=== PATIENT | female | born 1995 | race Caucasian/White ===

== ENCOUNTER 2020-01-16 15:34 | Outpatient (REF) | payer OTHER, SELFPAY | END 2020-01-16 15:35 | disposition home or self-care (01) | LOC: HO.LAB 15:34 | PROVIDERS: PCP Internal Medicine; Visit Provider Internal Medicine | DX: Z20.828 Contact with and (suspected) exposure to other viral communicable diseases (principal) | CPT/HCPCS: C9803; U0003 ==

== ENCOUNTER → 2020-03-18 15:51 | Outpatient (BNVA) | payer OTHER, MEDICAID, SELFPAY | PROVIDERS: PCP Internal Medicine; Visit Provider Surgery | DX: Z76.89 Persons encountering health services in other specified circumstances (principal) ==

== ENCOUNTER 2020-04-01 13:06 | Outpatient (REF) | payer OTHER, SELFPAY ==
--- NOTE | 2020-04-01 | US_ITS ---
EXAMINATION: US DIAGNOSTIC ULTRASOUND BREAST, RIGHT CLINICAL INFORMATION: Probable fibroadenoma for follow-up imaging 8:00 right breast. Prior history biopsy proven acellular juvenile fibroadenoma 11:00 position slightly increased in size. COMPARISON: Targeted ultrasound 09/02/2019. TECHNIQUE: Ultrasound right breast is targeted to both lesions. Grayscale imaging and color Doppler are performed without and with harmonics. FINDINGS: The probable fibroadenoma 8:00 position 6 cm from nipple is unchanged in size and contour, measuring 1.6 x 1.2 x 0.6 cm. Prior measurements are 1.7 x 1.3 x 0.6 cm on targeted ultrasound 09/02/2019. Margins are circumscribed and mildly macrolobulated. No increased or decreased through transmission of sound. The biopsy-proven acellular juvenile fibroadenoma 11:00 position 6 cm from nipple measures 4.0 x 3.7 x 2.0 cm. This is unchanged in size from prior ultrasound 09/02/2019, also measuring 4.0 x 3.7 x 2.0 cm on that exam. Measurements on outside ultrasound report [facility] 07/25/2013 was 2.8 x 2.7 x 1.4 cm. Results are discussed with the patient at time of visit. Management plan is to continue with serial follow-up, next to in 6 months. US/US breast RT limited IMPRESSION: 1. Probable fibroadenoma 8:00 position stable in size from prior studies 09/02/2019. 2. Biopsy-proven acellular juvenile fibroadenoma 11:00 position unchanged in size from 09/02/2019. ASSESSMENT: BI-RADS 3: Probably Benign RECOMMENDATION: Targeted right breast ultrasound in 6 months.
== END 2020-04-01 13:07 | disposition home or self-care (01) ==
LOC: HO.MAMMO 13:06
PROVIDERS: PCP Internal Medicine; Visit Provider Surgery
DX: D24.1 Benign neoplasm of right breast (principal)
CPT/HCPCS: 76642

== ENCOUNTER 2020-04-17 16:38 | Outpatient (REF) | payer OTHER, SELFPAY | END 2020-04-17 16:39 | disposition home or self-care (01) | LOC: HO.LAB 16:38 | PROVIDERS: Visit Provider Internal Medicine | DX: Z20.822 Contact with and (suspected) exposure to COVID-19 (principal) | CPT/HCPCS: 36415; C9803; U0003; U0005 ==

== ENCOUNTER 2020-07-06 14:27 | Outpatient (REF) | payer OTHER, SELFPAY ==
[2020-07-06 16:38] LABS: Hematocrit 37.1 % (37-47)
[2020-07-06 16:59] LABS: Alanine Aminotransferase 34 U/L (0-31); Albumin Level 4.1 g/dL (3.5-5.0); Alkaline Phosphatase 65 U/L (39-117); Anion Gap 10 (12-20); Aspartate Amino Transferase 28 U/L (5-31); Bilirubin Total 1.6 mg/dL (0.0-1.0); Blood Urea Nitrogen 13 mg/dL (9-16); Calcium 9.2 mg/dL (8.4-10.2); Carbon Dioxide 27 mmol/L (22-29); Chloride 105 mmol/L (96-108); Estimated Glomerular Filt Rate > 60; Glucose Random 73 mg/dL (60-115); Potassium 3.9 mmol/L (3.3-5.1); Sodium 138 mmol/L (135-145)
[2020-07-06 17:22] LABS: Ferritin 34 ng/mL (10-122); TSH reflex Free T4 0.52 uIU/mL (0.32-4.0)
[2020-07-06 17:30] LABS: Vitamin B12 781 pg/mL (200-900)
[2020-07-11 15:12] LABS: Vitamin D 25-OH, D2 <4 ng/mL; Vitamin D 25-OH, D3 35 ng/mL; Vitamin D 25-OH, Total 35 ng/mL (30-100)
== END 2020-07-06 14:28 | disposition home or self-care (01) ==
LOC: HO.HMGCLDS 14:27
PROVIDERS: PCP Internal Medicine; Visit Provider Internal Medicine
DX: E55.9 Vitamin D deficiency, unspecified (principal); L65.9 Nonscarring hair loss, unspecified; R53.83 Other fatigue; R79.89 Other specified abnormal findings of blood chemistry
CPT/HCPCS: 36415; 80053; 82306; 82607; 82728; 82746; 84443; 85014; 85018

== ENCOUNTER 2020-07-13 10:56 | Outpatient (REF) | payer OTHER, SELFPAY ==
[2020-07-13 14:56] LABS: Ferritin 31 ng/mL (10-122)
[2020-07-15 08:02] LABS: HBc Num1 0.13 S/CO (0.00-0.79); HBsAGNum1 0.24 S/CO (0.00-0.99); Hepatitis B Core Antibody Nonreactive (Nonreactive); Hepatitis B Surface Antigen Negative (Negative); ~Hepatitis B Surface Antibody NONREACTIVE (Nonreactive)
[2020-07-15 08:25] LABS: ~HepC Num1 0.12 S/CO (0.00-0.79); ~Hepatitis A Antibody IgM Nonreactive (Nonreactive); ~Hepatitis C Antibody Nonreactive (Nonreactive)
[2020-07-15 12:44] LABS: Venous Lead <1 mcg/dL (<5)
[2020-07-16 18:37] LABS: Alpha 1 Anti-trypsin 145 mg/dL (83-199); Ceruloplasmin 30 mg/dL (18-53)
== END 2020-07-13 10:57 | disposition home or self-care (01) ==
LOC: HO.HMGCLDS 10:56
PROVIDERS: PCP Internal Medicine; Visit Provider Internal Medicine
DX: R79.89 Other specified abnormal findings of blood chemistry (principal)
CPT/HCPCS: 36415; 82103; 82390; 82728; 83655; 86704; 86706; 86709; 86803; 87340

== ENCOUNTER 2020-11-23 14:25 | Outpatient (REF) | payer OTHER, SELFPAY ==
--- NOTE | ~2020-11-23 | US_ITS ---
EXAMINATION: US DIAGNOSTIC BREAST, RIGHT CLINICAL INFORMATION: Benign neoplasm right breast. Eight o'clock probable fibroadenoma. Eleven o'clock proven stable juvenile fibroadenoma. COMPARISON: 04/01/2020 and studies dating back to 08/01/2013. TECHNIQUE: Ultrasound of the breast is performed with real-time romeo scale imaging and color Doppler. FINDINGS: No new suspicious finding is identified. At the 8 o'clock position, approximately 6 cm from the nipple, there is again seen to be a well-circumscribed hypoechoic mass with some distal sound enhancement and small amount of internal vascularity. The lesion measures 1.6 x 0.7 x 1.2 cm in size. The lesion is wider than it is tall. At the 11 o'clock position, 3 cm from the nipple, there is a 3.4 x 2.4 x 3.7 cm lesion in size. It is again noted to have some internal vascularity and there are some regions of enhancement as well as sound shadowing. The margins are lobular. The lesion is wider than it is tall. Results are discussed with the patient at time of visit. US/US breast RT limited IMPRESSION: Stable appearance of right breast lesions. One year follow up ultrasound of the right breast is recommended. ASSESSMENT: BI-RADS 3: Probably Benign. RECOMMENDATION: 12 month follow up right breast ultrasound. This patient's information was entered into a reminder system with a target due date for their next mammogram.
== END 2020-11-23 14:26 | disposition home or self-care (01) ==
LOC: HO.MAMMO 14:25
PROVIDERS: PCP Internal Medicine; Visit Provider Internal Medicine
DX: N63.13 Unspecified lump in the right breast, lower outer quadrant (principal); D24.1 Benign neoplasm of right breast
CPT/HCPCS: 76642

== ENCOUNTER → 2021-03-16 15:18 | Outpatient (BNVA) | payer OTHER, SELFPAY | PROVIDERS: PCP Internal Medicine; Referring Provider Internal Medicine; Visit Provider Surgery ==

== ENCOUNTER 2021-07-09 13:01 | Outpatient (REF) | payer OTHER, SELFPAY ==
--- NOTE | ~2021-07-09 | XR_ITS ---
EXAMINATION: RIGHT SHOULDER AND RIGHT ANKLE. CLINICAL INFORMATION: Pain. COMPARISON: None TECHNIQUE: 3 views right ankle and 4 views right shoulder. FINDINGS: Right shoulder: There is no visible acute fracture, dislocation or subluxation. No bony erosive changes seen. The soft tissues are normal. Right ankle: The ankle mortise and subtalar joints are normal. No visible acute fracture or dislocation seen. No bony erosive changes. There is a small bone fragment tip of lateral malleolus from old injury. XR/XR ankle RT 2V IMPRESSION: Unremarkable right shoulder. No acute fracture or dislocation right ankle. Old fracture fragment tip of lateral malleolus.
--- NOTE | ~2021-07-09 | XR_ITS ---
EXAMINATION: RIGHT SHOULDER AND RIGHT ANKLE. CLINICAL INFORMATION: Pain. COMPARISON: None TECHNIQUE: 3 views right ankle and 4 views right shoulder. FINDINGS: Right shoulder: There is no visible acute fracture, dislocation or subluxation. No bony erosive changes seen. The soft tissues are normal. Right ankle: The ankle mortise and subtalar joints are normal. No visible acute fracture or dislocation seen. No bony erosive changes. There is a small bone fragment tip of lateral malleolus from old injury. XR/XR shoulder RT min 2V IMPRESSION: Unremarkable right shoulder. No acute fracture or dislocation right ankle. Old fracture fragment tip of lateral malleolus.
== END 2021-07-09 13:02 | disposition home or self-care (01) ==
LOC: HO.XRAY 13:01
PROVIDERS: PCP Internal Medicine; Visit Provider Internal Medicine
DX: M25.511 Pain in right shoulder (principal); M25.571 Pain in right ankle and joints of right foot
CPT/HCPCS: 73030; 73600

== ENCOUNTER 2022-08-08 04:18 | Emergency (ER) | payer OTHER, SELFPAY ==
[2022-08-08 04:38] VITALS: BP 107/70; PULSE 76; O2SAT 100
[2022-08-08 04:46] VITALS: BP 106/66; PULSE 70; RESP 18; TEMP 36.4; O2SAT 99; BMI 29.3
--- OUTSIDE RECORDS SUMMARY | 2022-08-08 05:54 | XMS_ITS | Continuity of Care Document ---
Author Name Unknown Organization [facility] Address [address] [place] [phone]- Care Team Providers Care Soil Conservationist Name Role Phone Isabell De Leon NP Primary Care Physician Encounter [facility] Date(s): 10/09/20 - 11/08/20 [facility] [address] [place] [phone]- Allergies, Adverse Reactions, Alerts Substance Reaction Severity Status NKA Active Problem List Condition Effective Dates Status Health Status Inform ant Breast mass in female(Confirmed) Active
--- OUTSIDE RECORDS SUMMARY | 2022-08-08 05:54 | XMS_ITS | Continuity of Care Document ---
Author Name Unknown Organization [facility] Address [address] [place] [phone]- Care Team Providers Care Physical Geographer Name Role Phone Brendan Chavez MD, Jessica Ronquillo Primary Care Physician [phone] Encounter [facility] Date(s): 10/09/20 - 12/19/20 [facility] [address] [place] [address]- Attending Physician: Navi Rodrigues MD Admitting Physician: Navi Rodrigues MD Referring Physician: Isabell De Leon NP Allergies, Adverse Reactions, Alerts Substance Reaction Severity Status NKA Active Problem List Condition Effective Dates Status Health Status Inform ant Breast mass in female(Confirmed) Active
--- OUTSIDE RECORDS SUMMARY | 2022-08-08 05:54 | XMS_ITS | Continuity of Care Document ---
Author Name Unknown Organization [facility] Address [address] [place] [phone]- Care Team Providers Care Director Radio News Name Role Phone Isabell De Leon NP Primary Care Physician [phone] Encounter [facility] Date(s): 09/30/20 - 10/30/20 [facility] [address] [place] [phone]- Allergies, Adverse Reactions, Alerts Substance Reaction Severity Status NKA Active Problem List Condition Effective Dates Status Health Status Inform ant Breast mass in female(Confirmed) Active
--- NOTE | 2022-08-08 07:06 | ED.EXTPRO ---
HPI - Extremity Problem General Chief complaint: Extremity Problem Stated complaint: tingling sensation on left hand Time Seen by Provider: 08/08/22 06:32 Source: patient, RN notes reviewed and old records reviewed Mode of arrival: ambulatory History of Present Illness HPI Narrative: 26-year-old female with a past medical history depression, presenting to the ED complaining of left hand discomfort/tingling and feeling pop after massaging hand around 04:00AM. Admits tingling extends to the wrist on plantar aspect. Denies direct injury, fall, crush, weakness, headache, vision change/loss, CP/SOB, new or worsening neck/shoulder pain, fever MD Complaint: extremity pain Related Data Home Medications Medication Instructions Recorded Confirmed fluoxetine 20 mg capsule 20 mg PO DAILY 03/16/21 06/06/22 hydroxyzine pamoate 25 mg capsule 25 mg PO BID PRN anxiety 06/01/21 06/06/22 albuterol sulfate 90 mcg/actuation 2 puff inhalation QID PRN wheezing 06/06/22 06/06/22 aerosol inhaler (Ventolin HFA) Allergies Allergy/AdvReac Type Severity Reaction Status Date / Time No Known Allergies Allergy Verified 06/06/22 17:36 Review of Systems Review of Systems: Constitutional: No Fever, No Chills ENT/Mouth: No Ear Pain, No Nasal Congestion, No sore throat, No Rhinorrhea, No Swallowing Difficulty Cardiovascular: No Chest Pain, No SOB Respiratory: No Cough, No Sputum, No Wheezing Gastrointestinal: No Nausea, No Vomiting, No Abdominal pain Genitourinary: No Dysuria, No Urinary Frequency Musculoskeletal: No joint pain, No Myalgias, +Joint Swelling Skin: No Skin Lesions, No rash Neuro: No Weakness, No Numbness, +Paresthesias Yes all other systems are reviewed and are negative Constitutional: Constitutional: Reports as per HPI Neurologic: Denies Sensory deficit (Neuro) [facility] Past Medical History Attestation statement: The following information was validated with the patient. Source: old records reviewed Medical History Fibroadenoma of right breast Mild recurrent major depression Physical exam Polyarthralgia Right ankle pain Right shoulder pain Surgical History No pertinent past surgical history Family History Family History Father Hypertension Mother No problems noted. Maternal Grandfather Diabetes mellitus Maternal Grandmother Diabetes mellitus Brother Depression Family/Other Substance use disorder Mental health disorder Social History Social History Housing: House Alcohol intake: current Alcohol intake frequency: a few times a month Alcohol type: wine Patient Tobacco Use Status: Never used Tobacco e-Cigarette/Vaping Use: Never Used Second Hand Smoke Exposure: No Advance Directives: No Advance Directives Information Provided: No service: No Current occupational status: employed Current occupational exposures/hazards: No Cognitive needs: No Hearing needs: No Vision needs: No Physical Exam Vital Signs: Vital Signs: Last Vital Signs Temp 97.6 F 08/08/22 04:46 Pulse 70 08/08/22 04:46 Resp 18 08/08/22 04:46 BP 106/66 08/08/22 04:46 Pulse Ox 99 08/08/22 04:46 O2 Del Method Room Air 08/08/22 04:46 BMI result Body Mass Index 29.3 Const: General: cooperative, healthy appearing and no acute distress Orientation/consciousness: patient oriented x3 Limitations: no limitations HEENT: Head: Yes normal to inspection and Yes atraumatic Ears: hearing grossly normal bilaterally General nose exam: Normal external nose present Face and sinus: Yes normal facial exam Eyes: General: appearance normal, both eyes and all related structures EOM: EOMs intact bilaterally Neck: Neck: Yes normal visual inspection and Yes no meningeal signs Resp: Effort & Inspection: normal respiratory effort and no respiratory distress Cardio: Rate: regular rate Peripheral pulses: Peripheral pulses 2+ throughout Back/Spine/Pelvis: Other: No midline cervical/thoracic/lumbar spinous tenderness/step-off or deformity Skin: Rashes: no rashes Wounds: no wounds Neuro: General: patient oriented x3, tone normal, moves all extremities, no meningeal signs and no focal motor deficits Gait exam (Neuro): Normal gait present Motor exam (neuro): 5/5 motor strength present throughout Sensory Exam: No Sensory deficit (Neuro) Extrem: Other: Mild swelling to left 2nd-3rd MCP, no erythema/ecchymosis. Neurovascularly intact, sensation intact to light touch. Distal pulses intact. Cap refill WNL. FROM intact, strength WNL, negative Phalen's and Tinel's sign. Finger to thumb opposition intact Medical Decision Making Medical Decision Making MDM Narrative: 26-year-old female with a past medical history depression, presenting to the ED complaining of left hand discomfort/tingling and feeling pop after massaging hand around 04:00AM. On exam vital signs stable, NAD, nontoxic appearing, physical exam as noted above left hand with focal swelling between 2nd and 3rd MCP without overlying erythema/warmth or crepitus. Mildly tender. Neurovascularly intact, distal pulses intact. No midline spinous tenderness were appreciable weakness, no focal deficits. Concern for possible contusion vs popped blood vessel. No evidence of infection, no upper extremity edema, low suspicion for DVT. Low concern for cervical dissection/radiculopathy/cord compression. Lower concern for carpal tunnel Plan: PCP follow-up Results discussed with patient including worrisome signs and symptoms and strict return precautions, and when to return to the emergency department. They verbalized understanding and feel safe for discharge at this time. Differential Diagnosis Differential Diagnoses: The differential diagnosis associated with the presentation includes As above External Record Review External record reviewed: Inpatient record, Office record, Outpatient record, Prior outpatient labs, Prior outpatient radiology, Primary care record and Outside ED record Tests considered The following testing was considered but not selected: As above Discharge Plan Discharge Clinical Impression: Hand tingling Patient Disposition: Home, Self-Care Instructions: Paresthesia (ED) Additional Instructions: Take Tylenol/ Motrin at home Ice painful area Please have close follow-up with her doctor If tingling/numbness persists, progresses, you have headache, vision change or loss, chest pain, shortness of breath or weakness return to the ED Prescriptions: No Action albuterol sulfate [Ventolin HFA] 90 mcg/actuation HFA aerosol inhaler 2 puff inhalation QID PRN (Reason: wheezing) hydroxyzine pamoate 25 mg capsule 25 mg PO BID PRN (Reason: anxiety) fluoxetine 20 mg capsule 20 mg PO DAILY Referrals: Jessica Gutierrez MD [Primary Care Provider] -
== END 2022-08-08 08:05 | disposition home or self-care (01) ==
PROVIDERS: Emergency Provider Emergency Medicine; PCP Internal Medicine
DX: R20.2 Paresthesia of skin (principal); Z79.899 Other long term (current) drug therapy
CPT/HCPCS: 99282

== ENCOUNTER 2022-08-29 14:13 | Outpatient (REF) | payer OTHER, SELFPAY ==
[2022-08-29 16:19] LABS: Alanine Aminotransferase 16 U/L (0-31); Albumin Level 4.2 g/dL (3.5-5.0); Alkaline Phosphatase 70 U/L (39-117); Anion Gap 13 (12-20); Aspartate Amino Transferase 20 U/L (5-31); Bilirubin Total 3.8 mg/dL (0.0-1.0); Blood Urea Nitrogen 11 mg/dL (9-16); Calcium 9.4 mg/dL (8.4-10.2); Carbon Dioxide 24 mmol/L (22-29); Chloride 105 mmol/L (96-108); Cholesterol 210 mg/dL; Estimated Glomerular Filt Rate > 60; Glucose Fasting 75 mg/dL (60-99); HDL Cholesterol 39 mg/dL; LDL Cholesterol Calculated 151 mg/dl; Potassium 3.7 mmol/L (3.3-5.1); Sodium 138 mmol/L (135-145); Total Protein 7.2 g/dL (6.5-8.0); Triglycerides 101 mg/dL
== END 2022-08-29 14:14 | disposition home or self-care (01) ==
LOC: HO.LAB 14:13
PROVIDERS: PCP Internal Medicine; Visit Provider Internal Medicine
DX: Z00.00 Encounter for general adult medical examination without abnormal findings (principal)
CPT/HCPCS: 36415; 80053; 80061

== ENCOUNTER 2022-10-31 11:05 | Outpatient (AMB) | payer OTHER, SELFPAY ==
--- NOTE | 2022-10-31 11:09 | MHC.OFFVIS ---
Intake Vital Signs 10/31/22 11:12 Height 5 ft 2 in Weight 149 lb BMI 27.2 BP 124/70 Blood Pressure Location Lt brachial Position Sitting Pulse 88 Intake Visit Reasons: Other disorders of bilirubin metabolism Intake Note: Patient new consult for disorders of bilirubin metabolism. Patient cc: abdominal bloating, diarrhea and denies any other GI issues. Coverage Specialist Rn Required: No Accompanied by: Self / Same As Patient Allergies No Known Allergies Allergy (Verified 10/31/22 11:09) Medication List - Last Reconciled 10/31/22 by Elvi Molina PA-C albuterol sulfate 90 mcg/actuation (Ventolin HFA) 2 puffs inhalation QID PRN fluoxetine 20 mg PO DAILY hydroxyzine pamoate 25 mg PO BID PRN HPI HPI Comments History of Present Illness Details 27-year-old female referred with elevated bilirubin normal liver enzymes- She thinks she has IBS- certain foods give her diarrhea- bloating-of loose stools, Going to [place] to see specialist for r/o Rachelle garcia Dx with Sclera derma- Dr. 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 Maternal Grandfather Diabetes mellitus Maternal Grandmother Diabetes mellitus Brother Depression Family/Other Substance use disorder Mental health disorder Social History Housing: House Alcohol intake: current Alcohol intake frequency: a few times a month Alcohol type: wine Patient Tobacco Use Status: Never used Tobacco e-Cigarette/Vaping Use: Never Used Second Hand Smoke Exposure: No service: No Current occupational status: employed Current occupational exposures/hazards: No Cognitive needs: No Hearing needs: No Vision needs: No Female Reproductive History Menstrual Age of Menarche: 14 Review of Systems Const All systems reviewed & are unremarkable except as noted in HPI and below Card Denies chest pain and Denies dyspnea Resp Denies dyspnea GI Reports loose stools Physical Exam Vital Signs: Last Vital Signs Pulse 88 10/31/22 11:12 BP 124/70 10/31/22 11:12 BMI result Body Mass Index 27.2 Const General: cooperative and comfortable Orientation/consciousness: patient oriented x3 Limitations: no limitations Eyes Conjunctivae: conjunctivae normal Resp Effort & Inspection: normal respiratory effort and able to speak in complete sentences Auscultation: clear to auscultation bilaterally, no rales, no rhonchi and no wheezes Cardio Rate: regular rate Rhythm: regular rhythm Heart sounds: S1 normal heart sound present and S2 normal heart sound present GI Palpation (GI): Soft to palpation and nontender Auscultation: normal bowel sounds Skin General skin exam: no rashes or lesions noted Neuro General: patient oriented x3 Psych Appearance: grossly normal and well kempt Mental Status: mental status grossly normal Speech and movement: Normal speech and movement present and Clear speech present Affect: normal affect Attitude: cooperative Thought process: Normal thought process present Thought content: Normal thought content present Insight: Good insight present (Psych) Judgement: Good judgement present (Psych) Assessment & Plan Assessment & Plan (1) Acquired hyperbilirubinemia: Comment: Likely [place]-may have overlapping syndrome Reviewed previous labs-with Dr. Overton Will get labs as well as stool studies Code(s): E80.6 - Other disorders of bilirubin metabolism (2) Loose stools: Comment: Stool sincere Celiac markers Code(s): R19.5 - Other fecal abnormalities (3) Hx of infectious mononucleosis: Comment: r/o EBV Code(s): Z86.19 - Personal history of other infectious and parasitic diseases Plan: Follow-up labs Plan Labs, stool study, Orders: Orders Bilirubin Direct 10/31/22 E80.6 - Other disorders of bilirubin metabolism Hepatitis A,B,C Profile 10/31/22 R79.89 - Other specified abnormal findings of blood chemistry Calprotectin, Fecal 10/31/22 R19.7 - Diarrhea, unspecified C Reactive Protein 10/31/22 E80.6 - Other disorders of bilirubin metabolism, R19.5 - Other fecal abnormalities Endomysial IgA rflx Titer 10/31/22 E80.6 - Other disorders of bilirubin metabolism, R19.5 - Other fecal abnormalities Transglutaminase IgA 10/31/22 R19.7 - Diarrhea, unspecified EBV DNA QL PCR 10/31/22 Z86.19 - Personal history of other infectious and parasitic diseases Patient Instructions: Very pleasant 27-year-old female referred with hyperbilirumanemia-normal liver enzymes- She will have follow-up labs as well as to stool studies She will follow back Dr. Overton available in the office for consult-she agrees with the plan Encouraged to call questions or concerns Appreciate the opportunity assist in the care this pleasant patient Coding Level of Care Code New Pt Level 4 (78486) Diagnoses Acquired hyperbilirubinemia E80.6 Loose stools R19.5 Hx of infectious mononucleosis Z86.19 Time Spent (min) 30
[2022-10-31 11:12] VITALS: BP 124/70; PULSE 88; BMI 27.2
== END 2022-10-31 11:51 | disposition home or self-care (01) ==
PROVIDERS: PCP Internal Medicine; Visit Provider Physician Assistant
DX: E80.6 Other disorders of bilirubin metabolism (principal); R19.5 Other fecal abnormalities; Z86.19 Personal history of other infectious and parasitic diseases
CPT/HCPCS: 99204

== ENCOUNTER → 2022-10-31 11:05 | Outpatient (BNVA) | payer OTHER, SELFPAY | PROVIDERS: PCP Internal Medicine; Visit Provider Physician Assistant | DX: E80.6 Other disorders of bilirubin metabolism (principal); R19.5 Other fecal abnormalities; Z86.19 Personal history of other infectious and parasitic diseases | CPT/HCPCS: 99202 ==

== ENCOUNTER 2022-12-19 15:17 | Outpatient (REF) | payer OTHER, SELFPAY ==
[2022-12-19 17:50] LABS: Bilirubin Direct 0.4 mg/dL (0.0-0.5); C Reactive Protein < 0.04 mg/dL (< or = 0.50)
[2022-12-20 07:53] LABS: HBS Num1 0.84 mIU/mL (0-7.99); HBc Num1 0.08 S/CO (0.00-0.79); HBsAGNum1 0.35 S/CO (0.00-0.99); Hepatitis A Antibody IgM 0.18 Index (0-0.79); Hepatitis B Core Antibody Nonreactive (Nonreactive); Hepatitis B Surface Antigen Negative (Negative); ~HepC Num1 0.05 S/CO (0.00-0.79); ~Hepatitis A Antibody IgM Nonreactive (Nonreactive); ~Hepatitis B Surface Antibody NONREACTIVE (Nonreactive); ~Hepatitis C Antibody Nonreactive (Nonreactive)
[2022-12-20 19:59] LABS: Transglutaminase IgA <1.0 U/mL
[2022-12-22 07:38] LABS: EBV DNA PCR Not Detected (Not Detected); EBV Source Whole Blood
[2022-12-24 12:09] LABS: Endomysial IgA Antibody Negative (Negative)
== END 2022-12-19 15:18 | disposition home or self-care (01) ==
LOC: HO.LAB 15:17
PROVIDERS: PCP Internal Medicine; Visit Provider Physician Assistant
DX: E80.6 Other disorders of bilirubin metabolism (principal); R19.5 Other fecal abnormalities; R19.7 Diarrhea, unspecified; R79.89 Other specified abnormal findings of blood chemistry; Z86.19 Personal history of other infectious and parasitic diseases
CPT/HCPCS: 36415; 82248; 86140; 86231; 86364; 86704; 86706; 86709; 86803; 87340; 87798

== ENCOUNTER 2023-03-16 16:54 | Outpatient (REF) | payer OTHER, SELFPAY ==
[2023-03-23 18:59] LABS: Calprotectin, Fecal 14 mcg/g
== END 2023-03-16 16:55 | disposition home or self-care (01) ==
LOC: HO.LNP 16:54
PROVIDERS: Visit Provider Physician Assistant
DX: R19.7 Diarrhea, unspecified (principal)
CPT/HCPCS: 83993

== ENCOUNTER 2023-03-20 13:05 | Outpatient (AMB) | payer OTHER, SELFPAY ==
--- NOTE | 2023-03-20 13:07 | A.OFFVIS_ITS ---
Intake Vital Signs 03/20/23 13:09 Height 5 ft 2 in Weight 162 lb BMI 29.6 BP 122/64 Blood Pressure Location Lt brachial Position Sitting Pulse 89 Intake Visit Reasons: 3 week follow up Intake Note: Liss presents in the office as a 3 week follow up. CC: She states that she is having issues with her stomach and her bowel movements. Sometimes there is blood when she has a BM. Spar Cap Beveler Required: No Allergies naproxen Allergy (Mild, Verified 03/20/23 13:12) gi upset Seasonal Allergies Allergy (Mild, Verified 03/20/23 13:12) Runny Nose HPI HPI Comments History of Present Illness Details 27-year-old female last seen in October-w as to follow up a day Dr. Overton available for consult- she said she had to reschedule several times due to her schedule She continues to have abdominal cramping with bloating stool. Dysphagia hear tburn overall disrupted GI Nausea no vomiting hematemesis, fever chills Recap from October IBS- certain foods give her diarrhea- bloating-of loose stools,Going to [place] to see specialist for r/o Rachelle garcia Dx seeing them in @/2023 Sclera derma- Dr. 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 she had a Barium, swallow @ [facility] showing mild dysmotility-she has some dysphagia- - has heartburn-feels like food sticks in the esophagus when she swallows Abdominal cramping loose stools, feels unsettled No fevers or chills Recently seen by Rheumatology [facility] Medical History (Updated 03/21/23 @ 12:21 by Elvi Molina PA-C) Hx of infectious mononucleosis Right ankle pain Right shoulder pain Polyarthralgia Physical exam Mild recurrent major depression Fibroadenoma of right breast Surgical History No pertinent past surgical history Family History Father Hypertension Mother No problems noted. Maternal Grandfather Diabetes mellitus Maternal Grandmother Diabetes mellitus Brother Depression Family/Other Substance use disorder Mental health disorder Social History Housing: House Alcohol intake: current Alcohol intake frequency: a few times a month Alcohol type: wine Patient Tobacco Use Status: Never used Tobacco e-Cigarette/Vaping Use: Never Used Second Hand Smoke Exposure: No service: No Current occupational status: employed Current occupational exposures/hazards: No Cognitive needs: No Hearing needs: No Vision needs: No Female Reproductive History Menstrual Age of Menarche: 14 Review of Systems Const All systems reviewed & are unremarkable except as noted in HPI and below Card Denies chest pain and Denies dyspnea Resp Denies dyspnea GI Reports abdominal pain, Reports GI cramping, Reports dyspepsia, Reports heartburn, Reports loose stools, Denies nausea and Denies vomiting Physical Exam Vital Signs: Last Vital Signs Pulse 89 03/20/23 13:09 BP 122/64 03/20/23 13:09 BMI result Body Mass Index 29.6 Const General: cooperative, healthy appearing, comfortable, no acute distress and well groomed Orientation/consciousness: patient oriented x3 Limitations: no limitations Eyes Conjunctivae: conjunctivae normal Resp Effort & Inspection: normal respiratory effort and able to speak in complete sentences Skin General skin exam: no rashes or lesions noted Neuro General: patient oriented x3 Extrem General: Yes full ROM Psych Appearance: grossly normal and well kempt Mental Status: mental status grossly normal Speech and movement: Normal speech and movement present and Clear speech present Affect: normal affect and Labile affect present Attitude: cooperative Thought process: Normal thought process present Thought content: Normal thought content present Insight: Good insight present (Psych) Judgement: Good judgement present (Psych) Assessment & Plan Assessment & Plan (1) LFT elevation: Comment: Repeat bilirubin Code(s): R79.89 - Other specified abnormal findings of blood chemistry (2) Loose stools: Comment: Stool sincere-normal Celiac markers negative Code(s): R19.5 - Other fecal abnormalities (3) Dysphagia: Comment: Raynaud's Ehler danlos Code(s): R13.10 - Dysphagia, unspecified Plan EGD/ colon- EDUIN- REQUESTED-ESTABLISHED MiraLax Gatorade reviewed literature given Follow-up with Dr. Overton after procedure Recheck bili Orders: Orders EDG - GI Use Only 03/20/23 M34.9 - Systemic sclerosis, unspecified Comprehensive Met. Panel 03/20/23 K58.9 - Irritable bowel syndrome without diarrhea Bilirubin Direct 03/20/23 R79.89 - Other specified abnormal findings of blood chemistry EGD/Acworth Combo - GI Use Only Today R13.10 - Dysphagia, unspecified, R19.5 - Other fecal abnormalities, R79.89 - Other specified abnormal findings of blood chemistry Medications: New bisacodyl (Dulcolax (bisacodyl)) Day before procedure, prep day Take 4 tablets by mouth upon awakening followed by large glass of water 20 mg (4 x 5 mg) PO ONCE 4 tabs 0RF colonoscopy prep 1 day Z12.11 - Encounter for screening for malignant neoplasm of colon polyethylene glycol 3350 (Miralax) Take as directed by mouth the day before your procedure. 238 grams PO ONCE 2 38 grams 0RF laxative effect 1 day pantoprazole 20 mg PO QAM 30 tabs 6RF Patient Instructions: Very pleasant 27-year-old female-dysphagia, loose stools abdominal cramping- Continued follow-up Tyro leora garcia Schedule EGD colonoscopy with Dr. Overton, in which she will follow-up with him after procedures. Discussed procedures, rare risks, need for escorted due to anesthesia MiraLax Gatorade prep reviewed literature given Encouraged to call with any questions or concerns Appreciate the opportunity assist care this very pleasant patient Coding Level of Care Code Est Pt Level 4 (17191) Diagnoses LFT elevation R79.89 Loose stools R19.5 Dysphagia R13.10 Time Spent (min) 35
[2023-03-20 13:09] VITALS: BP 122/64; PULSE 89; BMI 29.6
== END 2023-03-20 15:04 | disposition home or self-care (01) ==
PROVIDERS: PCP Internal Medicine; Visit Provider Physician Assistant
DX: R79.89 Other specified abnormal findings of blood chemistry (principal); R19.5 Other fecal abnormalities; R13.10 Dysphagia, unspecified
CPT/HCPCS: 99214

== ENCOUNTER → 2023-03-20 13:05 | Outpatient (BNVA) | payer OTHER, SELFPAY | PROVIDERS: PCP Internal Medicine; Visit Provider Physician Assistant | DX: R79.89 Other specified abnormal findings of blood chemistry (principal); R19.5 Other fecal abnormalities; R13.10 Dysphagia, unspecified | CPT/HCPCS: 99212 ==

== ENCOUNTER 2023-06-13 17:11 | Outpatient (AMB) | payer OTHER, SELFPAY ==
[2023-06-13 17:27] VITALS: BP 110/68; BMI 28.7
--- NOTE | 2023-06-13 17:27 | A.OFFPC_ITS ---
Vital Signs 06/13/23 17:27 Height 5 ft 2 in Weight 157 lb BMI 28.7 BP 110/68 Blood Pressure Location Lt brachial Position Sitting Intake Visit Reasons: Annual PE Intake Note: Patient here for an annual physical exam Cloth Grader Required: No Accompanied by: Self / Same As Patient Allergies naproxen Allergy (Mild, Verified 06/13/23 17:30) gi upset Seasonal Allergies Allergy (Mild, Verified 06/13/23 17:30) Runny Nose Tobacco use date assessed: 06/13/23 Dental Screening Dental Screen Date: 06/13/23 Did you have a dental visit in the last 12 months?: No Did you have a dental problem in the last 6 months where you did not have access to dental care?: No Was dental information given to patient?: Patient has dentist HPI HPI Comments History of Present Illness Details This is a 27-year-old female that comes for her physical exam. She has mild recurrent major depression stable with fluoxetine. Pap smears are up-to- date as per patient. Denies chest pain or shortness of breath. Complains of fatigue and tiredness. [facility] Medical History Hx of infectious mononucleosis Right ankle pain Right shoulder pain Polyarthralgia Physical exam Mild recurrent major depression Fibroadenoma of right breast Surgical History No pertinent past surgical history Family History Father Hypertension Mother No problems noted. Maternal Grandfather Diabetes mellitus Maternal Grandmother Diabetes mellitus Brother Depression Family/Other Substance use disorder Mental health disorder Social History Housing: House Alcohol intake: current Alcohol intake frequency: a few times a month Alcohol type: wine Patient Tobacco Use Status: Never used Tobacco e-Cigarette/Vaping Use: Never Used Second Hand Smoke Exposure: No service: No Current occupational status: employed Current occupational exposures/hazards: No Cognitive needs: No Hearing needs: No Vision needs: No Female Reproductive History Menstrual Age of Menarche: 14 Questionnaire PHQ-9 Over the last 2 weeks, how often have you been bothered by any of the following problems? 1. Little interest or pleasure in doing things: not at all 2. Feeling down, depressed, or hopeless: several days 3. Trouble falling or staying asleep, or sleeping too much: not at all 4. Feeling tired or having little energy: not at all 5. Poor appetite or overeating: not at all 6. Feeling bad about yourself - or that you are a failure or have let yourself or your family down: not at all 7. Trouble concentrating on things, such as reading the newspaper or watching television: not at all 8. Moving or speaking so slowly that other people could have noticed. Or the opposite - being so fidgety or restless that you have been moving around a lot more than usual: not at all 9. Thoughts that you would be better off or of hurting yourself in some way: not at all Total score: 1 Depression Screening Interpretation: Negative Depression Screening Done: Yes 72015 - PHQ-9 Billing: Yes Source: Developed by Drs. Yung Robertson, Shahida Meyer, James White and colleagues, with an educational arjun from [employer]. Thrive Questionnaire Date Thrive assessed: 06/13/23 I am a: Patient What is your living situation today?: I have a steady place to live Within the past 12 months, did the food you bought not last and you didn't have the money to get more?: Never true Within the past 12 months, did you worry whether your food would run out before you got money to buy more?: Never true Do you have trouble paying for medicines?: No Do you have trouble getting transportation to medical appointments?: No Do you have trouble paying your heating and electricity bill?: No Do you have trouble taking care of your child, family member or friend?: No Do you have trouble with day-to-day activities such as bathing, preparing meals, shopping, managing finances, etc.?: No Are you currently unemployed and looking for a job?: No Are you interested in more education?: No Please select the resources that you would like help with: None Currently or been in a relationship where the following occur: no concerns reported THRIVE Score: 0 AUDIT C Alcohol Use Questionnaire (AUDIT-C) 1. How often do you have a drink containing alcohol?: Monthly or less 2. How many drinks containing alcohol do you have on a typical day when you are drinking?: 1 or 2 3. How often do you have six or more drinks on one occasion?: Never Total Score: 1 SERGO-7 AMB Questionnaire SERGO-7 Date SERGO - 7 assessed: 06/13/23 Feeling nervous, anxious, or on edge: 1 = Several days Not being able to stop or control worryin = Not at all Worrying too much about different things: 0 = Not at all Trouble relaxin = Not at all Being so restless that it is hard to sit still: 0 = Not at all Becoming easily annoyed or irritable: 0 = Not at all Feeling afraid as if something awful might happen: 0 = Not at all Total SERGO-7 score (0-4 normal; 5-9 mild; 10-14 moderate; 15-21 severe): 1 Source: Developed by Drs. Yung Robertson, Shahida Meyer, James White and colleagues, with an educational arjun from [employer]. Review of Systems Const All systems reviewed & are unremarkable except as noted in HPI and below Eyes Reports no additional complaints, Denies change in vision and Denies other visual disturbances Card Denies chest pain at rest, Denies chest pain with activity, Denies edema, Denies irregular heart rhythm, Denies claudication, Denies dyspnea, Denies dyspnea on exertion, Denies orthopnea, Denies paroxysmal nocturnal dyspnea and Denies slow heart rate Resp Denies cough, Denies dyspnea and Denies dyspnea on exertion GI Denies abdominal pain, Denies change in bowel habits, Denies excessive flatus, Denies nausea and Denies vomiting Denies urinary incontinence, Denies urinary hesitancy and Denies urinary urgency Physical exam (Primary Care) Vital Signs: Last Vital Signs BP 110/68 06/13/23 17:27 BMI result Body Mass Index 28.7 Tobacco/Smoking Status: Tobacco use Status Tobacco use date assessed 06/13/23 06/13/23 17:34 Patient Tobacco Use Status Never used Tobacco 06/13/23 17:34 e-Cigarette/Vaping Use Never Used 06/13/23 17:34 PHQ-9: PHQ-9 Score PHQ-9: Total score 1 06/13/23 17:45 Depression Screening Interpretation: Negative Thrive Assessment: Date of Thrive Assessment Date Thrive assessed 06/13/23 06/13/23 17:34 Currently or been in a relationship where the following occur: no concerns reported Const Orientation/consciousness: patient oriented x3 [facility] Head: Yes normal to inspection, Yes normocephalic and Yes atraumatic Ears: external ears normal Eyes General: appearance normal, both eyes and all related structures Eyelids: Yes eyelids normal Conjunctivae: conjunctivae normal Neck Neck: Yes normal visual inspection and Yes supple Resp Effort & Inspection: normal respiratory effort Auscultation: clear to auscultation bilaterally Cardio Jugular venous distension: no JVD Rate: regular rate Rhythm: regular rhythm Heart sounds: S1 normal heart sound present and S2 normal heart sound present GI Inspection: Yes normal to inspection Palpation (GI): Soft to palpation and nontender Auscultation: normal bowel sounds Skin General skin exam: no rashes or lesions noted Neuro General: patient oriented x3 and no focal motor deficits Extrem General: Yes full ROM Psych Appearance: grossly normal Assessment and Plan Assessment & Plan (1) Physical exam: Code(s): Z00.00 - Encounter for general adult medical examination without abnormal findings Plan: Repeat in a year. (2) Mild recurrent major depression: Code(s): F33.0 - Major depressive disorder, recurrent, mild Plan: Continue fluoxetine. Orders: Orders Lipid Panel Today Z00.00 - Encounter for general adult medical examination without abnormal findings Vitamin D 25-OH Total Today E55.9 - Vitamin D deficiency, unspecified Complete Blood Count Auto Diff Today R53.83 - Other fatigue Thyroid Stimulating Hormone Today R53.83 - Other fatigue Comprehensive [place]. Panel Fast Today Z00.00 - Encounter for general adult medical examination without abnormal findings Vitamin B12 and Folate Today R53.83 - Other fatigue Coding Level of Care Code Est Pt Prev Care 18-39y(95435) Diagnoses Physical exam Z00.00 Mild recurrent major depression F33.0 Time Spent (min) 32
== END 2023-06-13 17:52 | disposition home or self-care (01) ==
PROVIDERS: Visit Provider Internal Medicine
DX: Z00.00 Encounter for general adult medical examination without abnormal findings (principal); F33.0 Major depressive disorder, recurrent, mild
CPT/HCPCS: 99395

== ENCOUNTER 2023-06-23 09:22 | Outpatient (REF) | payer OTHER, SELFPAY ==
[2023-06-23 09:36] LABS: MANUAL DIFF FLAG NO
[2023-06-23 10:21] LABS: Basophils Absolute Auto 0.1 X10*3/uL (0.0-0.2); Basophils Percent Auto 0.6 % (0-2); Eosinophils Absolute Auto 0.2 X10*3/uL (0.0-0.4); Hematocrit 37.6 % (37.0-47.0); Hemoglobin 12.4 g/dl (12.0-16.0); Imm Gran Abs Auto 0.02 X10*3/uL (0.00-0.03); Imm Gran Pct Auto 0.2 % (0.0-0.4); Lymphocytes Absolute Auto 3.2 X10*3/uL (1.2-4.9); Mean Corpuscular Hemoglobin 27.7 pg (27.0-33.0); Mean Corpuscular Volume 83.9 fL (80.0-98.0); Monocytes Absolute Auto 0.9 X10*3/uL (0.1-1.2); Monocytes Percent Auto 11.4 % (2-11); Neutrophils Absolute Auto 3.8 x10*3/uL (2.0-8.3); Neutrophils Percent Auto 46.8 % (45-73); Platelet Count 312 X10*3/uL (160-400); Red Blood Count 4.48 X10*6/uL (4.20-5.50); Red Cell Distribution Width 11.5 % (11.0-16.0); White Blood Count 8.2 X10*3/uL (4.8-10.8)
[2023-06-23 11:13] LABS: Alanine Aminotransferase 27 U/L (0-31); Albumin Level 4.1 g/dL (3.5-5.0); Alkaline Phosphatase 66 U/L (39-117); Anion Gap 11 (12-20); Aspartate Amino Transferase 29 U/L (5-31); Bilirubin Total 2.4 mg/dL (0.0-1.0); Blood Urea Nitrogen 9 mg/dL (9-16); Carbon Dioxide 25 mmol/L (22-29); Chloride 106 mmol/L (96-108); Cholesterol 187 mg/dL (<200); Estimated Glomerular Filt Rate > 60; Glucose Fasting 79 mg/dL (60-99); HDL Cholesterol 38 mg/dL (>40); LDL Cholesterol Calculated 134 mg/dL (<100); Potassium 3.5 mmol/L (3.3-5.1); Sodium 138 mmol/L (135-145); Triglycerides 75 mg/dL (<150)
[2023-06-23 11:32] LABS: Thyroid Stimulating Hormone 0.49 uIU/mL (0.32-4.0); Vitamin D 25-OH Total 25.4 ng/mL (>30)
[2023-06-23 20:13] LABS: Folate 18.5 ng/mL (> or = 4.0)
[2023-06-25 00:51] LABS: Vitamin B12 565 pg/mL (200-900)
== END 2023-06-23 09:23 | disposition home or self-care (01) ==
LOC: HO.LAB 09:22
PROVIDERS: PCP Internal Medicine; Visit Provider Internal Medicine
DX: Z00.00 Encounter for general adult medical examination without abnormal findings (principal); Z13.6 Encounter for screening for cardiovascular disorders; E55.9 Vitamin D deficiency, unspecified; R53.83 Other fatigue
CPT/HCPCS: 36415; 80053; 80061; 82306; 82607; 82746; 84443; 85025

== ENCOUNTER 2023-07-05 09:01 | Day surgery (SDC) | payer OTHER, SELFPAY ==
--- NOTE | 2023-07-04 08:47 | HO.ANESPROP2 ---
Documented by User: Ada Sheppard NP 07/04/23 08:48 HPI - Anesthesia Eval Consult details Narrative: 27yo F for Upper Endoscopy and Colonoscopy PMFSH Active Problems Active Problems: All Active Problems Scoliosis (Acute) Rash (Acute) Headache (Acute) Pelvic pain (Acute) Dysphagia (Acute) Scleroderma (Acute) Hx of infectious mononucleosis (Acute) Loose stools (Acute) Acquired hyperbilirubinemia (Acute) Right ankle pain (Acute) Right shoulder pain (Acute) Polyarthralgia (Acute) Physical exam (Acute) Mild recurrent major depression (Acute) Vitamin D deficiency (Acute) LFT elevation (Acute) Feeling tired (Acute) Falling hair (Acute) Fibroadenoma of right breast (Acute) Past Medical History Medical History (Updated 06/17/23 @ 13:19 by Jessica Chavez MD) Hx of infectious mononucleosis Right ankle pain Right shoulder pain Polyarthralgia Physical exam Mild recurrent major depression Fibroadenoma of right breast Family History Family History Father Hypertension Mother No problems noted. Maternal Grandfather Diabetes mellitus Maternal Grandmother Diabetes mellitus Brother Depression Family/Other Substance use disorder Mental health disorder Surgical History Surgical History (Updated 07/05/23 @ 10:23 by Concha Carmichael RN) H/O breast biopsy No pertinent past surgical history Social History Social History Housing: House Alcohol intake: current Alcohol intake frequency: a few times a month Alcohol type: wine Patient Tobacco Use Status: Never used Tobacco e-Cigarette/Vaping Use: Never Used Second Hand Smoke Exposure: No Use of substances other than those prescribed or required for medical reasons: Yes Are you DNR?: No Advance Directives: No Advance Directives Information Provided: Yes service: No Current occupational status: employed Current occupational exposures/hazards: No Cognitive needs: No Hearing needs: No Vision needs: No Meds Allergies Allergy/AdvReac Type Severity Reaction Status Date / Time naproxen Allergy Mild gi upset Verified 06/13/23 17:30 Seasonal Allergies Allergy Mild Runny Nose Verified 06/13/23 17:30 Home Medications ?Medication ?Instructions ?Recorded ?Confirmed ?Last Taken ?Type fluoxetine 20 mg capsule 20 mg PO DAILY 03/16/21 10/31/22 Unknown History hydroxyzine pamoate 25 mg capsule 25 mg PO BID PRN anxiety 06/01/21 10/31/22 Unknown History albuterol sulfate 90 mcg/actuation 2 puff inhalation QID PRN wheezing 06/06/22 10/31/22 Unknown History aerosol inhaler (Ventolin HFA) fluticasone furoate 200 1 ea inhalation DAILY 06/13/23 Unknown History mcg-vilanterol 25 mcg/dose inhalation powder (Breo Ellipta) lisdexamfetamine 10 mg capsule 10 mg PO QAM 06/13/23 Unknown History (Vyvanse) Assessment and Plan Assessment Anesthesia Assessment: Chart Reviewed Documented by User: Aleta Sierra MD 07/05/23 11:39 [facility] Past Medical History Medical History (Updated 06/17/23 @ 13:19 by Jessica Chavez MD) Hx of infectious mononucleosis Right ankle pain Right shoulder pain Polyarthralgia Physical exam Mild recurrent major depression Fibroadenoma of right breast Family History Family History Father Hypertension Mother No problems noted. Maternal Grandfather Diabetes mellitus Maternal Grandmother Diabetes mellitus Brother Depression Family/Other Substance use disorder Mental health disorder Family history of problems with anesthesia: No Surgical History Surgical History (Updated 07/05/23 @ 10:23 by Concha Carmichael RN) H/O breast biopsy No pertinent past surgical history History of Problems with Anesthesia: No Social History Social History Housing: House Alcohol intake: current Alcohol intake frequency: a few times a month Alcohol type: wine Patient Tobacco Use Status: Never used Tobacco e-Cigarette/Vaping Use: Never Used Second Hand Smoke Exposure: No Use of substances other than those prescribed or required for medical reasons: Yes Are you DNR?: No Advance Directives: No Advance Directives Information Provided: Yes service: No Current occupational status: employed Current occupational exposures/hazards: No Cognitive needs: No Hearing needs: No Vision needs: No Meds Allergies Allergy/AdvReac Type Severity Reaction Status Date / Time naproxen Allergy Mild gi upset Verified 06/13/23 17:30 Seasonal Allergies Allergy Mild Runny Nose Verified 06/13/23 17:30 Home Medications ?Medication ?Instructions ?Recorded ?Confirmed ?Last Taken ?Type fluoxetine 20 mg capsule 20 mg PO DAILY 03/16/21 10/31/22 Unknown History hydroxyzine pamoate 25 mg capsule 25 mg PO BID PRN anxiety 06/01/21 10/31/22 Unknown History albuterol sulfate 90 mcg/actuation 2 puff inhalation QID PRN wheezing 06/06/22 10/31/22 Unknown History aerosol inhaler (Ventolin HFA) fluticasone furoate 200 1 ea inhalation DAILY 06/13/23 Unknown History mcg-vilanterol 25 mcg/dose inhalation powder (Breo Ellipta) lisdexamfetamine 10 mg capsule 10 mg PO QAM 06/13/23 Unknown History (Vyvanse) Exam Airway Mallampati Class: II TM Dist: >3cm Neck ROM: Full Heart: rrr Lungs: cta Assessment and Plan Assessment Anesthesia Assessment: Anesthesia Plan Discussed Final Anesthetic Review Family History of Problems with Anesthesia: No History of Problems with Anesthesia: No NPO: Yes ASA Class: II Final Preanesthetic Review: No Changes in Pt Med Stat, Meds/Allgs Chart Reviewed and Consent Obtained/Reviewed Patient Risk: Low Procedure Risk: Intermediate Anesthetic Plan Anesthetic Plan: MAC: Disposition: Standard PACU
[2023-07-05] VITALS (8 sets, daily range): BP systolic 91–108; BP diastolic 46–73; PULSE 30–76; RESP 16; TEMP 36.1–36.6; O2SAT 95–97; BMI 28.7
--- OUTSIDE RECORDS SUMMARY | 2023-07-05 09:04 | XMS_ITS | Patient Health Record ---
Author Organization [facility] Address [address] [id number] Care Team Providers Care Runner Worker Name Role Phone ALIN STOVER Unavailable [phone] MARCIO FISHER Unavailable [phone] María Verdin Unavailable [phone] Allergies Allergen (clinical drug ingredient) Drug/Non Drug Allergy documented on EMR Reaction Allergy Type Onset Date Status naproxen Naproxen Unknown Drug Allergy Active Results Component Value Reference Range Notes CHLAMYDIA GC AMP PROBE Reviewed date:05/11/2023 11:30:39 AM Interpretation:Negative Performing Lab:Testing performed or reported by [facility], a Service of [facility], [facility] Kaley Acuña Thi [place] [address] Aryan Hammonds MD, It Business Analyst [facility]# [id number] Notes/Report: C.TRACHOMATIS AMP PROBE NEGATIVE (NEG) No Chlamydia Trachomatis RNA detected in this patient's sample (REFERENCE RANGE/NORMAL VALUE: NOT DETECTED) Note: This test uses senior medical transcriptionist- mediated amplification method to detect rRNA from C. Trachomatis N.GONORRHOEAE AMP PROBE NEGATIVE (NEG) No Neisseria Gonorrhoeae RNA detected in this patient's sample (REFERENCE RANGE/NORMAL VALUE: NOT DETECTED) NOTE: This test uses senior medical transcriptionist-mediated amplification method to detect rRNA from N.Gonorrhoeae. A negative result does not preclude infection. In the case of a negative urine result, testing of an endocervical(female) or urethral (male) specimen is recommended if there is high clinical suspicion of infection. Due to very high sensitivity of Nucleic Acid Amplification Test, false positive results may occur. Therefore, specimen handling is extremely important. In patients in whom the disease is unlikely, additional sample for testing should be considered after an initial positive result. The performance characteristics of this test have not been evaluated in children. The Aptima Combo2 assay is not intended for the evaluation of suspected sexual abuse or for other medico-legal indications. The ordering provider should assess if the patient had consensual sex without risk of sexual abuse. Consult the [facility] if needed. Contact phone number . Therapeutic failure or success cannot be determined with the Aptima Combo2 assay since nucleic acid may persist following appropriate antimicrobial therapy. The Centers for Disease Control and Prevention (CDC) recommends confirmatory retesting using culture or a different nucleic acid amplification test when positive results occur, if indicated. CHLAM/GC AMP PROBE SPEC TYPE CERVIX TRICHOMONAS,SWAB Reviewed date:05/11/2023 11:30:02 AM Interpretation:Negative Performing Lab:Testing performed or reported by [facility], a Service of [facility], [address] [place] [address] [place] [address] Aryan Hammonds MD, It Business Analyst [facility]# [id number] Notes/Report: SOURCE CERVIX TRICHOMONAS,SWAB NEGATIVE (NEG) No Trichomonas vaginalis RNA detected in this patient's sample NORMAL VALUE: NOT DETECTED NOTE: This test uses senior medical transcriptionist-mediated amplification method to detect rRNA from Trichomonas vaginalis. A negative result does not preclude infection. Reason For Referral No Information Medications Medication SIG (Take, Route, Fr equency, Duration) Notes Start Date End Date Status Xulane 150-35 MCG/24HR 1 patch to skin T ransdermal Apply one patch once a week for three weeks. Fourth week patch free. for 28 days 05/09/2023 Active Plan B One-Step 1.5 MG 1 tablet Orally A t once for 1 days 05/09/2023 Active hydrOXYzine HCl 25 mg Acti ve Fluoxetine 20 mg Active Vyvanse 10 mg Active Social History Sex Assigned At : Social History Observation Description Sex Assigned At Female Vital Signs Blood pressure diastolic 77 mm Hg 05/09/2023 Height 5'2 in 05/09/2023 Blood pressure systolic 125 mm Hg 05/09/2023 Weight 157.3 lbs 05/09/2023 BMI 28.77 kg/m2 05/09/2023 Encounters Encounter Location Date Provider Diagnosis [facility] [address] [place] [address] [address] [place], [place] [id number] 05/09/2023 ALIN STOVER Encounter for prescription of emergency contraception Z30.012 ; Encounter for initial prescription of transdermal patch hormonal contraceptive device Z30.016 ; Encounter for screening for infections with a predominantly sexual mode of transmission Z11.3 ; Encounter for other general counseling and advice on contraception Z30.09 and Counseling, unspecified Z71.9 Assessments Encounter Date Diagnosis (ICD Code) Assessment Notes Treatment Notes Treatment Clinical Notes 05/09/2023 Encounter for initial prescription of transdermal patch hormonal contraceptive device (ICD-10 - Z30.016) No CI to CHC, quick start with BUM x 7 days. Aware of ACHES. RTC in 3 months for patch check and annual/PAP. RTC sooner if any unwanted side effects or issue. Aware that ALICE and patch have similar hormonal makeup and she might experience similar symptoms to those she had while on the pill. Will monitor mood closely and follow up if needs to consider alternative method. 05/09/2023 Encounter for prescription of emergency contraception (ICD-10 - Z30.012) Plan B with refills sent to pharmacy for future use. 05/09/2023 Encounter for screening for infections with a predominantly sexual mode of transmission (ICD-10 - Z11.3) Reviewed STI screening recommendations and available testing through [employer]. Testing ordered as noted per patient risks and preference. Encouraged safe sex practices. Advised to call for evaluation if any symptoms arise. Reviewed method of communicating results to patient. Clt declines RPR or HIV testing today, will consider serology at time of upcoming annual 05/09/2023 Encounter for other general counseling and advice on contraception (ICD-10 - Z30.09) Reviewed control options available. Reviewed risk, benefits and side effects of each method. Answered questions and concerns, and used shared decision-making to choose method. Clt declines same day insert of LARC. Discussed POP vs CHC. Prefers to try patches first 05/09/2023 Counseling, unspecified (ICD-10 - Z71.9) Encouraged routine annual and initial PAP, clt to schedule accordingly Plan Of Treatment No Information Insurance Providers Payer Name Payer Address Payer Phone Subscriber Number Group Number Insured Name Patient Relationship to Insured Coverage Start Date Coverage End Date ID MEDICAID ATT CLAIMS [address] [place] [id number] [phone] [id number] Liss Lipscomb Self - patient is the insured Medical (General) History Medical History History ICD Code Migraines Asthma as a child Depression/axniety Breast Fibroadenoma Hx
[2023-07-05] MEDS: Lactated Ringers 1,000 ML 100 ML IVCONT (10:45)
--- NOTE | 2023-07-05 11:29 | PC.NURSE ---
patient attempted to go to the bathroom with a urine sample and still unable to void. fluids remain infusing wide open.
[2023-07-05 12:23] LABS: HCG Quantitative < 2 mIU/mL
--- NOTE | 2023-07-05 12:37 | MHC.SHP ---
Pre-Procedural Eval Section A - 24 Hr Update-Section A only Date of Service: 07/05/23 Section B - Complete if H&P > 30 days Chief Complaint: Other fecal abnormalities,Dysphagia Relevant Family History (Specify if Yes): No Relevant Social History: None Present Medications: see Short Stay Collaborative assessment Medical History: Significant History (Hx of infectious mononucleosis Right ankle pain Right shoulder pain Polyarthralgia Physical exam Mild recurrent major depression Fibroadenoma of right breast) History of Previous Operations: Relevant previous surgery/procedure and date(s) (H/O breast biopsy) Allergies: Allergies Allergy/AdvReac Type Severity Reaction Status Date / Time naproxen Allergy Mild gi upset Verified 06/13/23 17:30 Seasonal Allergies Allergy Mild Runny Nose Verified 06/13/23 17:30 Review of Systems Sugical H&P ROS: Negative: Constitution, Cardiovascular, Respiratory, Neurological, Psychiatric, Hem-Onc, Allergic/Immunologic, Gastrointestinal, Genitourinary, Musculoskeletal, Integumentary, Endocrine and Eyes/Ears/Nose/Throat Exam Surgical H&P Exam: Normal: HEENT, Normal: Heart, Normal: Lungs, Normal: Extremities, Normal: Abdomen, Normal: Skin and Normal: Neurological Plan Diagnosis/Plan: Unchanged I have reviewed the history and physical and performed a pertinent physical examination on my patient. No changes have occurred unless specified. Time Spent With Patient Time: Total time managing care of this patient today ____ minutes.
--- NOTE | 2023-07-05 12:38 | W.PM.OPN ---
Operative Note Operative Note Date of Service: 07/05/23 Narrative: Operative Information Procedure Description: EGD, Colonoscopy Indication: dysphagia, abn bowel habit Anesthesia: MAC FLEXIBLE TRANSORAL UPPER GASTROINTESTINAL ENDOSCOPY AND COLONOSCOPY PROCEDURE NOTE UPPER ENDOSCOPY Consent: Indications for the procedure and potential complications of bleeding, perforation, reaction to medications and missed diagnosis were discussed with the patient and informed consent was obtained. Instrument: Olympus GIF H 190 J mid size upper endoscope Monitoring: Vital signs and clinical assessment, continuous EKG monitoring, Pulse oximetry, Carbon Dioxide monitoring and blood pressure monitoring were done throughout the procedure. Procedure: The patient was placed in the left lateral decubitis position and pre-procedure medications were administered and a bite block was placed. The endoscope was inserted into the mouth and advanced under direct vision to the third part of duodenum. A careful inspection was made as the upper endoscope was withdrawn including a retroflexed examination of the proximal stomach; Findings and interventions are described below. Findings: Larynx:normal Esophagus: GE junction at 35 cm, diaphragm hiatus at 35 cm, normal mucosa, bx taken from GEJ, and distal,proximal esophagus, balloon dilation doen to 20 mm at UES and LES--no tears seen Stomach: Normal mucosa. Biopsies were obtained. Grade 2 flap valve on retroflexed examination of the cardia. Lax LES Duodenum: Normal bulb and descending duodenum, bx taken Intervention: Biopsies as noted above, COLONOSCOPY Instrument: Olympus variable stiffness pediatric scope 190L Colonoscopy Monitoring: Vital signs and clinical assessment, continuous EKG monitoring, Pulse oximetry, Carbon Dioxide monitoring and blood pressure monitoring were done throughout the procedure. Colon withdrawal time was 10 minutes. Procedure: The patient was placed in the left lateral decubitis position and pre-procedure medications were administered. After a digital rectal examination of the ano-rectum, the video colonoscope was inserted into the rectum and advanced through the colon to the cecum/TI. The colonoscope was slowly withdrawn in a retrograde panoramic fashion and the colon mucosa was carefully examined including a retroflexed view of the rectum. Findings and interventions are described below. Procedure Difficulty:moderate Findings: Terminal Ileum-normal, bx taken Random colon bx taken from right and left colon Cecum:normal Ascending Colon: normal Transverse Colon -normal Descending Colon:normal Sigmoid Colon: normal Rectum: Retroflexion with small internal hemorrhoids, grade I Anorectum - normal Colon preparation: [place] Bowel Preparation Scale Right colon; 2 Transverse colon: 2 Left colon; 2 (0 = Unprepared colon segment with mucosa not seen due to solid stool that cannot be cleared. 1 = Portion of mucosa of the colon segment seen, but other areas of the colon segment not well seen due to staining, residual stool and/or opaque liquid. 2 = Minor amount of residual staining, small fragments of stool and/or opaque liquid, but mucosa of colon segment seen well. 3 = Entire mucosa of colon segment seen well with no residual staining, small fragments of stool or opaque liquid) Impression and Post Procedure Diagnosis: Endoscopy Findings: lax LES Colonoscopy Findings: small internal hemorrhoids Plan: Await Pathology results Repeat Colonoscopy aged 45 or earlier if clinically indicated High fiber diet leaflet avoid straining at stool, epsom salts and sitz bath, anusol supps or cream GERD precautions, check PPI compliance Above findings were reviewed with the patient and relevant handouts were provided if indicated.
== END 2023-07-05 14:33 | disposition home or self-care (01) ==
PROVIDERS: Anesthesiology; PCP Internal Medicine; Visit Provider Internal Medicine Gastroenterology
PROC: (CPT 45380; principal; 2023-07-05 11:20)
DX: R19.5 Other fecal abnormalities (principal); R13.10 Dysphagia, unspecified; K64.0 First degree hemorrhoids
CPT/HCPCS: 45380; 43249; 43239; 36415; 84702; 88305; 88313; 88341; 88342; J2704

== ENCOUNTER → 2023-07-05 09:01 | Outpatient (BNV) | payer OTHER, SELFPAY | PROVIDERS: PCP Internal Medicine; Visit Provider Internal Medicine Gastroenterology | DX: R19.4 Change in bowel habit (principal); K64.0 First degree hemorrhoids; R13.10 Dysphagia, unspecified; K22.4 Dyskinesia of esophagus | CPT/HCPCS: 43239; 43249; 45380 ==

== ENCOUNTER 2023-07-21 08:24 | Outpatient (AMB) | payer OTHER, SELFPAY ==
--- NOTE | 2023-07-21 08:24 | A.OFFVIS_ITS ---
Intake Visit Reasons: S/P [place]; Dr. Overton Intake Note: Liss presents as a video call today for Tian. CC: She states that she is not having any concerns today. Allergies naproxen Allergy (Mild, Verified 07/21/23 08:25) gi upset Seasonal Allergies Allergy (Mild, Verified 07/21/23 08:25) Runny Nose HPI HPI S/P [place]; Dr. Overton: Details: 27-year-old female being called for f/u RECAP: Sx -abdominal cramping with bloating stool. Dysphagia heartburn Going to [place] to see specialist for r/o Rachelle Lora seeing them in @ [facility]- Dr. 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 she had a Barium, swallow @ [facility] showing mild dysmotility-she has some dysphagia- EGD/COLO: 07/05/23 Endoscopy Findings: lax LES Colonoscopy Findings: small internal hemorrhoids Path:mild inflammation stomach and GEJ INTERIM: Since the procedure she has had an easier time swallowing appetite is fair weight is stable no abdominal pain no constipation or diarrhea Exam: Looks well A/P: 1/ Dysphagia, improved s/p dilation ?due to GERD, PLAN: /1 - cont with PPI, can try low histamine diet as well PFSH Medical History Hx of infectious mononucleosis Right ankle pain Right shoulder pain Polyarthralgia Physical exam Mild recurrent major depression Fibroadenoma of right breast Surgical History (Updated 07/21/23 @ 08:24 by ANA Hargrove) Hx of colonoscopy History of esophagogastroduodenoscopy (EGD) H/O breast biopsy No pertinent past surgical history Family History Father Hypertension Mother No problems noted. Maternal Grandfather Diabetes mellitus Maternal Grandmother Diabetes mellitus Brother Depression Family/Other Substance use disorder Mental health disorder Social History Housing: House Alcohol intake: current Alcohol intake frequency: a few times a month Alcohol type: wine Patient Tobacco Use Status: Never used Tobacco e-Cigarette/Vaping Use: Never Used Second Hand Smoke Exposure: No service: No Current occupational status: employed Current occupational exposures/hazards: No Cognitive needs: No Hearing needs: No Vision needs: No Female Reproductive History Menstrual Age of Menarche: 14 Telehealth Telehealth Telehealth Platform: [employer] Location of provider rendering services: practice address Location of patient: address on file Patient Identification confirmed using: Name, : Yes Telehealth method: video Patient verbally consented to treatment: Yes Patient verbally consented to billing insurance company: Yes Patient informed of any privacy concerns related to visit: Yes Minutes spent on Phone/Video with Pt.: 6 Assessment & Plan Assessment & Plan (1) Dysphagia: Comment: Raynaud's Rachelle garcia Code(s): R13.10 - Dysphagia, unspecified Category: Medical Plan: see above Coding Level of Care Code Tele Est Pt Level 3 (21750) Diagnoses Dysphagia R13.10
--- OUTSIDE RECORDS SUMMARY | 2023-07-21 08:25 | XMS_ITS | Patient Health Record ---
Author Organization [facility] Address [address] [id number] Care Team Providers Care Cocoa Butter Filter Operator Name Role Phone ALIN STOVER Unavailable [phone] MARCIO FISHER Unavailable [phone] María Verdin Unavailable [phone] Allergies Allergen (clinical drug ingredient) Drug/Non Drug Allergy documented on EMR Reaction Allergy Type Onset Date Status naproxen Naproxen Unknown Drug Allergy Active Results Component Value Reference Range Notes CHLAMYDIA GC AMP PROBE Reviewed date:05/11/2023 11:30:39 AM Interpretation:Negative Performing Lab:Testing performed or reported by [facility], a Service of [facility], [facility] Kaley Acuña Thi [place] [address] Aryan Hammonds MD, Drug Abuse Program Coordinator [facility]# [id number] Notes/Report: C.TRACHOMATIS AMP PROBE NEGATIVE (NEG) No Chlamydia Trachomatis RNA detected in this patient's sample (REFERENCE RANGE/NORMAL VALUE: NOT DETECTED) Note: This test uses rehabilitation tech- mediated amplification method to detect rRNA from C. Trachomatis N.GONORRHOEAE AMP PROBE NEGATIVE (NEG) No Neisseria Gonorrhoeae RNA detected in this patient's sample (REFERENCE RANGE/NORMAL VALUE: NOT DETECTED) NOTE: This test uses rehabilitation tech-mediated amplification method to detect rRNA from N.Gonorrhoeae. [...] without risk of sexual abuse. Consult the [facility] if needed. Contact [...] Interpretation:Negative Performing Lab:Testing performed or reported by [facility], a Service of [facility], [address] [place] [address] [place] [address] Aryan Hammonds MD, Drug Abuse Program Coordinator [facility]# [id number] Notes/Report: SOURCE CERVIX TRICHOMONAS,SWAB NEGATIVE (NEG) No Trichomonas vaginalis RNA detected in this patient's sample NORMAL VALUE: NOT DETECTED NOTE: This test uses rehabilitation tech-mediated amplification method to detect rRNA from Trichomonas [...] 05/09/2023 Encounters Encounter Location Date Provider Diagnosis [facility] [address] [place] [address] [address] [place], [place] [phone] 05/09/2023 ALIN STOVER Encounter for prescription of [...] STI screening recommendations and available testing through [employer]. Testing ordered as noted per patient risks [...] clt to schedule accordingly Plan Of Treatment Next Appt Details Provider Name:MARCIO FISHER , 07/28/2023 11:00:00 AM, [address] [place] [address], [phone], Insurance Providers Payer Name Payer Address Payer Phone Subscriber Number Group Number Insured Name Patient Relationship to Insured Coverage Start Date Coverage End Date [place] MEDICA[place] ATT CLAIMS [address] [place] [id number] Liss Lipscomb Self - patient is the insured Medical (General) History Medical History History ICD Code Migraines Asthma as a child Depression/axniety Breast Fibroadenoma Hx
== END 2023-07-21 12:12 | disposition home or self-care (01) ==
LOC: HO.HGI 08:24
PROVIDERS: PCP Internal Medicine; Visit Provider Internal Medicine Gastroenterology
DX: R13.10 Dysphagia, unspecified (principal)
CPT/HCPCS: 99213

== ENCOUNTER → 2023-07-21 08:24 | Outpatient (BNVA) | payer OTHER, SELFPAY | PROVIDERS: PCP Internal Medicine; Visit Provider Internal Medicine Gastroenterology ==

== ENCOUNTER 2023-07-25 15:51 | Outpatient (REF) | payer OTHER, SELFPAY ==
--- NOTE | ~2023-07-25 | XR_ITS ---
EXAMINATION: XR SHOULDER, RIGHT CLINICAL INFORMATION: Pain in right shoulder COMPARISON: Right shoulder 07/09/2021 TECHNIQUE: AP external rotation, Grashey, scapular Y, and axillary views of the right shoulder. FINDINGS: The bones and soft tissues are normal. No fracture. Glenohumeral and acromioclavicular alignment is anatomic with normal joint space. No abnormal soft tissue calcifications. XR/XR shoulder RT min 2V IMPRESSION: No bony abnormality.
== END 2023-07-25 15:52 | disposition home or self-care (01) ==
LOC: HO.XRAY 15:51
PROVIDERS: PCP Internal Medicine; Visit Provider Internal Medicine
DX: M25.511 Pain in right shoulder (principal)
CPT/HCPCS: 73030

== ENCOUNTER 2023-08-08 13:32 | Outpatient (AMB) | payer OTHER, SELFPAY ==
--- NOTE | 2023-08-08 13:33 | MHC.OFFVIS ---
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 Patient headaches are getting worst. Allergies naproxen Allergy (Mild, Verified 08/08/23 13:45) gi upset Seasonal Allergies Allergy (Mild, Verified 08/08/23 13:45) Runny Nose Medication List - Last Reconciled 08/08/23 by MITCHELL Sandra albuterol sulfate 90 mcg/actuation (Ventolin HFA) 2 puffs inhalation QID PRN ascorbate calcium (vitamin C) 500 mg PO DAILY 90 days bisacodyl (Dulcolax (bisacodyl)) 20 mg (4 x 5 mg) PO ONCE 1 day cholecalciferol (vitamin D3) 25 mcg PO DAILY 90 days fluoxetine 20 mg PO DAILY fluticasone furoate-vilanterol 200-25 mcg/dose (Breo Ellipta) 1 ea inhalation DAILY hydroxyzine pamoate 25 mg PO BID PRN lisdexamfetamine (Vyvanse) 10 mg PO QAM magnesium oxide 400 mg PO DAILY 90 days pantoprazole 20 mg PO QAM polyethylene glycol 3350 (Miralax) 238 grams PO ONCE 1 day HPI Comments Details: Right-handed 27-yr-old female presents for new pt evaluation of headache disorder. Pt reports she started having headaches bothersome headaches at age 22, however did have migraine like headache in adolescence but not as severe or frequent. PMH and ROS are notable for:? Musculoskeletal disorders or injury: Neck pain and tightness. 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 Did not have concussion s/s or headaches immediately afterwards. She is prone to falls and being clumsy, her balance is off. No known concussion but has hit her head mx times. Cramps: in her bilateral neck ID: Had EBV in 2018- and headaches worsened then. Mood d/o: Anxiety, Depression, ADHD Respiratory d/o: Asthma History of seizure, syncope, or drop attacks: has h/o pre-syncope or syncope w/ blood draws or standing too long > 10 minutes, exercise, not eating. Takes fluids w/ electrolytes. Neuro: numbness, tingling, weakness GI d/o: Constipation or more often diarrhea. Swallowing difficulties- MBS showed Dysmotility. [employer] WORK[employer]: Menses is regular, Family planning- none Family history of migraine or other headache disorder: mother, father, sister, brother Pertinent denials include: CV disease, Clotting or hematology d/o, Endocrine or metabolic d/o, Lifestyle considerations: Sleep routine: Usual bedtime: 12-2am and wake-up time: 7am if working, 9am if not working Sleep difficulties: Endorses: difficulty falling asleep- difficult to get comfortable, Restless sleep, Leg Cramps. Caffeine use: 1 cups per day, last cup by am Substance use: Vape pen, uses Marijuana edibles- helps w/ myofascial pain, Alcohol- occasionally. 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 Age/time of onset: You, worsened at age 22. Preceding causes: Pt ?'s falls, scoliosis, cheerleading accident, EBV infection in 2018. Previous work-up: None. No h/o c-spine imaging Typical headache characteristics: Prodrome symptoms: unsure Aura: w/wo headache blurry vision, flashes of white lights, wiggly things in vision, brief flashes of shadows. Pain intensity: [id number] Location, quality, characteristics: Starts in mid-lower occipital region, feels like pressure, like the spine is pushing up, the pressure then the pressure becomes holocranial. Sometimes can start in bilateral upper frontal region. Associated symptoms: Nausea, photophobia,phonophobia,osmophobia, not right in space dizziness,lightheadedness,fatigue,cognitive difficulties,sometimes watery eye or runny nose,.if bent over, eyes feel droopy but are not, Postdrome: residual s/s Triggers: poor fluid intake,hunger,lights,sounds,poor sleep,stress, air travel, alcohol, Sometimes Menstrual cycle- 1st day or two Positional changes- bending over and standing up, Sometimes- Valsalva Time of day: Mid-day after being up and about for a few hours. Duration and Frequency: Everyday headache, begins mild and becomes severe for short periods, then subsides with position adjustment (laying down is more effective than sitting up). How does headache impact your life? Tries to work/push through them. Current acute medication use/interventions: Uses edible or rarely Tylenol. Zofran has helped nausea in the past. Current preventative medication use: None Non-pharmacological interventions: Mindfulness. Heat therapy. Massage. [facility] Medical History (Updated 08/08/23 @ 17:37 by MITCHELL Sandra) Hx of infectious mononucleosis Right ankle pain Right shoulder pain Polyarthralgia Physical exam Mild recurrent major depression Fibroadenoma of right breast Surgical History Hx of colonoscopy History of esophagogastroduodenoscopy (EGD) H/O breast biopsy No pertinent past surgical history Family History Father Hypertension Mother No problems noted. Maternal Grandfather Diabetes mellitus Maternal Grandmother Diabetes mellitus Brother Depression Family/Other Substance use disorder Mental health disorder Social History Housing: House Alcohol intake: current Alcohol intake frequency: a few times a month Alcohol type: wine Patient Tobacco Use Status: Never used Tobacco e-Cigarette/Vaping Use: Never Used Second Hand Smoke Exposure: No service: No Current occupational status: employed Current occupational exposures/hazards: No Cognitive needs: No Hearing needs: No Vision needs: No Female Reproductive History Menstrual Age of Menarche: 14 Physical Exam Vital Signs: Last Vital Signs Pulse 72 08/08/23 13:47 BP 114/72 08/08/23 13:47 Pulse Ox 98 08/08/23 13:47 Oxygen Delivery Method Room Air 08/08/23 13:47 Const Orientation/consciousness: patient oriented x3 HEENT Head: Yes normocephalic Resp Effort & Inspection: normal respiratory effort and able to speak in complete sentences Neuro Other: Bilateral posterior cervical tightness. Spurling exam- elicits pain from posterior neck into bilateral anterior neck. Bilateral finger, wrist (r > L), elbow- hypermobility. General: patient oriented x3 Cranial nerves: Yes CN's II-XII intact bilaterally Cognition (Neuro): normal cognition Gait exam (Neuro): Normal gait present Motor exam (neuro): 5/5 motor strength present throughout Deep tendon reflexes (DTR's): Right triceps reflex intensity grade: 2+, Left triceps reflex intensity grade: 2+, Rt Biceps (C5, C6): 2+, Left biceps reflex intensity grade: 2+, Right brachioradialis reflex intensity grade: 2+, Left brachioradialis reflex intensity grade: 2+, Right patellar reflex intensity grade: 2+ and Left patellar reflex intensity grade: 2+ Coordination: [id number] test normal, tandem gait normal and Romberg test negative Pupils: Normal pupillary reactivity/response: bilateral Psych Appearance: grossly normal Mental Status: mental status grossly normal Speech and movement: Normal speech and movement present Affect: normal affect Attitude: cooperative Thought process: Normal thought process present Assessment & Plan Assessment & Plan (1) Worsening headaches: Code(s): R51.9 - Headache, unspecified Category: Medical (2) Positional headache: Comment: DDx- chronic migraine w/ aura, secondary ATKINSON d/o- cervicogenic, intracranial hypotension, intracranial structural abnormality. Code(s): R51.0 - Headache with orthostatic component, not elsewhere classified Category: Medical (3) Rachel-Danlos syndrome: Comment: hypermobile. Genetic testing not yet completed- needing insurance clearance. Normal echocardiogram. Code(s): Q79.60 - Rachel-Danlos syndrome, unspecified Category: Medical (4) Orthostatic lightheadedness: Code(s): R42 - Dizziness and giddiness Category: Medical (5) Scoliosis: Code(s): M41.9 - Scoliosis, unspecified Category: Medical (6) Cervicalgia: Code(s): M54.2 - Cervicalgia Category: Medical Plan Pt advised to undergo: C-spine XR w/ flex/ext Brain MRI w/wo- to assess for secondary etiologies of atypical migraine headache with strong positional and exertional component and hypermobile EDS dx. Tilt table testing to assess for POTs. Labs. Rheumatology consult as scheduled. Future considerations- MRA/CTA. avila-spine imaging. For overall headache management: Optimize good self-care, including but not limited to maintaining a healthy diet, adequate fluid intake, adequate sleep, and engaging in regular physical activity. For headache triggers: Track headaches, especially after any treatment regimen changes. Migraine [employer] is one of many headache tracking apps. Information shared on strategies to reduce light and sound sensitivity, as well as adjunctive headcahe tx options, including warm and ice tx's, neuromodulation devices. For acute headache treatment: Discussed importance of taking acute medications at the first sign of headache, however stressed importance of avoiding acute medication overuse (especially with combined headache medications). Will resume Ondansetron ODT 4mg bid prn. Trial Sumatriptan 100mg tab, 1/2 - 1 tab (50-100mg) at onset of headache, may repeat in 2 hours. Max of 2 tabs (200mg) per 24 hours. May adjunct with OTC Tylenol 650mg q 4 hours, Ibuprofen 600mg q 6 hours, or Naproxen 440mg q 12 hrs prn. Potential adverse effects of triptans, including but not limited to nausea, fatigue, chest tightness/tingling (usually passes within a few minutes), medication overuse headaches. Previous acute migraine medication trials: Tylenol- minimal effect. Acute migraine medication contraindications: None at this time For headache prevention medication: Preventative medications should be taken routinely as prescribed for best effect, it may take several weeks for full effect to take effect. Start Riboflavin 400mg qam Continue Magnesium 400mg qhs Start Gabapentin 100-300mg qhs.] Previous migraine prevention medication trials: None Migraine prevention medication contraindications: Beta-blockers d/t asthma dx. Aimovig d/t h/o Raynaud's. Pt seen in collaboration w/ Dr Madai Paulson. Follow-up upon review of above and in-clinic in 3 months or sooner prn. Orders: Orders MR head/brain wo/w con 08/08/23 Q79.60 - Rachel-Danlos syndrome, unspecified, R42 - Dizziness and giddiness, R51.0 - Headache with orthostatic component, not elsewhere classified, R51.9 - Headache, unspecified XR cervical spine w flex/ext 08/08/23 M41.9 - Scoliosis, unspecified, M54.2 - Cervicalgia Creatine Kinase Total 08/08/23 M25.50 - Pain in unspecified joint, R25.2 - Cramp and spasm, R51.9 - Headache, unspecified IRON PROFILE 08/08/23 M25.50 - Pain in unspecified joint, R25.2 - Cramp and spasm, R51.9 - Headache, unspecified ECG Tilt Table Test 08/08/23 Q79.60 - Rachel-Danlos syndrome, unspecified, R42 - Dizziness and giddiness, R51.0 - Headache with orthostatic component, not elsewhere classified LEONIE Reflex Titer and Pattern 08/08/23 M25.50 - Pain in unspecified joint, R25.2 - Cramp and spasm, R51.9 - Headache, unspecified Rheumatoid Factor 08/08/23 M25.50 - Pain in unspecified joint, R25.2 - Cramp and spasm, R51.9 - Headache, unspecified Erythrocyte Sedimentation Rate 08/08/23 M25.50 - Pain in unspecified joint, R25.2 - Cramp and spasm, R51.9 - Headache, unspecified CRP High Sensitivity 08/08/23 M25.50 - Pain in unspecified joint, R25.2 - Cramp and spasm, R51.9 - Headache, unspecified Ferritin 08/08/23 M25.50 - Pain in unspecified joint, R25.2 - Cramp and spasm, R51.9 - Headache, unspecified Medications: New gabapentin 100 - 300 mg (1 - 3 x 100 mg) PO BEDTIME 90 caps 3RF 30 days ondansetron 4 mg PO Q6H PRN 30 tabs 3RF nausea and vomiting 30 days riboflavin (vitamin B2) 400 mg PO DAILY 30 tabs 6RF 30 days Coding Level of Care Code New Pt Level 4 (99179) Diagnoses Worsening headaches R51.9 Positional headache R51.0 Rachel-Danlos syndrome Q79.60 Orthostatic lightheadedness R42 Scoliosis M41.9 Cervicalgia M54.2
[2023-08-08 13:47] VITALS: BP 114/72; PULSE 72; O2SAT 98
== END 2023-08-08 15:00 | disposition home or self-care (01) ==
PROVIDERS: PCP Internal Medicine; Visit Provider Nurse Practitioner Family
DX: R51.9 Headache, unspecified (principal); R51.0 Headache with orthostatic component, not elsewhere classified; Q79.60 Ehlers-Danlos syndrome, unspecified; R42 Dizziness and giddiness; M41.9 Scoliosis, unspecified; M54.2 Cervicalgia
CPT/HCPCS: 99204

== ENCOUNTER → 2023-08-08 13:32 | Outpatient (BNVA) | payer OTHER, SELFPAY | PROVIDERS: PCP Internal Medicine; Visit Provider Nurse Practitioner Family | DX: R51.0 Headache with orthostatic component, not elsewhere classified (principal); R42 Dizziness and giddiness; M54.2 Cervicalgia; M41.9 Scoliosis, unspecified; Q79.60 Ehlers-Danlos syndrome, unspecified | CPT/HCPCS: 99202 ==

== ENCOUNTER 2023-08-17 12:44 | Outpatient (REF) | payer OTHER, SELFPAY ==
--- NOTE | ~2023-08-17 | XR_ITS ---
EXAMINATION: XR CERVICAL SPINE CLINICAL INFORMATION: Scoliosis. Uncomfortable feelings in the neck COMPARISON: None available. TECHNIQUE: 7 views of the cervical spine, inclusive of flexion and extension views, were obtained. FINDINGS: There is straightening of cervical lordosis with mild narrowing of C5-C6 and no evidence of instability on flexion and extension views neuroforamina are not encroached. There is no evidence of fractures or subluxations. Soft tissues are unremarkable. XR/XR cervical spine w flex/ext IMPRESSION: Mild narrowing of C5-C6 without evidence of instability.
== END 2023-08-17 12:45 | disposition home or self-care (01) ==
LOC: HO.XRAY 12:44
PROVIDERS: PCP Internal Medicine; Visit Provider Nurse Practitioner Family
DX: M41.9 Scoliosis, unspecified (principal); M54.2 Cervicalgia
CPT/HCPCS: 72052

== ENCOUNTER 2023-08-28 14:44 | Emergency (ER) | payer OTHER, SELFPAY ==
--- NOTE | ~2023-08-28 | US_ITS ---
EXAMINATION: US ABDOMEN LIMITED CLINICAL INFORMATION: Right upper quadrant pain with nausea and vomiting. COMPARISON: None available. TECHNIQUE: Real-time imaging of the gallbladder and common bile duct. FINDINGS: GALLBLADDER: The gallbladder is physiologically distended without evidence of stones, sludge, polyps, wall thickening or pericholecystic fluid. COMMON BILE DUCT: Normal in caliber measuring 0.4 cm in diameter. US/US abdomen limited IMPRESSION: Normal-appearing gallbladder and common bile duct.
[2023-08-28 15:06] VITALS: BP 114/69; PULSE 81; RESP 18; TEMP 36.5; O2SAT 95; BMI 28.4
--- NOTE | 2023-08-28 15:06 | ED.ABDPAIN ---
HPI - Abdominal Pain General Chief Complaint: Abdominal Pain Stated Complaint: R side abd pain/neck pain Time Seen by Provider: 08/28/23 21:25 Source: patient and family (patient's mother) Mode of arrival: ambulatory Limitations: no limitations History of Present Illness ED Provider: Estella Orourke PA-C HPI narrative: Patient is a 27 year old assigned female at with a history of MDD and hEDS presenting to the emergency department today with right sided lower rib pain. Patient states that over the last 2 days she has had this pain with vomiting and states that the pain is worse with certain movements and much worse with deep breathing. Patient denies any dizziness, lightheadedness, fever, chills, blurry vision, double vision, loss of vision, difficulty breathing, shortness of breath, back pain, night sweats, pain with urination, increased urinary frequency, increased urinary urgency, blood in her urine or stool, syncope or a near syncopal episode, recent trauma or falls, bowel incontinence, bladder incontinence, or any other complaints at this time. Pertinent past history: none Onset (ago): day(s) (2) Pain Consistency: constant Location: other (right lower ribs) Exacerbating factors: movement and other (deep breathing) Relieving factors: nothing Associated symptoms: nausea and vomiting Related Data Home Medications ?Medication ?Instructions ?Recorded ?Confirmed fluoxetine 20 mg capsule 20 mg PO DAILY 03/16/21 08/08/23 hydroxyzine pamoate 25 mg capsule 25 mg PO BID PRN anxiety 06/01/21 08/08/23 albuterol sulfate 90 mcg/actuation 2 puff inhalation QID PRN wheezing 06/06/22 08/08/23 aerosol inhaler (Ventolin HFA) fluticasone furoate 200 1 ea inhalation DAILY 06/13/23 08/08/23 mcg-vilanterol 25 mcg/dose inhalation powder (Breo Ellipta) lisdexamfetamine 10 mg capsule 10 mg PO QAM 06/13/23 08/08/23 (Vyvanse) Previous Rx's ?Medication ?Instructions ?Recorded bisacodyl 5 mg tablet,delayed 20 mg (4 x 5 mg) PO ONCE 03/20/23 release (Dulcolax (bisacodyl)) colonoscopy prep 1 day #4 tabs pantoprazole 20 mg tablet,delayed 20 mg PO QAM #30 tabs 01/15/24 release polyethylene glycol 3350 17 238 g PO ONCE laxative effect 1 03/20/23 gram/dose oral powder (Miralax) day #238 grams cholecalciferol (vitamin D3) 25 25 mcg PO DAILY 90 days #90 caps 06/23/23 mcg (1,000 unit) capsule ascorbate calcium (vitamin C) 500 500 mg PO DAILY 90 days #90 tabs 07/28/23 mg tablet magnesium oxide 400 mg PO DAILY 90 days #90 tabs 07/28/23 gabapentin 100 mg capsule 100 - 300 mg (1 - 3 x 100 mg) PO 08/08/23 BEDTIME 30 days #90 caps ondansetron 4 mg disintegrating 4 mg PO Q6H PRN nausea and 08/08/23 tablet vomiting 30 days #30 tabs riboflavin (vitamin B2) 400 mg 400 mg PO DAILY 30 days #30 tabs 08/08/23 tablet Allergies Allergy/AdvReac Type Severity Reaction Status Date / Time naproxen Allergy Mild gi upset Verified 08/28/23 15:08 Seasonal Allergies Allergy Mild Runny Nose Verified 08/28/23 15:08 Review of Systems Constitutional: Reports no additional constitutional complaints, Denies chills, Denies fever(s) and Denies night sweats Eyes: Reports no additional eye complaints, Denies blurry vision, Denies change in vision, Denies diplopia, Denies eye discharge, Denies loss of vision and Denies eye pain Denies dizziness Cardiovascular: Reports no additional cardiovascular complaints, Denies lightheadedness, Denies Loss of Consciousness and Denies dyspnea Respiratory: Reports no additional respiratory complaints and Denies dyspnea Gastrointestinal: Reports no additional gastrointestinal complaints, Denies melena, Denies hematochezia, Denies change in bowel habits and Denies change in stool character Genitourinary: Denies hematuria, Denies urinary frequency, Denies dysuria, Denies urinary incontinence, Denies urinary hesitancy and Denies urinary urgency Musculoskeletal: Reports no additional musculoskeletal complaints, Denies numbness and Denies tingling Comments: right lower rib pain Denies dizziness, Denies loss of vision, Denies numbness and Denies tingling Psychiatric: Reports no additional psychiatric complaints Endocrine: Reports no additional endocrine complaints Hematologic/Lymphatic: Reports no additional hematologic/lymphatic complaints Allergic/Immunologic: Reports no additional allergic/immunologic complaints PMFSH Past Medical History Attestation statement: The following information was validated with the patient. (patient's mother validated all information) Source: old records reviewed, obtained from family (patient's mother provided additional history and confirmed the history provided by the patient) and nursing notes reviewed Medical History Hx of infectious mononucleosis Right ankle pain Right shoulder pain Polyarthralgia Physical exam Mild recurrent major depression Fibroadenoma of right breast Surgical History Hx of colonoscopy History of esophagogastroduodenoscopy (EGD) H/O breast biopsy No pertinent past surgical history Family History Family History Father Hypertension Mother No problems noted. Maternal Grandfather Diabetes mellitus Maternal Grandmother Diabetes mellitus Brother Depression Family/Other Substance use disorder Mental health disorder Social History Social History Housing: House Alcohol intake: current Alcohol intake frequency: a few times a month Alcohol type: wine Patient Tobacco Use Status: Never used Tobacco e-Cigarette/Vaping Use: Never Used Second Hand Smoke Exposure: No Advance Directives: No Advance Directives Information Provided: No Do you have a plan to hurt others: No Plan service: No Current occupational status: employed Current occupational exposures/hazards: No Cognitive needs: No Hearing needs: No Vision needs: No Physical Exam ED Vital Signs: Vital Signs - 24 hr 08/28/23 15:06 08/28/23 19:59 08/28/23 21:32 Temperature 97.7 F 98.0 F 98.1 F Pulse Rate 81 76 84 Respiratory Rate 18 18 18 Blood Pressure 114/69 104/63 114/63 Pulse Oximetry 95 100 100 Oxygen Delivery Method Room Air Room Air Room Air 08/28/23 21:48 Temperature 98.1 F Pulse Rate 84 Respiratory Rate 18 Blood Pressure 114/63 Pulse Oximetry 100 Oxygen Delivery Method Room Air BMI result Body Mass Index 28.4 Const General: cooperative, no acute distress, alert and awake Nutritional Appearance: well nourished Orientation/consciousness: patient oriented x3 Limitations: no limitations HENMT Head: Yes normal to inspection and Yes atraumatic Ears: hearing grossly normal bilaterally and external ears normal General nose exam: Normal external nose present, no nasal discharge noted and no epistaxis Face and sinus: Yes normal facial exam, No abrasion and No laceration Mouth: Normal oral and palatal mucosa present, no drooling and no muffled voice Eyes General: appearance normal, both eyes and all related structures Periorbital: periorbital findings normal Eyelids: Yes eyelids normal Conjunctivae: conjunctivae normal Pupils: Equal, round and reactive pupils present EOM: EOMs intact bilaterally Neck Neck: Yes normal visual inspection, Yes full ROM and Yes no lymphadenopathy Chest Chest palpation & inspection: normal inspection of the chest Resp Effort & Inspection: normal respiratory effort and able to speak in complete sentences GI Inspection: Yes normal to inspection Neuro General: patient oriented x3 and moves all extremities Cranial nerves: Yes Equal, round and reactive pupils present Cognition (Neuro): normal cognition Motor exam (neuro): 5/5 motor strength present throughout Sensory Exam: Normal double simultaneous stimulation for sensation Coordination: [id number] test normal Extrem General: Yes normal to inspection, Yes full ROM and Yes capillary refill normal Psych Appearance: grossly normal Mental Status: mental status grossly normal Affect: normal affect Attitude: cooperative Thought process: Normal thought process present Thought content: Normal thought content present Insight: Good insight present (Psych) Course Course Course Narrative: This is a Rapid Medical Exam performed in triage by Dorota Walker PA-C. Full HPI, ROS and PE to be performed by primary ED provider. 27 year-old F w/ no sig PMHx presenting to the ED c/o RUQ abd pain, N/V x2 days. denies urinary sx. Also reports joint pain/neck pain PE: abd soft +RUQ ttp. No CVAT Plan: Labs, UA, US Medical Decision Making Medical Decision Making MDM Narrative: Patient is a 27 year old assigned female at with a history of MDD and hEDS presenting to the emergency department today with right lower rib pain. Patient's physical exam was unremarkable. Patient's blood work showed a chronically elevated bilirubin but were othewise unremarkable. Patient's urine showed no acute process. Patient's RUQ US showed no acute process. I explained my physical exam findings as well as all test results to the patient and the patient's mother. I answered all questions asked by the patient and the patient's mother. I stressed the importance of the patient taking her medication as prescribed. I stressed the importance of the patient following up with her primary care provider. I stressed the importance of the patient returning to the emergency department immediately if her symptoms were to worsen or if she were to develop any dizziness, shortness of breath, difficulty breathing, chest pain, blurry vision, loss of vision, nausea, vomiting, abdominal pain, fever, chills, back pain, or any other complaints. Patient and the patient's mother verbalized agreement and understanding with this treatment plan and discharge. Differential Diagnosis Differential Diagnoses: The differential diagnosis associated with the presentation includes RUQ pain Costochondritis Biliary colic Admission/Observation Consideration of admission/observation: Escalation of care including admission/observation considered Patient would have been admitted to the hospital had her work up had any findings where hospital admission was appropriate and her clinical presentation warranted hospital admission. Lab Data [facility] Lab Attestation statement: I reviewed the patient's lab results. My interpretation of these results are in the [facility] Rationale portion of this note. 08/28/23 18:23 08/28/23 18:23 Labs: Lab Results 08/28/23 Range/Units 18:23 WBC 8.2 (4.8-10.8) X10*3/uL RBC 4.63 (4.20-5.50) X10*6/uL Hgb 13.1 (12.0-16.0) g/dl Hct 38.6 (37.0-47.0) % MCV 83.4 (80.0-98.0) fL MCH 28.3 (27.0-33.0) pg MCHC 33.9 (31.0-35.0) g/dl RDW 12.1 (11.0-16.0) % Plt Count 345 (160-400) X10*3/uL MPV 9.0 L (9.4-12.3) fL Immature Gran % (Auto) 0.1 (0.0-0.4) % Neut % (Auto) 46.5 (45-73) % Lymph % (Auto) 42.1 H (20-40) % Tyler % (Auto) 7.9 (2-11) % Eos % (Auto) 2.7 (0-4) % Baso % (Auto) 0.7 (0-2) % Lymph # (Auto) 3.4 (1.2-4.9) X10*3/uL Tyler # (Auto) 0.6 (0.1-1.2) X10*3/uL Eos # (Auto) 0.2 (0.0-0.4) X10*3/uL Baso # (Auto) 0.1 (0.0-0.2) X10*3/uL Abs Immat Gran (auto) 0.01 (0.00-0.03) X10*3/uL Absolute Neuts (auto) 3.8 (2.0-8.3) x10*3/uL Absolute Nucleated RBC 0.000 (0.0-0.012) X10*3/uL Nucleated RBC % (auto) 0.0 (0.0-0.2) /100WBC Sodium 138 (135-145) mmol/L Potassium 3.8 (3.3-5.1) mmol/L Chloride 104 (96-108) mmol/L Carbon Dioxide 26 (22-29) mmol/L Anion Gap 12 (12-20) BUN 9 (9-16) mg/dL Creatinine 0.80 (0.5-1.4) mg/dL Estim Creat Clear Calc 98.8 Estimated GFR > 60 Random Glucose 84 (60-115) mg/dL Calcium 9.5 (8.4-10.2) mg/dL Magnesium 2.0 (1.6-2.6) mg/dL Total Bilirubin 1.8 H (0.0-1.0) mg/dL Direct Bilirubin 0.5 (0.0-0.5) mg/dL AST 22 (5-31) U/L ALT 18 (0-31) U/L Alkaline Phosphatase 71 (39-117) U/L Total Protein 7.5 (6.5-8.0) g/dL Albumin 4.3 (3.5-5.0) g/dL Lipase 15 (8-78) U/L Urine Color Yellow Urine Appearance Cloudy Urine pH 5.5 (5.0-9.0) Ur Specific Monroe 1.025 (1.005-1.025) Urine Protein Negative (Neg-Trace) mg/dL Urine Glucose (UA) Negative (Negative) mg/dL Urine Ketones Trace (Negative) mg/dL Urine Blood Negative (Negative) Urine Nitrite Negative (Negative) Ur Leukocyte Esterase Negative (Negative) Urine Test NEGATIVE (NEGATIVE) Independent Interpretation I performed an independent interpretation of an: Ultrasound Interpretation: My interpretation is in agreement with the radiologist's impression of this imaging study. EXAMINATION: US ABDOMEN LIMITED CLINICAL INFORMATION: Right upper quadrant pain with nausea and vomiting. COMPARISON: None available. TECHNIQUE: Real-time imaging of the gallbladder and common bile duct. FINDINGS: GALLBLADDER: The gallbladder is physiologically distended without evidence of stones, sludge, polyps, wall thickening or pericholecystic fluid. COMMON BILE DUCT: Normal in caliber measuring 0.4 cm in diameter. US/US abdomen limited IMPRESSION: Normal-appearing gallbladder and common bile duct. Dictated By: Michael Cardoza MD Signed By: Electronically signed by Michael Cardoza MD 08/28/23 8069 Radiology Impression Discussion of test interpretation with radiology: I have reviewed the radiologist's reading. Independent Historian Clinical information obtained from an independent historian. History obtained from or confirmed by: Parent (patient's mother provided additional history and confirmed the history provided by the patient.) Medications Administered Discontinued Medications Generic Name Dose Route Start Last Admin Trade Name Freq PRN Reason Stop Dose Admin Ketorolac Tromethamine 15 mg 08/28/23 21:39 08/28/23 21:44 Ketorolac Tromethamine 15 Mg/Ml Vial IM 08/28/23 21:40 15 mg ONCE ONE Administration Discharge Plan Discharge Clinical Impression: Acute costochondritis Patient Disposition: Home, Self-Care Instructions: Costochondritis (ED) Additional Instructions: Follow up with your primary care provider. Return to the emergency department immediately if your symptoms worsen or if you develop any dizziness, shortness of breath, difficulty breathing, chest pain, blurry vision, loss of vision, nausea, vomiting, abdominal pain, fever, chills, back pain, or any other complaints. Prescriptions: No Action cholecalciferol (vitamin D3) 25 mcg (1,000 unit) capsule 25 mcg PO DAILY 90 Days Qty: 90 1RF magnesium oxide 400 mg magnesium tablet 400 mg PO DAILY 90 Days Qty: 90 1RF ascorbate calcium (vitamin C) 500 mg tablet 500 mg PO DAILY 90 Days Qty: 90 1RF albuterol sulfate [Ventolin HFA] 90 mcg/actuation HFA aerosol inhaler 2 puff inhalation QID PRN (Reason: wheezing) fluticasone furoate-vilanterol [Breo Ellipta] 200-25 mcg/dose blister with device 1 ea inhalation DAILY lisdexamfetamine [Vyvanse] 10 mg capsule 10 mg PO QAM hydroxyzine pamoate 25 mg capsule 25 mg PO BID PRN (Reason: anxiety) fluoxetine 20 mg capsule 20 mg PO DAILY gabapentin 100 mg capsule 100 - 300 mg PO BEDTIME 30 Days Qty: 90 3RF riboflavin (vitamin B2) 400 mg tablet 400 mg PO DAILY 30 Days Qty: 30 6RF ondansetron 4 mg tablet,disintegrating 4 mg PO Q6H PRN (Reason: nausea and vomiting) 30 Days Qty: 30 3RF bisacodyl [Dulcolax (bisacodyl)] 5 mg tablet,delayed release (DR/EC) 20 mg PO ONCE 1 Days Qty: 4 0RF Rx Instructions: Day before procedure, prep day Take 4 tablets by mouth upon awakening followed by large glass of water polyethylene glycol 3350 [Miralax] 17 gram/dose powder 238 g PO ONCE 1 Days Qty: 238 0RF Rx Instructions: Take as directed by mouth the day before your procedure. pantoprazole 20 mg tablet,delayed release (DR/EC) 20 mg PO QAM Qty: 30 6RF Referrals: Jessica Gutierrez MD [Primary Care Provider] - Stand Alone Forms: Work/School Release Interventions: ED Discharge Assessment Last Done: 08/28/23 21:48 Discharge Date/Time: 08/28/23 21:48 Print Language: [place] African
[2023-08-28 18:28] LABS: MANUAL DIFF FLAG NO
[2023-08-28 18:49] LABS: Basophils Absolute Auto 0.1 X10*3/uL (0.0-0.2); Basophils Percent Auto 0.7 % (0-2); Eosinophils Absolute Auto 0.2 X10*3/uL (0.0-0.4); Eosinophils Percent Auto 2.7 % (0-4); Hematocrit 38.6 % (37.0-47.0); Hemoglobin 13.1 g/dl (12.0-16.0); Imm Gran Abs Auto 0.01 X10*3/uL (0.00-0.03); Imm Gran Pct Auto 0.1 % (0.0-0.4); Lymphocytes Absolute Auto 3.4 X10*3/uL (1.2-4.9); Lymphocytes Percent Auto 42.1 % (20-40); Mean Corpuscular HGB Conc 33.9 g/dl (31.0-35.0); Mean Corpuscular Hemoglobin 28.3 pg (27.0-33.0); Mean Corpuscular Volume 83.4 fL (80.0-98.0); Monocytes Absolute Auto 0.6 X10*3/uL (0.1-1.2); Monocytes Percent Auto 7.9 % (2-11); Neutrophils Absolute Auto 3.8 x10*3/uL (2.0-8.3); Neutrophils Percent Auto 46.5 % (45-73); Platelet Count 345 X10*3/uL (160-400); Red Blood Count 4.63 X10*6/uL (4.20-5.50); Red Cell Distribution Width 12.1 % (11.0-16.0); White Blood Count 8.2 X10*3/uL (4.8-10.8)
[2023-08-28 18:53] LABS: Alanine Aminotransferase 18 U/L (0-31); Albumin Level 4.3 g/dL (3.5-5.0); Alkaline Phosphatase 71 U/L (39-117); Anion Gap 12 (12-20); Aspartate Amino Transferase 22 U/L (5-31); Bilirubin Direct 0.5 mg/dL (0.0-0.5); Bilirubin Total 1.8 mg/dL (0.0-1.0); Blood Urea Nitrogen 9 mg/dL (9-16); Calcium 9.5 mg/dL (8.4-10.2); Carbon Dioxide 26 mmol/L (22-29); Chloride 104 mmol/L (96-108); Creatinine Clr Calc Pharmacy 98.8; Estimated Glomerular Filt Rate > 60; Glucose Random 84 mg/dL (60-115); Lipase 15 U/L (8-78); Potassium 3.8 mmol/L (3.3-5.1); Sodium 138 mmol/L (135-145); Total Protein 7.5 g/dL (6.5-8.0)
[2023-08-28 19:07] LABS: Appearance Urine Cloudy; Glucose Urine UA Negative (Negative); Leukocyte Esterase Urine Negative (Negative); Nitrite Urine Negative (Negative); PH 5.5 (5.0-9.0); Specific Gravity - Urine 1.025 (1.005-1.025); Urine Blood Negative (Negative); Urine Ketones Trace mg/dL (Negative); Urine Protein Negative (Neg-Trace)
[2023-08-28 19:13] LABS: UPreg QC Valid YES; Urine Pregnancy NEGATIVE (NEGATIVE)
[2023-08-28 19:16] LABS: Color Urine Yellow
[2023-08-28 19:59] VITALS: BP 104/63; PULSE 76; RESP 18; TEMP 36.7; O2SAT 100
[2023-08-28 21:32] VITALS: BP 114/63; PULSE 84; RESP 18; TEMP 36.7; O2SAT 100
[2023-08-28] MEDS: Ketorolac Tromethamine 15 MG/ML VIAL IM (21:44)
[2023-08-28 21:48] VITALS: BP 114/63; PULSE 84; RESP 18; TEMP 36.7; O2SAT 100
--- NOTE | 2023-08-28 21:48 | PC.NURSE ---
pt medicated per provider order.
--- OUTSIDE RECORDS SUMMARY | 2023-08-31 07:57 | XMS_ITS | Patient Health Record ---
[facility] Organization [facility] Address [address] [place] [phone] Care Team Providers Care Machinist Supervisor Name Role Phone ALIN STOVER Unavailable [phone] MARCIO FISHER Unavailable [phone] RADU SANTIAGO Unavailable [phone] María Verdin Unavailable [phone] Allergies Allergen (clinical drug ingredient) Drug/Non Drug Allergy documented on EMR Reaction Allergy Type Onset Date Status naproxen Naproxen Unknown Drug Allergy Active Results Component Value Reference Range Notes THINPREP PAP TEST, Cervix (N ot yet reviewed by provider) Interpretation:LSIL Performing Lab:[facility], [address] [facility], [place], [address] Alirio Champion DO Notes/Report: THINPREP PAP TEST LSIL NEGATIVE -- THIN PREP PAP TEST -- SEX: F : 1995 AGE: 27 [id number] CLINIC ID: [id number] SS: PHYSICIAN: RADU SANTIAGO CNM COLLECTED BY: ____ Low Grade Squamous Intraepithelial Lesion (LSIL) ____ Additional Findings: Endocervical Material Present Specimen Adequacy: Satisfactory for Evaluation Clinical Note: Z01.419 Encounter for gynecological examination (general) (routine) without abnormal findings, LMP 07-29-2023 Specimen Source: Cervix Visit Type: Routine Performed by: DAV Villatoro (ASCP) Reviewed by: Jeremie Champion DO (Electronic Signature 08/29/2023 10:19) CHLAMYDIA GC AMP PROBE Reviewed date:05/11/2023 11:30:39 AM Interpretation:Negative Performing Lab:Testing performed or reported by [facility], a Service of [facility], [address] [place] [place] [address] Aryan Hammonds MD, Charge Hand [facility]# [id number] Notes/Report: C.TRACHOMATIS AMP PROBE NEGATIVE (NEG) No Chlamydia Trachomatis RNA detected in this patient's sample (REFERENCE RANGE/NORMAL VALUE: NOT DETECTED) Note: This test uses photography professor- mediated amplification method to detect rRNA from C. Trachomatis N.GONORRHOEAE AMP PROBE NEGATIVE (NEG) No Neisseria Gonorrhoeae RNA detected in this patient's sample (REFERENCE RANGE/NORMAL VALUE: NOT DETECTED) NOTE: This test uses photography professor-mediated amplification method to detect rRNA from N.Gonorrhoeae. [...] without risk of sexual abuse. Consult the [facility] if needed. Contact phone [...] Interpretation:Negative Performing Lab:Testing performed or reported by [facility], a Service of [facility], [address] [address] [place] [address] Aryan Hammonds MD, Charge Hand [facility]# [id number] Notes/Report: SOURCE CERVIX TRICHOMONAS,SWAB NEGATIVE (NEG) No Trichomonas vaginalis RNA detected in this patient's sample NORMAL VALUE: NOT DETECTED NOTE: This test uses photography professor-mediated amplification method to detect rRNA from Trichomonas vaginalis. A negative result does not preclude infection. Reason For Referral No Information Medications Medication SIG (Take, Route, Fr equency, Duration) Notes Start Date End Date Status Gabapentin Active Vyvanse 10 mg Active Fluoxetine 20 mg Active hydrOXYzine HCl 25 mg Acti ve Riboflavin Active Vitamin C Active Vitamin D Active Magnesium Active Social History Sex Assigned At : Social History Observation Description Sex Assigned At Female Vital Signs Blood pressure diastolic 62 mm Hg 08/18/2023 Height 5'2 in 08/18/2023 Blood pressure systolic 102 mm Hg 08/18/2023 Weight 153 lbs 08/18/2023 BMI 27.98 kg/m2 08/18/2023 Encounters Encounter Location Date Provider Diagnosis [address] [phone] 05/09/2023 ALIN STOVER Encounter for prescription of emergency contraception Z30.012 ; Encounter for initial prescription of transdermal patch hormonal contraceptive device Z30.016 ; Encounter for screening for infections with a predominantly sexual mode of transmission Z11.3 ; Encounter for other general counseling and advice on contraception Z30.09 and Counseling, unspecified Z71.9 [facility] [address] [place], [place] [id number] 08/18/2023 RADU SANTIAGO Encounter for gynecological examination (general) (routine) without abnormal findings Z01.419 Assessments Encounter Date Diagnosis (ICD Code) Assessment [...] refills sent to pharmacy for future use. 08/18/2023 Encounter for gynecological examination (general) (routine) without abnormal findings (ICD-10 - Z01.419) Discussed routine screenings and self breast awareness. Pap guidelines reviewed. Routine screening in 3 years if normal 05/09/2023 Encounter for screening for infections with a predominantly sexual mode of transmission (ICD-10 - Z11.3) Reviewed STI screening recommendations and available testing through [facility]. Testing ordered as noted per patient risks [...] and initial PAP, clt to schedule accordingly 08/18/2023 Other Discussed STI r isks, screening, and safe sex Plan Of Treatment Pending Test Test Name Order Date THINPREP PAP TEST, Cervix 08/18/2023 Insurance Providers Payer Name Payer Address Payer Phone Subscriber Number Group Number Insured Name Patient Relationship to Insured Coverage Start Date Coverage End Date [place] [address] [place] [address] [id number] Liss Lipscomb Self - patient is the insured Medical (General) History Medical History History ICD Code Migraines Asthma as a child Depression/axniety Breast Fibroadenoma Hx since age 18 yrs, dx with u/s diverticulosis dx 07/2023 pelvic PT for incontinence and dyspareun ia as of 08/2023
== END 2023-08-28 21:48 | disposition home or self-care (01) ==
PROVIDERS: Physician Assistant; Emergency Provider Internal Medicine; PCP Internal Medicine
DX: M94.0 Chondrocostal junction syndrome [Tietze] (principal); R10.11 Right upper quadrant pain; Z79.899 Other long term (current) drug therapy
CPT/HCPCS: 36415; 76705; 80048; 80076; 81003; 81025; 83690; 83735; 85025; 96372; 99283; 99284; J1885

== ENCOUNTER 2023-09-05 10:00 | Outpatient (RCR) | payer OTHER, SELFPAY ==
--- NOTE | 2023-08-15 12:36 | MHC.PT.EP ---
[facility] [place] [facility] [place] Office [place] Office [address] Irwin Acuña [address] [phone] F: [phone] F: [phone] F: [phone] F: [phone] Physical Therapy Plan of Care Date of Evaluation: 08/15/23 Date of Surgery: Diagnosis: pelvic and perineal pain Assessment: 27 y/o female referred to pelvic floor PT with pelvic and perineal pain. Of note, pt with PMH significant for EDS and possible scleroderma. Pt presents with urinary urgency with associated leakage, KELECHI with coughing/ sneezing, dyspareunia, and general pelvic/hip pain. Examination shows decreased hip strength, hypermobility, increased pain with palpation at pelvic floor throughout first layer (bulbocavernosus/ ischiocavernosus/ perineum, lacks involuntary contraction, and altered breathing mechanics. Recommend PT 1x/week for 12 weeks to address impairments, implement HEP, and optimize functional mobility. Pt education on role of pelvic PT, plan of care, prognosis, education on anatomy using 3D model and pain management. Also educated pt and distributed handout re: posture during BM, breathing and urge suppression techniques. Frequency and Duration: The patient will be seen 1x/week for 12 weeks Short Term Goals: 6 weeks I with HEP Pt to be able to demonstrate diaphragmatic breathing to improve pressure exchange and intra abdominal load management. Pt to complete a voiding log in order to accurately assess her bladder habits Pt to be educated on behavior training to help decrease urge incontinence Jail Goals: 12 weeks I with HEP and self management of sx Pt will be able to show improved PFM coordination during functional movements such as a bridge or squat to help prevent or limit POP. Pt to reduce # of episodes of UUI during the day by 50% to help improve quality of life. Pt to be independent with her final HEP for PFM in order to help maintain gains made in therapy. Pt will reports 50% decrease in pelvic pain with insertion Treatment Plan: Modalities to reduce pain, spasms and effusion. Manual therapy to restore motion and function. Therapeutic exercise to improve strength and flexibility. Neuromuscular re-education for posture and balance. Therapeutic activities to return to functional activities of daily living. Electronically signed by: Please sign and return to therapist. Thank you for your referral.
--- NOTE | 2023-10-05 10:17 | MHC.PT.DC ---
[facility] [place] Office [place] Office [place] Office [address] Irwin Acuña [address] [phone] F: [phone] F: [phone] F: [phone] F: [phone] Physical Therapy Discharge Report Diagnosis: pelvic and perineal pain Date of Surgery: Date of Evaluation: 08/15/23 Date of Discharge: 10/05/23 Treatments to Date: 3 Cancellations to Date: 1 No Shows to Date: 0 Discharge Status: Patient Elected to Stop Recommend MD Follow-up Discharge Summary: Pt called to cancel appointments as she had increased pelvic pain from PT. At time of last attended visit, pt provided consent for pelvic floor assessment and treatment. Performed tenderpoint release externally at perineum and trial of tenderpoint release at internal first layer pelvic floor muscles. With R adductor slacking and perineal slacking, pt with decreased sx at first layer. Pt also with decreased muscle spasm/ sx with mindfulness strategies that were practiced today. She may benefit from dilators to help decrease muscle guarding and to stretch pelvic floor tissues and discussed this with patient. However pt elected to end PT d/t increased pain, therefore will d/c chart and recommend f/u with provider Electronically signed by: Nathalia Andrade PT Please sign and return to therapist. Thank you for your referral.
== END 2023-10-05 10:17 | disposition home or self-care (01) ==
LOC: HO.PT 10:00
PROVIDERS: PCP Internal Medicine; Visit Provider Internal Medicine
DX: R10.2 Pelvic and perineal pain (principal)
CPT/HCPCS: 97112; 97140; 97162

== ENCOUNTER 2023-09-07 13:42 | Outpatient (REF) | payer OTHER, SELFPAY ==
--- NOTE | ~2023-09-07 | MR_ITS ---
EXAMINATION: MR BRAIN WITHOUT AND WITH CONTRAST CLINICAL INFORMATION: 28-year-old with headaches, with orthostatic component. COMPARISON: None available. TECHNIQUE: Multiplanar, multisequence MRI of the brain was obtained before and after the intravenous administration of 7 mL Gadavist. FINDINGS: Brain Volume: Within normal limits within the limitations of qualitative assessment. Structural: No malformations. Brain and Meninges: DWI sequence demonstrates no restricted diffusion to suggest acute or subacute cerebral ischemia. The brain parenchyma is normal in morphology and signal intensity.?Sykes-white matter interface is preserved. No extra-axial fluid collections, space-occupying process or mass effect are identified. Gradient refocused imaging demonstrates no abnormal susceptibility-weighted signal loss to suggest hemorrhage, hemosiderin staining or abnormal mineralization. No intracranial mass lesions, extra-axial fluid collections, space-occupying process, mass effect or pathologic intracranial enhancement are identified. Ventricles and Subarachnoid Spaces: The ventricular system and subarachnoid spaces are within normal range; there is no hydrocephalus. Orbital Structures: The visualized orbital structures are grossly unremarkable within the limitations of the study. Vascular: Signal voids are noted in the visualized major intracranial vessels. Osseous Structures, Sinuses/Mastoids, Extracranial Soft Tissues: Unremarkable. MR/MR head/brain wo/w con IMPRESSION: Normal MRI of the brain without and with contrast.
[2023-09-07] MEDS: gadobutroL 7.5 ML VIAL IVPUSH (14:31)
== END 2023-09-07 13:43 | disposition home or self-care (01) ==
LOC: HO.MRI 13:42
PROVIDERS: PCP Internal Medicine; Visit Provider Nurse Practitioner Family
DX: R51.0 Headache with orthostatic component, not elsewhere classified (principal); Q79.60 Ehlers-Danlos syndrome, unspecified; R42 Dizziness and giddiness
CPT/HCPCS: 70553; A9585

== ENCOUNTER 2023-09-20 16:00 | Emergency (ER) | payer OTHER, SELFPAY ==
--- NOTE | ~2023-09-20 | CT_ITS ---
EXAMINATION: CT ABDOMEN AND PELVIS WITHOUT CONTRAST CLINICAL INFORMATION: Left-sided pain COMPARISON: Pelvic ultrasound earlier today, abdominal ultrasound 08/28/2023 TECHNIQUE: Multidetector volumetric imaging was performed from the superior aspect of the liver through the pubic symphysis. Sagittal and coronal reformatted images were obtained on the technologist's workstation. This CT examination was performed using dose optimization techniques as appropriate, variously including the following: *Automated exposure control *Adjustment of mA and/or kV according to patient size (this includes techniques or standardized protocols for targeted exams where dose is matched to indication/reason for exam; i.e. extremities or head) *Use of iterative reconstruction technique DLP: 482 mGy-cm FINDINGS: LUNG BASES: The visualized lung bases are unremarkable. LIVER, GALLBLADDER, AND BILIARY TREE: The liver is enlarged measuring 19 cm in greatest length. Attenuation and shape is normal. No focal hepatic lesion or biliary ductal dilatation is present. The gallbladder is contracted but otherwise unremarkable with no evidence of radiopaque gallstones, gallbladder wall thickening, or obvious pericholecystic inflammatory changes. PANCREAS: Unremarkable. SPLEEN: Unremarkable. ADRENAL GLANDS: Unremarkable. KIDNEYS AND URETERS: The kidneys are normal in size, shape, and attenuation. No hydronephrosis, hydroureter, or calculi seen. No perinephric stranding. BLADDER: Unremarkable. GASTROINTESTINAL TRACT: The small and large bowel are unremarkable. The appendix is unremarkable. ABDOMINAL WALL: No significant hernia is appreciated. LYMPH NODES: Normal. VASCULAR: Unremarkable. PELVIC VISCERA: Small amount of pelvic free fluid. OSSEOUS STRUCTURES: Scoliosis present convex to the left. CT/CT abdomen pelvis wo IV con IMPRESSION: 1. A cause for the patient's left-sided pain has not been found. 2. Incidental note made of mild hepatomegaly and scoliosis. Fleischner guidelines were followed.
--- NOTE | ~2023-09-20 | US_ITS ---
EXAMINATION: US PELVIS CLINICAL INFORMATION: Left-sided pelvic pain COMPARISON: None available. TECHNIQUE: Ultrasound of the pelvis is performed using both transabdominal and transvaginal transducers along with Doppler. Transvaginal imaging is performed due to inadequate visualization transabdominally. FINDINGS: Uterus: The uterus is anteverted and measures 8.1 x 3.7 x 5.0 cm. The double wall endometrial thickness is 6 mm. The uterus is smooth in contour and has normal myometrial echogenicity. No visible fibroid. Nabothian cysts are present in the cervix. Adnexa: Both ovaries are visualized. There is normal color flow to the adnexa. There is no ovarian torsion. There is a small amount of pelvic free fluid. . Right ovary measures 4.6 x 1.7 x 2.5 cm for a volume of 9.8 mL which includes a 1.9 cm benign appearing cyst. Left ovary measures 3.0 x 2.2 x 1.8 cm for a volume of 6.1 mL and appears unremarkable. US/US pelvic and transvaginal IMPRESSION: Unremarkable pelvic ultrasound. A cause for the patient's left-sided pelvic pain has not been found.
[2023-09-20 16:02] VITALS: BP 141/78; PULSE 88; RESP 18; TEMP 36.4; O2SAT 98; BMI 27.5
--- NOTE | 2023-09-20 16:02 | ED.GENADULT ---
HPI - General Adult General Chief complaint: Abdominal Pain Stated complaint: LLQ abd/pelvic pain Time Seen by Provider: 09/20/23 22:42 Source: patient Mode of arrival: ambulatory Limitations: no limitations History of Present Illness ED Provider: isaac BALDWIN narrative: Patient with history of Rachel-Danlos syndrome complaining of pain in the left lower abdomen for last 4- 5 days after having physical floor physical therapy which she been doing for some time does have history of constipation ambulatory without any distress at slight nausea no vomiting no diarrhea no fever no chills no urinary complaints last bowel movement was today earlier Related Data Home Medications ?Medication ?Instructions ?Recorded ?Confirmed fluoxetine 20 mg capsule 20 mg PO DAILY 03/16/21 08/08/23 hydroxyzine pamoate 25 mg capsule 25 mg PO BID PRN anxiety 06/01/21 08/08/23 albuterol sulfate 90 mcg/actuation 2 puff inhalation QID PRN wheezing 06/06/22 08/08/23 aerosol inhaler (Ventolin HFA) fluticasone furoate 200 1 ea inhalation DAILY 06/13/23 08/08/23 mcg-vilanterol 25 mcg/dose inhalation powder (Breo Ellipta) lisdexamfetamine 10 mg capsule 10 mg PO QAM 06/13/23 08/08/23 (Vyvanse) Previous Rx's ?Medication ?Instructions ?Recorded bisacodyl 5 mg tablet,delayed 20 mg (4 x 5 mg) PO ONCE 03/20/23 release (Dulcolax (bisacodyl)) colonoscopy prep 1 day #4 tabs pantoprazole 20 mg tablet,delayed 20 mg PO QAM #30 tabs 03/20/23 release polyethylene glycol 3350 17 238 g PO ONCE laxative effect 1 03/20/23 gram/dose oral powder (Miralax) day #238 grams cholecalciferol (vitamin D3) 25 25 mcg PO DAILY 90 days #90 caps 06/23/23 mcg (1,000 unit) capsule ascorbate calcium (vitamin C) 500 500 mg PO DAILY 90 days #90 tabs 07/28/23 mg tablet magnesium oxide 400 mg PO DAILY 90 days #90 tabs 07/28/23 gabapentin 100 mg capsule 100 - 300 mg (1 - 3 x 100 mg) PO 08/08/23 BEDTIME 30 days #90 caps ondansetron 4 mg disintegrating 4 mg PO Q6H PRN nausea and 08/08/23 tablet vomiting 30 days #30 tabs riboflavin (vitamin B2) 400 mg 400 mg PO DAILY 30 days #30 tabs 08/08/23 tablet Allergies Allergy/AdvReac Type Severity Reaction Status Date / Time naproxen Allergy Mild gi upset Verified 09/20/23 16:06 Seasonal Allergies Allergy Mild Runny Nose Verified 09/20/23 16:06 Review of Systems Review of Systems: Yes all other systems are reviewed and are negative [facility] Past Medical History Medical History Hx of infectious mononucleosis Right ankle pain Right shoulder pain Polyarthralgia Physical exam Mild recurrent major depression Fibroadenoma of right breast Surgical History Hx of colonoscopy History of esophagogastroduodenoscopy (EGD) H/O breast biopsy No pertinent past surgical history Family History Family History Father Hypertension Mother No problems noted. Maternal Grandfather Diabetes mellitus Maternal Grandmother Diabetes mellitus Brother Depression Family/Other Substance use disorder Mental health disorder Social History Social History Housing: House Alcohol intake: current Alcohol intake frequency: a few times a month Alcohol type: wine Patient Tobacco Use Status: Never used Tobacco Smoked in Last 30 Days: No e-Cigarette/Vaping Use: Never Used Second Hand Smoke Exposure: No Substance Use Type: Marijuana Advance Directives: No Advance Directives Information Provided: No Do you have a plan to hurt others: No Plan Patient : No service: No Current occupational status: employed Current occupational exposures/hazards: No Cognitive needs: No Hearing needs: No Vision needs: No Physical Exam ED Vital Signs: Vital Signs - 24 hr 09/20/23 16:02 09/20/23 22:38 09/21/23 00:57 Temperature 97.5 F 98.4 F 98.5 F Pulse Rate 88 73 76 Respiratory Rate 18 17 17 Blood Pressure 141/78 H 118/77 124/78 Pulse Oximetry 98 100 99 Oxygen Delivery Method Room Air Room Air Room Air 09/21/23 01:54 Temperature 98.2 F Pulse Rate 72 Respiratory Rate 18 Blood Pressure 118/72 Pulse Oximetry 98 Oxygen Delivery Method Room Air BMI result Body Mass Index 27.5 Appearance: Alert. Oriented X3. No acute distress. Eyes: No pallor or icterus ENT: Pharynx normal. Oral Mucosa moist Neck: Normal inspection. Neck supple. CVS: Normal heart rate and rhythm. Pulses normal. Respiratory: No respiratory distress. Equal air entry bilateral, no wheezing/rales/rhonchi Abdomen: Soft , tenderness in left with abdomen Bowel sounds are present, no mass palpable, no CVA tenderness Skin: Skin warm and dry. Normal skin color. Normal skin turgor. Extremities: No lower extremity edema. No calf tenderness Neuro: Oriented X 3. Course Course Course Narrative: This is an RME: Additional HPI, ROS, PE not included below will be deferred to primary provider. RME assessment and note performed by: Carmel Campoverde PA-C This is a [id number]-female, with a hx of rachel-danlos syndrome who presents to the ER with complaints of left sided pelvic pain x 4 days. Pt reports that she goes to pelvic floor PT but believes that her muscles are too relaxed and has had worsening pain. No abnormal vag bleeding or discharge. Plan: Labs, UA, pelvic US Medical Decision Making Medical Decision Making [facility] Narrative: Patient with left lower abdominal pain nonspecific CT scan and ultrasound negative take Tylenol/Motrin Differential Diagnosis Differential Diagnoses: The differential diagnosis associated with the presentation includes Lab Data [facility] Lab Attestation statement: I reviewed the patient's lab results. 09/20/23 17:27 09/20/23 17:27 Labs: Lab Results 09/20/23 09/20/23 Range/Units 17:27 20:03 WBC 7.5 (4.8-10.8) X10*3/uL RBC 4.39 (4.20-5.50) X10*6/uL Hgb 12.6 (12.0-16.0) g/dl Hct 36.9 L (37.0-47.0) % MCV 84.1 (80.0-98.0) fL MCH 28.7 (27.0-33.0) pg MCHC 34.1 (31.0-35.0) g/dl RDW 11.5 (11.0-16.0) % Plt Count 331 (160-400) X10*3/uL MPV 8.6 L (9.4-12.3) fL Immature Gran % (Auto) 0.3 (0.0-0.4) % Neut % (Auto) 49.3 (45-73) % Lymph % (Auto) 40.9 H (20-40) % [place] % (Auto) 7.1 (2-11) % Eos % (Auto) 1.9 (0-4) % Baso % (Auto) 0.5 (0-2) % Lymph # (Auto) 3.1 (1.2-4.9) X10*3/uL [place] # (Auto) 0.5 (0.1-1.2) X10*3/uL Eos # (Auto) 0.1 (0.0-0.4) X10*3/uL Baso # (Auto) 0.0 (0.0-0.2) X10*3/uL Abs Immat Gran (auto) 0.02 (0.00-0.03) X10*3/uL Absolute Neuts (auto) 3.7 (2.0-8.3) x10*3/uL Absolute Nucleated RBC 0.000 (0.0-0.012) X10*3/uL Nucleated RBC % (auto) 0.0 (0.0-0.2) /100WBC Sodium 141 (135-145) mmol/L Potassium 4.0 (3.3-5.1) mmol/L Chloride 105 (96-108) mmol/L Carbon Dioxide 26 (22-29) mmol/L Anion Gap 14 (12-20) BUN 13 (9-16) mg/dL Creatinine 0.96 (0.5-1.4) mg/dL Estim Creat Clear Calc 80.4 Estimated GFR > 60 Random Glucose 101 (60-115) mg/dL Calcium 9.9 (8.4-10.2) mg/dL Total Bilirubin 1.1 H (0.0-1.0) mg/dL Direct Bilirubin 0.3 (0.0-0.5) mg/dL AST 20 (5-31) U/L ALT 17 (0-31) U/L Alkaline Phosphatase 69 (39-117) U/L Total Protein 7.5 (6.5-8.0) g/dL Albumin 4.4 (3.5-5.0) g/dL Beta HCG, Quant < 2 mIU/mL Urine Color Dark Yellow Urine Appearance Cloudy Urine pH 7.5 (5.0-9.0) Ur Specific Pr[place]ard 1.015 (1.005-1.025) Urine Protein Negative (Neg-Trace) mg/dL Urine Glucose (UA) Negative (Negative) mg/dL Urine Ketones Negative (Negative) mg/dL Urine Blood Negative (Negative) Urine Nitrite Negative (Negative) Ur Leukocyte Esterase Negative (Negative) Independent Interpretation I performed an independent interpretation of an: Ultrasound and CT Scan Discharge Plan Discharge Clinical Impression: Abdominal pain Patient Disposition: Home, Self-Care Instructions: Abdominal Pain (ED) Additional Instructions: Cause of your abdominal pain is not clear take Tylenol/Motrin for pain as needed your CT scan and ultrasound are normal Prescriptions: No Action cholecalciferol (vitamin D3) 25 mcg (1,000 unit) capsule 25 mcg PO DAILY 90 Days Qty: 90 1RF magnesium oxide 400 mg magnesium tablet 400 mg PO DAILY 90 Days Qty: 90 1RF ascorbate calcium (vitamin C) 500 mg tablet 500 mg PO DAILY 90 Days Qty: 90 1RF albuterol sulfate [Ventolin HFA] 90 mcg/actuation HFA aerosol inhaler 2 puff inhalation QID PRN (Reason: wheezing) fluticasone furoate-vilanterol [Breo Ellipta] 200-25 mcg/dose blister with device 1 ea inhalation DAILY lisdexamfetamine [Vyvanse] 10 mg capsule 10 mg PO QAM hydroxyzine pamoate 25 mg capsule 25 mg PO BID PRN (Reason: anxiety) fluoxetine 20 mg capsule 20 mg PO DAILY gabapentin 100 mg capsule 100 - 300 mg PO BEDTIME 30 Days Qty: 90 3RF riboflavin (vitamin B2) 400 mg tablet 400 mg PO DAILY 30 Days Qty: 30 6RF ondansetron 4 mg tablet,disintegrating 4 mg PO Q6H PRN (Reason: nausea and vomiting) 30 Days Qty: 30 3RF bisacodyl [Dulcolax (bisacodyl)] 5 mg tablet,delayed release (DR/EC) 20 mg PO ONCE 1 Days Qty: 4 0RF Rx Instructions: Day before procedure, prep day Take 4 tablets by mouth upon awakening followed by large glass of water polyethylene glycol 3350 [Miralax] 17 gram/dose powder 238 g PO ONCE 1 Days Qty: 238 0RF Rx Instructions: Take as directed by mouth the day before your procedure. pantoprazole 20 mg tablet,delayed release (DR/EC) 20 mg PO QAM Qty: 30 6RF Interventions: ED Discharge Assessment Last Done: 09/21/23 01:54 Discharge Date/Time: 09/21/23 01:55 Print Language: Azeri
[2023-09-20 17:31] LABS: MANUAL DIFF FLAG NO
--- NOTE | 2023-09-20 17:31 | MHC.EDTECH ---
Patient blood drawn and sent to lab ,patient was given urine cup for sample .
[2023-09-20 17:36] LABS: Basophils Percent Auto 0.5 % (0-2); Eosinophils Absolute Auto 0.1 X10*3/uL (0.0-0.4); Eosinophils Percent Auto 1.9 % (0-4); Hematocrit 36.9 % (37.0-47.0); Hemoglobin 12.6 g/dl (12.0-16.0); Imm Gran Abs Auto 0.02 X10*3/uL (0.00-0.03); Imm Gran Pct Auto 0.3 % (0.0-0.4); Lymphocytes Absolute Auto 3.1 X10*3/uL (1.2-4.9); Lymphocytes Percent Auto 40.9 % (20-40); Mean Corpuscular HGB Conc 34.1 g/dl (31.0-35.0); Mean Corpuscular Hemoglobin 28.7 pg (27.0-33.0); Mean Corpuscular Volume 84.1 fL (80.0-98.0); Mean Platelet Volume 8.6 fL (9.4-12.3); Monocytes Absolute Auto 0.5 X10*3/uL (0.1-1.2); Monocytes Percent Auto 7.1 % (2-11); Neutrophils Absolute Auto 3.7 x10*3/uL (2.0-8.3); Neutrophils Percent Auto 49.3 % (45-73); Platelet Count 331 X10*3/uL (160-400); Red Blood Count 4.39 X10*6/uL (4.20-5.50); Red Cell Distribution Width 11.5 % (11.0-16.0); White Blood Count 7.5 X10*3/uL (4.8-10.8)
[2023-09-20 18:09] LABS: Alanine Aminotransferase 17 U/L (0-31); Albumin Level 4.4 g/dL (3.5-5.0); Alkaline Phosphatase 69 U/L (39-117); Anion Gap 14 (12-20); Aspartate Amino Transferase 20 U/L (5-31); Bilirubin Direct 0.3 mg/dL (0.0-0.5); Bilirubin Total 1.1 mg/dL (0.0-1.0); Blood Urea Nitrogen 13 mg/dL (9-16); Calcium 9.9 mg/dL (8.4-10.2); Carbon Dioxide 26 mmol/L (22-29); Chloride 105 mmol/L (96-108); Creatinine Clr Calc Pharmacy 80.4; Estimated Glomerular Filt Rate > 60; Glucose Random 101 mg/dL (60-115); Sodium 141 mmol/L (135-145); Total Protein 7.5 g/dL (6.5-8.0)
[2023-09-20 18:14] LABS: HCG Quantitative < 2 mIU/mL
--- NOTE | 2023-09-20 20:03 | MHC.EDTECH ---
Patient urine sample collected and sent to lab .
[2023-09-20 20:19] LABS: Appearance Urine Cloudy; Color Urine Dark Yellow; Glucose Urine UA Negative (Negative); Leukocyte Esterase Urine Negative (Negative); Nitrite Urine Negative (Negative); PH 7.5 (5.0-9.0); Specific Gravity - Urine 1.015 (1.005-1.025); Urine Blood Negative (Negative); Urine Ketones Negative (Negative); Urine Protein Negative (Neg-Trace)
[2023-09-20 22:38] VITALS: BP 118/77; PULSE 73; RESP 17; TEMP 36.9; O2SAT 100
[2023-09-21 00:57] VITALS: BP 124/78; PULSE 76; RESP 17; TEMP 36.9; O2SAT 99
[2023-09-21 01:54] VITALS: BP 118/72; PULSE 72; RESP 18; TEMP 36.8; O2SAT 98
== END 2023-09-21 01:55 | disposition home or self-care (01) ==
PROVIDERS: Physician Assistant Medical; Emergency Provider Internal Medicine; PCP Internal Medicine
DX: R10.32 Left lower quadrant pain (principal)
CPT/HCPCS: 36415; 74176; 76830; 76856; 80048; 80076; 81003; 84702; 85025; 99284

== ENCOUNTER 2023-10-10 16:32 | Outpatient (AMB) | payer OTHER, SELFPAY ==
[2023-10-10 16:34] VITALS: BP 112/78; BMI 27.4
--- NOTE | 2023-10-10 16:34 | MHC.PC.OV ---
Vital Signs 10/10/23 16:34 Height 5 ft 2 in Weight 150 lb BMI 27.4 BP 112/78 Blood Pressure Location Lt brachial Position Sitting Intake Visit Reasons: shoulder and pelvic area pain Intake Note: Patient here c/o shoulder and pelvic pain, migraines, stiff tendons,? lymphedema Disposal Worker Required: No Accompanied by: Self / Same As Patient Allergies naproxen Allergy (Mild, Verified 10/10/23 16:43) gi upset Seasonal Allergies Allergy (Mild, Verified 10/10/23 16:43) Runny Nose Medication List - Last Reconciled 10/10/23 by Jessica Chavez MD albuterol sulfate 90 mcg/actuation (Ventolin HFA) 2 puffs inhalation QID PRN ascorbate calcium (vitamin C) 500 mg PO DAILY 90 days cholecalciferol (vitamin D3) 25 mcg PO DAILY 90 days fluoxetine 10 mg PO DAILY fluticasone furoate-vilanterol 200-25 mcg/dose (Breo Ellipta) 1 ea inhalation DAILY gabapentin 100 - 300 mg (1 - 3 x 100 mg) PO BEDTIME 30 days hydroxyzine pamoate 25 mg PO BID PRN lisdexamfetamine (Vyvanse) 20 mg PO QAM magnesium oxide 400 mg PO DAILY 90 days ondansetron 4 mg PO Q6H PRN 30 days pantoprazole 20 mg PO QAM riboflavin (vitamin B2) 400 mg PO DAILY 30 days Tobacco use date assessed: 06/13/23 Dental Screening Dental Screen Date: 06/13/23 HPI HPI Comments History of Present Illness Details This is a 28-year-old female with moderate recurrent major depression, Rachel-Danlos syndrome and scleroderma complains of right shoulder pain that has been present for few weeks. Had an injury long time ago. Has full active range of motion. X-ray showed no acute abnormality. I will send her to physical therapy. Rachel-Danlos syndrome and scleroderma are follow by Rheumatology. Depression is follow by Psychiatry and has improved with medications. [facility] Medical History (Updated 10/10/23 @ 20:03 by Jessica Chavez MD) Hx of infectious mononucleosis Right ankle pain Right shoulder pain Polyarthralgia Physical exam Mild recurrent major depression Fibroadenoma of right breast Surgical History Hx of colonoscopy History of esophagogastroduodenoscopy (EGD) H/O breast biopsy No pertinent past surgical history Family History Father Hypertension Mother No problems noted. Maternal Grandfather Diabetes mellitus Maternal Grandmother Diabetes mellitus Brother Depression Family/Other Substance use disorder Mental health disorder Social History Housing: House Alcohol intake: current Alcohol intake frequency: a few times a month Alcohol type: wine Patient Tobacco Use Status: Never used Tobacco e-Cigarette/Vaping Use: Never Used Second Hand Smoke Exposure: No Substance Use Type: Marijuana service: No Current occupational status: employed Current occupational exposures/hazards: No Cognitive needs: No Hearing needs: No Vision needs: No Female Reproductive History Menstrual Age of Menarche: 14 Questionnaire PHQ-9 Over the last 2 weeks, how often have you been bothered by any of the following problems? 1. Little interest or pleasure in doing things: more than half the days 2. Feeling down, depressed, or hopeless: more than half the days 3. Trouble falling or staying asleep, or sleeping too much: nearly every day 4. Feeling tired or having little energy: more than half the days 5. Poor appetite or overeating: more than half the days 6. Feeling bad about yourself - or that you are a failure or have let yourself or your family down: more than half the days 7. Trouble concentrating on things, such as reading the newspaper or watching television: nearly every day 8. Moving or speaking so slowly that other people could have noticed. Or the opposite - being so fidgety or restless that you have been moving around a lot more than usual: nearly every day 9. Thoughts that you would be better off or of hurting yourself in some way: not at all Total score: 19 Depression Screening Interpretation: Positive Depression Screening Follow-up: Existing condition, In treatment, Community Mental Health Worker F/U and Follow-up Visit Requested Depression Screening Done: Yes 14277 - PHQ-9 Billing: Yes Source: Developed by Drs. Yung Robertson, Shahida Meyer, James White and colleagues, with an educational arjun from [employer]. Thrive Questionnaire Date Thrive assessed: 06/13/23 AUDIT C Alcohol Use Questionnaire (AUDIT-C) 1. How often do you have a drink containing alcohol?: Never Total Score: 0 Score Reviewed/Action Taken: No SERGO-7 AMB Questionnaire SERGO-7 Date SERGO - 7 assessed: 10/10/23 Feeling nervous, anxious, or on edge: 3 = Nearly every day Not being able to stop or control worryin = Nearly every day Worrying too much about different things: 3 = Nearly every day Trouble relaxin = Nearly every day Being so restless that it is hard to sit still: 3 = Nearly every day Becoming easily annoyed or irritable: 3 = Nearly every day Feeling afraid as if something awful might happen: 1 = Several days Total SERGO-7 score (0-4 normal; 5-9 mild; 10-14 moderate; 15-21 severe): 19 Source: Developed by Drs. Yung Robertson, Shahida Meyer, James White and colleagues, with an educational arjun from [employer]. SERGO-7 Assessment Billing SERGO-7 Assessment Tool: SERGO-7 Assessment 47366 Review of Systems Const All systems reviewed & are unremarkable except as noted in HPI and below Card Denies chest pain at rest, Denies chest pain with activity, Denies edema, Denies irregular heart rhythm, Denies claudication, Denies dyspnea, Denies dyspnea on exertion, Denies orthopnea, Denies paroxysmal nocturnal dyspnea and Denies slow heart rate Resp Denies cough, Denies dyspnea and Denies dyspnea on exertion GI Denies abdominal pain, Denies change in bowel habits, Denies excessive flatus, Denies nausea and Denies vomiting Denies urinary incontinence, Denies urinary hesitancy and Denies urinary urgency Musc Reports arthralgias Physical exam (Primary Care) Vital Signs: Last Vital Signs BP 112/78 10/10/23 16:34 BMI result Body Mass Index 27.4 Tobacco/Smoking Status: Tobacco use Status Tobacco use date assessed 06/13/23 10/10/23 16:44 Patient Tobacco Use Status Never used Tobacco 10/10/23 16:44 e-Cigarette/Vaping Use Never Used 10/10/23 16:44 PHQ-9: PHQ-9 Score PHQ-9: Total score 19 10/10/23 16:47 Depression Screening Interpretation: Positive Depression Screening Follow-up: Existing condition, In treatment, Community Mental Health Worker F/U and Follow-up Visit Requested Thrive Assessment: Date of Thrive Assessment Date Thrive assessed 06/13/23 10/10/23 16:44 Resp Effort & Inspection: normal respiratory effort Auscultation: clear to auscultation bilaterally Cardio Jugular venous distension: no JVD Rate: regular rate Rhythm: regular rhythm Heart sounds: S1 normal heart sound present and S2 normal heart sound present Extrem General: Yes full ROM Assessment and Plan Assessment & Plan (1) Moderate recurrent major depression: Code(s): F33.1 - Major depressive disorder, recurrent, moderate Plan: Continue fluoxetine. Follow-up with psychiatry. (2) Rachel-Danlos syndrome: Comment: hypermobile. Genetic testing not yet completed- needing insurance clearance. Normal echocardiogram. Code(s): Q79.60 - Rachel-Danlos syndrome, unspecified Plan: Follow-up with rheumatology. (3) Scleroderma: Code(s): M34.9 - Systemic sclerosis, unspecified Plan: Follow-up with rheumatology. (4) Right shoulder pain: Code(s): M25.511 - Pain in right shoulder Plan: Start physical therapy. Orders: Orders PT Evaluation and Treatment Today M25.511 - Pain in right shoulder Medications: New baclofen 5 mg PO BID PRN 10 tabs 0RF muscle spasm 5 days Coding Level of Care Code Est Pt Level 4 (44099) Complex EM visit Add On G2211 Diagnoses Moderate recurrent major depression F33.1 Rachel-Danlos syndrome Q79.60 Scleroderma M34.9 Right shoulder pain M25.511 Additional Codes SERGO-7 Assessment Billing - SERGO-7 Assessment Tool: SERGO-7 Assessment 47463 ([id number]) Time Spent (min) 23
== END 2023-10-10 17:03 | disposition home or self-care (01) ==
PROVIDERS: PCP Internal Medicine; Visit Provider Internal Medicine
DX: F33.1 Major depressive disorder, recurrent, moderate (principal); Q79.60 Ehlers-Danlos syndrome, unspecified; M34.9 Systemic sclerosis, unspecified; M25.511 Pain in right shoulder
CPT/HCPCS: 96127; 99214; G2211

== ENCOUNTER 2023-12-13 08:00 | Outpatient (RCR) | payer OTHER, SELFPAY ==
--- NOTE | 2023-11-24 09:12 | MHC.PT.EP ---
[facility] [place] Office [place] Office [place] Office [address] [phone] F: [phone] F: [phone] F: [phone] F: [phone] Physical Therapy Plan of Care Date of Evaluation: 11/24/23 Date of Surgery: NA Diagnosis: Pain in R shoulder Cervicalgia Assessment: Liss is a 28 year old female with a known diagnosis of EDS type 3, who is referred to PT for pain in R shoulder and cervicalgia . She reports of having pain in R shoulder following a pull during a dance musical 6 years back. Her symptoms have gotten worse with time. On PT examination she had mild TTP over R UT and R shoulder anterior joint line, 5-7/10 pain over R scapula with shoulder movements, decreased R shoulder and scap strength, and altered posture. She lives with his mother and brother. She is independent with self care activities but her brother helps her with IADLS as needed. 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 She would benefit from skilled PT to address the aforementioned impairments and improve tolerance to functional activities. Frequency and Duration: The patient will be seen 2/week for 5 weeks Short Term Goals: 1. Pt will demonstrate initiation of HEP in 2 weeks 2. Pt will have 50% decrease in pain in R shoulder which will enable her to use R UE for ADLS without pain in 3 weeks. Syrup Mixer Helper Goals: 1. Pt will demonstrate an increase in muscle strength by 1 grade which will enable her to perform IADLS and work activities without pain in 5 weeks. 2. Pt will be independent with HEP for symptom management and maintenance following d/c in 5 weeks Treatment Plan: Modalities to reduce pain, spasms and effusion. Manual therapy to restore motion and function. Therapeutic exercise to improve strength and flexibility. Neuromuscular re-education for posture and balance. Therapeutic activities to return to functional activities of daily living. Electronically signed by: Marie Pratt PT DPT Please sign and return to therapist. Thank you for your referral.
--- NOTE | 2023-12-27 08:20 | MHC.PT.DC ---
[facility] [place] Office [place] Office [place] Office [address] Irwin Acuña [address] [phone] F: [phone] F: [phone] F: [phone] F: [phone] Physical Therapy Discharge Report Diagnosis: Pain in R shoulder Cervicalgia Date of Surgery: NA Date of Evaluation: 11/24/23 Date of Discharge: 12/27/23 Treatments to Date: 3 Cancellations to Date: 2 No Shows to Date: 3 Discharge Status: Visit Non-compliance Discharge Summary: Liss has only attended 3 visits including her evaluation in a month. She has no showed 3 times and canceled 2 times. She is therefore being d/c from PT for non compliance. Electronically signed by: Marie Pratt PT DPT Please sign and return to therapist. Thank you for your referral.
== END 2023-12-27 08:21 | disposition home or self-care (01) ==
LOC: HO.PT 08:00
PROVIDERS: PCP Internal Medicine; Visit Provider Internal Medicine
DX: M54.2 Cervicalgia (principal); M25.511 Pain in right shoulder
CPT/HCPCS: 97110; 97112; 97140; 97161

== ENCOUNTER 2023-12-15 07:45 | Outpatient (AMB) | payer OTHER, SELFPAY ==
--- NOTE | 2023-12-15 07:45 | A.OFFVIS_ITS ---
Intake Visit Reasons: 3 month f/u- Intake Note: Patient headaches are getting worst having more symptoms feels very nauseous,neck stiff and having Some anxiety Allergies naproxen Allergy (Mild, Verified 12/15/23 07:46) gi upset Seasonal Allergies Allergy (Mild, Verified 12/15/23 07:46) Runny Nose Medication List - Last Reconciled 12/15/23 by Yen Interiano, MITCHELL albuterol sulfate 90 mcg/actuation (Ventolin HFA) 2 puffs inhalation QID PRN ascorbate calcium (vitamin C) 500 mg PO DAILY 90 days baclofen 10 mg PO BID PRN 5 days cholecalciferol (vitamin D3) 25 mcg PO DAILY 90 days fluoxetine 10 mg PO DAILY fluticasone furoate-vilanterol 200-25 mcg/dose (Breo Ellipta) 1 ea inhalation DAILY gabapentin 100 - 300 mg (1 - 3 x 100 mg) PO BEDTIME 30 days hydroxyzine pamoate 25 mg PO BID PRN lisdexamfetamine (Vyvanse) 20 mg PO QAM magnesium oxide 400 mg PO DAILY 90 days ondansetron 4 mg PO Q6H PRN 30 days pantoprazole 20 mg PO QAM riboflavin (vitamin B2) 400 mg PO DAILY 30 days HPI Comments Details: Right-handed 28-yr-old female presents for f/u of headache disorder via [employer]. Pt reports she is continuing to have daily neck stiffness and headaches. She tried baclofen 10mg prn, prescribed by PCP, this has not help the neck stiffness. She states the Gabapentin helped her to fall asleep, but she is feeling more forgetful. It has not really helped the neck pain, stiffness, or headache. She never received sumatriptan. She is doing PT. Considering doing acupuncture- starting next week. Headache questionnaire:? Age/time of onset: You, worsened at age 22. Preceding causes: Pt ?'s falls, scoliosis, cheerleading accident, EBV infection in 2018. Previous work-up: None. No h/o c-spine imaging Typical headache characteristics: Prodrome symptoms: unsure Aura: w/wo headache blurry vision, flashes of white lights, wiggly things in vision, brief flashes of shadows. Pain intensity: [id number] Location, quality, characteristics: Starts in mid-lower occipital region, feels like pressure, like the spine is pushing up, the pressure then the pressure becomes holocranial. Sometimes can start in bilateral upper frontal region. Associated symptoms: Nausea, photophobia,phonophobia,osmophobia, not right in space dizziness,lightheadedness,fatigue,cognitive difficulties,sometimes watery eye or runny nose,.if bent over, eyes feel droopy but are not, Postdrome: residual s/s Triggers: poor fluid intake,hunger,lights,sounds,poor sleep,stress, air travel, alcohol, Sometimes Menstrual cycle- 1st day or two Positional changes- bending over and standing up, Sometimes- Valsalva Time of day: Mid-day after being up and about for a few hours. Duration and Frequency: Everyday headache, begins mild and becomes severe for short periods, then subsides with position adjustment (laying down is more effective than sitting up). How does headache impact your life? Tries to work/push through them. 09/07/2023, MR/MR head/brain wo/w con IMPRESSION: Normal MRI of the brain without and with contrast. 08/17/2023: XR/XR cervical spine w flex/ext FINDINGS: There is straightening of cervical lordosis with mild narrowing of C5-C6 and no evidence of instability on flexion and extension views neuroforamina are not encroached. There is no evidence of fractures or subluxations. Soft tissues are unremarkable. IMPRESSION: Mild narrowing of C5-C6 without evidence of instability. ? Tilt Table Test: Cardiology Note Office Patient: ?TOLU LUNA ? Age:?28 Years?Sex:?Female?:?1995? History of Present Illness/Interval History DATE:? 09/26/2023 ? PROCEDURE: Head Upright Tilt Table ? BOAT HOP: Reanna House RN, Suni Adame RN, Diogenes Walker PA-C ? SUPERVISING MD: Dr. Rice ? INDICATION: Near syncope ? REFERRING PROVIDER:?Yen Interiano NP ? BRIEF HISTORY OF PRESENT ILLNESS:?See nnote 08/08/2023.? Patient has history of near syncope/syncope after standing for 10 minutes.? She has been supplementing with fluids and electrolytes.? DESCRIPTION OF PROCEDURE: The patient was brought into the EP lab in a fasting state. ? The patient was identified using 2 forms of ID, a timeout was taken, and an informed consent was obtained. ? Initial supine vital signs were obtained (see below) and patient was then tilted upright to 70??with continuous ECG monitoring and BP monitoring every 2 minutes. ? ? ? Hemodynamic Data: 0 degrees? 107/69? HR 89? Minutes ? ? ?Blood Pressure ? ? ? Heart Rate ? ? 2 ? 100/58? 98? 4 ?86/57? 105? 6?98/53? 100? 8 ? 101/55? 98? 10 ?100/65? 102? 12?101/59? 99? 14?100/60? 103? 16 ?113/59? 92?? ? 18 ?104/66? 106 ? 20 ?105/68? 98? 22 ?98/54? 96? 24 ?104/61? 93? 26 ?103/64? 105? 28?112/72? 102? 30?106/66?105? COMPLICATIONS: None ? IMPRESSION Negative tilt table test for neurocardiogenic syncope as the patient did not exhibit a cardioinhibitory or vasodepressor response after?30 minutes of an upright tilt. [facility] Medical History (Updated 12/15/23 @ 08:34 by MITCHELL Sandra) Hx of infectious mononucleosis Right ankle pain Right shoulder pain Polyarthralgia Physical exam Mild recurrent major depression Fibroadenoma of right breast Surgical History Hx of colonoscopy History of esophagogastroduodenoscopy (EGD) H/O breast biopsy No pertinent past surgical history Family History Father Hypertension Mother No problems noted. Maternal Grandfather Diabetes mellitus Maternal Grandmother Diabetes mellitus Brother Depression Family/Other Substance use disorder Mental health disorder Social History Housing: House Alcohol intake: current Alcohol intake frequency: a few times a month Alcohol type: wine Patient Tobacco Use Status: Never used Tobacco e-Cigarette/Vaping Use: Never Used Second Hand Smoke Exposure: No Substance Use Type: Marijuana service: No Current occupational status: employed Current occupational exposures/hazards: No Cognitive needs: No Hearing needs: No Vision needs: No Female Reproductive History Menstrual Age of Menarche: 14 Physical Exam Const General: cooperative and no acute distress Orientation/consciousness: patient oriented x3 Resp Effort & Inspection: normal respiratory effort and able to speak in complete sentences Neuro General: patient oriented x3 Cognition (Neuro): normal cognition Psych Appearance: grossly normal Mental Status: mental status grossly normal Speech and movement: Normal speech and movement present Affect: normal affect Attitude: cooperative Telehealth Telehealth Telehealth Platform: [facility] Location of provider rendering services: practice address Location of patient: address on file Patient Identification confirmed using: Name, : Yes Telehealth method: video Patient verbally consented to treatment: Yes Patient verbally consented to billing insurance company: Yes Patient informed of any privacy concerns related to visit: Yes Minutes spent on Phone/Video with Pt.: 34 Assessment & Plan Assessment & Plan (1) Positional headache: Comment: DDx- chronic migraine w/ aura, secondary ATKINSON d/o- cervicogenic, intracranial hypotension, intracranial structural abnormality. Code(s): R51.0 - Headache with orthostatic component, not elsewhere classified Category: Medical (2) Rachel-Danlos syndrome: Comment: hypermobile. Genetic testing not yet completed- needing insurance clearance. Normal echocardiogram. Code(s): Q79.60 - Rachel-Danlos syndrome, unspecified Category: Medical (3) Orthostatic lightheadedness: Code(s): R42 - Dizziness and giddiness Category: Medical (4) Scoliosis: Code(s): M41.9 - Scoliosis, unspecified Category: Medical (5) Cervicalgia: Code(s): M54.2 - Cervicalgia Category: Medical Plan Reviewed: C-spine XR w/ flex/ext- Mild narrowing of C5-C6 without evidence of instability. Brain MRI w/wo- Normal Tilt table testing- read as normal, however there was mild drop in BP w/ associated HR elevation. Advised to do home standing 10 minute HR monitor. Labs as ordered. Rheumatology f/u scheduled. Pt advised to undergo: XR T-spine XR Lumbar w/ flexion Future considerations- MRA/CTA. avila-spine imaging. For overall headache management: Optimize good self-care, including but not limited to maintaining a healthy diet, adequate fluid intake, adequate sleep, and engaging in regular physical activity. Track headaches For muscle tightness: Baclofen 10mg qhs- may need to take consistently for best effect Continue PT Concur w/ starting acupuncture. For acute headache treatment: Discussed importance of taking acute medications at the first sign of headache, however stressed importance of avoiding acute medication overuse (especially with combined headache medications). Ondansetron ODT 4mg bid prn. Trial Sumatriptan 100mg tab, 1/2 - 1 tab (50-100mg) at onset of headache, may repeat in 2 hours. Max of 2 tabs (200mg) per 24 hours. May adjunct with OTC Tylenol 650mg q 4 hours, Ibuprofen 600mg q 6 hours, or Naproxen 440mg q 12 hrs prn. Potential adverse effects of triptans, including but not limited to nausea, fatigue, chest tightness/tingling (usually passes within a few minutes), med ication overuse headaches. Previous acute migraine medication trials: Tylenol- minimal effect. Acute migraine medication contraindications: None at this time For headache prevention medication: Preventative medications should be taken routinely as prescribed for best effect, it may take several weeks for full effect to take effect. Continue Riboflavin 400mg qam Continue Magnesium 400mg qhs Stop Gabapentin 100-300mg qhs- causes cognitive difficulties. Start Amitriptyline 10-20 mg daily at bedtime. Potential side effects include but are not limited to fatigue, cardiac arrhythmias, mood changes. Previous migraine prevention medication trials: None Migraine prevention medication contraindications: Beta-blockers d/t asthma dx. Aimovig d/t h/o Raynaud's. Follow-up upon review of above and in-clinic in 3 months or sooner prn. Orders: Orders XR thoracic spine 3V Today M54.9 - Dorsalgia, unspecified, Q79.60 - Rachel- Danlos syndrome, unspecified, R25.2 - Cramp and spasm XR lumbar spine 6V w bending Today M54.9 - Dorsalgia, unspecified, Q79.60 - Rachel-Danlos syndrome, unspecified, R25.2 - Cramp and spasm Medications: New sumatriptan succinate (0.5 - 1 x 100 mg) 50 - 100 mg orally at onset of headache, may repeat in 2 hrs PRN; max 2 tabs per day or 4 tabs/week (may take with Ibuprofen) 30 days 12 tabs 6RF migraine headache amitriptyline 10 - 20 mg (1 - 2 x 10 mg) PO BEDTIME 30 days 60 tabs 3RF Changed From baclofen 10 mg PO BID 5 days PRN 10 tabs 0RF muscle spasm To baclofen at bedtime 10 mg PO ONCE 30 days PRN 30 tabs 3RF muscle spasm Discontinued gabapentin Discontinued Reason: Doctor's Order 100 - 300 mg (1 - 3 x 100 mg) PO BEDTIME 30 days 90 caps 3RF Coding Level of Care Code Tele Est Pt Level 4 (24753) Diagnoses Positional headache R51.0 Rachel-Danlos syndrome Q79.60 Orthostatic lightheadedness R42 Scoliosis M41.9 Cervicalgia M54.2
== END 2023-12-15 12:34 | disposition home or self-care (01) ==
LOC: HO.HSMS 07:45
PROVIDERS: PCP Internal Medicine; Visit Provider Nurse Practitioner Family
DX: R51.0 Headache with orthostatic component, not elsewhere classified (principal); Q79.60 Ehlers-Danlos syndrome, unspecified; R42 Dizziness and giddiness; M41.9 Scoliosis, unspecified; M54.2 Cervicalgia
CPT/HCPCS: 99214

== ENCOUNTER → 2023-12-15 07:45 | Outpatient (BNVA) | payer OTHER, SELFPAY | PROVIDERS: PCP Internal Medicine; Visit Provider Nurse Practitioner Family ==

== ENCOUNTER 2024-01-29 10:20 | Outpatient (REF) | payer OTHER, SELFPAY | END 2024-01-29 10:21 | disposition home or self-care (01) | LOC: HO.HOSX 10:20 | PROVIDERS: Visit Provider Physician Assistant | DX: Z13.89 Encounter for screening for other disorder (principal) ==

== ENCOUNTER 2024-03-01 11:31 | Outpatient (REF) | payer SELFPAY ==
--- NOTE | ~2024-03-01 | XR_ITS ---
CLINICAL HISTORY: M25.552 - Pain in left hip 5 view, pelvis and left hip Comparison: None Findings: No acute fracture or dislocation. No significant arthritic change. The soft tissues are unremarkable. Incidental left-sided pelvic phlebolith. IMPRESSION: No acute process or significant degenerative changes. This document has been electronically signed by: Jessi Agustin DO on 03/04/2024 17:00:22
--- NOTE | ~2024-03-01 | XR_ITS ---
CLINICAL HISTORY: R25.2 - Cramp and spasm 7 views lumbar spine Comparison: CR - XR THORACIC SPINE 3V - 03/01/24 12:02 EST Findings: Thoracolumbar S-shaped scoliosis. Normal vertebral body alignment. No evidence for instability. No acute fractures or dislocation. Vertebral body heights and disc spaces are well-maintained. There are mild facet degenerative changes at L5-S1. Incidental spina bifida occulta L5. IMPRESSION: 1. Thoracolumbar S-shaped scoliosis. 2. No acute process or significant disc degenerative changes. 3. Mild facet degenerative changes at the lumbosacral junction. This document has been electronically signed by: Jessi Agustin DO on 03/04/2024 17:09:07
--- NOTE | ~2024-03-01 | XR_ITS ---
CLINICAL HISTORY: R25.2 - Cramp and spasm 3 views thoracic spine Comparison: CR - XR LUMBAR SPINE 6V W BENDING - 03/01/24 12:05 EST Findings: Thoracolumbar S shaped scoliosis. Satisfactory alignment of the vertebral bodies. No acute fractures or dislocation. Vertebral body heights are well-maintained. No significant degenerative change. IMPRESSION: 1. Thoracolumbar S-shaped scoliosis. 2. No acute process or significant degenerative changes. This document has been electronically signed by: Jessi Agustin DO on 03/04/2024 17:03:35
--- OUTSIDE RECORDS SUMMARY | 2024-03-01 11:33 | XMS_ITS ---
Author Organization [facility] Address [address] [id number] Care Team Providers [facility] [employer] Name Role Phone RADU SANTIAGO Unavailable [phone] REASON FOR VISIT Pap fu Social History Sex Assigned At : Social History Observation Description Sex Assigned At Female Encounters Encounter Location Date Provider Diagnosis [address] [id number] 08/31/2023 RADU SANTIAGO Plan Of Treatment No Information Progress Notes * Liss LIPSCOMBDOB: [birth year] (28 yo F)Acc No.[id number]:08/31/2023 Patient:?Liss LIPSCOMB :1995???Age:27 Y???Sex:Female Address:[address], [place], [address] Subjective: * Chief Complaints: * ???Pap fu * Medical History:? * Cremator History:? control:?Withdrawal.?Last menstrual period:?07/27.?Last pap smear date:?08/18/2023- LSIL/HPV positive (neg 16/18), due for colpo.?Menarche: ?Age of menarche?14 ???Periods:?every 28 days, every month, normal blood loss.?Sexual activity:?currently sexually active,, with both men and women.?Sexually Transmitted Diseases (STDs):?none.?Unprotected sex in the last 5 days?:?No.?Unprotected sex in the past 10 days?:?No.? * OB History:?Total pregnancies:?0.?Total living children:?0.? * Surgical History:? * Hospitalization/Major Diagno stic Procedure:? * Medications:? Objective: * Vitals:? * Physical Examination:? Assessment: Plan: * Treatment: * Procedure Codes:? * true * Date:? Generated for Richard oglesby/Nate/Nellasmitting on:?03/01/2024 11:33 AM EST
--- OUTSIDE RECORDS SUMMARY | 2024-03-01 11:33 | XMS_ITS ---
Author Organization [facility] Address [address] [place] [phone] Care Team Providers Care Hospital Orderly Name Role Phone RADU SANTIAGO Unavailable [phone] Allergies Allergen (clinical drug ingredient) Drug/Non Drug Allergy documented on EMR Reaction Allergy Type Onset Date Status naproxen Naproxen Unknown Drug Allergy Active Results Component Value Reference Range Notes THINPREP PAP TEST, Cervix Reviewed date:2023 01:13:49 PM Interpretation:LSIL Performing [facility], [place], [address] Alirio Champion DO Notes/Report: THINPREP PAP TEST LSIL NEGATIVE -- THIN PREP PAP TEST -- SEX: F : 1995 AGE: 27 [id number] CLINIC ID: [id number] SS: PHYSICIAN: RADU SANTIAGO CNM COLLECTED BY: __ Low Grade Squamous Intraepithelial Lesion (LSIL) __ Additional Findings: Endocervical Material Present Specimen Adequacy: Satisfactory for Evaluation Clinical Note: Z01.419 Encounter for gynecological examination (general) (routine) without abnormal findings, LMP 07-29-2023 Specimen Source: Cervix Visit Type: Routine Performed by: DAV Villatoro (ASCP) Reviewed by: Jeremie Champion DO (Electronic Signature 08/29/2023 10:19) REASON FOR VISIT Annual Exam Medications Medication SIG (Take, Route, Fr equency, Duration) Notes Start Date End Date Status Vyvanse 10 mg Active Fluoxetine 20 mg Active hydrOXYzine HCl 25 mg Acti ve Gabapentin Active Riboflavin Active Vitamin C Active Vitamin D Active Magnesium Active Social History Sex Assigned At : Social History Observation Description Sex Assigned At Female Vital Signs Blood pressure systolic 102 mm Hg 08/18/19 24 Blood pressure diastolic 62 mm Hg 024 Height 5'2 in 08/18/2023 Weight 153 lbs 08/18/2023 BMI 27.98 kg/m2 08/18/2023 Encounters Encounter Location Date Provider Diagnosis [address] [phone] 08/18/2023 RADU SANTIAGO Encounter for gynecological examination (general) (routine) without abnormal findings Z01.419 Assessments Encounter Date Diagnosis (ICD Code) Assessment Notes Treatment Notes Treatment Clinical Notes Section Notes 08/18/2023 Encounter for gynecological examination (general) (routine) without abnormal findings (ICD-10 - Z01.419) Discussed routine screenings and self breast awareness. Pap guidelines reviewed. Routine screening in 3 years if normal 08/18/2023 Other Discussed STI risks, screening, and safe sex Plan Of Treatment Treatment Notes Assessment Notes Encounter for gynecological examination (general) (routine) without abnormal findings Discussed routine screenings and self breast awareness. Pap guidelines reviewed. Routine screening in 3 years if normal Other Discussed STI risks, screening, and safe sex Next Appt Details Follow Up: 1 Year, Reason: A nnual Progress Notes * Elina LIPSCOMBchaimDOB: [birth year] (27 yo F)Acc No.[id number]:08/18/2023 Progress Notes Patient:?Liss LIPSCOMB Provider:?RADU SANTIAGO :1995???Age:27 Y???Sex:Female D ate:08/18/2023 Address:[address] [place] [address], [place], [phone] Subjective: * Chief Complaints: * ???Annual Exam * HPI: ???Visit Narrative:? Clt here for annual exam. Last pap: 1st pap today BR concerns: none. Hx of R BR fibroadenoma dx at age 18yrs by u/s per clt. 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 Takes iburprofen and tumeric. Doing pelvic PT due to urin incontinence and dyspareunia. Working on trigger points and tight pelvic floor muscles. Finding it helpful Urinary concerns: see above BC: tried the patch back in may but stopped as with AFAB partners, so no need for prevention at this time STI: neg GC/CT and trich screening 05/2023. No new concerns. ?Reason for the visit:?annual.?Current form of control:?same sex partner?.?Presenting Symptoms:?no sxs/concerns.?LMP:?07/28.?Last date of UPI:?04/06.?Other Notes for the Clinician:?clt defers from testing, clt states she is doing pelvic physical.? * ROS:?General/Constitutional:?Denies?Chills.?Denies?Fever.?Vaginal/Breast/ Control FU:?Admits?Breast lump.?Denies?Breast pain.?Denies?Discharge from the breast.?Denies?Heavy bleeding during menses.?Denies?Irregular menses.?Denies?Missed period(s).?Denies?Painful intercourse.?Admits?Painful menses,?1st day.?Denies?Vaginal bleeding between periods.?Denies?Vaginal discharge/itching.?Genitourinary:?Denies?Abdominal pain/swelling.? * Medical History:? * Owner Operator History:? control:?Withdrawal.?Last menstrual period:?07/27.?Last pap smear date:?08/18/2023 pap collected. 1st pap.?Menarche: ?Age of menarche?14 ???Periods:?every 28 days, every month, normal blood loss.?Sexual activity:?currently sexually active,, with both men and women.?Sexually Transmitted Diseases (STDs):?none.?Unprotected sex in the last 5 days?:?No.?Unprotected sex in the past 10 days?:?No.? * OB History:?Total pregnancies:?0.?Total living children:?0.? * Surgical History:?Denies Pas t Surgical History * Hospitalization/Major Diagno stic Procedure:?Denies Past Hospitalization * Family History:? Maternal side - diabetes, high choesterol. Paternal side - high cholesterol 1/2 sister PCOS Sister abn pap No family hx of BR, ovarian CA. * Social History:?Food Access:?Food Access?The Client's current access to food is?Secure Food Access ???Housing:?Housing?The client's current living situation is:?stable housing ???Reproductive Life Plan:?Reproductive Life Plan?Do you want to have children??No, I don't want to have children ?How sure are you that you will be able to use your control method without any problems??Very sure ?People's plans change. Is it possible you or your partner could ever decide to become ??No ???Sexual History:?Sexual History?Sexual History Reviewed:?Partners, Practices, Protection/Past STIs ?Currently sexually active??Yes ?Sexually active with:?Men, Women ?Number of male partners?0 ?Number of female partners?0 ?Your sexual activities include:?oral intercourse, vaginal intercourse ?Do you use condoms??No ?Date of last unprotected intercourse:?04/06/2023 ?Number of partners in past 3 months:?0 ?Number of partners in past year:?3 ?Does your partner(s) currently have any STIs??No ???HIV Risk Assessment:?Additional Questions?Is an HIV Risk Assessment being conducted??Yes ?Have you been tested for HIV before??Yes ???PrEP for HIV:?PrEP for HIV?Is the client interested in beginning/continuing PrEP for HIV??No ???Relationships:?Relationships?Has the client experienced any of the following:?Client has never experienced harmful relationships ???Human Trafficking:?Human Trafficking?Experienced:?No ???Tobacco Use:?Tobacco Use?Do you/have you used tobacco??Yes, in the past Client previously smokes cigarettes but does not anymore ?Tobacco Smoking Status?Former smoker ???Drugs/Alcohol:?Drug/Alcohol Use?Do you or have you used drugs??Yes, currently ?By what route are you taking drugs? Please check all that apply:?Smoking ?Which drug(s) do you smoke??Marijuana ?Do you or have you used alcohol??Yes, currently Socially per client ???Counseling Provided:?Counseling Provided?Please indicate the length of time, in minutes, that counseling was provided.?7 ?Counseling Was Provided By:?luis antonio * Medications:?TakingGabapenti n Magnesium Vitamin D Vitamin C Riboflavin hydrOXYzine HCl , Notes to Pharmacist: 25 mgFluoxetine , Notes to Pharmacist: 20 mgVyvanse , Notes to Pharmacist: 10 mgTaking Gabapentin Taking Magnesium Taking Vitamin D Taking Vitamin C Taking Riboflavin Taking hydrOXYzine HCl , Notes to Pharmacist: 25 mgTaking Fluoxetine , Notes to Pharmacist: 20 mgTaking Vyvanse , Notes to Pharmacist: 10 mgDiscontinuedPlan B One-Step 1.5 MG Tablet 1 tablet Orally At once Xulane 150- 35 MCG/24HR Patch Weekly 1 patch to skin Transdermal Apply one patch once a week for three weeks. Fourth week patch free. Medication List reviewed and reconciled with the patientDiscontinued Plan B One-Step 1.5 MG Tablet 1 tablet Orally At once Discontinued Xulane 150-35 MCG/24HR Patch Weekly 1 patch to skin Transdermal Apply one patch once a week for three weeks. Fourth week patch free. Medication List reviewed and reconciled with the patient * Allergies:?Naproxenno[Allerg ies Verified] Objective: * Vitals:?BP:102/62mm Hg, Ht: 5'2 , Wt:153lbs, BMI:27.98Index, Ht-cm: 157.48, Wt- k.4. * Examination: ???Genitourinary: ?EXTERNAL GENITALIA:?VAGINA:?URETHRA:?CERVIX:?UTERUS:?ADNEXA:?ANUS AND PERINEUM:?General Exam: ?CONSTITUTIONAL:?NECK/THYROID:?RESPIRATORY:?CARDIOVASCULAR:?BREAST, Right:?BREAST, Left:?GASTROINTESTINAL:?SKIN:?NEURO/PSYCH:? Assessment: * Assessment: 1.?Encounter for gynecologic al examination (general) (routine) without abnormal findings - Z01.419 (Primary)? Plan: * Treatment: ? Value Reference Range ?THINPREP PAP TEST LSIL A NEGAT TAMI - * RADU SANTIAGO 2023 10:56:17 AM EDT > Hi Liss, your pap did come back showing low grade cell changes as well as you tested positive for HPV. In this situation I do recommend a procedure called a colposcopy to further evaluate as it's a more diagnostic test than the pap screening which can have false positives. I or my staff will reach out to you regarding your test results and follow-up [facility] lab was reviewed by RADU SANTIAGO on 2023 at 13:13 PM EDT Notes: Discussed routine screenings and self breast awareness. Pap guidelines reviewed. Routine screening in 3 years if normal??2.?Others? Notes: Discussed STI risks, screening, and safe sex?? * Procedure Codes:?75829 Pap S mear * Follow Up:?1 Year (Reason: A nnual) * Billing Information: * Visit Code:? 62900 Existing Preventative - Age 18-39 (IN USE). * Procedure Codes:? 92837 Pap Smear. * Sign off status: Completed true * Provider:SONY SANTIAGO Date:?08/18/2023 Generated for Rcihard oglesby/Nate/eTlolitaitting on:?03/01/2024 11:33 AM EST History and Physical Notes * HPI (History of Present Illness) Category Sub-Category Detail Notes Category Not es Visit Narrative Reason for the visit: annual Current form of control: same sex partner Presenting Symptoms: no sxs/concerns Other Notes for the Clinician: clt defer s from testing, clt states she is doing pelvic physical LMP: 07/28 Last date of UPI: 04/06 Examination Category Sub-Category Detail Notes Category Not es General Exam CONSTITUTIONAL: General Appearan ce:: alert, in no acute distress, normal, well nourished NECK/THYROID: Inspection/Palpation:: normal Thyroid:: normal size and shape RESPIRATORY: Auscultation:: clear to ausculta tion bilaterally Respiratory Effort:: normal CARDIOVASCULAR: Auscultation:: regular rate and rhythm GASTROINTESTINAL: Abdomen:: no masses, nontender , nondistended Liver and Spleen:: no hepatomegaly prese nt SKIN: Skin:: normal NEURO/PSYCH: Orientation:: time , place, pers on Mood/Affect:: normal BREAST, Right: Inspection/Palpation :: no discharge, no masses present, no nipple retraction, no skin changes, no skin dimpling, no tenderness, no lymphadenopathy, no axillary mass, no axillary tenderness Abnormal Upper Outer Quadran t Findings:: mass present Smooth oblong mass about 3cm wide at 11:00, 3 fingers from nipple BREAST, Left: Inspection/Palpation :: no discharge, no masses present, no nipple retraction, no skin changes, no skin dimpling, no tenderness, no lymphadenopathy, no axillary mass, no axillary tenderness Genitourinary EXTERNAL GENITALIA: External Genitalia:: nor mal, no lesions VAGINA: Vagina:: normal appearance, no a bnormal discharge, no lesions URETHRA: Urethra:: no erythema or lesions present CERVIX: Cervix:: no lesions, non-tender, Pap done UTERUS: Uterus:: nontender, normal conto ur, normal mobility, normal size ADNEXA: Adnexa:: no masses, no tendernes s ANUS AND PERINEUM: Anus/Perineum:: visually norm al
--- OUTSIDE RECORDS SUMMARY | 2024-03-01 11:34 | XMS_ITS | Patient Health Record ---
Author Organization [facility] Address [address] [place] [phone] Care Team Providers Care Gas Operations Superintendent Name Role Phone ALIN STOVER Unavailable [phone] MARCIO FISHER Unavailable [phone] RADU SANTIAGO Unavailable [phone] María Verdin Unavailable [phone] Allergies Allergen (clinical drug ingredient) Drug/Non Drug Allergy documented on EMR Reaction Allergy Type Onset Date Status naproxen Naproxen Unknown Drug Allergy Active Results Component Value Reference Range Notes THINPREP PAP TEST, Cervix Reviewed date:2023 01:13:49 PM Interpretation:LSIL Performing Lab:[facility], [address] [facility] [facility], [place], [address] Alirio Champion DO Notes/Report: THINPREP PAP TEST LSIL NEGATIVE -- THIN PREP PAP TEST -- SEX: F : 1995 AGE: 27 [id number] CLINIC ID: [id number] SS: PHYSICIAN: RADU SANTIAGO CNM COLLECTED BY: ____ Low Grade Squamous Intraepithelial Lesion (LSIL) ____ Additional Findings: Endocervical Material Present Specimen Adequacy: Satisfactory for Evaluation Clinical Note: Z01.419 Encounter for gynecological examination (general) (routine) without abnormal findings, LMP 07-29-2023 Specimen Source: Cervix Visit Type: Routine Performed by: DAV Villatoro (ASCP) Reviewed by: Jeremie Champion DO (Electronic Signature 08/29/2023 10:19) HPV HIGH RISK, Cervix Reviewed date:2023 10:54:01 AM Interpretation:Positive Performing Lab:[facility], [employer], [place], [address] Alirio Champion DO Notes/Report: HPV HIGH RISK POSITIVE NEGATIVE HPV High Risk DNA Probe Assay SEX: F : 1995 AGE: 27 [id number] CLINIC ID: [id number] SS: PHYSICIAN: RADU SANTIAGO CNM COLLECTED BY: ____ Specimen Source: Cervix Specimen Type: ThinPrep PAP Correlating Pap Result: LSIL Additional High Risk Subtypes* POSITIVE * Includes 31,33,35,39,45,51,52,56,58,59,66, 68 Subtype 16 NEGATIVE Subtype 18 NEGATIVE CHLAMYDIA GC AMP PROBE Reviewed date:05/11/2023 11:30:39 AM Interpretation:Negative Performing Lab:Testing performed or reported by [facility], a Service of [facility], [place] [address] Aryan Hammonds MD, E Marketing Specialist [facility]# [id number] Notes/Report: C.TRACHOMATIS AMP PROBE NEGATIVE (NEG) No Chlamydia Trachomatis RNA detected in this patient's sample (REFERENCE RANGE/NORMAL VALUE: NOT DETECTED) Note: This test uses industrial maintenance manager- mediated amplification method to detect rRNA from C. Trachomatis N.GONORRHOEAE AMP PROBE NEGATIVE (NEG) No Neisseria Gonorrhoeae RNA detected in this patient's sample (REFERENCE RANGE/NORMAL VALUE: NOT DETECTED) NOTE: This test uses industrial maintenance manager-mediated amplification method to detect rRNA from N.Gonorrhoeae. [...] without risk of sexual abuse. Consult the [facility] if needed. Contact [...] Interpretation:Negative Performing Lab:Testing performed or reported by [facility], a Service of [facility], [address] [place] [address] [place] [address] Aryan Hammonds MD, E Marketing Specialist [facility]# [id number] Notes/Report: SOURCE CERVIX TRICHOMONAS,SWAB NEGATIVE (NEG) No Trichomonas vaginalis RNA detected in this patient's sample NORMAL VALUE: NOT DETECTED NOTE: This test uses industrial maintenance manager-mediated amplification method to detect rRNA from Trichomonas [...] History Observation Description Sex Assigned At Female Section Notes: Aptima/ pt/ declines bw Vital Signs Blood pressure diastolic 62 mm Hg 08/18/2023 Height 5'2 in 08/18/2023 Blood pressure systolic 102 mm Hg 08/18/2023 Weight 153 lbs 08/18/2023 BMI 27.98 kg/m2 08/18/2023 Encounters Encounter Location Date Provider Diagnosis [facility] [address] [facility] [place], [place] [phone] 05/09/2023 ALIN CK Encounter for prescription of emergency contraception Z30.012 ; Encounter for initial prescription of transdermal patch hormonal contraceptive device Z30.016 ; Encounter for screening for infections with a predominantly sexual mode of transmission Z11.3 ; Encounter for other general counseling and advice on contraception Z30.09 and Counseling, unspecified Z71.9 [facility] [address] [place], [place] [phone] 08/18/2023 RADU SANTIAGO Encounter for gynecological examination (general) (routine) without abnormal findings Z01.[address] [id number] 08/31/2023 RADU SANTIAGO Assessments Encounter Date Diagnosis (ICD Code) Assessment Notes Treatment Notes Treatment Clinical Notes Section Notes 05/09/2023 Encounter for initial prescription of transdermal patch hormonal contraceptive device (ICD-10 - Z30.016) No CI to [facility], quick start with BUM x 7 days. [...] up if needs to consider alternative method. Need 2 out of 3 Sections from A-C Section A) Problems (only need one from below) Two or more self-limited or minor programs Section B) Data (at least one of the following categories in this section) Category 1: (Choose 2 of the following): Order unique tests Review test results (each unique test counts as one) Category 2: Assessment requiring an independent historian Section C) Risk Document low risk of morbidity/mort ality 05/09/2023 Encounter for prescription of emergency contraception (ICD-10 - Z30.012) Plan B with refills sent to pharmacy for future use. Need 2 out of 3 Sections from A-C Section A) Problems (only need one from below) Two or more self-limited or minor programs Section B) Data (at least one of the following categories in this section) Category 1: (Choose 2 of the following): Order unique tests Review test results (each unique test counts as one) Category 2: Assessment requiring an independent historian Section C) Risk Document low risk of morbidity/mort ality 08/18/2023 Encounter for gynecological examination (general) (routine) without abnormal findings (ICD-10 - Z01.419) Discussed routine screenings and self breast awareness. Pap guidelines reviewed. Routine screening in 3 years if normal 05/09/2023 Encounter for screening for infections with a predominantly sexual mode of transmission (ICD-10 - Z11.3) Reviewed STI screening recommendations and available testing through [facility]. Testing ordered as noted per patient risks and preference. Encouraged safe sex practices. Advised to call for evaluation if any symptoms arise. Reviewed method of communicating results to patient. Clt declines RPR or HIV testing today, will consider serology at time of upcoming annual Need 2 out of 3 Sections from A-C Section A) Problems (only need one from below) Two or more self-limited or minor programs Section B) Data (at least one of the following categories in this section) Category 1: (Choose 2 of the following): Order unique tests Review test results (each unique test counts as one) Category 2: Assessment requiring an independent historian Section C) Risk Document low risk of morbidity/mort ality 05/09/2023 Encounter for other general counseling and advice on contraception (ICD-10 - Z30.09) Reviewed control options available. Reviewed risk, benefits and side effects of each method. Answered questions and concerns, and used shared decision-making to choose method. Clt declines same day insert of LARC. Discussed POP vs CHC. Prefers to try patches first Need 2 out of 3 Sections from A-C Section A) Problems (only need one from below) Two or more self-limited or minor programs Section B) Data (at least one of the following categories in this section) Category 1: (Choose 2 of the following): Order unique tests Review test results (each unique test counts as one) Category 2: Assessment requiring an independent historian Section C) Risk Document low risk of morbidity/mort ality 05/09/2023 Counseling, unspecified (ICD-10 - Z71.9) Encouraged routine annual and initial PAP, clt to schedule accordingly Need 2 out of 3 Sections from A-C Section A) Problems (only need one from below) Two or more self-limited or minor programs Section B) Data (at least one of the following categories in this section) Category 1: (Choose 2 of the following): Order unique tests Review test results (each unique test counts as one) Category 2: Assessment requiring an independent historian Section C) Risk Document low risk of morbidity/mort ality 08/18/2023 Other Discussed STI risks, screening, and safe sex Plan Of Treatment No Information Insurance Providers Payer Name Payer Address Payer Phone Subscriber Number Group Number Insured Name Patient Relationship to Insured Coverage Start Date Coverage End Date [place] ATT CLAIMS [address] [place] [id number] Liss Lipscomb Self - patient is the insured Medical (General) History Medical History History ICD Code Migraines Asthma as a child Depression/axniety Breast Fibroadenoma Hx since age 18 yrs, dx with u/s diverticulosis dx 07/2023 pelvic PT for incontinence and dyspareun ia as of 08/2023
--- OUTSIDE RECORDS SUMMARY | 2024-03-01 11:34 | XMS_ITS ---
Author Organization [facility] Address [address] [place] [phone] Care Team Providers Care Statistical Technician Name Role Phone MARCIO FISHER Unavailable [phone] REASON FOR VISIT Annual Exam Social History Sex Assigned At : Social History Observation Description Sex Assigned At Female Encounters Encounter Location Date Provider Diagnosis [facility] [address] [place] [phone] 07/28/2023 MARCIO FISHER Plan Of Treatment No Information Progress Notes * Liss LIPSCOMBDOB: [birth year] (28 yo F)Acc No.[id number]:07/28/2023 Progress Notes Patient:?Liss LIPSCOMB Provider:?Marcio Fisher NP :1995???Age:27 Y???Sex:Female D ate:07/28/2023 Address:[address], [id number] Subjective: * Chief Complaints: * ???1. Annual Exam. * Medical History:? Objective: * Vitals:? Assessment: Plan: * Treatment: * Billing Information: * Visit Code:? * Procedure Codes:? * Electronic signature of ZULAY FISHER NP on 03/01/2024 at 11:33 AM EST Sign off status: Pending * Provider:?Marcio Fisher NP Date:? 024 Generated for Richard oglesby/Nate/eTransmitting on:?03/01/2024 11:33 AM EST
[2024-03-01 13:00] LABS: Bilirubin Direct 0.3 mg/dL (0.0-0.5)
[2024-03-01 13:09] LABS: Rheumatoid Factor < 13.0 IU/mL (<15.0)
[2024-03-01 13:11] LABS: Alanine Aminotransferase 18 U/L (0-31); Albumin Level 4.3 g/dL (3.5-5.0); Alkaline Phosphatase 74 U/L (39-117); Anion Gap 10 (12-20); Aspartate Amino Transferase 23 U/L (5-31); Bilirubin Total 1.3 mg/dL (0.0-1.0); Blood Urea Nitrogen 5 mg/dL (9-16); Calcium 9.5 mg/dL (8.4-10.2); Carbon Dioxide 30 mmol/L (22-29); Chloride 101 mmol/L (96-108); Erythrocyte Sedimentation Rate 24 MM/HR (0-20); Estimated Glomerular Filt Rate > 60; Glucose Random 91 mg/dL (60-115); Iron 91 mcg/dL (30-160); Percent Iron Saturation 29 % (15-50); Potassium 3.4 mmol/L (3.3-5.1); Sodium 138 mmol/L (135-145); Total Iron Binding Capacity 317 mcg/dL (228-428); Total Protein 7.6 g/dL (6.5-8.0); Unsaturated Iron Binding 226 ug/dL
[2024-03-01 13:31] LABS: Ferritin 34 ng/mL (10-122)
[2024-03-04 07:03] LABS: CRP High Sensitivity <0.2 mg/L
[2024-03-05 09:12] LABS: Anti Nuclear Antibody Pattern Nuclear, Centromere; Anti Nuclear Antibody Screen POSITIVE (NEGATIVE)
== END 2024-03-01 11:32 | disposition home or self-care (01) ==
LOC: HO.LAB 11:31
PROVIDERS: Physician Assistant; PCP Internal Medicine; Visit Provider Nurse Practitioner Family
DX: M25.50 Pain in unspecified joint (principal); R51.9 Headache, unspecified; R25.2 Cramp and spasm; K58.9 Irritable bowel syndrome, unspecified; R79.89 Other specified abnormal findings of blood chemistry; Q79.60 Ehlers-Danlos syndrome, unspecified; M54.9 Dorsalgia, unspecified
CPT/HCPCS: 36415; 72072; 72114; 73521; 80053; 82248; 82550; 82728; 83540; 85652; 86038; 86039; 86141; 86431

== ENCOUNTER → 2024-03-01 11:48 | Outpatient (BNV) | payer SELFPAY | PROVIDERS: PCP Internal Medicine; Visit Provider Radiology Diagnostic Radiology | DX: M41.35 Thoracogenic scoliosis, thoracolumbar region (principal); M25.552 Pain in left hip; M51.379 Other intervertebral disc degeneration, lumbosacral region without mention of lumbar back pain or lower extremity pain | CPT/HCPCS: 72072; 72114; 73522 ==

== ENCOUNTER 2024-03-20 17:11 | Outpatient (AMB) | payer OTHER, SELFPAY ==
--- NOTE | 2024-03-20 17:16 | A.OFFPC_ITS ---
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: No Accompanied by: Self / Same As Patient Allergies naproxen Allergy (Mild, Verified 03/20/24 17:38) gi upset Seasonal Allergies Allergy (Mild, Verified 03/20/24 17:38) Runny Nose Medication List - Last Reconciled 03/20/24 by Jessica Chavez MD albuterol sulfate 90 mcg/actuation (Ventolin HFA) 2 puffs inhalation QID PRN amitriptyline 10 - 20 mg (1 - 2 x 10 mg) PO BEDTIME 30 days ascorbate calcium (vitamin C) 500 mg PO DAILY 90 days baclofen 10 mg PO ONCE PRN 30 days bupropion HCl SR 100 mg PO QAM cholecalciferol (vitamin D3) 25 mcg PO DAILY 90 days fluoxetine 10 mg PO DAILY fluticasone furoate-vilanterol 200-25 mcg/dose (Breo Ellipta) 1 ea inhalation DAILY hydroxyzine pamoate 25 mg PO BID PRN lisdexamfetamine (Vyvanse) 20 mg PO QAM magnesium oxide 400 mg PO DAILY 90 days ondansetron 4 mg PO Q6H PRN 30 days pantoprazole 20 mg PO QAM riboflavin (vitamin B2) 400 mg PO DAILY 30 days sumatriptan succinate 50 - 100 mg orally at onset of headache, may repeat in 2 hrs PRN; max 2 tabs per day or 4 tabs/week (may take with Ibuprofen) 30 days Tobacco use date assessed: 03/20/24 Dental Screening Dental Screen Date: 03/20/24 Did you have a dental visit in the last 12 months?: Yes Did you have a dental problem in the last 6 months where you did not have access to dental care?: No Was dental information given to patient?: Patient has dentist HPI HPI Comments History of Present Illness Details The patient is a 28-year-old female presenting with numbness and tingling in the legs, primarily noticed upon sitting. She attributes these s ymptoms to muscle tightness possibly causing nerve impingement. The issues began after returning to work following a month and a half. The patient also experiences a cracking sensation with associated discomfort due to scoliosis. She has confirmed thoracic scoliosis and mild degeneration in the lumbosacral area, which may contribute to her symptoms. She has a known history of anticentromere antibody positivity, indicating potential scleroderma development. The patient follows with a event marketing manager and has an upcoming consultation with an explosive ordnance disposal specialist for her scoliosis. Incidental spina bifida occulta at L5 was noted in previous imaging studies. She has no bowel or bladder incontinence, redness, or signs of cauda equina syndrome. She also has moderate major depression follow by Psychiatry and counseling. She complains of occasional leg edema bilateral and will benefit from compression stockings. She also has asthma follow by pulmonology controlled with long-acting inhaler. [facility] Medical History (Updated 03/20/24 @ 21:52 by Jessica Chavez MD) Hx of infectious mononucleosis Right ankle pain Right shoulder pain Polyarthralgia Physical exam Mild recurrent major depression Fibroadenoma of right breast Surgical History Hx of colonoscopy History of esophagogastroduodenoscopy (EGD) H/O breast biopsy No pertinent past surgical history Family History Father Hypertension Mother No problems noted. Maternal Grandfather Diabetes mellitus Maternal Grandmother Diabetes mellitus Brother Depression Family/Other Substance use disorder Mental health disorder Social History Housing: House Alcohol intake: current Alcohol intake frequency: a few times a month Alcohol type: wine Patient Tobacco Use Status: Never used Tobacco e-Cigarette/Vaping Use: Never Used Second Hand Smoke Exposure: No Substance Use Type: Marijuana service: No Current occupational status: employed Current occupational exposures/hazards: No Cognitive needs: No Hearing needs: No Vision needs: No Female Reproductive History Menstrual Age of Menarche: 14 Questionnaire PHQ-9 Over the last 2 weeks, how often have you been bothered by any of the following problems? 1. Little interest or pleasure in doing things: not at all 2. Feeling down, depressed, or hopeless: several days 3. Trouble falling or staying asleep, or sleeping too much: not at all 4. Feeling tired or having little energy: more than half the days 5. Poor appetite or overeating: not at all 6. Feeling bad about yourself - or that you are a failure or have let yourself or your family down: not at all 7. Trouble concentrating on things, such as reading the newspaper or watching television: not at all 8. Moving or speaking so slowly that other people could have noticed. Or the opposite - being so fidgety or restless that you have been moving around a lot more than usual: not at all 9. Thoughts that you would be better off or of hurting yourself in some way: not at all Total score: 3 Depression Screening Interpretation: Positive Depression Screening Follow-up: Existing condition and Follow-up Visit Requested Depression Screening Done: Yes 18502 - PHQ-9 Billing: Yes Source: Developed by Drs. Yung Robertson, Shahida Meyer, James White and colleagues, with an educational arjun from [email or web address]. Thrive Questionnaire Date Thrive assessed: 03/20/24 I am a: Patient What is your living situation today?: I have a steady place to live Within the past 12 months, did the food you bought not last and you didn't have the money to get more?: Never true Within the past 12 months, did you worry whether your food would run out before you got money to buy more?: Never true Do you have trouble paying for medicines?: No Do you have trouble getting transportation to medical appointments?: No Do you have trouble paying your heating and electricity bill?: No Do you have trouble taking care of your child, family member or friend?: No Do you have trouble with day-to-day activities such as bathing, preparing meals, shopping, managing finances, etc.?: No Are you currently unemployed and looking for a job?: No Are you interested in more education?: No Please select the resources that you would like help with: None Currently or been in a relationship where the following occur: No concerns reported THRIVE Score: 0 AUDIT C Alcohol Use Questionnaire (AUDIT-C) 1. How often do you have a drink containing alcohol?: Never Total Score: 0 Score Reviewed/Action Taken: No SERGO-7 AMB Questionnaire SERGO-7 Date SERGO - 7 assessed: 03/20/24 Feeling nervous, anxious, or on edge: 1 = Several days Not being able to stop or control worryin = Not at all Worrying too much about different things: 1 = Several days Trouble relaxin = Nearly every day Being so restless that it is hard to sit still: 1 = Several days Becoming easily annoyed or irritable: 0 = Not at all Feeling afraid as if something awful might happen: 0 = Not at all Total SERGO-7 score (0-4 normal; 5-9 mild; 10-14 moderate; 15-21 severe): 6 Source: Developed by Drs. Yung Robertson, Shahida Meyer, James White and colleagues, with an educational arjun from [email or web address]. SERGO-7 Assessment Billing SERGO-7 Assessment Tool: SERGO-7 Assessment 23647 Review of Systems Const All systems reviewed & are unremarkable except as noted in HPI and below Card Denies chest pain at rest, Denies chest pain with activity, Denies edema, Denies irregular heart rhythm, Denies claudication, Denies dyspnea, Denies dyspnea on exertion, Denies orthopnea, Denies paroxysmal nocturnal dyspnea and Denies slow heart rate Resp Denies cough, Denies dyspnea and Denies dyspnea on exertion Denies urinary incontinence, Denies urinary hesitancy and Denies urinary urgency Musc Reports back pain, Denies atrophy, Denies deformity, Denies limited range of motion and Reports numbness Neuro Reports numbness Physical exam (Primary Care) Vital Signs: Last Vital Signs BP 110/80 03/20/24 17:17 BMI result Body Mass Index 25.8 Tobacco/Smoking Status: Tobacco use Status Tobacco use date assessed 03/20/24 03/20/24 17:23 Patient Tobacco Use Status Never used Tobacco 03/20/24 17:23 e-Cigarette/Vaping Use Never Used 03/20/24 17:23 PHQ-9: PHQ-9 Score PHQ-9: Total score 3 03/20/24 17:40 Depression Screening Interpretation: Positive Depression Screening Follow-up: Existing condition and Follow-up Visit Requested Thrive Assessment: Date of Thrive Assessment Date Thrive assessed 03/20/24 03/20/24 17:23 Currently or been in a relationship where the following occur: No concerns reported Resp Effort & Inspection: normal respiratory effort Auscultation: clear to auscultation bilaterally Cardio Jugular venous distension: no JVD Rate: regular rate Rhythm: regular rhythm Heart sounds: S1 normal heart sound present and S2 normal heart sound present Back/Spine/Pelvis Thoracic/Lumbar Spine: straight leg raise positive right at 50 degrees Extrem General: Yes full ROM Office Procedures Flu Questionnaire Does the patient have a severe egg allergy?: No Immunizations Fluarix Triv [id number] (PF) 45 mcg (15 mcg x 3)/0.5 mL IM syringe Performing Provider: Jessica Chavez MD [facility] Documented (not given) by: ANA Merrill on 03/20/24 17:24 Reason Not Given: Patient Refused Coding Level of Care Code Est Pt Level 4 (90581) Complex EM visit Add On G2211 Diagnoses Moderate recurrent major depression F33.1 Back pain M54.9 Leg edema R60.0 Asthma J45.909 Additional Codes SERGO-7 Assessment Billing - SERGO-7 Assessment Tool: SERGO-7 Assessment 28272 ([id number]) PHQ-9 - 69540 - PHQ-9 Billing: Yes ([id number]) Time Spent (min) 23 Assessment & Plan Assessment & Plan (1) Moderate recurrent major depression: Code(s): F33.1 - Major depressive disorder, recurrent, moderate Category: Medical Plan: Continue bupropion. Follow-up with psychiatry. (2) Back pain: Code(s): M54.9 - Dorsalgia, unspecified Category: Medical Plan: Follow-up with ortho. (3) Leg edema: Code(s): R60.0 - Localized edema Category: Medical Plan: Start compression stockings as needed. (4) Asthma: Code(s): J45.909 - Unspecified asthma, uncomplicated Category: Medical Plan: Continue long-acting inhaler. Orders: Orders Influenza [id number] Immunization Today Z23 - Encounter for immunization Comprehensive [place]. Panel Fast Today Z00.00 - Encounter for general adult medical examination without abnormal findings Lipid Panel Today Z00.00 - Encounter for general adult medical examination without abnormal findings Medications: New [compression stockings] As directed 2 ea 6RF R60.0 - Localized edema
[2024-03-20 17:17] VITALS: BP 110/80; BMI 25.8
== END 2024-03-20 17:51 | disposition home or self-care (01) ==
PROVIDERS: PCP Internal Medicine; Visit Provider Internal Medicine
DX: F33.1 Major depressive disorder, recurrent, moderate (principal); M54.9 Dorsalgia, unspecified; R60.0 Localized edema; J45.909 Unspecified asthma, uncomplicated; Z23 Encounter for immunization

== ENCOUNTER → 2024-03-20 17:11 | Outpatient (BNVA) | payer OTHER, SELFPAY | PROVIDERS: PCP Internal Medicine; Visit Provider Internal Medicine | DX: Z00.00 Encounter for general adult medical examination without abnormal findings (principal); F33.1 Major depressive disorder, recurrent, moderate; M54.9 Dorsalgia, unspecified; R60.0 Localized edema; J45.909 Unspecified asthma, uncomplicated; Z23 Encounter for immunization | CPT/HCPCS: 90471; 96127; 99212 ==

== ENCOUNTER 2024-05-27 12:47 | Outpatient (REF) | payer OTHER, SELFPAY ==
[2024-05-27 15:16] LABS: Alanine Aminotransferase 21 U/L (0-31); Albumin Level 4.4 g/dL (3.5-5.0); Alkaline Phosphatase 73 U/L (39-117); Anion Gap 12 (12-20); Aspartate Amino Transferase 27 U/L (5-31); Bilirubin Total 0.6 mg/dL (0.0-1.0); Blood Urea Nitrogen 8 mg/dL (9-16); Calcium 9.5 mg/dL (8.4-10.2); Carbon Dioxide 27 mmol/L (22-29); Chloride 107 mmol/L (96-108); Cholesterol 162 mg/dL (<200); Estimated Glomerular Filt Rate > 60; Glucose Fasting 74 mg/dL (60-99); HDL Cholesterol 50 mg/dL (>40); LDL Cholesterol Calculated 102 mg/dL (<100); Potassium 4.5 mmol/L (3.3-5.1); Sodium 141 mmol/L (135-145); Total Protein 7.6 g/dL (6.5-8.0); Triglycerides 54 mg/dL (<150)
[2024-05-27 15:40] LABS: Folate 13.6 ng/mL (> or = 4.0); Vitamin B12 649 pg/mL (200-900)
[2024-05-31 15:58] LABS: Nicotinamide <20 ng/mL (see note); Vit B3 - Nicotinic Acid <20 ng/mL (see note)
[2024-06-02 15:52] LABS: Vitamin B2 (Riboflavin) 9.4 nmol/L (6.2-39.0); Vitamin B5 (Pantothenic Acid) <=40 ng/mL (<275)
[2024-06-03 13:58] LABS: Vitamin B1 17 nmol/L (8-30)
== END 2024-05-27 12:48 | disposition home or self-care (01) ==
LOC: HO.LAB 12:47
PROVIDERS: PCP Internal Medicine; Visit Provider Nurse Practitioner Family
DX: Z00.00 Encounter for general adult medical examination without abnormal findings (principal); D64.9 Anemia, unspecified; E80.6 Other disorders of bilirubin metabolism
CPT/HCPCS: 36415; 80053; 80061; 82607; 82746; 84207; 84252; 84425; 84591

== ENCOUNTER 2024-05-28 09:59 | Outpatient (REF) | payer OTHER, SELFPAY ==
--- NOTE | ~2024-05-28 | US_ITS ---
CLINICAL HISTORY: R79.89 - Other specified abnormal findings of blood chemistry US abdomen complete Comparison: None Findings: Gallbladder unremarkable, no stone formation or wall thickening. Common duct measures 1.7 mm. No sonographic Villasenor sign. Liver is homogeneous and normal in size and echogenicity. Main portal vein patent with normal direction of flow. Pancreas is unremarkable. Aorta and IVC patent and normal in caliber. The right kidney is normal, 9.7 cm in length. No focal abnormality or hydronephrosis. The left kidney is normal, 12.2 cm in length. Question 2 mm nonobstructing midpole cyst. No focal abnormality or hydronephrosis. The spleen is normal, 9.5 cm in length. No focal abnormality. Impression: Possible 2 mm nonobstructing left renal cyst Otherwise unremarkable This document has been electronically signed by: Davin Costello MD on 05/28/2024 19:04:26
--- OUTSIDE RECORDS SUMMARY | 2024-05-28 11:43 | XMS_ITS ---
Author Organization [facility] Address [address] [id number] Care Team Providers Care Car Unloader Helper Name Role Phone RADU SANTIAGO Unavailable [phone] REASON FOR VISIT Pap fu Social History Sex Assigned At : Social History Observation Description Sex Assigned At Female Encounters Encounter Location Date Provider Diagnosis [address] [id number] 08/31/2023 RADU SANTIAGO Plan Of Treatment No Information Progress Notes * Liss LIPSCOMBDOB: [birth year] (28 yo F)Acc No.[id number]:08/31/2023 Patient:?Liss LIPSCOMB :1995???Age:27 Y???Sex:Female Address:[address], [place], [address] Subjective: * Chief Complaints: * ???Pap fu * Medical History:? 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 control:?Withdrawal.?Last menstrual period:?07/27.?Last pap smear date:?08/18/2023- [...] * true * Date:? Generated for Richard oglesby/Nate/Dayami on:?05/28/2024 11:43 AM EDT
--- OUTSIDE RECORDS SUMMARY | 2024-05-28 11:44 | XMS_ITS ---
Author Organization [facility] Address [address] [place] [phone] Care Team Providers Care Business Enterprise Officer Name Role Phone MARCIO FISHER Unavailable [phone] REASON FOR VISIT Annual Exam Social History Sex Assigned At : Social History Observation Description Sex Assigned At Female Encounters Encounter Location Date Provider Diagnosis [facility] [address] [place] [phone] 07/28/2023 MARCIO FISHER Plan Of Treatment No Information Progress Notes * Liss LIPSCOMBDOB: [birth year] (28 yo F)Acc No.[id number]:07/28/2023 Progress Notes Patient:?Liss LIPSCOMB Provider:?Marcio Fisher NP :1995???Age:27 Y???Sex:Female D ate:07/28/2023 Address:[address], [id number] Subjective: * Chief Complaints: * ???1. Annual Exam. * Medical History:? Objective: * Vitals:? Assessment: Plan: * Treatment: * Billing Information: * Visit Code:? * Procedure Codes:? * Electronic signature of ZULAY FISHER NP on 05/28/2024 at 11:44 AM EDT Sign off status: Pending * Provider:?Marcio Fisher NP Date:? 024 Generated for Azaliai mendel/Philipg/eTransmitting on:?05/28/2024 11:44 AM EDT
--- OUTSIDE RECORDS SUMMARY | 2024-05-28 11:44 | XMS_ITS | Clinical Summary ---
Author Organization [facility] Address [address] [place] [address] Phone Care Team Providers Care Bird Cage Assembler Name Role Phone Jessica Chavez MD Primary Care Provider [phone] Allergies No known active allergies Medications No known medications Medical History Medical History Date Comments Hypermobile joints Scoliosis Social History Tobacco Use Types Packs/Day Years Used Date Smoking Tobacco: Never Smokeless Tobacco: Never Tobacco Cessation:Counseling Given: Not Answered Alcohol Use Standard Drinks/Week Comments Not Currently 0 (1 standard drink = 0.6 oz pur e alcohol) Comments No Sex and Gender Information Value Date Recorded Sex Assigned at Female 02/06/2024 4:29 PM EST Legal Sex Female 9:31 PM EDT Gender Identity Female 02/06/2024 4:29 PM EST Sexual Orientation Lesbian or Abbott 02/06/2024 5: 59 PM EST Obstetrics History Last Filed Vital Signs Vital Sign Reading Time Taken Comments Blood Pressure 111/78 02/06/2024 2:55 PM EST Pulse 80 02/06/2024 2:55 PM EST Temperature 37.1 ??C (98.8 ??F) 02/06/2024 2:55 PM ES T Respiratory Rate 16 02/06/2024 2:55 PM EST Oxygen Saturation 98% 02/06/2024 2:55 PM EST Inhaled Oxygen Concentration - - Weight 69.9 kg (154 lb) 02/06/2024 2:55 PM EST Height 157.5 cm (5' 2 ) 02/06/2024 2:55 PM EST Body Mass Index 28.17 02/06/2024 2:55 PM EST Plan of Treatment Health Maintenance Due Date Last Done Comments HPV Vaccines (1 - 3-dose series) 2012 Hepatitis B Vaccines (1 of 3 - 19+ 3-dose series) 2016 Cervical Cancer Screening: Pap Smear 2018 Meningococcal B Vacine (2 of 2 - Trumenba SCDM 2-dose series) 10/22/2019 04/23/2019 Pneumococcal Vaccine: Pediatrics (0 to 5 Years) and At-Risk Patients (6 to 64 Years) (2 of 2 - PCV) 04/23/2020 04/23/2019 Depression Screening 07/23/2021 HIV Screening 07/23/2021 Hepatitis C Screening 07/23/2021 Social Influencers of Health Screening 07/23/2021 COVID-19 Vaccine (3 - season) 2023 07/06/2021, 06/03/2020 Influenza Vaccine (#1) 2023 , 01/09/2020, 12/21/2018, Additional history exists DTaP,Tdap,and Td Vaccines (3 - Td or Tdap) 01/08/2032 01/07/2022, 12/11/2018 Meningococcal ACWY Vaccine Completed 07/29/2014 Hepatitis A Vaccines Completed 02/17/2015, 07/30/19 15 HIB Vaccines Aged Out No longer eligi ble based on patient's age to complete this topic IPV Vaccines Aged Out No longer eligi ble based on patient's age to complete this topic MMR Vaccines Aged Out No longer eligi ble based on patient's age to complete this topic RSV Immunization Patients Under 20 months Aged Out No longer eligible based on patient's age to complete this topic Varicella Vaccines Aged Out No longer eligible based on patient's age to complete this topic Insurance [facility] Care Teams Bird Cage Assembler Relationship Specialty Start Date End Date Jessica Chavez MD [address] [facility] , [address] [facility] D/B/A: [facility] SELINA Ness PCP - General Internal Medicine 02/06/24
--- OUTSIDE RECORDS SUMMARY | 2024-05-28 11:44 | XMS_ITS | Patient Health Record ---
Author Organization [facility] Address [address] [place] [phone] Care Team Providers Care Engineering Inspection Assistant Name Role Phone MARCIO FISHER Unavailable [phone] RADU SANTIAGO Unavailable [phone] María Verdin Unavailable [phone] Allergies Allergen (clinical drug ingredient) Drug/Non Drug Allergy documented on EMR Reaction Allergy Type Onset Date Status naproxen Naproxen Unknown Drug Allergy Active Results Component Value Reference Range Notes THINPREP PAP TEST, Cervix Reviewed date:2023 01:13:49 PM Interpretation:LSIL Performing Lab:[facility], [address] [facility], [place], [address] Alirio Champion DO Notes/Report: THINPREP PAP TEST LSIL NEGATIVE -- THIN PREP PAP TEST -- SEX: F : 1995 AGE: 27 [id number] CLINIC ID: [id number] SS: PHYSICIAN: RADU SANTIAGO CNM COLLECTED BY: [...] Cervix Reviewed date:2023 10:54:01 AM Interpretation:Positive Performing Lab:[facility], [place], [address] Alirio Champion DO Notes/Report: HPV HIGH RISK POSITIVE NEGATIVE HPV High Risk DNA Probe Assay SEX: F : 1995 AGE: 27 [id number] CLINIC ID: [id number] SS: PHYSICIAN: RADU SANTIAGO CNM COLLECTED BY: ____ Specimen Source: Cervix Specimen Type: ThinPrep PAP Correlating Pap Result: LSIL Additional High Risk Subtypes* POSITIVE * Includes 31,33,35,39,45,51,52,56,58,59,66, 68 Subtype 16 NEGATIVE Subtype 18 NEGATIVE Reason For Referral No Information Medications Medication [...] 08/18/2023 Encounters Encounter Location Date Provider Diagnosis [address] [id number] 08/18/2023 RADU SANTIAGO Encounter for gynecological examination (general) (routine) without abnormal findings Z01.419 [place] [address] [address] [facility] [address] [place], [place] [phone] 08/31/2023 RADU SANTIAGO Assessments Encounter Date Diagnosis [...] Insured Coverage Start Date Coverage End Date [place] ATT CLAIMS [address] [place] [address] [id number] Liss Lipscomb Self - patient is the insured Medical (General) History Medical History History ICD Code Migraines Asthma as a child Depression/axniety Breast Fibroadenoma Hx since age 18 yrs, dx with u/s diverticulosis dx 07/2023 pelvic PT for incontinence and dyspareun ia as of 08/2023
--- OUTSIDE RECORDS SUMMARY | 2024-05-28 11:44 | XMS_ITS ---
Author Organization [facility] Address [address] [place] [phone] Care Team Providers Care Solar Installation Technician Name Role Phone RADU SANTIAGO Unavailable [phone] Allergies Allergen (clinical drug ingredient) Drug/Non Drug Allergy documented on EMR Reaction Allergy Type Onset Date Status naproxen Naproxen Unknown Drug Allergy Active Results Component Value Reference Range Notes THINPREP PAP TEST, Cervix Reviewed date:2023 01:13:49 PM Interpretation:LSIL Performing Lab:[facility], [facility], [place], [address] Alirio Champion DO Notes/Report: THINPREP PAP TEST LSIL NEGATIVE -- THIN PREP PAP TEST -- SEX: F : 1995 AGE: 27 [id number] CLINIC ID: [id number] SS: PHYSICIAN: RADU SANTIAGO CNM COLLECTED BY: [...] 08/18/2023 Encounters Encounter Location Date Provider Diagnosis [address] [id number] 08/18/2023 RADU SANTIAGO Encounter for gynecological examination [...] * Elina LIPSCOMBchaimDOB: [birth year] (27 yo F)Acc No.[id number]:08/18/2023 Progress Notes Patient:?Liss LIPSCOMB Provider:?RADU SANTIAGO :1995???Age:27 Y???Sex:Female D ate:08/18/2023 Address:[address] [place] [address], [place], [phone] Subjective: * Chief Complaints: * ???Annual Exam * HPI: ???Visit Narrative:? Clt here for annual exam. Last pap: 1st pap today BR concerns: none. Hx of R BR fibroadenoma dx at age 18yrs by u/s per clt. 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 * Medical History:? * Tram Driver History:? control:?Withdrawal.?Last menstrual period:?07/27.?Last pap smear date:?08/18/2023 [...] 157.48, Wt- k.4. * Examination: ???Genitourinary: ?EXTERNAL GENITALIA:?External Genitalia:?normal, no lesions ?VAGINA:?Vagina:?normal appearance, no abnormal discharge, no lesions ?URETHRA:?Urethra:?no erythema or lesions present ?CERVIX:?Cervix:?no lesions, non-tender, Pap done ?UTERUS:?Uterus:?nontender, normal contour, normal mobility, normal size ?ADNEXA:?Adnexa:?no masses, no tenderness ?ANUS AND PERINEUM:?Anus/Perineum:?visually normal?General Exam: ?CONSTITUTIONAL:?General Appearance:?alert, in no acute distress, normal, well nourished ?NECK/THYROID:?Inspection/Palpation:?normal ?Thyroid:?normal size and shape ?RESPIRATORY:?Auscultation:?clear to auscultation bilaterally ?Respiratory Effort:?normal ?CARDIOVASCULAR:?Auscultation:?regular rate and rhythm ?BREAST, Right:?Inspection/Palpation:?no discharge, no masses present, no nipple retraction, no skin changes, no skin dimpling, no tenderness, no lymphadenopathy, no axillary mass, no axillary tenderness ?Abnormal Upper Outer Quadrant Findings:?mass present Smooth oblong mass about 3cm wide at 11:00, 3 fingers from nipple ?BREAST, Left:?Inspection/Palpation:?no discharge, no masses present, no nipple retraction, no skin changes, no skin dimpling, no tenderness, no lymphadenopathy, no axillary mass, no axillary tenderness ?GASTROINTESTINAL:?Abdomen:?no masses, nontender, nondistended ?Liver and Spleen:?no hepatomegaly present ?SKIN:?Skin:?normal ?NEURO/PSYCH:?Orientation:?time , place, person ?Mood/Affect:?normal??? Assessment: * Assessment: 1.?Encounter for gynecologic al examination (general) (routine) without abnormal findings - Z01.419 (Primary)? Plan: * Treatment: ? Value Reference Range ?THINPREP PAP TEST LSIL A NEGAT TAMI - * RADU SANTIAGO 2023 10:56:17 AM EDT > Roverto Leija, your pap did come back showing low grade cell changes as well as you tested positive for HPV. In this situation I do recommend a procedure called a colposcopy to further evaluate as it's a more diagnostic test than the pap screening which can have false positives. I or my staff will reach out to you regarding your test results and follow-up [facility] lab was reviewed by RADU SANTIAGO on 2023 at 13:13 PM EDT Notes: Discussed routine screenings and self breast awareness. Pap guidelines reviewed. Routine screening in 3 years if normal??2.?Others? Notes: Discussed STI risks, screening, and safe sex?? * Procedure Codes:?78513 Pap S mear * Follow Up:?1 Year (Reason: A nnual) * Billing Information: * Visit Code:? 62047 Existing Preventative - Age 18-39 (IN USE). * Procedure Codes:? 64174 Pap Smear. * Sign off status: Completed true * Provider:SONY SANTIAGO Date:?08/18/2023 Generated for Richard oglesby/Nate/Jaymeitting on:?05/28/2024 11:43 AM EDT History and Physical Notes * HPI (History [...]
== END 2024-05-28 10:00 | disposition home or self-care (01) ==
LOC: HO.HMGCX 09:59
PROVIDERS: PCP Internal Medicine; Visit Provider Internal Medicine Gastroenterology
DX: R79.89 Other specified abnormal findings of blood chemistry (principal)
CPT/HCPCS: 76700

== ENCOUNTER → 2024-05-28 10:29 | Outpatient (BNV) | payer OTHER, SELFPAY | PROVIDERS: PCP Internal Medicine; Visit Provider Radiology Diagnostic Radiology | DX: N28.1 Cyst of kidney, acquired (principal) | CPT/HCPCS: 76700 ==

== ENCOUNTER 2024-06-24 17:19 | Outpatient (AMB) | payer OTHER, SELFPAY ==
--- OUTSIDE RECORDS SUMMARY | 2024-06-24 17:22 | XMS_ITS ---
Author Organization [facility] Address [address] [place] [id number] Care Team Providers Care Compressed Gas Plant Worker Name Role Phone RADU SANTIAGO Unavailable [phone] REASON FOR VISIT Pap fu Social History Sex Assigned At : Social History Observation Description Sex Assigned At Female Encounters Encounter Location Date Provider Diagnosis [address] [id number] 08/31/2023 RADU SANTIAGO Plan Of Treatment No Information Progress Notes * Liss LIPSCOMBDOB: [birth year] (28 yo F)Acc No.[id number]:08/31/2023 Patient:?Liss LIPSCOMB :1995???Age:27 Y???Sex:Female Address:[address], [place], [address] Subjective: * Chief Complaints: * ???Pap fu * Medical History:? 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 control:?Withdrawal.?Last menstrual period:?07/27.?Last pap smear date:?08/18/2023- [...] true * Date:? Generated for Richard oglesby/Nate/Dayami on:?06/24/2024 05:22 PM EDT
[2024-06-24 17:23] VITALS: BP 110/80; BMI 26.3
--- NOTE | 2024-06-24 17:23 | A.OFFPC_ITS ---
Vital Signs 06/24/24 17:23 Height 5 ft 2 in Weight 144 lb BMI 26.3 BP 110/80 Blood Pressure Location Lt brachial Position Sitting Intake Visit Reasons: PE Intake Note: Patient here for a physical exam Commercial Underwriter Required: No Accompanied by: Self / Same As Patient Allergies naproxen Allergy (Mild, Verified 06/24/24 17:39) gi upset Seasonal Allergies Allergy (Mild, Verified 06/24/24 17:39) Runny Nose Medication List - Last Reconciled 06/24/24 by Jessica Chavez MD albuterol sulfate 90 mcg/actuation (Ventolin HFA) 2 puffs inhalation QID PRN amitriptyline 10 - 20 mg (1 - 2 x 10 mg) PO BEDTIME 30 days ascorbate calcium (vitamin C) 500 mg PO DAILY 90 days baclofen 10 mg PO ONCE PRN 30 days bupropion HCl SR 100 mg PO QAM cholecalciferol (vitamin D3) 25 mcg PO DAILY 90 days [compression stockings As directed] fluoxetine 10 mg PO DAILY fluticasone furoate-vilanterol 200-25 mcg/dose (Breo Ellipta) 1 ea inhalation DAILY hydroxyzine pamoate 25 mg PO BID PRN lamotrigine 25 mg PO DAILY lisdexamfetamine (Vyvanse) 20 mg PO QAM magnesium glycinate 400 mg (4 x 100 mg magnesium) PO BEDTIME 90 days meloxicam 15 mg PO DAILY ondansetron 4 mg PO Q6H PRN 30 days pantoprazole 20 mg PO QAM riboflavin (vitamin B2) 400 mg PO DAILY 90 days sumatriptan succinate 50 - 100 mg orally at onset of headache, may repeat in 2 hrs PRN; max 2 tabs per day or 4 tabs/week (may take with Ibuprofen) 30 days Tobacco use date assessed: 03/20/24 Dental Screening Dental Screen Date: 03/20/24 HPI HPI Comments History of Present Illness Details The patient is a 28-year-old female presenting for a routine physical examination. During the visit, she noted a recent increase in difficulty engaging her core muscles while exercising due to what she described as feeling a ripping sensation approximately one month prior. This incident, believed by the patient to potentially involve fascia or muscle separation, has resulted in trouble engaging her core muscles during physical activities. Her medical history includes seasonal allergies, which manifest as a runny nose, and she manages this with an inhaler. She also has a history of a benign breast biopsy. Regarding medication allergies, she experiences gastrointestinal upset with naproxen. She regularly takes amitriptyline for insomnia, bupropion, hydroxyzine, meloxicam, lamotrigine, sumatriptan, and ondansetron for nausea. Baclofen is used as needed. Previous bloodwork from about a month ago returned normal results with liver enzymes, kidney function, cholesterol, and glucose levels within normal parameters. However, Vitamin B6 levels were reported to be slightly elevated, leading to a recommendation to decrease its intake. The ultrasound conducted revealed a tiny renal cyst, considered non-urgent for follow-up. There is a noted family history of hypertension in her father. She maintains follow-up care with rheumatology for her scleroderma and Psychiatry for her mild major depression and anxiety. - Tetanus vaccine pending verification; last known administration indeterminate. - Pap smear last conducted two years ago - Follow-up recommended with urology praveena frias for renal cyst monitoring. - Recommendations to reduce Vitamin B6 i ntake. - Blood pressure and bloodwork review in dicate normotensive and normal metabolic panel. [facility] Medical History Hx of infectious mononucleosis Right ankle pain Right shoulder pain Polyarthralgia Physical exam Mild recurrent major depression Fibroadenoma of right breast Surgical History Hx of colonoscopy History of esophagogastroduodenoscopy (EGD) H/O breast biopsy No pertinent past surgical history Family History Father Hypertension Mother No problems noted. Maternal Grandfather Diabetes mellitus Maternal Grandmother Diabetes mellitus Brother Depression Family/Other Substance use disorder Mental health disorder Social History Housing: House Alcohol intake: current Alcohol intake frequency: a few times a month Alcohol type: wine Patient Tobacco Use Status: Never used Tobacco e-Cigarette/Vaping Use: Never Used Second Hand Smoke Exposure: No Substance Use Type: Marijuana service: No Current occupational status: employed Current occupational exposures/hazards: No Cognitive needs: No Hearing needs: No Vision needs: No Female Reproductive History Menstrual Age of Menarche: 14 Questionnaire PHQ-9 Over the last 2 weeks, how often have you been bothered by any of the following problems? 1. Little interest or pleasure in doing things: several days 2. Feeling down, depressed, or hopeless: several days 3. Trouble falling or staying asleep, or sleeping too much: not at all 4. Feeling tired or having little energy: not at all 5. Poor appetite or overeating: not at all 6. Feeling bad about yourself - or that you are a failure or have let yourself or your family down: not at all 7. Trouble concentrating on things, such as reading the newspaper or watching television: not at all 8. Moving or speaking so slowly that other people could have noticed. Or the opposite - being so fidgety or restless that you have been moving around a lot more than usual: not at all 9. Thoughts that you would be better off or of hurting yourself in some way: not at all Total score: 2 Depression Screening Interpretation: Negative Depression Screening Done: Yes 80827 - PHQ-9 Billing: Yes Source: Developed by Drs. Yung Robertson, Shahida Meyer, James White and colleagues, with an educational arjun from [employer]. Thrive Questionnaire Date Thrive assessed: 03/20/24 I am a: Patient What is your living situation today?: I have a steady place to live Within the past 12 months, did the food you bought not last and you didn't have the money to get more?: I choose not to answer this question Within the past 12 months, did you worry whether your food would run out before you got money to buy more?: I choose not to answer this question Do you have trouble paying for medicines?: No Do you have trouble getting transportation to medical appointments?: Yes Do you have trouble paying your heating and electricity bill?: Yes Do you have trouble taking care of your child, family member or friend?: No Do you have trouble with day-to-day activities such as bathing, preparing meals, shopping, managing finances, etc.?: No Are you currently unemployed and looking for a job?: No Are you interested in more education?: No Please select the resources that you would like help with: Paying for medicine, Transportation and Utilities Currently or been in a relationship where the following occur: No concerns reported THRIVE Score: 2 AUDIT C Alcohol Use Questionnaire (AUDIT-C) 1. How often do you have a drink containing alcohol?: Monthly or less 2. How many drinks containing alcohol do you have on a typical day when you are drinking?: 1 or 2 3. How often do you have six or more drinks on one occasion?: Never Total Score: 1 Score Reviewed/Action Taken: No SERGO-7 AMB Questionnaire SERGO-7 Date SERGO - 7 assessed: 03/20/24 Feeling nervous, anxious, or on edge: 1 = Several days Not being able to stop or control worryin = More than half the days Worrying too much about different things: 2 = More than half the days Trouble relaxin = More than half the days Being so restless that it is hard to sit still: 0 = Not at all Becoming easily annoyed or irritable: 2 = More than half the days Feeling afraid as if something awful might happen: 0 = Not at all Total SERGO-7 score (0-4 normal; 5-9 mild; 10-14 moderate; 15-21 severe): 9 Source: Developed by Drs. Yung Robertson, Shahida Meyer, James White and colleagues, with an educational arjun from [employer]. SERGO-7 Assessment Billing SERGO-7 Assessment Tool: SERGO-7 Assessment 98979 Review of Systems Const All systems reviewed & are unremarkable except as noted in HPI and below Card Denies chest pain at rest, Denies chest pain with activity, Denies edema, Denies irregular heart rhythm, Denies claudication, Denies dyspnea, Denies dyspnea on exertion, Denies orthopnea, Denies paroxysmal nocturnal dyspnea and Denies slow heart rate Resp Denies cough, Denies dyspnea and Denies dyspnea on exertion GI Denies abdominal pain, Denies change in bowel habits, Denies excessive flatus, Denies nausea and Denies vomiting Denies urinary incontinence, Denies urinary hesitancy and Denies urinary urgency Physical exam (Primary Care) Vital Signs: Last Vital Signs BP 110/80 06/24/24 17:23 BMI result Body Mass Index 26.3 Tobacco/Smoking Status: Tobacco use Status Tobacco use date assessed 03/20/24 06/24/24 17:28 Patient Tobacco Use Status Never used Tobacco 06/24/24 17:28 e-Cigarette/Vaping Use Never Used 06/24/24 17:28 PHQ-9: PHQ-9 Score PHQ-9: Total score 2 06/24/24 19:48 Depression Screening Interpretation: Negative Thrive Assessment: Date of Thrive Assessment Date Thrive assessed 03/20/24 06/24/24 17:28 Currently or been in a relationship where the following occur: No concerns reported HENMO Head: Yes normal to inspection, Yes normocephalic and Yes atraumatic Ears: external ears normal Eyes General: appearance normal, both eyes and all related structures Eyelids: Yes eyelids normal Conjunctivae: conjunctivae normal Neck Neck: Yes normal visual inspection and Yes supple Resp Effort & Inspection: normal respiratory effort Auscultation: clear to auscultation bilaterally Cardio Jugular venous distension: no JVD Rate: regular rate Rhythm: regular rhythm Heart sounds: S1 normal heart sound present and S2 normal heart sound present GI Inspection: Yes normal to inspection Palpation (GI): Soft to palpation and nontender Auscultation: normal bowel sounds Skin General skin exam: no rashes or lesions noted Neuro General: no focal motor deficits Extrem General: Yes full ROM Psych Appearance: grossly normal Coding Level of Care Code Est Pt Level 3 (95609) Est Pt Prev Care 18-39y(80276) Diagnoses Physical exam Z00.00 Scleroderma M34.9 Moderate recurrent major depression F33.1 Renal cyst N28.1 Back pain M54.9 Additional Codes SERGO-7 Assessment Billing - SERGO-7 Assessment Tool: SERGO-7 Assessment 89727 ([id number]) PHQ-9 - 33305 - PHQ-9 Billing: Yes ([id number]) Time Spent (min) 31 Assessment & Plan Assessment & Plan (1) Physical exam: Code(s): Z00.00 - Encounter for general adult medical examination without abnormal findings Category: Medical (2) Scleroderma: Code(s): M34.9 - Systemic sclerosis, unspecified Category: Medical (3) Moderate recurrent major depression: Code(s): F33.1 - Major depressive disorder, recurrent, moderate Category: Medical (4) Renal cyst: Code(s): N28.1 - Cyst of kidney, acquired Category: Medical (5) Back pain: Code(s): M54.9 - Dorsalgia, unspecified Category: Medical Plan The planned interventions include verifying tetanus immunization records and referring the patient to physical therapy post-graduation. Emphasis was placed on ongoing management of her seasonal allergies and GERD using current medications. Recommendations to adjust Vitamin B6 intake were made, considering recent elevation and assessment results. The patient will maintain her regular follow-ups with rheumatology, without the need for fluoxetine or Vyvanse. A non- urgent referral to urology ensures annual monitoring of the renal cyst. Lastly, she is encouraged to maintain moderation in alcohol consumption and healthy lifestyle practices to support overall wellness. Patient was informed and verbally consented to the use of an ambient scribe for clinic note documentation during this visit. During the visit, we discussed the importance of routine immunizations, particularly the role and frequency of the tetanus booster, and agreed to verify her vaccination status with previous records. The assessment highlighted the necessity for physical therapy due to the reported core muscle strain, with an expected timeline to initiate shortly post-graduation. We reviewed her current medication list, emphasizing the discontinuation of fluoxetine and Vyvanse, aligning with her current psychiatric stability under psychiatric care. The minor renal cyst finding was discussed, and we planned a follow-up approach through regular urological review given its benign nature. Additionally, emphasis was made on her elevated Vitamin B6 levels, and adjustments in supplementation were suggested accordingly. The overall conversation included encouragement for ongoing health maintenance, including adherence to prescribed therapy, and moderation in alcohol consumption. Orders: Orders PT Evaluation and Treatment 06/24/24 M54.9 - Dorsalgia, unspecified Referrals Urology Referral N28.1 - Cyst of kidney, acquired Patient Instructions: - Verify tetanus vaccination status with previous pediatric records. - Attend physical therapy sessions as scheduled for musculoskeletal concerns. - Continue management of allergies and GERD with prescribed inhaler and pantoprazole, respectively. - Reduce intake of Vitamin B6 as advised due to previous lab findings. - Follow up with urology for annual renal cyst monitoring. - Maintain regular appointments with rheumatology and behavioral health services. - Consume alcohol in moderation and follow a heart-healthy lifestyle. - Notify healthcare provider of any new or worsening symptoms.
--- OUTSIDE RECORDS SUMMARY | 2024-06-24 17:23 | XMS_ITS ---
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 Name Role Phone MARCIO FISHER Unavailable [phone] REASON FOR VISIT Annual Exam Social History Sex Assigned At : Social History Observation Description Sex Assigned At Female Encounters Encounter Location Date Provider Diagnosis [facility] [address] [place] [id number] 07/28/2023 MARCIO FISHER Plan Of Treatment No Information Progress Notes * Liss LIPSCOMBDOB: [birth year] (28 yo F)Acc No.[id number]:07/28/2023 Progress Notes Patient:?Liss LIPSCOMB Provider:?Marcio Fisher NP :1995???Age:27 Y???Sex:Female D ate:07/28/2023 Address:[address] [id number] Subjective: * Chief Complaints: * ???1. Annual Exam. * Medical History:? Objective: * Vitals:? Assessment: Plan: * Treatment: * Billing Information: * Visit Code:? * Procedure Codes:? * Electronic signature of ZULAY FISHER NP on 06/24/2024 at 05:23 PM EDT Sign off status: Pending * Provider:?Marcio Fisher NP Date:? 024 Generated for Richard oglesby/Nate/eTransmitting on:?06/24/2024 05:23 PM EDT
--- OUTSIDE RECORDS SUMMARY | 2024-06-24 17:23 | XMS_ITS | Clinical Summary ---
Author Organization [facility] Address [address] [place] [address] Phone Care Team Providers Care Access Registrar Name Role Phone Jessica Chavez MD Primary Care Provider [phone] Allergies No known active allergies Medications No [...] Cancer Screening: Pap Smear 2018 Meningococcal B Vaccine (2 of 2 - Trumenba SCDM 2-dose series) 10/22/2019 04/23/2019 Pneumococcal Vaccine: Pediatrics (0 to 5 Years) and At-Risk Patients (6 to 64 Years) (2 of 2 - PCV) 04/23/2020 04/23/2019 Depression Screening 07/23/2021 HIV Screening 07/23/2021 Hepatitis C Screening 07/23/2021 Social Influencers of Health Screening 07/23/2021 COVID-19 Vaccine (3 - season) 2023 07/06/2021, 06/03/2020 Influenza Vaccine (Season Ended) 2024 01/31/2021, 01/09/2020, 12/21/2018, Additional history exists DTaP,Tdap,and Td [...] patient's age to complete this topic Insurance [facility] [employer] Care Teams Access Registrar Relationship Specialty Start Date End Date Jessica Chavez MD [address] [facility] [address] [facility] SELINA Ness PCP - General Internal Medicine 02/06/24
--- OUTSIDE RECORDS SUMMARY | 2024-06-24 17:23 | XMS_ITS | Data Portability ---
Author Organization [place] [facility] Address [address] [place] [id number] Care Team Providers Care Child Psychiatrist Name Role Phone GWENDOLYN TALLEY Primary Care Provider Assessment Encounter Date Assessment Date Assessment LastModified by Organization Details LastModified Time 09/17/2020 09/17/2020 Overview/History :T is a 25-year-old female that contacted [facility] for evaluation of sore throat that has been ongoing for the past 2 weeks. It does sound like it is improving somewhat. Exam: On exam patient is awake and alert she is afebrile and hemodynamically stable. Nontoxic-appearing . Lungs clear to auscultation bilaterally, heart rate regular. TMs without evidence of infection in visible cone of light bilaterally. No erythema or exudate in the oropharynx, she does have slightly enlarged tonsils. No lymphadenopathy. DDx considered, but not limited to:Viral pharyngitis likely. Strep throat considered but less likely with no fever, and no exudates. Bacterial pharyngitis considered though I would expect her to be febrile. Postnasal drip from seasonal allergies also considered though she denies this. Work up/Results:Throat culture pending. Plan/Discussion:I discussed with patient that it is reassuring that also her symptoms have already resolved. I did let her know that her exam is not necessarily consistent with bacterial throat infection but that I would obtain a throat culture to rule this out. I have advised her to take gfez-mso-bwsdpdo ibuprofen as needed for any discomfort. We also discussed trying Cepacol, lozenges and staying well hydrated. She verbalized understanding of discharge instructions. In order to obtain further information and compare any laboratory results/values, I have accessed old patient records. This information was pertinent in my medical decision making today. Proper Personal Protective Equipment (PPE), including gloves, eye protection and masks were donned and doffed appropriately and all equipment cleaned using approved technique with germicidal disposable wipes prior to and after care of this patient according to [facility]'s infection prevention protocols. [email or web address] Not available 09/17/2020 19:22:16 Plan of Treatment Reminders Order Date Submit Date Provider Last Modified By Organization Details Last Modified Time Details Appointments None recorded . Lab culture, throat 021 09/18/19 21 [place] [facility] (Centralized Electronic Ordering - All Locations), Patient Can Go To The Location Of Their Choice, [id number] 15:39:23 Referral None recorded . Procedures None recorded . Surgeries None recorded . Imaging None recorded . Medication Orders None recorded . Patient TargetsNo targets recorded. Patient Instructions Encounter Date Encounter Id Patient Instructions Last Modified By Organization Details Last Modified Time 09/17/2020 [id number] WE CAME TO SEE [facility] TODAY FOR CONCERNS OF LINGERING SORE THROAT YOU DID NOT HAVE ANY REDNESS OR EXUDATES TO MAKE ME THINK THIS IS BACTERIAL IN ORIGIN BUT I DID OBTAIN A THROAT CULTURE TO BE SURE PLEASE CONTINUE SUPPORTIVE CARE YOU HAVE BEEN, I RECCOMEND TAKING IBUPROFEN 400MG NEEDED FOR DISCOMFORT, CEPACOL THROAT LOZENGES AND STAYING WELL HYDRATED YOU HAD NORNAL VITAL SIGNS TODAY AND NO EVIDENCE OF EAR INFECTION Please seek care immediately if you develop any of the following symptoms: 1. Uncontrolled fever of at least 101? ? ?F or 38.4? ? ?C 2. Throat pain that is severe or does not start to improve within 5 to 7 days Call 911 or go to the emergency department if you: 1. Have trouble breathing 2. Cannot control your saliva (drooling) due to difficulty swallowing 3. Have swelling of the neck or tongue 4. Cannot move your neck or have trouble opening your mouth If you have additional concerns or develop a change in your condition between 8am-10pm, please call [facility] at [phone] to help navigate your care. [email or web address] Not available 09/17/2020 18:56:17 Reason for Referral None Reported. Results Created Date Observation Date Name Description Value Unit Range Abnormal Flag Note LastModifiedBy Organization Detail LastModifiedTime 09/18/19 21 09/21/2020 THROA T CUL/N ON STREP specimen description SWAB THRT Not Available [facility] (Centralized Electronic Ordering - All Locations) Patient Can Go To The Location Of Their Choice, [id number] 09/21/2020 15:39:23 09/18/1909/21/2020 THROA T CUL/N ON STREP special requests NONE Not Available [facility] (Centralized Electronic Ordering - All Locations) Patient Can Go To The Location Of Their Choice, [id number] 09/21/2020 15:39:23 09/18/1909/21/2020 THROA T CUL/N ON STREP culture 4+ NORMAL DAVID Not Available [facility] (Centralized Electronic Ordering - All Locations) Patient Can Go To The Location Of Their Choice, [id number] 09/21/2020 15:39:23 09/18/1909/21/2020 THROA T CUL/N ON STREP report status FINAL 2020 Not Available [facility] (Centralized Electronic Ordering - All Locations) Patient Can Go To The Location Of Their Choice, [id number] 09/21/2020 15:39:23 Result Notes None recorded. Medical Equipment None Reported. Allergies No known drug allergies Medications Name Sig Start Date Stop Date Status Note LastModified by Organization Details LastModified Time tizanidine 4 mg tablet TAKE 1 TABLET BY MOUTH EVERY DAY 09/17 completed Not Available Not Available Not Available mycophenolat e mofetil 500 mg tablet TAKE 1 TABLET BY MOUTH ONCE DAILY FOR THE 1ST WEEK ,THEN TAKE 2 TABLETS TWICE DAILY 09/17 completed Not Available Not Available Not Available fluoxetine 20 mg capsule TAKE 1 CAPSULE BY MOUTH EVERY DAY active Not Available Not Available No t Available escitalopram 10 mg tablet TAKE 1 TABLET BY MOUTH EVERY DAY 09/17 completed Not Available Not Available Not Available duloxetine 20 mg capsule,isac yed release TAKE 1 CAPSULE BY MOUTH EVERY DAY 09/17 completed Not Available Not Available Not Available Vitals Date Recorded Respiratory rate Heart rate Body temperature Oxygen saturation Oxygen saturation in Arterial blood by Pulse oximetry Systolic blood pressure Diastolic blood pressure Provider Name and Address Organization Details Last Updated DateTime 16 /min 72 /min 97.2 [degF] 98 % 98 % 118 mm[Hg] 78 mm[Hg] Not Available [facility] 18:46:14 Social History None recorded. Functional Status None recorded. Mental Status None recorded. Family History Relationship Description Onset Age of this Age Resolved Age Notes LastModified by Organization Details LastModified Time Mother Diabetes mellitus [email or web address] Not available 18:44:43 Medical History Condition Response Depression Y Gynecological HistoryNo gynecological history recorded. Obstetrics History GPAL:G 0 P 0 0 0 0 Past Encounters Encounter ID Performer Location Encounter Start Date Encounter Closed Date Diagnosis/Indication Diagnosis SNOMED-CT Code Diagnosis ICD10 Code Diagnosis Note [id number] OLIVIER CASTELLANOS NP [facility] [address] [place] [address] 09/17/2020 18:42:55 09/17/2020 19:30:21 Pain in throat 818310404 R07.0 Health Concerns Section Related Observation LastModified by Organization Detai ls LastModified Time None Recorded Concern Status LastModified by Organization Details LastModified Time None Recorded Advance Directives Directive None Recorded Payers Encounter Date Sequence Insurance Name Policy Number Policy Venegas Covered Member ID Venegas Member ID Guarantor Name 09/17/[address] [place] [address] [id number] Liss Lipscomb [id number] Liss Lipscomb Notes Date Note Type Note Provider Name and Address Organization Details Recorded Time 09/17/2020 text/html This is a 25-year-old female that is a new patient who [facility]. She has a medical history significant for depression and scoliosis. She reports that she began to have a sore throat about 2 weeks ago that was also associated with fatigue and body aches. She reports that she has been feeling better however she has got has a bit of a lingering sore throat. She is worried that she might have strep throat. She has been taking bagh-deu-bjndgvg Tylenol and ibuprofen to treat her discomfort. She is drinking plenty of fluids. She denies any GI symptoms. No recent sick contacts in no fevers. OLIVIER CASTELLANOS NP [address], [place], [address], [place] - [facility] 09/17/2020 19:22:23 OBGyn Episode No OBEpisode recorded.
--- OUTSIDE RECORDS SUMMARY | 2024-06-24 17:23 | XMS_ITS ---
Author Organization [facility] Address [address] [place] [phone] Care Team Providers Care Automobile Club Information Clerk Name Role Phone RADU SANTIAGO Unavailable [phone] Allergies Allergen (clinical drug ingredient) Drug/Non Drug Allergy documented on EMR Reaction Allergy Type Onset Date Status naproxen Naproxen Unknown Drug Allergy Active Results Component Value Reference Range Notes THINPREP PAP TEST, Cervix Reviewed date:2023 01:13:49 PM Interpretation:LSIL Performing Lab:[facility], [facility], [place], [address] Alirio Champion DO Notes/Report: THINPREP PAP TEST LSIL NEGATIVE -- THIN PREP PAP TEST -- SEX: F : 1995 AGE: 27 [id number] CLINIC ID: [id number] SS: PHYSICIAN: RADU SANTIAGO CNM COLLECTED BY: [...] 08/18/2023 Encounters Encounter Location Date Provider Diagnosis [address] [id number] 08/18/2023 RADU SANTIAGO Encounter for gynecological examination [...] * Elina LIPSCOMBchaimDOB: [birth year] (27 yo F)Acc No.[id number]:08/18/2023 Progress Notes Patient:?Liss LIPSCOMB Provider:?RADU SANTIAGO :1995???Age:27 Y???Sex:Female D ate:08/18/2023 Address:[address] [place] [address], [place], [phone] Subjective: * Chief Complaints: * ???Annual Exam * HPI: ???Visit Narrative:? Clt here for annual exam. Last pap: 1st pap today BR concerns: none. Hx of R BR fibroadenoma dx at age 18yrs by u/s per clt. 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 * Medical History:? 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 control:?Withdrawal.?Last menstrual period:?07/27.?Last pap smear [...] you regarding your test results and follow-up [facility] lab was reviewed by RADU SANTIAGO on 2023 at 13:13 PM EDT Notes: Discussed routine screenings and self breast awareness. Pap guidelines reviewed. Routine screening in 3 years if normal??2.?Others? Notes: Discussed STI risks, screening, and safe sex?? * Procedure Codes:?71861 Pap S mear * Follow Up:?1 Year (Reason: A nnual) * Billing Information: * Visit Code:? 13353 Existing Preventative - Age 18-39 (IN USE). * Procedure Codes:? 01712 Pap Smear. * Sign off status: Completed true * Provider:SONY SANTIAGO Date:?08/18/2023 Generated for Richard oglesby/Nate/Jaymeitting on:?06/24/2024 05:22 PM EDT History and Physical Notes * HPI [...]
--- OUTSIDE RECORDS SUMMARY | 2024-06-24 17:23 | XMS_ITS | Patient Health Record ---
Author Organization [employer] [facility] Address [address] [place] [phone] Care Team Providers Care Ecotherapist Name Role Phone MARCIO FISHER Unavailable [phone] RADU SANTIAGO Unavailable [phone] Allergies Allergen (clinical drug ingredient) Drug/Non Drug Allergy documented on EMR Reaction Allergy Type Onset Date Status naproxen Naproxen Unknown Drug Allergy Active Results Component Value Reference Range Notes THINPREP PAP TEST, Cervix Reviewed date:2023 01:13:49 PM Interpretation:LSIL Performing Lab:[facility], [facility], [place], [address] Alirio Champion DO Notes/Report: THINPREP PAP TEST LSIL NEGATIVE -- THIN PREP PAP TEST -- SEX: F : 1995 AGE: 27 [id number] CLINIC ID: [id number] SS: PHYSICIAN: RADU SANTIAGO CNM COLLECTED BY: [...] Cervix Reviewed date:2023 10:54:01 AM Interpretation:Positive Performing Lab:[facility], [place], [address] Alirio Champion DO Notes/Report: HPV HIGH RISK POSITIVE NEGATIVE HPV High Risk DNA Probe Assay SEX: F : 1995 AGE: 27 [id number] CLINIC ID: [id number] SS: PHYSICIAN: RADU SANTIAGO CNM COLLECTED BY: [...] 08/18/2023 Encounters Encounter Location Date Provider Diagnosis [address] [id number] 08/18/2023 RADU SANTIAGO Encounter for gynecological examination (general) (routine) without abnormal findings Z01.[address] [place], [place] [phone] 08/31/2023 RADU SANTIAGO Assessments Encounter Date Diagnosis [...] Insured Coverage Start Date Coverage End Date [place] MEDICAID ATT CLAIMS [address] [place] [address] [id number] Liss Lipscomb Self - patient is the insured Medical (General) History Medical History History ICD Code Migraines Asthma as a child Depression/axniety Breast Fibroadenoma Hx since age 18 yrs, dx with u/s diverticulosis dx 07/2023 pelvic PT for incontinence and dyspareun ia as of 08/2023
== END 2024-06-24 18:01 | disposition home or self-care (01) ==
LOC: HO.HMCH 17:20
PROVIDERS: PCP Internal Medicine; Visit Provider Internal Medicine
DX: Z00.00 Encounter for general adult medical examination without abnormal findings (principal); M54.9 Dorsalgia, unspecified; M34.9 Systemic sclerosis, unspecified; F33.1 Major depressive disorder, recurrent, moderate; N28.1 Cyst of kidney, acquired

== ENCOUNTER → 2024-06-24 17:19 | Outpatient (BNVA) | payer OTHER, SELFPAY | PROVIDERS: PCP Internal Medicine; Visit Provider Internal Medicine | DX: Z00.00 Encounter for general adult medical examination without abnormal findings (principal); M34.9 Systemic sclerosis, unspecified; F33.1 Major depressive disorder, recurrent, moderate; N28.1 Cyst of kidney, acquired; M54.9 Dorsalgia, unspecified | CPT/HCPCS: 96127; 99212; 99395 ==

== ENCOUNTER 2024-07-08 11:34 | Outpatient (AMB) | payer OTHER, SELFPAY ==
--- NOTE | 2024-07-08 11:34 | A.OFFVIS_ITS ---
Intake Visit Reasons: 7 month follow up R/S x2 Intake Note: Liss presents as a telehealth today. CC: She states she would like to discuss switching her medications. Press Tender Smoke Signal Required: No Allergies naproxen Allergy (Mild, Verified 06/24/24 17:39) gi upset Seasonal Allergies Allergy (Mild, Verified 06/24/24 17:39) Runny Nose HPI HPI 7 month follow up R/S x2: Details: 28-year-old female being called for f/u RECAP: Sx -abdominal cramping with bloating stool. Dysphagia heartburn Going to [place] to see specialist for r/o Rachelle Lora seeing them in @/2023 Sclera socrates- Dr. 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 she had a Barium, swallow @ [facility] showing mild dysmotility-she has some dysphagia- EGD/COLO: 07/05/23 Endoscopy Findings: lax LES Colonoscopy Findings: small internal hemorrhoids Path:mild inflammation stomach and GEJ INTERIM: she wants to change PPI and wants to try H2 gerson she is worried abt penitentiary use of PPI she read about dementia and other SE no abdominal pain no constipation or diarrhea she has mild dysphagia returning now, the balloon helped for 3-4 months at least A/P: 1/ Dysphagia, improved s/p dilation ?due to GERD, now getting worse again, PLAN: /1 - repeat EGD with dilation 2/ change to H2 for now, but advised if swallowing gets worse then we shoudl go back to PPI [facility] Medical History (Updated 07/08/24 @ 12:20 by Gideon Overton MD) Dysphagia Hx of infectious mononucleosis Right ankle pain Right shoulder pain Polyarthralgia Physical exam Mild recurrent major depression Fibroadenoma of right breast Surgical History Hx of colonoscopy History of esophagogastroduodenoscopy (EGD) H/O breast biopsy No pertinent past surgical history Family History Father Hypertension Mother No problems noted. Maternal Grandfather Diabetes mellitus Maternal Grandmother Diabetes mellitus Brother Depression Family/Other Substance use disorder Mental health disorder Social History Housing: House Alcohol intake: current Alcohol intake frequency: a few times a month Alcohol type: wine Patient Tobacco Use Status: Never used Tobacco e-Cigarette/Vaping Use: Never Used Second Hand Smoke Exposure: No Substance Use Type: Marijuana service: No Current occupational status: employed Current occupational exposures/hazards: No Cognitive needs: No Hearing needs: No Vision needs: No Female Reproductive History Menstrual Age of Menarche: 14 Telehealth Telehealth Telehealth Platform: Telephone Location of provider rendering services: practice address Location of patient: address on file Patient Identification confirmed using: Name, : Yes Telehealth method: voice only Patient verbally consented to treatment: Yes Patient verbally consented to billing insurance company: Yes Patient informed of any privacy concerns related to visit: Yes Minutes spent on Phone/Video with Pt.: 8 Assessment & Plan Assessment & Plan (1) Dysphagia: Comment: Tonio garcia Code(s): R13.10 - Dysphagia, unspecified Category: Medical Plan: as above Medications: New famotidine (Pepcid) 40 mg PO DAILY 90 tabs 2RF Coding Level of Care Code Tele Est Pt Level 3 (36938) Diagnoses Dysphagia R13.10
--- OUTSIDE RECORDS SUMMARY | 2024-07-08 13:19 | XMS_ITS ---
Author Organization [facility] Address [address] [phone] Care Team Providers Care Food Service Worker Name Role Phone RADU SANTIAGO Unavailable [phone] REASON FOR VISIT Pap fu Social History Sex Assigned At : Social History Observation Description Sex Assigned At Female Encounters Encounter Location Date Provider Diagnosis [address] [phone] 08/31/2023 RADU SANTIAGO Plan Of Treatment No Information Progress Notes * Liss LIPSCOMBDOB: [birth year] (28 yo F)Acc No.[id number]:08/31/2023 Patient:?Liss LIPSCOMB :1995???Age:27 Y???Sex:Female Address:[address], [place], [address] Subjective: * Chief Complaints: * ???Pap fu * Medical History:? 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 control:?Withdrawal.?Last menstrual period:?07/27.?Last pap smear date:?08/18/2023- [...] true * Date:? Generated for Richard oglesby/Nate/Dayami on:?07/08/2024 01:19 PM EDT
--- OUTSIDE RECORDS SUMMARY | 2024-07-08 13:20 | XMS_ITS ---
Author Organization [facility] Address [address] [place] [id number] Care Team Providers Care Hydro Station Supervisor Name Role Phone RADU SANTIAGO Unavailable [phone] Allergies Allergen (clinical drug ingredient) Drug/Non Drug Allergy documented on EMR Reaction Allergy Type Onset Date Status naproxen Naproxen Unknown Drug Allergy Active Results Component Value Reference Range Notes THINPREP PAP TEST, Cervix Reviewed date:2023 01:13:49 PM Interpretation:LSIL Performing Lab:[facility], [facility] [place], [address] Alirio Champion DO Notes/Report: THINPREP PAP TEST LSIL NEGATIVE -- THIN PREP PAP TEST -- SEX: F : 1995 AGE: 27 [id number] CLINIC ID: [id number] SS: PHYSICIAN: RADU SANTIAGO CNM COLLECTED BY: [...] 08/18/2023 Encounters Encounter Location Date Provider Diagnosis [address] [id number] 08/18/2023 RADU SANTIAGO Encounter for gynecological examination [...] * Elina LIPSCOMBchaimDOB: [birth year] (27 yo F)Acc No.[id number]:08/18/2023 Progress Notes Patient:?Liss LIPSCOMB Provider:?RADU SANTIAGO :1995???Age:27 Y???Sex:Female D ate:08/18/2023 Address:[address] [place] [address], [place], [id number] Subjective: * Chief Complaints: * ???Annual Exam * HPI: ???Visit Narrative:? Clt here for annual exam. Last pap: 1st pap today BR concerns: none. Hx of R BR fibroadenoma dx at age 18yrs by u/s per clt. 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 * Medical History:? 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 control:?Withdrawal.?Last menstrual period:?07/27.?Last pap smear date:?08/18/2023 [...] you regarding your test results and follow-up [facility] lab was reviewed by RADU SANTIAGO on 2023 at 13:13 PM EDT Notes: Discussed routine screenings and self breast awareness. Pap guidelines reviewed. Routine screening in 3 years if normal??2.?Others? Notes: Discussed STI risks, screening, and safe sex?? * Procedure Codes:?63246 Pap S mear * Follow Up:?1 Year (Reason: A nnual) * Billing Information: * Visit Code:? 54476 Existing Preventative - Age 18-39 (IN USE). * Procedure Codes:? 68713 Pap Smear. * Sign off status: Completed true * Provider:SONY SANTIAGO Date:?08/18/2023 Generated for Richard oglesby/Nate/Jaymeitting on:?07/08/2024 01:19 PM EDT History and Physical Notes * [...]
--- OUTSIDE RECORDS SUMMARY | 2024-07-08 13:20 | XMS_ITS | Patient Health Record ---
Author Organization [facility] Address [address] [place] [id number] Care Team Providers Care Multilith Operator Name Role Phone MARCIO FISHER Unavailable [phone] RADU SANTIAGO Unavailable [phone] Allergies Allergen (clinical drug ingredient) Drug/Non Drug Allergy documented on EMR Reaction Allergy Type Onset Date Status naproxen Naproxen Unknown Drug Allergy Active Results Component Value Reference Range Notes THINPREP PAP TEST, Cervix Reviewed date:2023 01:13:49 PM Interpretation:LSIL Performing Lab:[facility], [facility], [place], [address] Alirio Champion DO Notes/Report: THINPREP PAP TEST LSIL NEGATIVE -- THIN PREP PAP TEST -- SEX: F : 1995 AGE: 27 [id number] CLINIC ID: [id number] SS: PHYSICIAN: RADU SANTIAGO CNM COLLECTED BY: [...] Cervix Reviewed date:2023 10:54:01 AM Interpretation:Positive Performing Lab:[facility], [place], [address] Alirio Champion DO Notes/Report: HPV HIGH RISK POSITIVE NEGATIVE HPV High Risk DNA Probe Assay SEX: F : 1995 AGE: 27 [id number] CLINIC ID: [id number] SS: PHYSICIAN: RADU SANTIAGO CNM COLLECTED BY: [...] 08/18/2023 Encounters Encounter Location Date Provider Diagnosis [address] [id number] 08/18/2023 RADU SANTIAGO Encounter for gynecological examination (general) (routine) without abnormal findings Z01.[address] [place], [place] [id number] 08/31/2023 RADU SANTIAGO Assessments Encounter Date Diagnosis [...] Insured Coverage Start Date Coverage End Date [place] ATT CLAIMS [address] [place] [address] [id number] Liss Lipscomb Self - patient is the insured Medical (General) History Medical History History ICD Code Migraines Asthma as a child Depression/axniety Breast Fibroadenoma Hx since age 18 yrs, dx with u/s diverticulosis dx 07/2023 pelvic PT for incontinence and dyspareun ia as of 08/2023
--- OUTSIDE RECORDS SUMMARY | 2024-07-08 13:20 | XMS_ITS | Data Portability ---
Author Organization [place] [facility] Address [address] [place] [id number] Care Team Providers Care Geographical Historian Name Role Phone GWENDOLYN TALLEY Primary Care Provider [phone] Assessment Encounter Date Assessment Date Assessment LastModified by Organization Details LastModified Time 09/17/2020 09/17/2020 Overview/History :T is a 25-year-old female that contacted [facility] for evaluation of sore throat that has [...] out. I have advised her to take dvaq-vmd-nemrhoi ibuprofen as needed for any discomfort. We [...] after care of this patient according to Critical access hospital's infection prevention protocols. [email or web address] Not available 09/17/2020 19:22:16 Plan of Treatment Reminders Order Date Submit Date Provider Last Modified By Organization Details Last Modified Time Details Appointments None recorded . Lab culture, throat 021 09/18/19 21 [place] [facility] (Centralized Electronic Ordering - All Locations), Patient Can Go To The Location Of Their Choice, [id number] 15:39:23 Referral None recorded . Procedures None recorded . Surgeries None recorded . Imaging None recorded . Medication Orders None recorded . Patient TargetsNo targets recorded. Patient Instructions Encounter Date Encounter Id Patient Instructions Last Modified By Organization Details Last Modified Time 09/17/2020 [id number] WE CAME TO SEE Y OU TODAY [...] in your condition between 8am-10pm, please call Critical access hospital at [phone] to help navigate your care. [email or web address] Not available 09/17/2020 18:56:17 Reason for Referral None Reported. Results Created Date Observation Date Name Description Value Unit Range Abnormal Flag Note LastModifiedBy Organization Detail LastModifiedTime 09/18/19 21 09/21/2020 THROA T CUL/N ON STREP specimen description SWAB THRT Not Available [facility] (Centralized Electronic Ordering - All Locations) Patient Can Go To The Location Of Their Choice, [id number] 09/21/2020 15:39:23 09/18/1909/21/2020 THROA T CUL/N ON STREP special requests NONE Not Available [facility] (Centralized Electronic Ordering - All Locations) Patient Can Go To The Location Of Their Choice, [id number] 09/21/2020 15:39:23 09/18/1909/21/2020 THROA T CUL/N ON STREP culture 4+ NORMAL DAVID Not Available [facility] (Centralized Electronic Ordering - All Locations) Patient Can Go To The Location Of Their Choice, [id number] 09/21/2020 15:39:23 09/18/1909/21/2020 THROA T CUL/N ON STREP report status FINAL 2020 Not Available [facility] (Centralized Electronic Ordering - All Locations) Patient Can Go To The Location Of Their Choice, [id number] 09/21/2020 15:39:23 Result Notes None recorded. Medical [...] Organization Details LastModified Time Mother Diabetes mellitus Not available 18:44:43 Medical History Condition Response Depression Y Gynecological HistoryNo gynecological history recorded. Obstetrics History GPAL:G 0 P 0 0 0 0 Past Encounters Encounter ID Performer Location Encounter Start Date Encounter Closed Date Diagnosis/Indication Diagnosis SNOMED-CT Code Diagnosis ICD10 Code Diagnosis Note [id number] LOIVIER CASTELLANOS NP [facility] [address] [place] [address] 09/17/2020 18:42:55 09/17/2020 19:30:21 Pain in throat 273823043 R07.0 Health Concerns Section Related Observation LastModified by Organization Detai ls LastModified Time None Recorded Concern Status LastModified by Organization Details LastModified Time None Recorded Advance Directives Directive None Recorded Payers Encounter Date Sequence Insurance Name Policy Number Policy Venegas Covered Member ID Venegas Member ID Guarantor Name 09/17/[address] [place] [address] [id number] Liss Lipscomb [id number] Liss Lipscomb Notes Date Note Type Note [...] have strep throat. She has been taking dbgk-lnq-lwllopn Tylenol and ibuprofen to treat her discomfort. She is drinking plenty of fluids. She denies any GI symptoms. No recent sick contacts in no fevers. OLIVIER CASTELLANOS NP [address], [place], [address], [place] [facility] 09/17/2020 19:22:23 OBGyn Episode No OBEpisode recorded.
--- OUTSIDE RECORDS SUMMARY | 2024-07-08 13:21 | XMS_ITS ---
Author Organization [facility] Address [address] [place] [id number] Care Team Providers Care Deputy Sheriff Civil Division Name Role Phone MARCIO FISHER Unavailable [phone] REASON FOR VISIT Annual Exam Social History Sex Assigned At : Social History Observation Description Sex Assigned At Female Encounters Encounter Location Date Provider Diagnosis [facility] [address] [place] [id number] 07/28/2023 MARCIO FISHER Plan Of Treatment No Information Progress Notes * Liss LIPSCOMBDOB: [birth year] (28 yo F)Acc No.[id number]:07/28/2023 Progress Notes Patient:?Liss LIPSCOMB Provider:?Marcio Fisher NP :1995???Age:27 Y???Sex:Female D ate:07/28/2023 Address:[address], [place] Subjective: * Chief Complaints: * ???1. Annual Exam. * Medical History:? Objective: * Vitals:? Assessment: Plan: * Treatment: * Billing Information: * Visit Code:? * Procedure Codes:? * Electronic signature of ZULAY FISHER NP on 07/08/2024 at 01:20 PM EDT Sign off status: Pending * Provider:?Marcio Fisher NP Date:? 024 Generated for Azaliai mendel/Nate/eTransmitting on:?07/08/2024 01:20 PM EDT
--- OUTSIDE RECORDS SUMMARY | 2024-07-08 13:21 | XMS_ITS | Clinical Summary ---
Author Organization [facility] Address [address] [place] [address] Phone Care Team Providers Care Self Propelled Mining Machine Operator Name Role Phone Jessica Chavez MD Primary Care Provider [phone] Allergies No known active allergies Medications No [...] patient's age to complete this topic Insurance [facility] Care Teams Self Propelled Mining Machine Operator Relationship Specialty Start Date End Date Jessica Chavez MD [address] [facility] [address], [address] [facility] D/B/A: [facility] SELINA Ness PCP - General Internal Medicine 02/06/24
== END 2024-07-08 15:43 | disposition home or self-care (01) ==
LOC: HO.HGI 11:34
PROVIDERS: PCP Internal Medicine; Visit Provider Internal Medicine Gastroenterology
DX: R13.10 Dysphagia, unspecified (principal)
CPT/HCPCS: 98012

== ENCOUNTER → 2024-07-08 11:34 | Outpatient (BNVA) | payer OTHER, SELFPAY | PROVIDERS: PCP Internal Medicine; Visit Provider Internal Medicine Gastroenterology ==

== ENCOUNTER 2024-08-12 15:12 | Outpatient (REF) | payer OTHER, SELFPAY ==
--- NOTE | ~2024-08-12 | XR_ITS ---
EXAMINATION: XR LUMBAR SPINE 2-3 VIEWS HISTORY: M54.9 - Dorsalgia, unspecified COMPARISON: Comparison is made with the prior examination dated 03/01/2024. FINDINGS: AP, lateral, and coned down views of the lumbar spine are submitted. Osseous mineralization is normal. Five nonrib-bearing lumbar vertebral bodies are identified, maintaining normal height without evidence of fracture or spondylolisthesis. There is moderate rotatory levoscoliosis. The intervertebral disc spaces are preserved. The posterior elements are intact. The visualized paraspinal soft tissues are unremarkable. XR/XR lumbar spine 2-3V IMPRESSION: Moderate rotatory levoscoliosis. Otherwise unremarkable examination of the lumbar spine. Electronically signed by: Yung Maurice MD 08/12/2024 03:50 PM EDT
== END 2024-08-12 15:13 | disposition home or self-care (01) ==
LOC: HO.XRAY 15:12
PROVIDERS: PCP Internal Medicine; Visit Provider Internal Medicine
DX: M54.9 Dorsalgia, unspecified (principal)
CPT/HCPCS: 72100

== ENCOUNTER → 2024-08-12 15:13 | Outpatient (BNV) | payer OTHER, SELFPAY | PROVIDERS: PCP Internal Medicine; Visit Provider Radiology Diagnostic Radiology | DX: M41.86 Other forms of scoliosis, lumbar region (principal) | CPT/HCPCS: 72100 ==

== ENCOUNTER 2024-08-13 14:32 | Outpatient (AMB) | payer OTHER, SELFPAY ==
--- NOTE | 2024-08-13 14:35 | MHC.OFFVIS ---
Vital Signs 08/13/24 14:38 Height 5 ft 2 in Weight 138 lb 8 oz BMI 25.3 BP 104/56 L Blood Pressure Location Rt brachial Position Sitting Pulse 87 Pulse Source Pulse Oximeter Pulse Oximetry (%) 100 Oxygen Delivery Method Room Air Intake Visit Reasons: Dorsalgia, unspecified Intake Note: Pain today 08/13 Credit Specialist Required: No Accompanied by: Self / Same As Patient Allergies naproxen Allergy (Mild, Verified 08/13/24 14:38) gi upset Seasonal Allergies Allergy (Mild, Verified 08/13/24 14:38) Runny Nose Is last menstrual period known: Yes Last menstrual period: 07/17/24 Patient : No HPI Comments Details: The patient is a 28-year-old female presenting with chronic back pain. She initially noticed her scoliosis in high school, which progressed following a cheerleading accident. Her current scoliosis angle is less than 40 degrees, mitigating the need for surgery as per the Orthopedist's evaluation, Dr. Robles at [facility]. Pain is primarily sensed on the left side of low back, exacerbating into the hips and lower limbs with ongoing muscle spasms and joint hypermobility associated with Rachel-Danlos Syndrome. Pain is most severe at nighttime ranging 8/10 and least severe pain in early afternoon, ranging 5/10. Her back pain does radiate to the left lower extremity anteriorly and posteriorly with associated intermittent numbness and tingling, balance issues and clumsiness, and cooler sensations in the left side of the body. Denies bladder or bowel dysfunction, weakness, foot drop, or saddle anesthesia. The pain interferes with daily activities, especially her posture and sleep. She previously took meloxicam but discontinued it due to elevated liver enzymes. Baclofen offers some relief but causes excessive muscle relaxation and fatigue. The patient is currently at physical therapy through [facility] and finds physical therapy beneficial and declines the use of a brace in favor of continued physical therapy, fearing muscle atrophy. She has also attended chiropractic adjustments, massage therapy and acupuncture with mild improvement. She is keen on exploring a TENS unit as a non-invasive adjunct for pain therapy. - Onset: Began in high school, worsened over the years - Location: Back, radiating to hips and lower left extremity - Quality: Aching with tightness from muscle spasms, shooting, tugging, pulling, heavy, dull, tiring, sore. - Radiation: Left hip and lower left extremity - Exacerbating Factors: Poor posture, prolonged lying flat, prolonged sitting - Relieving Factors: Reclined positions, physical therapy - Interference: Impacts sleep, daily activities and work - Affect: Pain impacts sleep and causes stress - Analgesia: Baclofen for muscle spasms; previous use of meloxicam discontinued - Adverse Effects: Elevated liver enzymes from meloxicam, fatigue from baclofen - Activities of Daily Living: Notices altered posture, difficulty sleeping - Aberrant Drug Related Behaviors: None reported [facility] Medical History Dysphagia Hx of infectious mononucleosis Right ankle pain Right shoulder pain Polyarthralgia Physical exam Mild recurrent major depression Fibroadenoma of right breast Surgical History Hx of colonoscopy History of esophagogastroduodenoscopy (EGD) H/O breast biopsy No pertinent past surgical history Family History Father Hypertension Mother No problems noted. Maternal Grandfather Diabetes mellitus Maternal Grandmother Diabetes mellitus Brother Depression Family/Other Substance use disorder Mental health disorder Social History Housing: House Alcohol intake: current Alcohol intake frequency: a few times a month Alcohol type: wine Patient Tobacco Use Status: Never used Tobacco e-Cigarette/Vaping Use: Never Used Second Hand Smoke Exposure: No Substance Use Type: Marijuana service: No Current occupational status: employed Current occupational exposures/hazards: No Cognitive needs: No Hearing needs: No Vision needs: No Female Reproductive History Menstrual Age of Menarche: 14 Date of last menstrual period: 07/17/24 Review of Systems Const Details: - Musculoskeletal: Reports back pain, muscle spasms, and stiffness - Neurological: Reports numbness/tingling, balance issues, and clumsiness on the left side - Integumentary: Reports feeling cooler on the left side - Psychiatric: Reports difficulty sleeping due to pain All systems reviewed & are unremarkable except as noted in HPI and below Physical Exam Vital Signs: Last Vital Signs Pulse 87 08/13/24 14:38 BP 104/56 L 08/13/24 14:38 Pulse Ox 100 08/13/24 14:38 Oxygen Delivery Method Room Air 08/13/24 14:38 BMI result Body Mass Index 25.3 General: Appears afebrile. Alert and oriented. Mood and affect appropriate. Follows and participates in conversation appropriately. Respiratory effort is unlabored. No cough. Able to transition from sit to stand unassisted. Ambulates with bilaterally normal heel strike and toe off. General: Yes no CVA tenderness Back/Spine/Pelvis Other: Patient is able to walk and stand on heels and tip toes with no difficulties demonstrating good motor tone. No limping. Can flex forward to 75-80 degrees and extend to 5-10 degrees reproduce moderate pain. Demonstrates 5/5 strength of quadriceps bilaterally as well as flexion/dorsiflexion of bilateral feet against resistance. 2+ pedal pulses bilaterally. Straight leg rise with dorsiflexion negative bilaterally. +2 patellar and achilles reflexes bilaterally. Facet loading test positive bilaterally. Anitha sign, Oj?s and Stinchfield tests are negative bilaterally. No groin pain with I/E hip rotations. Valsalva maneuver negative. Reduced sensory perception in the left lower extremity. Back: no CVA tenderness Cervical Spine: cervical ROM normal, cervical muscular tenderness, pain with cervical ROM and No Cervical spine tenderness Thoracic/Lumbar Spine: thoracic and lumbar spine normal to inspection, No Thoracic/lumbar spine scar(s), Lasegue's sign negative, straight leg raise negative bilaterally, pain with thoraco-lumbar ROM, paraspinal muscle tenderness, thoraco-lumbar ROM limited, Thoracic/lumbar scoliosis, thoracic spinal tenderness (mid to low thoracic) and lumbar spinal tenderness (upper lumbar) Pelvis: no buttock tenderness Sacroiliac joints: bilaterally nontender Results Reviewed Results Reviewed: XR thoracic spine 3V 03/04/24 CLINICAL HISTORY: R25.2 - Cramp and spasm 3 views thoracic spine Comparison: CR - XR LUMBAR SPINE 6V W BENDING - 03/01/24 12:05 EST Findings: Thoracolumbar S shaped scoliosis. Satisfactory alignment of the vertebral bodies. No acute fractures or dislocation. Vertebral body heights are well-maintained. No significant degenerative change. IMPRESSION: 1. Thoracolumbar S-shaped scoliosis. 2. No acute process or significant degenerative changes. XR LUMBAR SPINE 2-3 VIEWS 08/12/24 HISTORY: M54.9 - Dorsalgia, unspecified COMPARISON: Comparison is made with the prior examination dated 03/01/2024. FINDINGS: AP, lateral, and coned down views of the lumbar spine are submitted. Osseous mineralization is normal. Five nonrib-bearing lumbar vertebral bodies are identified, maintaining normal height without evidence of fracture or spondylolisthesis. There is moderate rotatory levoscoliosis. The intervertebral disc spaces are preserved. The posterior elements are intact. The visualized paraspinal soft tissues are unremarkable. IMPRESSION: Moderate rotatory levoscoliosis. Otherwise unremarkable examination of the lumbar spine. Assessment & Plan Assessment & Plan (1) Scoliosis of thoracolumbar spine: Code(s): M41.9 - Scoliosis, unspecified Category: Medical (2) Cervicalgia: Code(s): M54.2 - Cervicalgia Category: Medical (3) Rachel-Danlos syndrome: Comment: hypermobile. Genetic testing not yet completed- needing insurance clearance. Normal echocardiogram. Code(s): Q79.60 - Rachel-Danlos syndrome, unspecified Category: Medical (4) Chronic mid back pain: Code(s): M54.9 - Dorsalgia, unspecified; G89.29 - Other chronic pain Category: Medical (5) Muscle spasm of back: Code(s): M62.830 - Muscle spasm of back Category: Medical Plan Script provided for TENS unit via Zynex to potentially alleviate muscle spasms and discomfort. Baclofen will be used sparingly to avoid fatigue, with an emphasis on continuing physical therapy to strengthen supporting musculature. I will perform an MRI of her thoracic and lumbar spine to explore further degenerative or compressive causes that may contribute to pain and neurological symptoms. Subsequent consultations with her Orthopedist at [facility] will focus on reviewing MRI results and evaluating the need for future bracing. All questions and concerns have been answered and patient agreed with the plan. Follow up after PT/MRI results and sooner as needed. Patient was informed and verbally consented to the use of an ambient scribe for clinic note documentation during this visit. Patient Instructions: I discussed with the patient the intended course of management for her chronic back pain, which includes the introduction of a TENS unit to ameliorate muscular pain without pharmacological intervention. Benefit, risks, and potential side effects of baclofen were reviewed, emphasizing limited use to reduce fatigue risk. I highlighted the importance of continued physical therapy to build muscle support as a non-invasive alternative to bracing. We reviewed upcoming MRI imaging to assess the extent of any spinal nerve involvement and the need to further consult with an orthopedist should her condition progress or additional symptoms arise. We will continue to explore non-surgical options while remaining vigilant about her scoliosis progression. - Use baclofen as needed for muscle spasms, but avoid daily use to prevent fatigue. - Begin using a TENS unit when available to help alleviate pain and muscle spasms. - Continue attending and actively participating in physical therapy sessions. - Monitor for any changes in symptoms, especially neurological signs or worsening pain. - Maintain updated contact with the urban gardening specialist and keep track of scoliosis progression. - Schedule and complete the MRI of the thoracic-lumbar spine for further assessment. - Avoid one-sided carrying to prevent exacerbating spinal curvature. - Report any additional symptoms such as severe pain, increased curvature, or new neurological changes. Coding Level of Care Code New Pt Level 4 (08532) Diagnoses Scoliosis of thoracolumbar spine M41.9 Cervicalgia M54.2 Rachel-Danlos syndrome Q79.60 Chronic mid back pain M54.9; G89.29 Muscle spasm of back M62.830
[2024-08-13 14:38] VITALS: BP 104/56; PULSE 87; O2SAT 100; BMI 25.3
== END 2024-08-13 15:13 | disposition home or self-care (01) ==
LOC: HO.PMC 14:33
PROVIDERS: PCP Internal Medicine; Visit Provider Nurse Practitioner Family
DX: M41.9 Scoliosis, unspecified (principal); M54.2 Cervicalgia; Q79.60 Ehlers-Danlos syndrome, unspecified; M54.9 Dorsalgia, unspecified; G89.29 Other chronic pain; M62.830 Muscle spasm of back
CPT/HCPCS: 99204

== ENCOUNTER → 2024-08-13 14:32 | Outpatient (BNVA) | payer OTHER, SELFPAY | PROVIDERS: PCP Internal Medicine; Visit Provider Nurse Practitioner Family | DX: G89.29 Other chronic pain (principal); M54.59 Other low back pain; Q79.60 Ehlers-Danlos syndrome, unspecified; M41.35 Thoracogenic scoliosis, thoracolumbar region; M54.2 Cervicalgia; M62.830 Muscle spasm of back | CPT/HCPCS: 99202 ==

== ENCOUNTER 2024-08-27 14:48 | Emergency (ER) | payer OTHER, SELFPAY ==
[2024-08-27 14:57] VITALS: BP 126/63; PULSE 97; RESP 16; TEMP 36.1; O2SAT 97; BMI 24.3
--- NOTE | 2024-08-27 15:04 | ED.BACK ---
HPI - Back Pain/Injury General Chief Complaint: Back Pain/Injury Stated Complaint: back pain, neck pain Time Seen by Provider: 08/27/24 15:17 Source: patient Mode of arrival: ambulatory Limitations: no limitations History of Present Illness ED Provider: Clarisa Anthony PA-C HPI Narrative: Patient is reporting to urgent care today for evaluation of low back pain. She was seen recently by her primary care provider who ordered an x-ray of her as she has had this pain going on but she has not had any findings for it. Her past medical history significant for Rachel-Danlos syndrome. She reports because of this extra elasticity her primary care provider was concerned for neurovascular compromise. Patient reports that depending on her level of activity sometimes the pain in her right leg worsens in the left leg sometimes can feel numb. Does not follow any specific dermatomal pattern though. She also sometimes exhibits neck pain but does not interfere with her ability to do activities of daily life. She denies any weakness and no falls or trauma otherwise. She has not had any fevers. She has not tried things for her pain at home because medicine make sure nauseous. She does not feel sick however.Patient denies personal history of cancer, IVDU, fevers, chills, night sweats, unintentional wt loss, saddle anesthesia, and change/loss in bladder/ bowel function. She is denying any symptoms. Her primary care provider told her to go the emergency department to have an MRI. Records were reviewed there is no PCP letters in your patient's EMR to review and no formal referral placed to the ED for expect. MD elicited complaint: back pain Related Data Home Medications ?Medication ?Instructions ?Recorded ?Confirmed hydroxyzine pamoate 25 mg capsule 25 mg PO BID PRN anxiety 06/01/21 06/24/24 albuterol sulfate 90 mcg/actuation 2 puff inhalation QID PRN wheezing 06/06/22 06/24/24 aerosol inhaler (Ventolin HFA) fluticasone furoate 200 1 ea inhalation DAILY 06/13/23 06/24/24 mcg-vilanterol 25 mcg/dose inhalation powder (Breo Ellipta) bupropion HCl 100 mg tablet,12 hr 100 mg PO QAM 03/20/24 06/24/24 sustained-release lamotrigine 25 mg tablet 25 mg PO DAILY 06/24/24 06/24/24 meloxicam 15 mg tablet 15 mg PO DAILY 06/24/24 06/24/24 ascorbic acid (vitamin C) 500 mg 500 mg PO DAILY 07/08/24 tablet Previous Rx's ?Medication ?Instructions ?Recorded pantoprazole 20 mg tablet,delayed 20 mg PO QAM #90 tabs 11/07/23 release amitriptyline 10 mg tablet 10 - 20 mg (1 - 2 x 10 mg) PO 12/15/23 BEDTIME 30 days #60 tabs baclofen 10 mg tablet 10 mg PO ONCE PRN muscle spasm 30 12/15/23 days #30 tabs compression stockings #2 ea 03/20/24 riboflavin (vitamin B2) 400 mg 400 mg PO DAILY 90 days #90 tabs 04/11/24 tablet sumatriptan succinate 100 mg tablet 50 - 100 mg (0.5 - 1 x 100 mg) PO 04/11/24 .COMPLEX PRN migraine headache 30 days #12 tabs cholecalciferol (vitamin D3) 25 25 mcg PO DAILY 90 days #90 caps 06/23/24 mcg (1,000 unit) capsule famotidine 40 mg tablet (Pepcid) 40 mg PO DAILY #90 tabs 07/08/24 ondansetron 8 mg disintegrating 8 mg PO Q8H PRN nausea and 07/16/24 tablet vomiting 30 days #30 tabs lidocaine 5 % topical patch 1 patch topical DAILY #30 ea 08/27/24 Allergies Allergy/AdvReac Type Severity Reaction Status Date / Time naproxen Allergy Mild gi upset Verified 08/27/24 15:01 Seasonal Allergies Allergy Mild Runny Nose Verified 08/27/24 15:01 Review of Systems Review of Systems: Yes all other systems are reviewed and are negative [facility] Past Medical History Attestation statement: The following information was validated with the patient. Source: old records reviewed and nursing notes reviewed Medical History Dysphagia Hx of infectious mononucleosis Right ankle pain Right shoulder pain Polyarthralgia Physical exam Mild recurrent major depression Fibroadenoma of right breast Surgical History Hx of colonoscopy History of esophagogastroduodenoscopy (EGD) H/O breast biopsy No pertinent past surgical history Family History Family History Father Hypertension Mother No problems noted. Maternal Grandfather Diabetes mellitus Maternal Grandmother Diabetes mellitus Brother Depression Family/Other Substance use disorder Mental health disorder Social History Social History Housing: House Alcohol intake: current Alcohol intake frequency: a few times a month Alcohol type: wine Patient Tobacco Use Status: Never used Tobacco e-Cigarette/Vaping Use: Never Used Second Hand Smoke Exposure: No Substance Use Type: Marijuana service: No Current occupational status: employed Current occupational exposures/hazards: No Cognitive needs: No Hearing needs: No Vision needs: No Physical Exam Vital Signs: Vital Signs: Last Vital Signs Temp 97.0 F 08/27/24 15:18 Pulse 97 08/27/24 15:18 Resp 16 08/27/24 15:18 BP 126/63 08/27/24 15:18 Pulse Ox 97 08/27/24 15:18 O2 Del Method Room Air 08/27/24 15:18 BMI result Body Mass Index 24.3 HEENT: Head: Yes normal to inspection, Yes No palpable skull fracture present, Yes normocephalic and Yes atraumatic Ears: hearing grossly normal bilaterally, external ears normal, TM's normal bilaterally and mastoids normal General nose exam: Normal external nose present Face and sinus: Yes normal facial exam Mouth: Normal oral and palatal mucosa present, lip normal and tongue normal Throat: Yes posterior oropharynx normal, Yes tonsils normal and Yes uvula midline Eyes: General: appearance normal, both eyes and all related structures Visual Head: normal visual head by confrontation Eyelids: Yes eyelids normal Conjunctivae: conjunctivae normal Sclerae: sclerae normal Corneas: corneas normal Pupils: Equal, round and reactive pupils present Neck: Neck: Yes normal visual inspection, Yes full ROM, Yes no lymphadenopathy and Yes no meningeal signs Lymphatic: no lymphadenopathy noted Chest: Chest palpation & inspection: normal inspection of the chest Resp: Effort & Inspection: normal respiratory effort and able to speak in complete sentences Cardio: Rate: regular rate Rhythm: regular rhythm GI: Inspection: Yes normal to inspection Rectal Exam - Female: deferred : General: Yes no CVA tenderness Back/Spine/Pelvis: Back: no CVA tenderness Cervical Spine: normal cervical lordosis and cervical ROM normal Thoracic/Lumbar Spine: thoracic and lumbar spine normal to inspection, straight leg raise negative bilaterally and other (Patient is able to perform a fully seated squat without showing instability) Pelvis: no pain with anterior-posterior compression Skin: General skin exam: no rashes or lesions noted Trauma: no lacerations or abrasions Neuro: General: no meningeal signs Cranial nerves: Yes CN's II-XII intact bilaterally and Yes Equal, round and reactive pupils present Gait exam (Neuro): Normal gait present Motor exam (neuro): 5/5 motor strength present throughout, no tremor noted, no asterixis, Motor fasciculations not present, Normal motor muscle tone present throughout and Motor abnormalities not present Sensory Exam: Normal double simultaneous stimulation for sensation and other (DTRs are intact 2+ throughout) Psych: Affect: Depressed mood present Attitude: cooperative Medical Decision Making Medical Decision Making MDM Narrative: Patient presented to the emergency department today for concerns of low back pain. history and physical as above vitals noted This patient presents with back pain most consistent with muscle strain with spasm. Differential diagnoses includes lumbago versus musculoskeletal spasm / strain versus sciatica. No back pain red flags on history or physical. Presentation not consistent with malignancy (lack of history of malignancy, lack of B symptoms), fracture (no trauma, no bony tenderness to palpation), cauda equina (no bowel or urinary incontinence/retention, no saddle anesthesia, no distal weakness), AAA, viscus perforation , pulmonary embolism, renal colic, pyelonephritis (afebrile, no CVAT, no urinary symptoms). Given the clinical picture, no indication for imaging at this time. She already had imaging of her lumbar spine done recently on 08/12/2024 showing moderate rotary level scoliosis but otherwise unremarkable. Plan: pain control, supportive care ortho follow up as indicated Differential Diagnosis see MDM Admission/Observation Consideration of admission/observation: Escalation of care including admission/observation considered Patient would have been admitted to the hospital had her work up had any findings where hospital admission was appropriate and her clinical presentation warranted hospital admission. External Record Review External record reviewed: Outpatient record Tests considered The following testing was considered but not selected: Reconsidered CT/x-ray imaging of the L-spine had patient had any new trauma would consider an MRI had patient has shown any concern for neurovascular compromise such as acute cord syndrome or cauda equina syndrome Prescription Management I considered prescription management with: Pain Medication Discharge Plan Discharge Clinical Impression: Back pain, EDS (Rachel-Danlos syndrome) Patient Disposition: Home, Self-Care Instructions: Back Pain (ED) Additional Instructions: You were evaluated for back pain. On physical exam there is no evidence of loss of deep tendon reflexes strength or sensation. Your presentation today is also not consistent with cauda equina syndrome, thoracic outlet syndrome, or acute cord syndrome. There is no evidence of neurovascular compromise. ? BACK CARE Use Motrin/Advil (ibuprofen) 600 mg every 6 hours. Take this with food. Take this regularly for the next 3-5 days and then as needed. In addition, You can use Tylenol (acetaminophen) 650 mg every 6 hrs as needed for pain.? Do not take more than 3000 mg in one day! Use intermittent heat 4 or 5 times a day, 20 minutes at a time,? for a few days. You may use topical therapy such as IcyHot with Lidocaine or Aspercream with Lidocaine, both of which are available over the counter. We have given you a script for pain patch, do not use ice or heat at the same time. Do not perform any heavy lifting. Go immediately to the Emergency Department if you develop any increased or uncontrolled pain, numbness, tingling, or weakness of the extremities, difficulty urinating or passing stools. Please see your doctor or an orthopedist if not improving over the next 1-2 weeks. Prescriptions: New lidocaine 5 % adhesive patch,medicated 1 patch topical DAILY Qty: 30 0RF Rx Instructions: leave on most painful area for up to 12 hrs No Action pantoprazole 20 mg tablet,delayed release (DR/EC) 20 mg PO QAM Qty: 90 2RF sumatriptan succinate 100 mg tablet 50 - 100 mg PO .COMPLEX PRN (Reason: migraine headache) 30 Days Qty: 12 6RF Rx Instructions: 50 - 100 mg orally at onset of headache, may repeat in 2 hrs PRN; max 2 tabs per day or 4 tabs/week (may take with Ibuprofen) riboflavin (vitamin B2) 400 mg tablet 400 mg PO DAILY 90 Days Qty: 90 3RF cholecalciferol (vitamin D3) 25 mcg (1,000 unit) capsule 25 mcg PO DAILY 90 Days Qty: 90 1RF ondansetron 8 mg tablet,disintegrating 8 mg PO Q8H PRN (Reason: nausea and vomiting) 30 Days Qty: 30 3RF albuterol sulfate [Ventolin HFA] 90 mcg/actuation HFA aerosol inhaler 2 puff inhalation QID PRN (Reason: wheezing) fluticasone furoate-vilanterol [Breo Ellipta] 200-25 mcg/dose blister with device 1 ea inhalation DAILY hydroxyzine pamoate 25 mg capsule 25 mg PO BID PRN (Reason: anxiety) amitriptyline 10 mg tablet 10 - 20 mg PO BEDTIME 30 Days Qty: 60 3RF baclofen 10 mg tablet 10 mg PO ONCE PRN (Reason: muscle spasm) 30 Days Qty: 30 3RF Rx Instructions: at bedtime lamotrigine 25 mg tablet 25 mg PO DAILY meloxicam 15 mg tablet 15 mg PO DAILY bupropion HCl 100 mg tablet sustained-release 12 hr 100 mg PO QAM (DME) compression stockings 30 mmHg See Rx Instructions .Route .MEDSUPPLY Qty: 2 6RF Rx Instructions: As directed ascorbic acid (vitamin C) 500 mg tablet 500 mg PO DAILY famotidine [Pepcid] 40 mg tablet 40 mg PO DAILY Qty: 90 2RF Referrals: [facility] [Provider Group, Orthopedics] - 1 week Referral Note: EDS, chronic back and neck pain no trauma Stand Alone Forms: Work/School Release Interventions: ED Discharge Assessment Last Done: 08/27/24 15:18 Discharge Date/Time: 08/27/24 15:19 Print Language: Nepalese
[2024-08-27 15:18] VITALS: BP 126/63; PULSE 97; RESP 16; TEMP 36.1; O2SAT 97
--- OUTSIDE RECORDS SUMMARY | 2024-08-27 18:24 | XMS_ITS | Data Portability ---
Author Organization [place] - [facility] Address [address] [place] [address] Care Team Providers Care Mixing And Dispensing Supervisor Name Role Phone GWENDOLYN TALLEY Primary Care Provider Assessment Encounter Date Assessment Date Assessment LastModified by Organization Details LastModified Time 09/17/2020 09/17/2020 Overview/History :T is a 25-year-old female that contacted [facility] for evaluation of sore throat that has [...] out. I have advised her to take qlra-dch-rbvftvj ibuprofen as needed for any discomfort. We [...] after care of this patient according to [facility]'s infection prevention protocols. [email or web address] Not available 09/17/2020 19:22:16 Plan of Treatment Reminders Order Date Submit Date Provider Last Modified By Organization Details Last Modified Time Details Appointments None recorded . Lab culture, throat 021 09/18/19 ANDRESSA [facility] (Centralized Electronic Ordering - All Locations), Patient Can Go To The Location Of Their Choice, [id number] 15:39:23 Referral None recorded . Procedures None recorded . Surgeries None recorded . Imaging None recorded . Medication Orders None recorded . Patient TargetsNo targets recorded. Patient Instructions Encounter Date Encounter Id Patient Instructions Last Modified By Organization Details Last Modified Time 09/17/2020 [id number] WE CAME TO SEE Y OU TODAY [...] symptoms: 1. Uncontrolled fever of at least 101 F or 38.4 C 2. Throat pain that is severe or [...] in your condition between 8am-10pm, please call [facility] at [phone] to help navigate your care. [email or web address] Not available 09/17/2020 18:56:17 Reason for Referral None Reported. Results Created Date Observation Date Name Description Value Unit Range Abnormal Flag Note LastModifiedBy Organization Detail LastModifiedTime 09/18/19 21 09/21/2020 THROA T CUL/N ON STREP specimen description SWAB THRT Not Available [facility] (Centralized Electronic Ordering - All Locations) Patient Can Go To The Location Of Their Choice, [id number] 09/21/2020 15:39:23 09/18/1909/21/2020 THROA T CUL/N ON STREP special requests NONE Not Available [facility] (Centralized Electronic Ordering - All Locations) Patient Can Go To The Location Of Their Choice, [id number] 09/21/2020 15:39:23 09/18/1909/21/2020 THROA T CUL/N ON STREP culture 4+ NORMAL DAVID Not Available [facility] (Centralized Electronic Ordering - All Locations) Patient Can Go To The Location Of Their Choice, [id number] 09/21/2020 15:39:23 09/18/1909/21/2020 THROA T CUL/N ON STREP report status FINAL 2020 Not Available [facility] (Centralized Electronic Ordering - All Locations) Patient Can Go To The Location Of Their Choice, [id number] 09/21/2020 15:39:23 Result Notes None recorded. Medical [...] Organization Details LastModified Time Mother Diabetes mellitus [email or web address] Not available 18:44:43 Medical History Condition Response Depression Y Gynecological HistoryNo gynecological history recorded. Obstetrics History GPAL:G 0 P 0 0 0 0 Past Encounters Encounter ID Performer Location Encounter Start Date Encounter Closed Date Diagnosis/Indication Diagnosis SNOMED-CT Code Diagnosis ICD10 Code Diagnosis Note [id number] OLIVIER CASTELLANOS NP [facility] [address] [place] [address] 09/17/2020 18:42:55 09/17/2020 19:30:21 Pain in throat 428553078 R07.0 Health Concerns Section Related Observation LastModified by Organization Detai ls LastModified Time None Recorded Concern Status LastModified by Organization Details LastModified Time None Recorded Advance Directives Directive None Recorded Payers Insurance Date Sequence Insurance Name Policy Number Policy Venegas Covered Member ID Venegas Member ID Guarantor Name 09/16/2020 1 [facility] [id number] Liss Lipscomb [id number] Liss Lipscomb 09/16/2020 1 *SELF PAY* Liss Lipscomb [id number] Liss Lipscomb Notes Date Note Type Note [...] have strep throat. She has been taking nzkf-zrs-ahbegdx Tylenol and ibuprofen to treat her discomfort. She is drinking plenty of fluids. She denies any GI symptoms. No recent sick contacts in no fevers. OLIVIER CASTELLANOS NP [address], [place], [address], [place] [facility] 09/17/2020 19:22:23 OBGyn Episode No OBEpisode recorded.
== END 2024-08-27 15:19 | disposition home or self-care (01) ==
PROVIDERS: Emergency Provider Emergency Medicine; PCP Internal Medicine
DX: M54.50 Low back pain, unspecified (principal); Q79.62 Hypermobile Ehlers-Danlos syndrome
CPT/HCPCS: 99282; 99283

== ENCOUNTER 2024-09-16 15:08 | Outpatient (REF) | payer OTHER, SELFPAY ==
[2024-09-16 15:19] LABS: MANUAL DIFF FLAG NO
[2024-09-16 15:47] LABS: Hematocrit 37.6 % (37.0-47.0); Hemoglobin 12.5 g/dl (12.0-16.0); Imm Gran Abs Auto 0.02 X10*3/uL (0.00-0.03); Imm Gran Pct Auto 0.3 % (0.0-0.4); Lymphocytes Absolute Auto 2.2 X10*3/uL (1.2-4.9); Mean Corpuscular HGB Conc 33.2 g/dl (31.0-35.0); Mean Corpuscular Hemoglobin 28.1 pg (27.0-33.0); Mean Corpuscular Volume 84.5 fL (80.0-98.0); NRBC Abs Auto 0.000 X10*3/uL (0.0-0.012); NRBC Pct Auto 0.0 /100WBC (0.0-0.2); Platelet Count 321 X10*3/uL (160-400); Red Blood Count 4.45 X10*6/uL (4.20-5.50); White Blood Count 6.3 X10*3/uL (4.8-10.8)
--- OUTSIDE RECORDS SUMMARY | 2024-09-16 16:27 | XMS_ITS | Clinical Summary ---
Author Organization [facility] Address [address] [place] [address] Phone Care Team Providers Care Welding Machine Operator Name Role Phone Jessica Chavez MD Primary Care Provider [phone] Allergies No known active allergies Medications No [...] 80 02/06/2024 2:55 PM EST Temperature 37.1 C (98.8 F) 02/06/2024 2:55 PM EST Respiratory Rate 16 02/06/2024 2:55 PM EST Oxygen Saturation 98% 02/06/2024 2:55 PM EST Inhaled Oxygen Concentration - - Weight 69.9 kg (154 lb) 02/06/2024 2:55 PM EST Height 157.5 cm (5' 2 ) 02/06/2024 2:55 PM EST Body Mass Index 28.17 02/06/2024 2:55 PM EST Plan of Treatment Health Maintenance Due Date Last Done Comments Hepatitis B Vaccines (1 of 3 - 19+ 3-dose series) 2016 Cervical Cancer Screening: Pap Smear 2018 Meningococcal B Vaccine (2 of 2 - Trumenba SCDM 2-dose series) 10/22/2019 04/23/2019 Pneumococcal Vaccine: Pediatrics (0 to 5 Years) and At-Risk Patients (6 to 49 Years) (2 of 2 - PCV) 04/23/2020 04/23/2019 Depression Screening 07/23/2021 HIV Screening 07/23/2021 Hepatitis C Screening 07/23/2021 Social Influencers of Health Screening 07/23/2021 COVID-19 Vaccine (3 - season) 2023 07/06/2021, 06/03/2020 Influenza Vaccine (#1) 2024 , 01/09/2020, 12/21/2018, Additional history exists DTaP,Tdap,and Td Vaccines (3 - Td or Tdap) 01/08/2032 01/07/2022, 12/11/2018 Meningococcal ACWY Vaccine Completed 07/29/2014 Hepatitis A Vaccines Completed 02/17/2015, 07/30/19 15 HIB Vaccines Aged Out No longer eligi ble based on patient's age to complete this topic HPV Vaccines Aged Out No longer eligi ble [...] patient's age to complete this topic Insurance [facility] Care Teams Welding Machine Operator Relationship Specialty Start Date End Date Jessica Chavez MD [address] [facility] , [address] [place] [address] Physician Associ D/B/A: [facility] SELINA Ness PCP - General Internal Medicine 02/06/24
--- OUTSIDE RECORDS SUMMARY | 2024-09-16 16:27 | XMS_ITS | Data Portability ---
Author Organization [place] - [facility] Address [address] [place] [address] Care Team Providers Care Dough Brake Machine Operator Name Role Phone GWENDOLYN TALLEY Primary Care Provider Assessment Encounter Date Assessment Date Assessment LastModified by Organization Details LastModified Time 09/17/2020 09/17/2020 Overview/History :T is a 25-year-old female that contacted [facility] for evaluation of sore throat that [...] out. I have advised her to take lhkl-jof-apffwvt ibuprofen as needed for any discomfort. We [...] after care of this patient according to [facility]'s infection prevention protocols. [email or web address] Not available 09/17/2020 19:22:16 Plan of Treatment Reminders Order Date Submit Date Provider Last Modified By Organization Details Last Modified Time Details Appointments None recorded . Lab culture, throat 021 09/18/19 ANDRESSA [facility] (Centralized Electronic Ordering - All Locations), Patient Can Go To The Location Of Their Choice, [id number] 15:39:23 Referral None recorded . Procedures None recorded . Surgeries None recorded . Imaging None recorded . Medication Orders None recorded . Patient TargetsNo targets recorded. Patient Instructions Encounter Date Encounter Id Patient Instructions Last Modified By Organization Details Last Modified Time 09/17/2020 [id number] WE CAME TO SEE Y OU TODAY [...] in your condition between 8am-10pm, please call [facility] at [phone] to help navigate your care. [email or web address] Not available 09/17/2020 18:56:17 Reason for Referral None Reported. Results Created Date Observation Date Name Description Value Unit Range Abnormal Flag Note LastModifiedBy Organization Detail LastModifiedTime 09/18/19 21 09/21/2020 THROA T CUL/N ON STREP specimen description SWAB THRT Not Available [facility] (Centralized Electronic Ordering - All Locations) Patient Can Go To The Location Of Their Choice, [id number] 09/21/2020 15:39:23 09/18/1909/21/2020 THROA T CUL/N ON STREP special requests NONE Not Available [facility] (Centralized Electronic Ordering - All Locations) Patient Can Go To The Location Of Their Choice, [id number] 09/21/2020 15:39:23 09/18/19 21 09/21/2020 THROA T CUL/N ON STREP culture 4+ NORMAL DAVID Not Available [facility] (Centralized Electronic Ordering - All Locations) Patient Can Go To The Location Of Their Choice, [id number] 09/21/2020 15:39:23 09/18/1909/21/2020 THROA T CUL/N ON STREP report status FINAL 2020 Not Available [facility] (Centralized Electronic Ordering - All Locations) Patient Can Go To The Location Of Their Choice, [facility] 09/21/2020 15:39:23 Result Notes None recorded. Medical [...] in Arterial blood by Pulse oximetry Systolic And Diastolic Provider Name and Address Organization Details Last Updated DateTime 1 16 /min 72 /min 97.2 [degF] 98 % 98 % 118/78 mm[Hg] Not Available [facility] 18:46:14 Social [...] SNOMED-CT Code Diagnosis ICD10 Code Diagnosis Note [id number] OLIVIER CASTELLANOS NP [facility] [address] [place] [address] 09/17/2020 18:42:55 09/17/2020 19:30:21 Pain in throat [id number] R07.0 Health Concerns Section Related Observation LastModified by Organization Detai ls LastModified Time None Recorded Concern Status LastModified by Organization Details LastModified Time None Recorded Advance Directives Directive None Recorded Payers Insurance Date Sequence Insurance Name Policy Number Policy Venegas Covered Member ID Venegas Member ID Guarantor Name 09/16/2020 1 [facility] [id number] Liss Lipscomb [id number] Liss Lipscomb 09/16/2020 1 *SELF PAY* Liss Lipscomb [id number] Liss Lipscomb Notes Date Note Type Note [...] have strep throat. She has been taking fqxv-nia-vwqclly Tylenol and ibuprofen to treat her discomfort. She is drinking plenty of fluids. She denies any GI symptoms. No recent sick contacts in no fevers. OLIVIER CASTELLANOS NP [address], [place], [address], [place] [facility] 09/17/2020 19:22:23 OBGyn Episode No OBEpisode recorded.
--- OUTSIDE RECORDS SUMMARY | 2024-09-16 16:27 | XMS_ITS | Patient Health Record ---
Author Organization [facility] Address [address] [place] [phone] Support Name Relationship Address Phone Liss Lipscomb Guarantor Unknown [phone] Allergies Allergen (clinical drug ingredient) Drug/Non Drug Allergy documented on EMR Reaction Allergy Type Onset Date Status naproxen Naproxen Unknown Drug Allergy Active Reason For Referral No Information Medications Medication [...] Female Section Notes: Aptima/ pt/ declines bw Plan Of Treatment No Information Insurance Providers Payer Name Payer Address Payer Phone Subscriber Number Group Number Insured Name Patient Relationship to Insured Coverage Start Date Coverage End Date [place]S [address] [place] [address] [id number] Liss Lipscomb Self - patient is the insured Medical (General) History Medical History History ICD Code Migraines Asthma as a child Depression/axniety Breast Fibroadenoma Hx since age 18 yrs, dx with u/s diverticulosis dx 07/2023 pelvic PT for incontinence and dyspareun ia as of 08/2023
[2024-09-16 16:41] LABS: Alanine Aminotransferase 50 U/L (0-31); Albumin Level 4.4 g/dL (3.5-5.0); Alkaline Phosphatase 78 U/L (39-117); Anion Gap 9 (12-20); Aspartate Amino Transferase 46 U/L (5-31); Blood Urea Nitrogen 13 mg/dL (9-16); Calcium 9.1 mg/dL (8.4-10.2); Carbon Dioxide 28 mmol/L (22-29); Chloride 105 mmol/L (96-108); Estimated Glomerular Filt Rate > 60; Iron 82 mcg/dL (30-160); Percent Iron Saturation 25 % (15-50); Potassium 4.1 mmol/L (3.3-5.1); Sodium 138 mmol/L (135-145); Total Iron Binding Capacity 333 mcg/dL (228-428); Total Protein 7.2 g/dL (6.5-8.0); Unsaturated Iron Binding 251 ug/dL
[2024-09-16 16:58] LABS: Free T4 (Free Thyroxine) 0.99 ng/dL (0.71-1.85); Thyroid Stimulating Hormone 0.48 uIU/mL (0.32-4.0)
== END 2024-09-16 15:09 | disposition home or self-care (01) ==
LOC: HO.LAB 15:08
PROVIDERS: Visit Provider Internal Medicine
DX: R53.83 Other fatigue (principal); R79.89 Other specified abnormal findings of blood chemistry; D64.9 Anemia, unspecified; E55.9 Vitamin D deficiency, unspecified
CPT/HCPCS: 36415; 80053; 82306; 83540; 84439; 84443; 85025

== ENCOUNTER 2024-10-08 14:17 | Outpatient (RCR) | payer OTHER, SELFPAY ==
--- NOTE | 2024-08-12 15:58 | MHC.PT.EP ---
[facility] [place] Office [place] Office [place] Office [address] [phone] F: [phone] F: [phone] F: [phone] F: [phone] Physical Therapy Plan of Care Date of Evaluation: 08/12/24 Date of Surgery: N/A Diagnosis: dorsalgia (RL) Assessment: pt is a 28 y/o female presenting to physical therapy w/ referring diagnosis of dorsalgia. Impairments include pain, decreased range of motion, decreased strength, impaired functional mobility, impaired postural awareness, and altered ambulation mechanics. pt is a fair candidate for skilled PT due to age, potential remediation of impairments, typical disease/condition progression and prognosis, comorbidities, and motivation. pt would benefit from skilled PT intervention to provide a tailored strengthening and stretching exercise program, functional training, gait training, postural re-training, neuromuscular re-education, modalities as needed for pain, equipment safety demonstration. Frequency and Duration: The patient will be seen 2x/wk for 4 wks Short Term Goals: pt will be I w/ HEP to promote self-management of condition. pt will demo proper sitting posture w/ lumbar roll to promote neutral spine w/ work-related tasks. 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 Treatment Plan: Modalities to reduce pain, spasms and effusion. Manual therapy to restore motion and function. Therapeutic exercise to improve strength and flexibility. Neuromuscular re-education for posture and balance. Therapeutic activities to return to functional activities of daily living. Electronically signed by: Aleta Ellis PT, DPT Please sign and return to therapist. Thank you for your referral.
--- NOTE | 2024-11-01 08:37 | MHC.PT.DC ---
[facility] [place] Office [place] Office [place] Office [address] Irwin Acuña [address] [phone] F: [phone] F: [phone] F: [phone] F: [phone] Physical Therapy Discharge Report Diagnosis: dorsalgia (RL) Date of Surgery: N/A Date of Evaluation: 08/12/24 Date of Discharge: 11/01/24 Treatments to Date: 10 Cancellations to Date: 3 No Shows to Date: 0 Discharge Status: Improved Function Independent with HEP Discharge Summary: The patient overall was educated in a core and pelvic stability program. We discussed that given her hypermobility exercise programs that work on excessive mobility (yoga) and frequent trips to the chiropractor for joint mobilizations/adjustments were likely not helping her symptoms. She has found more relief with stability and strengthening. She was educated on use of TENS unit for pain modulation either at rest or with activity. The patient has also been participating in acupuncture to address soft tissue restrictions. In regards to her lumbar spine symptoms, she feels she is able to manage these symptoms with her home exercise program, use of TENS unit, and through care of other providers. She is discharged from this physical therapy plan of care. Electronically signed by: Aleta Ellis PT, DPT Please sign and return to therapist. Thank you for your referral.
== END 2024-11-01 08:37 | disposition home or self-care (01) ==
LOC: HO.PT 14:17
PROVIDERS: PCP Internal Medicine; Visit Provider Internal Medicine
DX: M54.9 Dorsalgia, unspecified (principal)
CPT/HCPCS: 97014; 97110; 97112; 97162; 97530

== ENCOUNTER 2024-10-15 15:08 | Outpatient (AMB) | payer OTHER, SELFPAY ==
[2024-10-15 15:11] VITALS: BP 112/64; PULSE 101; O2SAT 98; BMI 25.8
--- NOTE | 2024-10-15 15:11 | A.OFFVIS_ITS ---
Vital Signs 10/15/24 15:11 Height 5 ft 2 in Weight 141 lb 4 oz BMI 25.8 BP 112/64 Blood Pressure Location Rt brachial Position Sitting Pulse 101 H Pulse Source Pulse Oximeter Pulse Oximetry (%) 98 Oxygen Delivery Method Room Air Intake Visit Reasons: Follow up Intake Note: Patient presents follow up headache medication. X-ray in chart. Allergies naproxen Allergy (Mild, Verified 10/15/24 15:13) gi upset Seasonal Allergies Allergy (Mild, Verified 10/15/24 15:13) Runny Nose Medication List - Last Reconciled 10/15/24 by MITCHELL Sandra albuterol sulfate 90 mcg/actuation (Ventolin HFA) 2 puffs inhalation QID PRN amitriptyline 10 - 20 mg (1 - 2 x 10 mg) PO BEDTIME 30 days ascorbic acid (vitamin C) 500 mg PO DAILY baclofen 10 mg PO ONCE PRN 30 days cholecalciferol (vitamin D3) 25 mcg PO DAILY 90 days [compression stockings As directed] famotidine (Pepcid) 40 mg PO DAILY fluticasone furoate-vilanterol 200-25 mcg/dose (Breo Ellipta) 1 ea inhalation DAILY hydroxyzine pamoate 25 mg PO BID PRN lamotrigine 25 mg PO DAILY lidocaine 5% 1 patch topical DAILY ondansetron 8 mg PO Q8H PRN 30 days pantoprazole 20 mg PO QAM pregabalin 25 mg PO Q12H 30 days riboflavin (vitamin B2) 400 mg PO DAILY 90 days sumatriptan succinate 50 - 100 mg orally at onset of headache, may repeat in 2 hrs PRN; max 2 tabs per day or 4 tabs/week (may take with Ibuprofen) 30 days HPI Comments Details: Right-handed 29-yr-old female presents for f/u of headache and episodes of neuralgic pain. Since the last visit, the patient had called the office with concern about worsening brain fog, slurred speech, neuralgic pain, as well as starting amitriptyline as she was already taking an antidepressant. We had sent an order for pregabalin instead; this may help headache symptoms as well as paresthesias. Patient has tried 1 dose, but then misplaced the bottle, went on vacation, and has just found the bottle upon returning. She is open to retrying the pregabalin. Thus, patient was advised to undergo follow-up brain MRI with and without contrast, which is scheduled for near future. She is scheduled to undergo a thoracic and L-spine MRI ordered by pain manageme nt. She will undergo BUE EMG/NCS through [facility]. After EMG is completed, she plans to start OT at [facility] with an OT who specializes in hypermobility. She reports she is having tension headaches, which she attributes to neck tightness and bruxism (about to receive a mouthguard from her dentist). This headache is a dull pain, a/w a retro-bulbar tugging sensation, photophobia. Her scalp can feel more numb, fuzzy sensation when she touches her scalp. Notices some decreased sensation in her left fingertips. She states she is just coming out of a pain flare-up, where she was having increased shooting pain down her arms, and also down her BLE- from her hips down through the legs. She is still prone to neuralgic discomfort, easily per was poked by positioning, especially in her upper extremities, more so on her right elbow and forearm region. 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 Notes that her rail manager has recently ordered her a standing desk, which will be installed shortly. She is noticing more episodes of chills at night. She endorses more episodes of off-balance- can feel external spinning when she gets out of bed in the am. Taking 4-5 16-oz bottles of water per day Right-handed 28-yr-old female presents for f/u of headache disorder via [employer]. Pt reports she is continuing to have daily neck stiffness and headaches. She tried baclofen 10mg prn, prescribed by PCP, this has not help the neck stiffness. She states the Gabapentin helped her to fall asleep, but she is feeling more forgetful. It has not really helped the neck pain, stiffness, or headache. She never received sumatriptan. She is doing PT. Considering doing acupuncture- starting next week. Headache questionnaire:? Age/time of onset: You, worsened at age 22. Preceding causes: Pt ?'s falls, scoliosis, cheerleading accident, EBV infection in 2018. Previous work-up: None. No h/o c-spine imaging Typical headache characteristics: Prodrome symptoms: unsure Aura: w/wo headache blurry vision, flashes of white lights, wiggly things in vision, brief flashes of shadows. Pain intensity: [id number] Location, quality, characteristics: Starts in mid-lower occipital region, feels like pressure, like the spine is pushing up, the pressure then the pressure becomes holocranial. Sometimes can start in bilateral upper frontal region. Associated symptoms: Nausea, photophobia,phonophobia,osmophobia, not right in space dizziness,lightheadedness,fatigue,cognitive difficulties,sometimes watery eye or runny nose,.if bent over, eyes feel droopy but are not, Postdrome: residual s/s Triggers: poor fluid intake,hunger,lights,sounds,poor sleep,stress, air travel, alcohol, Sometimes Menstrual cycle- 1st day or two Positional changes- bending over and standing up, Sometimes- Valsalva Time of day: Mid-day after being up and about for a few hours. Duration and Frequency: Everyday headache, begins mild and becomes severe for short periods, then subsides with position adjustment (laying down is more effective than sitting up). How does headache impact your life? Tries to work/push through them. 09/07/2023, MR/MR head/brain wo/w con IMPRESSION: Normal MRI of the brain without and with contrast. 08/17/2023: XR/XR cervical spine w flex/ext FINDINGS: There is straightening of cervical lordosis with mild narrowing of C5-C6 and no evidence of instability on flexion and extension views neuroforamina are not encroached. There is no evidence of fractures or subluxations. Soft tissues are unremarkable. IMPRESSION: Mild narrowing of C5-C6 without evidence of instability. ? Tilt Table Test: Cardiology Note Office Patient: ?TOLU LUNA ? Age:?28 Years?Sex:?Female?:?1995? History of Present Illness/Interval History DATE:? 09/26/2023 ? PROCEDURE: Head Upright Tilt Table ? LIEUTENANT FIREFIGHTER: Reanna House RN, Suni Adame RN, Diogenes Walker PA-C ? SUPERVISING MD: Dr. Rice ? INDICATION: Near syncope ? REFERRING PROVIDER:?Yen Interiano SALES REPRESENTATIVE EDUCATION COURSES ? BRIEF HISTORY OF PRESENT ILLNESS:?See nnote 08/08/2023.? Patient has history of near syncope/syncope after standing for 10 minutes.? She has been supplementing with fluids and electrolytes.? DESCRIPTION OF PROCEDURE: The patient was brought into the EP lab in a fasting state. ? The patient was identified using 2 forms of ID, a timeout was taken, and an in formed consent was obtained. ? Initial supine vital signs were obtained (see below) and patient was then tilted upright to 70??with continuous ECG monitoring and BP monitoring every 2 minutes. ? ? ? Hemodynamic Data: 0 degrees? 107/69? HR 89? Minutes ? ? ?Blood Pressure ? ? ? Heart Rate ? ? 2 ? 100/58? 98? 4 ?86/57? 105? 6?98/53? 100? 8 ? 101/55? 98? 10 ?100/65? 102? 12?101/59? 99? 14?100/60? 103? 16 ?113/59? 92?? ? 18 ?104/66? 106 ? 20 ?105/68? 98? 22 ?98/54? 96? 24 ?104/61? 93? 26 ?103/64? 105? 28?112/72? 102? 30?106/66?105? COMPLICATIONS: None ? IMPRESSION Negative tilt table test for neurocardiogenic syncope as the patient did not exhibit a cardioinhibitory or vasodepressor response after?30 minutes of an upright tilt. [facility] Medical History Dysphagia Hx of infectious mononucleosis Right ankle pain Right shoulder pain Polyarthralgia Physical exam Mild recurrent major depression Fibroadenoma of right breast Surgical History Hx of colonoscopy History of esophagogastroduodenoscopy (EGD) H/O breast biopsy No pertinent past surgical history Family History Father Hypertension Mother No problems noted. Maternal Grandfather Diabetes mellitus Maternal Grandmother Diabetes mellitus Brother Depression Family/Other Substance use disorder Mental health disorder Social History Housing: House Alcohol intake: current Alcohol intake frequency: a few times a month Alcohol type: wine Patient Tobacco Use Status: Never used Tobacco e-Cigarette/Vaping Use: Never Used Second Hand Smoke Exposure: No Substance Use Type: Marijuana service: No Current occupational status: employed Current occupational exposures/hazards: No Cognitive needs: No Hearing needs: No Vision needs: No Female Reproductive History Menstrual Age of Menarche: 14 Physical Exam Vital Signs: Last Vital Signs Pulse 101 H 10/15/24 15:11 BP 112/64 10/15/24 15:11 Pulse Ox 98 10/15/24 15:11 Oxygen Delivery Method Room Air 10/15/24 15:11 BMI result Body Mass Index 25.8 Const General: cooperative and no acute distress Orientation/consciousness: patient oriented x3 Resp Effort & Inspection: normal respiratory effort and able to speak in complete sentences Neuro Other: Decreased left fingertips sensation. No appreciable tone, or tremor or rigidity in upper extremities. General: patient oriented x3 Cognition (Neuro): normal cognition Gait exam (Neuro): Normal gait present Motor exam (neuro): 5/5 motor strength present throughout Psych Appearance: grossly normal Mental Status: mental status grossly normal Speech and movement: Normal speech and movement present Affect: normal affect Attitude: cooperative Telehealth Telehealth Telehealth Platform: [facility] Location of provider rendering services: practice address Location of patient: address on file Patient Identification confirmed using: Name, : Yes Telehealth method: video Patient verbally consented to treatment: Yes Patient verbally consented to billing insurance company: Yes Patient informed of any privacy concerns related to visit: Yes Minutes spent on Phone/Video with Pt.: 34 Assessment & Plan Assessment & Plan (1) Positional headache: Comment: DDx- chronic migraine w/ aura, secondary ATKINSON d/o- cervicogenic, intracranial hypotension, intracranial structural abnormality. Code(s): R51.0 - Headache with orthostatic component, not elsewhere classified Category: Medical (2) Rachel-Danlos syndrome: Comment: hypermobile. Genetic testing not yet completed- needing insurance clearance. Normal echocardiogram. Code(s): Q79.60 - Rachel-Danlos syndrome, unspecified Category: Medical (3) Orthostatic lightheadedness: Code(s): R42 - Dizziness and giddiness Category: Medical (4) Scoliosis: Code(s): M41.9 - Scoliosis, unspecified Category: Medical Qualifiers: Scoliosis type: unspecified scoliosis (5) Cervicalgia: Code(s): M54.2 - Cervicalgia Category: Medical (6) Brain fog: Comment: Differential diagnosis: Central etiology, migraine-associated brain fog, systemic process- hypermobility raises suspicion for associated MCAS Code(s): R41.89 - Other symptoms and signs involving cognitive functions and awareness Category: Medical Plan Previous workup: 08/17/23 C-spine XR w/ flex/ext- Mild narrowing of C5-C6 without evidence of instability. 09/07/23 Brain MRI w/wo- Normal Tilt table testing- read as normal, however there was mild drop in BP w/ associated HR elevation. Advised to do home standing 10 minute HR monitor. 03/04/2024, L-spine and T-spine XR: ?No acute findings.? Thoracolumbar S-shaped scoliosis. Mild facet degenerative changes at the lumbosacral junction. For overall headache management: Optimize good self-care, including but not limited to maintaining a healthy diet, adequate fluid intake, adequate sleep, and engaging in regular physical activity. Track headaches For increased episodes of brain fog and slurred speech, in setting of increased paresthesias: Follow-up brain MRI with and without contrast as scheduled. For muscle tightness and neuralgia: Baclofe 10mg qhs- may need to take consistently for best effect Continue PT exercises as tolerated BUE EMG/NCS as ordered by orthopedics Follow-up with Rheumatology, Orthopedic, [facility] as scheduled Concur with starting OT after review of above. For acute headache treatment: Discussed importance of taking acute medications at the first sign of headache, however stressed importance of avoiding acute medication overuse (especially with combined headache medications). Ondansetron ODT 4mg bid prn. Trial Sumatriptan 100mg tab, 1/2 - 1 tab (50-100mg) at onset of headache, may repeat in 2 hours. Max of 2 tabs (200mg) per 24 hours. May adjunct with OTC Tyle nol 650mg q 4 hours, Ibuprofen 600mg q 6 hours, or Naproxen 440mg q 12 hrs prn. Potential adverse effects of triptans, including but not limited to nausea, fatigue, chest tightness/tingling (usually passes within a few minutes), medication overuse headaches. Previous acute migraine medication trials: Tylenol- minimal effect. Acute migraine medication contraindications: None at this time For headache prevention medication: Preventative medications should be taken routinely as prescribed for best effect, it may take several weeks for full effect to take effect. Continue Riboflavin 400mg qam Continue Magnesium 400mg qhs Stop Gabapentin 100-300mg qhs- causes cognitive difficulties. Start Amitriptyline 10-20 mg daily at bedtime. Potential side effects include but are not limited to fatigue, cardiac arrhythmias, mood changes. Previous migraine prevention medication trials: None Migraine prevention medication contraindications: Beta-blockers d/t asthma dx. Aimovig d/t h/o Raynaud's. Follow-up upon review of above and in-clinic in 3 months or sooner prn. Coding Level of Care Code Est Pt Level 4 (75635) Diagnoses Positional headache R51.0 Rachel-Danlos syndrome Q79.60 Orthostatic lightheadedness R42 Scoliosis M41.9 Scoliosis type: unspecified scoliosis Cervicalgia M54.2 Brain fog R41.89
--- OUTSIDE RECORDS SUMMARY | 2024-10-15 16:00 | XMS_ITS | Clinical Summary ---
Author Organization [facility] Address [address] [place] [address] Phone Care Team Providers Care Bean Viner Name Role Phone Jessica Chavez MD Primary Care Provider [phone] Allergies No known active allergies Medications No [...] (2 of 2 - PCV) 04/23/2020 04/23/2019 HIV Screening 07/23/2021 Hepatitis C Screening 07/23/2021 Social Influencers of Health Screening 07/23/2021 COVID-19 Vaccine (3 - season) 2023 07/06/2021, 06/03/2020 Depression Screening 03/06/2024 Influenza Vaccine (#1) 2024 , 01/09/2020, 12/21/2018, [...] patient's age to complete this topic Insurance [facility] Care Teams Bean Viner Relationship Specialty Start Date End Date Jessica Chavez MD [address] [facility] , [address] [place] [address] Physician Associ D/B/A: [facility] [place] PCP - General Internal Medicine 02/06/24
--- OUTSIDE RECORDS SUMMARY | 2024-10-15 16:00 | XMS_ITS | Encounter Summary ---
Author Organization [facility] Address [address] [facility] [address] [place] [phone] Phone Care Team Providers Care Machine Setter Supervisor Name Role Phone Kennedy Kay MD Unavailable [phone] Jessica Gutierrez MD Primary Care Provid er Reason for Visit * Reason Onset Date Comments Muscle Pain 09/27/2024 Encounter Details Date Type Department Care Team ([facility] st Contact Info) Description 09/27/2024 Telephone [facility] Pulmonary, Allergy and Critical Care Medicine [address] [facility] [place] [address] Sandra [email or web address] Muscle Pain Social History Tobacco Use Types [...] Progress Notes * Juno Lopez LPN - 10/03/2024 8:31 AM EDT Patient has been notified * Omaira Day MD - 10/02/2024 6:16 PM EDT Orders signed in [facility]. * Juno Lopez LPN - 09/30/2024 2:06 PM EDT Patient has been having this flare approximately 6 weeks. Along with the ongoing widespread muscle pain, fatigue, abdominal discomfort, and joint pain she is having nerve pain in arms and legs. She did see Dr Robles last week at [facility] and he is ordering EMGs for her [...] call. Please contact and advise. Central Support Tube Drawer (Please do not reply to this user; [...] and AST).Please contact and advise. Central Support Tube Drawer (Please do not reply to this user; this inbox is not monitored.) Thank you. documented in this encounter Plan of Treatment Upcoming Encounters Date Type Department Care Team (Late st Contact Info) Description 10/31/2024 3:30 PM EDT Office Visit [facility] Rheumatology [address] [place] [address] Omaira Day MD [address] [facility], [address] [place] [address] 11/11/2024 6:00 PM EDT Appointment [facility] [address] [place] [address] Jam Riley MD [address] [place] [id number] [email or web address] documented as of this encounter Visit Diagnoses Not on filedocumented in this encounter Care Teams Machine Setter Supervisor Relationship Specialty Start Date End Date Jessica Gutierrez MD [address] [place] [id number] PCP - General Internal Medicine 01/25/23 Kennedy Kay MD [address] [place] [address] Pediatrics 04/10/19 documented as of this encounter Additional Source Comments The information contained in this document represents components of the legal health record. It is not the complete legal health record.[facility]
--- OUTSIDE RECORDS SUMMARY | 2024-10-15 16:00 | XMS_ITS | Patient Health Record ---
Author Organization [facility] Address [address] [place] [phone] Support Name Relationship Address Phone Liss Lipscomb Guarantor Unknown Allergies Allergen (clinical drug ingredient) Drug/Non Drug [...] Insured Coverage Start Date Coverage End Date [place] ATT [place]S [address] [place] [id number] Liss Lipscomb Self - patient is the insured Medical (General) History Medical History History ICD Code Migraines Asthma as a child Depression/axniety Breast Fibroadenoma Hx since age 18 yrs, dx with u/s diverticulosis dx 07/2023 pelvic PT for incontinence and dyspareun ia as of 08/2023
== END 2024-10-15 16:01 | disposition home or self-care (01) ==
LOC: HO.HSMS 15:09
PROVIDERS: PCP Internal Medicine; Visit Provider Nurse Practitioner Family
DX: R51.0 Headache with orthostatic component, not elsewhere classified (principal); Q79.60 Ehlers-Danlos syndrome, unspecified; R42 Dizziness and giddiness; M41.9 Scoliosis, unspecified; M54.2 Cervicalgia; R41.89 Other symptoms and signs involving cognitive functions and awareness
CPT/HCPCS: 99214

== ENCOUNTER → 2024-10-15 15:08 | Outpatient (BNVA) | payer OTHER, SELFPAY | PROVIDERS: PCP Internal Medicine; Visit Provider Nurse Practitioner Family | DX: R51.0 Headache with orthostatic component, not elsewhere classified (principal); R42 Dizziness and giddiness; R41.89 Other symptoms and signs involving cognitive functions and awareness; M41.9 Scoliosis, unspecified; M54.2 Cervicalgia; Q79.60 Ehlers-Danlos syndrome, unspecified | CPT/HCPCS: 99212 ==

== ENCOUNTER → 2024-10-17 16:00 | Outpatient (BNV) | payer OTHER, SELFPAY | PROVIDERS: PCP Internal Medicine; Visit Provider Radiology Diagnostic Radiology | DX: R47.81 Slurred speech (principal); M41.9 Scoliosis, unspecified | CPT/HCPCS: 70553; 72146 ==

== ENCOUNTER 2024-10-17 16:09 | Outpatient (REF) | payer OTHER, SELFPAY ==
--- NOTE | ~2024-10-17 | MR_ITS ---
EXAMINATION: MR BRAIN WITHOUT THEN WITH IV CONTRAST HISTORY: R47.81 - Slurred speech TECHNIQUE: Sagittal T1 and FLAIR, and axial T1, FLAIR, T2, gradient echo, and diffusion weighted MR images of the brain were obtained. Subsequently, axial and coronal T1-weighted images were obtained after the administration of intravenous gadolinium. 6.5 mL Gadavist was administered. COMPARISON: Comparison is made with the prior examination dated 09/07/2023. FINDINGS: The pituitary is normal in size. The cerebellar tonsils are normally located. The brain parenchyma is unremarkable, demonstrating normal romeo/white differentiation. No foci of abnormal signal intensity are identified. The ventricular system is normal in size and configuration. There is no mass effect or midline shift. No intra or extra-axial fluid collections are identified. There are no foci of restricted diffusion. There is no abnormal contrast enhancement. Normal vascular flow voids are noted in the basilar and carotid arteries. The visualized paranasal sinuses are clear. MR/MR head/brain wo/w con IMPRESSION: Unremarkable MRI of the brain without and with contrast. Electronically signed by: Yung Maurice MD 10/18/2024 07:11 AM EDT
--- NOTE | ~2024-10-17 | MR_ITS ---
EXAMINATION: MR THORACIC SPINE WITHOUT CONTRAST CLINICAL INFORMATION: Scoliosis, unspecified. M 41.9 COMPARISON: Correlated to x-ray dated March 01, 2024. TECHNIQUE: MRI of the thoracic spine was obtained using routine sequences without contrast. FINDINGS: No axial T1 sequences acquired. Treatment Technician images demonstrated the a shaped curvature of the thoracolumbar spine with a levoconvex curvature apex at L1 and mild dextroconvex curvature apex at T9-10. No bone marrow STIR signal abnormality. Preservation of the vertebral height. Normal alignment. Multilevel marginal osteophyte formation and disc desiccation from T5 to T12. The thoracic spinal cord caliber and signal are normal. There is no cord compression. The conus medullaris ends at pedicle of L1 with normal signal. No prevertebral compartment hematoma, mass or fluid collection. MR/MR thoracic spine wo con IMPRESSION: No hydrosyringomyelia/syrinx. No cord edema and or myelopathy or cord compression. No gross segmental vertebral congenital anomalies. Electronically signed by: Medhat Chong MD 10/18/2024 07:12 AM EDT
--- OUTSIDE RECORDS SUMMARY | 2024-10-17 16:12 | XMS_ITS | Patient Health Record ---
Author Organization [facility] Address [address] [place] [phone] Support Name Relationship Address Phone Liss Lipscomb [...] Insured Coverage Start Date Coverage End Date [place] ATT CLAIMS [address] [place] [address] [id number] Liss Lipscomb Self - patient is the insured Medical (General) History Medical History History ICD Code Migraines Asthma as a child Depression/axniety Breast Fibroadenoma Hx since age 18 yrs, dx with u/s diverticulosis dx 07/2023 pelvic PT for incontinence and dyspareun ia as of 08/2023
--- OUTSIDE RECORDS SUMMARY | 2024-10-17 16:12 | XMS_ITS | Clinical Summary ---
Author Organization [facility] Address [address] [place] [address] Phone Care Team Providers Care [employer] Name Role Phone Jessica Chavez MD Primary Care Provider [phone] Allergies No known active allergies Medications No [...] patient's age to complete this topic Insurance [facility] Care Teams [employer] Relationship Specialty Start Date End Date Jessica Chavez MD [address] [facility] , [address] [place] [address] Physician Associ D/B/A: [facility] S[place] Ness PCP - General Internal Medicine 02/06/24
== END 2024-10-17 16:10 | disposition home or self-care (01) ==
LOC: HO.MRI 16:09
PROVIDERS: PCP Internal Medicine; Visit Provider Nurse Practitioner Family
DX: M41.9 Scoliosis, unspecified (principal); M54.9 Dorsalgia, unspecified; G89.29 Other chronic pain; Q79.60 Ehlers-Danlos syndrome, unspecified; R47.81 Slurred speech; R41.89 Other symptoms and signs involving cognitive functions and awareness; R51.9 Headache, unspecified
CPT/HCPCS: 70553; 72146; A9585

== ENCOUNTER 2024-10-29 07:36 | Day surgery (SDC) | payer OTHER, SELFPAY ==
--- OUTSIDE RECORDS SUMMARY | 2024-10-02 14:35 | XMS_ITS | Encounter Summary ---
Author Organization [facility] Address [address] [place] [address] Phone Care Team Providers Care Core Shaper Name Role Phone Kennedy Kay MD Unavailable [phone] Jessica Gutierrez MD Primary Care Provid er Reason for Visit * Reason Onset Date Comments Muscle Pain 09/27/2024 Encounter Details Date Type Department Care Team ([facility] st Contact Info) Description 09/27/2024 Telephone [facility] Pulmonary, Allergy and Critical Care Medicine [address] [facility] [place] [address] Sandra [email or web address] Muscle Pain Social History Tobacco Use Types Packs/Day Years Used Date Smoking Tobacco: Former Cigarettes 0 08/18/2018 - 09/17/2018 Smokeless Tobacco: Never Alcohol Use Standard Drinks/Week Comments Yes 0 (1 standard drink = 0.6 oz pur e alcohol) occasionally Education Answer Date Recorded Are you interested in more education? Not on mar e 07/01/2022 Are you concerned about learning? Not on file 07/01/2022 No 07/01/2022 No 07/01/2022 Digital Access Answer Date Recorded No 07/30/2022 No 07/30/2022 Reliable internet access at home? Not on file 07/30/2022 Device with a working camera? Not on file Comments Unknown Sex and Gender Information Value Date Recorded Sex Assigned at Female 03/10/2020 4:59 PM EST Legal Sex Female 4:26 PM EST Gender Identity Female 03/10/2020 4:59 PM EST Sexual Orientation Choose not to disclose 2024 1:57 PM EST documented as of this encounter Progress Notes * Juno Lopez LPN - 09/30/2024 2:06 PM EDT Patient has been having this flare approximately 6 weeks. Along with the ongoing widespread muscle pain, fatigue, abdominal discomfort, and joint pain she is having nerve pain in arms and legs. She did see Dr Robles last week at [facility] and he is ordering EMGs for her and also MRI of her back, she has been doing physical therapy for her low back pain and neck pain with no help. She is using baclofen 10 mg, amitriptyline 10 mg at night and ibuprofen when severe She is wondering if you would order lab tests for her? * Sandra Goldsmith - 09/30/2024 1:51 PM EDT Pt is returning juno's call. Please contact and advise. Central Support Volunteer Services Specialist (Please do not reply to this user; this inbox is not monitored.) Thank you. * Juno Lopez LPN - 09/30/2024 8:25 AM EDT Left message for pt to return call * Sandra Goldsmith - 09/27/2024 4:11 PM EDT Patient is requesting blood work orders due to ongoing widespread muscle pain, fatigue, abdominal discomfort, and joint pain. She stated recent labs from earlier this month showed elevated liver enzymes (ALT and AST).Please contact and advise. Central Support Volunteer Services Specialist (Please do not reply to this user; this inbox is not monitored.) Thank you. documented in this encounter Plan of Treatment Upcoming Encounters Date Type Department Care Team (Late st Contact Info) Description 10/31/2024 3:30 PM EDT Office Visit [facility] Rheumatology [address] [place] [address] Omaira Day MD [address] [facility], [address] [place] [address] 11/11/2024 6:00 PM EDT Appointment [facility] [address] [place] [address] Jam Riley MD [address] [place] [address] [email or web address] documented as of this encounter Visit Diagnoses Not on filedocumented in this encounter Care Teams Core Shaper Relationship Specialty Start Date End Date Jessica Gutierrez MD [address] [place] [phone] PCP - General Internal Medicine 01/25/23 Kennedy Kay MD [address] [place] [address] Pediatrics 04/10/19 documented as of this encounter Additional Source Comments The information contained in this document represents components of the legal health record. It is not the complete legal health record.[facility]
--- OUTSIDE RECORDS SUMMARY | 2024-10-02 14:36 | XMS_ITS ---
Author Name [facility] Organization Unknown Care Team Organization Name Specialty Phone Email Start Date End Da te [facility] NULL Primary Care 01/11/2022 10/23/2023
--- OUTSIDE RECORDS SUMMARY | 2024-10-02 14:36 | XMS_ITS | Patient Health Record ---
Author Organization [facility] Address [address] [place] [phone] Support Name Relationship Address Phone Liss Lipscomb Guarantor Unknown [phone] Allergies Allergen (clinical drug ingredient) Drug/Non Drug [...] Date [place] ATT CLAIMS [address] [place] [address] [id number] Liss Lipscomb Self - patient is the insured Medical (General) History Medical History History ICD Code Migraines Asthma as a child Depression/axniety Breast Fibroadenoma Hx since age 18 yrs, dx with u/s diverticulosis dx 07/2023 pelvic PT for incontinence and dyspareun ia as of 08/2023
[2024-10-25 14:39] VITALS: BMI 25.4
--- NOTE | 2024-10-28 13:19 | HO.ANESPROP2 ---
Documented by User: Ada Sheppard NP 10/28/24 13:19 HPI - Anesthesia Eval Consult details Narrative: 29yo F for Upper Endoscopy with Balloon Dilitation PMFSH Active Problems Active Problems: All Active Problems Brain fog (Acute) Slurred speech (Acute) Low back pain (Acute) Bilateral hand pain (Acute) Muscle spasm of back (Acute) Chronic mid back pain (Acute) Scoliosis of thoracolumbar spine (Acute) Chronic sinusitis (Acute) Renal cyst (Acute) Abnormal LFTs (Acute) Anemia (Acute) Asthma (Acute) Leg edema (Acute) Hip pain (Acute) Back pain (Acute) Moderate recurrent major depression (Acute) Muscle cramps (Acute) Cervicalgia (Acute) Orthostatic lightheadedness (Acute) Rachel-Danlos syndrome (Acute) Positional headache (Acute) Worsening headaches (Acute) Scoliosis (Acute) Rash (Acute) Headache (Acute) Pelvic pain (Acute) Scleroderma (Acute) Loose stools (Acute) Acquired hyperbilirubinemia (Acute) Vitamin D deficiency (Acute) LFT elevation (Acute) Feeling tired (Acute) Falling hair (Acute) Dysphagia (Acute) Hx of infectious mononucleosis (Acute) Right ankle pain (Acute) Right shoulder pain (Acute) Polyarthralgia (Acute) Physical exam (Acute) Fibroadenoma of right breast (Acute) Past Medical History Medical History Vitamin D deficiency Scleroderma Scoliosis Anemia Asthma Rachel-Danlos disease Dysphagia Hx of infectious mononucleosis Right ankle pain Right shoulder pain Polyarthralgia Physical exam Mild recurrent major depression Fibroadenoma of right breast Family History Family History Father Hypertension Mother No problems noted. Maternal Grandfather Diabetes mellitus Maternal Grandmother Diabetes mellitus Brother Depression Family/Other Substance use disorder Mental health disorder Family history of problems with anesthesia: No Surgical History Surgical History Hx of colonoscopy History of esophagogastroduodenoscopy (EGD) H/O breast biopsy History of Problems with Anesthesia: No Social History Social History Housing: House Are you a primary home care aide to a significant other at home: No Do you presently have visiting nurse or other home services: No Alcohol intake: current Alcohol intake frequency: a few times a month Alcohol type: wine Patient Tobacco Use Status: Never used Tobacco e-Cigarette/Vaping Use: Never Used Second Hand Smoke Exposure: No Substance Use Type: Marijuana Have you been hit, kicked, punched, or otherwise hurt by someone within the past year? If so, by whom?: No Are you DNR?: No Advance Directives: No Advance Directives Information Provided: Yes FDLMP: next one due soon Poor oral hygiene: No service: No Current occupational status: employed Current occupational exposures/hazards: No Cognitive needs: No Hearing needs: No Vision needs: No Meds Allergies Allergy/AdvReac Type Severity Reaction Status Date / Time naproxen Allergy Mild gi upset Verified 10/29/24 08:06 Seasonal Allergies Allergy Mild Runny Nose Verified 10/29/24 08:06 Home Medications ?Medication ?Instructions ?Recorded ?Confirmed ?Last Taken ?Type hydroxyzine pamoate 25 mg capsule 25 mg PO BID PRN anxiety 06/01/21 10/25/24 Unknown History albuterol sulfate 90 mcg/actuation 2 puff inhalation QID PRN wheezing 06/06/22 10/25/24 Unknown History aerosol inhaler (Ventolin HFA) fluticasone furoate 200 1 ea inhalation DAILY 06/13/23 10/25/24 Unknown History mcg-vilanterol 25 mcg/dose inhalation powder (Breo Ellipta) lamotrigine 25 mg tablet 25 mg PO DAILY 06/24/24 10/25/24 Unknown History ascorbic acid (vitamin C) 500 mg 500 mg PO DAILY 07/08/24 10/25/24 Unknown History tablet Exam Height,Weight and Vital Signs: Height 5 ft 2 in Weight 63.049 kg Assessment and Plan Assessment Anesthesia Assessment: Chart Reviewed Final Anesthetic Review Family History of Problems with Anesthesia: No History of Problems with Anesthesia: No Documented by User: Homer Molina MD 10/29/24 09:22 [facility] Past Medical History Medical History Vitamin D deficiency Scleroderma Scoliosis Anemia Asthma Rachel-Danlos disease Dysphagia Hx of infectious mononucleosis Right ankle pain Right shoulder pain Polyarthralgia Physical exam Mild recurrent major depression Fibroadenoma of right breast Functional capacity: independent ambulation Family History Family History Father Hypertension Mother No problems noted. Maternal Grandfather Diabetes mellitus Maternal Grandmother Diabetes mellitus Brother Depression Family/Other Substance use disorder Mental health disorder Surgical History Surgical History Hx of colonoscopy History of esophagogastroduodenoscopy (EGD) H/O breast biopsy Social History Social History Housing: House Are you a primary home care aide to a significant other at home: No Do you presently have visiting nurse or other home services: No Alcohol intake: current Alcohol intake frequency: a few times a month Alcohol type: wine Patient Tobacco Use Status: Never used Tobacco e-Cigarette/Vaping Use: Never Used Second Hand Smoke Exposure: No Substance Use Type: Marijuana Have you been hit, kicked, punched, or otherwise hurt by someone within the past year? If so, by whom?: No Are you DNR?: No Advance Directives: No Advance Directives Information Provided: Yes FDLMP: next one due soon Poor oral hygiene: No service: No Current occupational status: employed Current occupational exposures/hazards: No Cognitive needs: No Hearing needs: No Vision needs: No Meds Allergies Allergy/AdvReac Type Severity Reaction Status Date / Time naproxen Allergy Mild gi upset Verified 10/29/24 08:06 Seasonal Allergies Allergy Mild Runny Nose Verified 10/29/24 08:06 Home Medications ?Medication ?Instructions ?Recorded ?Confirmed ?Last Taken ?Type hydroxyzine pamoate 25 mg capsule 25 mg PO BID PRN anxiety 06/01/21 10/25/24 Unknown History albuterol sulfate 90 mcg/actuation 2 puff inhalation QID PRN wheezing 06/06/22 10/25/24 Unknown History aerosol inhaler (Ventolin HFA) fluticasone furoate 200 1 ea inhalation DAILY 06/13/23 10/25/24 Unknown History mcg-vilanterol 25 mcg/dose inhalation powder (Breo Ellipta) lamotrigine 25 mg tablet 25 mg PO DAILY 06/24/24 10/25/24 Unknown History ascorbic acid (vitamin C) 500 mg 500 mg PO DAILY 07/08/24 10/25/24 Unknown History tablet Exam Exam Date and Time: 10/19/2024 Airway Mallampati Class: II TM Dist: >3cm Neck ROM: Full Loose/Missing/Broken Teeth: No Heart: rrr Lungs: cta Other: normal Assessment and Plan Final Anesthetic Review NPO: Yes ASA Class: II Final Preanesthetic Review: No Changes in Pt Med Stat, Meds/Allgs Chart Reviewed, Consent Obtained/Reviewed and Anes Risks/Benef Reviewed Anesthetic Plan Anesthetic Plan: MAC: Disposition: Standard PACU
[2024-10-29] MEDS: Lactated Ringers 1,000 ML 100 ML IVCONT (07:57)
[2024-10-29 08:08] LABS: UPreg QC Valid YES
[2024-10-29 08:17] VITALS: BP 98/62; PULSE 79; RESP 18; TEMP 36.7; O2SAT 98
[2024-10-29 08:45] VITALS: BMI 25.8
--- NOTE | 2024-10-29 09:13 | MHC.SHP ---
Pre-Procedural Eval Section A - 24 Hr Update-Section A only Date of Service: 10/29/24 Section B - Complete if H&P > 30 days Chief Complaint: Dysphagia, unspecified Relevant Family History (Specify if Yes): No Relevant Social History: None Present Medications: see Short Stay Collaborative assessment Medical History: Significant History (Dysphagia Hx of infectious mononucleosis Right ankle pain Right shoulder pain Polyarthralgia Physical exam Mild recurrent major depression Fibroadenoma of right breast) History of Previous Operations: Relevant previous surgery/procedure and date(s) (Hx of colonoscopy History of esophagogastroduodenoscopy (EGD) H/O breast biopsy) Allergies: Allergies Allergy/AdvReac Type Severity Reaction Status Date / Time naproxen Allergy Mild gi upset Verified 10/29/24 08:06 Seasonal Allergies Allergy Mild Runny Nose Verified 10/29/24 08:06 Review of Systems Sugical H&P ROS: Negative: Constitution, Cardiovascular, Respiratory, Neurological, Psychiatric, Hem-Onc, Allergic/Immunologic, Gastrointestinal, Genitourinary, Musculoskeletal, Integumentary, Endocrine and Eyes/Ears/Nose/Throat Exam Surgical H&P Exam: Normal: HEENT, Normal: Heart, Normal: Lungs, Normal: Extremities, Normal: Abdomen, Normal: Skin and Normal: Neurological Plan Diagnosis/Plan: Unchanged I have reviewed the history and physical and performed a pertinent physical examination on my patient. No changes have occurred unless specified. Time Spent With Patient Time: Total time managing care of this patient today ____ minutes.
--- NOTE | 2024-10-29 09:41 | P.OP_ITS ---
Operative Note Operative Note Date of Service: 10/29/24 Narrative: Procedure Description: EGD Indication: dysphagia Anesthesia: MAC FLEXIBLE TRANSORAL UPPER GASTROINTESTINAL ENDOSCOPY UPPER ENDOSCOPY Consent: Indications for the procedure and potential complications of bleeding, perforation, reaction to medications and missed diagnosis were discussed with the patient and informed consent was obtained. Instrument: Olympus GIF H 190 J mid size upper endoscope Monitoring: Vital signs and clinical assessment, continuous EKG monitoring, Pulse oximetry, Carbon Dioxide monitoring and blood pressure monitoring were done throughout the procedure. Procedure: The patient was placed in the left lateral decubitis position and pre-procedure medications were administered and a bite block was placed. The endoscope was inserted into the mouth and advanced under direct vision to the third part of duodenum. A careful inspection was made as the upper endoscope was withdrawn including a retroflexed examination of the proximal stomach; Findings and interventions are described below. Findings: Larynx:normal Esophagus: GE junction at 35 cm, diaphragm hiatus at 35 cm, normal mucosa, balloon dilation done to 20 mm at UES and LES--no tears seen , reduced esophageal motility noted Stomach: Small amoutn of retained food noted. Grade 2 flap valve on retroflexed examination of the cardia. Lax LES, pylorus was dilated wit h balloon to 19 mm Duodenum: Normal bulb and descending duodenum, Intervention: esophageal dilation Impression/Findings: possible gastroparesis esophageal dysmotility PLAN: if ongoing sx then esophageal manometry and GES GERD precautions
[2024-10-29 09:46] VITALS: BP 92/50; PULSE 87; RESP 16; TEMP 37.1; O2SAT 98
[2024-10-29 10:01] VITALS: BP 91/54; PULSE 78; RESP 16; O2SAT 99
[2024-10-29 10:16] VITALS: BP 97/58; PULSE 83; RESP 20; TEMP 36.7; O2SAT 98
== END 2024-10-29 10:52 | disposition home or self-care (01) ==
PROVIDERS: Nurse Practitioner; PCP Internal Medicine; Visit Provider Internal Medicine Gastroenterology
PROC: (CPT 43249; principal; 2024-10-29 09:20)
DX: R13.10 Dysphagia, unspecified (principal); K22.4 Dyskinesia of esophagus; R12 Heartburn; K22.89 Other specified disease of esophagus; K44.9 Diaphragmatic hernia without obstruction or gangrene; J45.909 Unspecified asthma, uncomplicated; Q79.60 Ehlers-Danlos syndrome, unspecified; M34.9 Systemic sclerosis, unspecified; E55.9 Vitamin D deficiency, unspecified; Z79.51 Long term (current) use of inhaled steroids; Z79.899 Other long term (current) drug therapy; Z88.6 Allergy status to analgesic agent; Z98.890 Other specified postprocedural states
CPT/HCPCS: 43249; 43245; 81025; C1726; J2704; J3010

== ENCOUNTER → 2024-10-29 07:36 | Outpatient (BNV) | payer OTHER, SELFPAY | PROVIDERS: PCP Internal Medicine; Visit Provider Internal Medicine Gastroenterology | DX: R13.10 Dysphagia, unspecified (principal); K22.4 Dyskinesia of esophagus | CPT/HCPCS: 43249 ==

== ENCOUNTER 2024-11-19 10:48 | Outpatient (AMB) | payer OTHER, SELFPAY ==
--- OUTSIDE RECORDS SUMMARY | 2023-05-29 13:45 | XMS_ITS ---
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 Name Role Phone María Verdin Unavailable [phone] REASON FOR VISIT Annual Exam Social History Sex Assigned At : Social History Observation Description Sex Assigned At Female Encounters Encounter Location Date Provider Diagnosis [facility] [address] [place] [id number] 05/29/2023 María Verdin Plan Of Treatment No Information Progress Notes * Liss LIPSCOMBDOB: [birth year] (29 yo F)Acc No.[id number]:05/29/2023 Progress Notes Patient: Liss Stephen Provider: JEANNIE Mcmullen :1995 A ge:27 Y S ex:Female Date:05/29/2023 Address:[address] [id number] Subjective: * Chief Complaints: * A nnual Exam * Electronic signature of MONTEZ Fowler on 11/19/2024 at 02:28 PM EDT Sign off status: Pending * Provider: JEANNIE Mcmullen Date: 0 05/29/2023 Generated for Richard oglesby/Nate/eTransmitting on: 0 11/19/2024 02:28 PM EDT
--- OUTSIDE RECORDS SUMMARY | 2023-06-23 11:45 | XMS_ITS ---
Author Organization [facility] Address [address] [place] [phone] Care Team Providers Care Banquet Director Name Role Phone MARCIO FISHER [phone] REASON FOR VISIT Annual Exam Medications Medication SIG (Take, Route, Frequency, Duration) Notes Start Date End Date Status Xulane 150-35 MCG/24HR Patch Weekly 1 patch to skin Transdermal Apply one patch once a week for three weeks. Fourth week patch free.; Duration: 28 days 05/09/2023 Active Plan B One-Step 1.5 MG Tablet 1 tablet Orally At once; Duration: 1 days 05/09/2023 Active hydrOXYzine HCl 25 mg Acti ve Fluoxetine 20 mg Active Vyvanse 10 mg Active Social History Sex Assigned At : Social History Observation Description Sex Assigned At Female Encounters Encounter Location Date Provider Diagnosis [address] [place] [id number] 06/23/2023 MARCIO FISHER Plan Of Treatment No Information Progress Notes * Liss LIPSCOMBDOB: [birth year] (29 yo F)Acc No.[id number]:06/23/2023 Progress Notes Patient: Liss Stephen Provider: Thania Fisher NP :1995 A ge:27 Y S ex:Female Date:06/23/2023 Address:[address] [id number] Subjective: * Chief Complaints: * A nnual Exam * Medications: T akinghydrOXYzine HCl , Notes to Pharmacist: 25 mgFluoxetine , Notes to Pharmacist: 20 mgVyvanse , Notes to Pharmacist: 10 mgXulane 150-35 MCG/24HR Patch Weekly 1 patch to skin Transdermal Apply one patch once a week for three weeks. Fourth week patch free. Plan B One-Step 1.5 MG Tablet 1 tablet Orally At once Taking hydrOXYzine HCl , Notes to Pharmacist: 25 mgTaking Fluoxetine , Notes to Pharmacist: 20 mgTaking Vyvanse , Notes to Pharmacist: 10 mgTaking Xulane 150-35 MCG/24HR Patch Weekly 1 patch to skin Transdermal Apply one patch once a week for three weeks. Fourth week patch free. Taking Plan B One-Step 1.5 MG Tablet 1 tablet Orally At once * Electronic signature of ZULAY FISHER NP on 11/19/2024 at 02:28 PM EDT Sign off status: Pending * Provider: Thania Fisher NP Date: 0 06/23/2023 Generated for Richard oglesby/Nate/Dayami on: 0 11/19/2024 02:28 PM EDT
--- OUTSIDE RECORDS SUMMARY | 2023-07-28 07:00 | XMS_ITS ---
Author Organization [facility] Address [address] [place] [id number] Care Team Providers Care Trans Router Name Role Phone MARCIO FISHER Unavailable [phone] REASON FOR VISIT Annual Exam Social History Sex Assigned At : Social History Observation Description Sex Assigned At Female Encounters Encounter Location Date Provider Diagnosis [facility] [address] [place] [phone] 07/28/2023 MARCIO FISHER Plan Of Treatment No Information Progress Notes * Liss LIPSCOMBDOB: [birth year] (29 yo F)Acc No.[id number]:07/28/2023 Progress Notes Patient: Liss Stephen Provider: Thania Fisher NP :1995 A ge:27 Y S ex:Female Date:07/28/2023 Address:[address] [id number] Subjective: * Chief Complaints: * A nnual Exam Billing Information: * Procedure Codes: * Electronic signature of ZULAY FISHER NP on 11/19/2024 at 02:29 PM EDT Sign off status: Pending * Provider: Thania Fisher NP Date: 07/28/2023 Generated for Richard oglesby/Nate/Nellasmitting on: 11/19/2024 02:29 PM EDT
--- NOTE | 2024-11-19 10:50 | MHC.OFFVIS ---
Vital Signs 11/19/24 10:53 Height 5 ft 2 in Weight 141 lb 6 oz BMI 25.9 BP 103/63 Blood Pressure Location Rt brachial Position Sitting Pulse 71 Pulse Source Pulse Oximeter Pulse Oximetry (%) 100 Oxygen Delivery Method Room Air Intake Visit Reasons: F/U after PT Intake Note: Pain today 6.5/10 Weaver Dobby Loom Required: No Accompanied by: Self / Same As Patient Allergies naproxen Allergy (Mild, Verified 11/19/24 10:54) gi upset Seasonal Allergies Allergy (Mild, Verified 11/19/24 10:54) Runny Nose HPI Comments Details: The patient is a 29-year-old female presenting with chronic low back pain. The pain has been chronic and persistent through the summer and is exacerbated by sitting for extended periods at computer desk and certain movements such as bending backward. The pain radiates to the legs, alternating between the right and left sides, and is associated with muscle stiffness and spasms. 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 She also has thoracolumbar scoliosis, which exacerbates her back pain and muscle stiffness and disrupts her sleep. Previous physical therapy consisting total of 10 sessions (August-October 2024) provided a foundation for exercises but did not significantly alleviate the pain. The patient has not undergone an MRI for her lower back, although it was previously considered but denied due to lack of prior physical therapy. She has been using a TENS unit and has tried various therapies, including chiropractic adjustments and cupping, with temporary relief. The patient reports that muscle relaxants like baclofen provide some relief but can lead to excessive muscle relaxation and instability. Denies any recent cough, cold, infection, fever or any significant changes in medical history since last office visit. PRIOR: The patient is a 28-year-old female presenting with chronic back pain. She initially noticed her scoliosis in high school, which progressed following a cheerleading accident. Her current scoliosis angle is less than 40 degrees, mitigating the need for surgery as per the Orthopedist's evaluation, Dr. Robles at [facility]. Pain is primarily sensed on the left side of low back, exacerbating into the hips and lower limbs with ongoing muscle spasms and joint hypermobility associated with Rachel-Danlos Syndrome. Pain is most severe at nighttime ranging 8/10 and least severe pain in early afternoon, ranging 5/10. Her back pain does radiate to the left lower extremity anteriorly and posteriorly with associated intermittent numbness and tingling, balance issues and clumsiness, and cooler sensations in the left side of the body. Denies bladder or bowel dysfunction, weakness, foot drop, or saddle anesthesia. The pain interferes with daily activities, especially her posture and sleep. She previously took meloxicam but discontinued it due to elevated liver enzymes. Baclofen offers some relief but causes excessive muscle relaxation and fatigue. The patient is currently at physical therapy through [facility] and finds physical therapy beneficial and declines the use of a brace in favor of continued physical therapy, fearing muscle atrophy. She has also attended chiropractic adjustments, massage therapy and acupuncture with mild improvement. She is keen on exploring a TENS unit as a non-invasive adjunct for pain therapy. - Onset: Began in high school, worsened over the years - Location: Back, radiating to hips and lower left extremity - Quality: Aching with tightness from muscle spasms, shooting, tugging, pulling, heavy, dull, tiring, sore. - Radiation: Left hip and lower left extremity - Exacerbating Factors: Poor posture, prolonged lying flat, prolonged sitting - Relieving Factors: Reclined positions, physical therapy - Interference: Impacts sleep, daily activities and work - Affect: Pain impacts sleep and causes stress - Analgesia: Baclofen for muscle spasms; previous use of meloxicam discontinued - Adverse Effects: Elevated liver enzymes from meloxicam, fatigue from baclofen - Activities of Daily Living: Notices altered posture, difficulty sleeping - Aberrant Drug Related Behaviors: None reported [facility] Medical History Vitamin D deficiency Scleroderma Scoliosis Anemia Asthma Rachel-Danlos disease Dysphagia Hx of infectious mononucleosis Right ankle pain Right shoulder pain Polyarthralgia Physical exam Mild recurrent major depression Fibroadenoma of right breast Surgical History Hx of colonoscopy History of esophagogastroduodenoscopy (EGD) H/O breast biopsy Family History Father Hypertension Mother No problems noted. Maternal Grandfather Diabetes mellitus Maternal Grandmother Diabetes mellitus Brother Depression Family/Other Substance use disorder Mental health disorder Social History Housing: House Are you a primary patient care associate to a significant other at home: No Do you presently have visiting nurse or other home services: No Alcohol intake: current Alcohol intake frequency: a few times a month Alcohol type: wine Patient Tobacco Use Status: Never used Tobacco e-Cigarette/Vaping Use: Never Used Second Hand Smoke Exposure: No Substance Use Type: Marijuana service: No Current occupational status: employed Current occupational exposures/hazards: No Cognitive needs: No Hearing needs: No Vision needs: No Female Reproductive History Menstrual Age of Menarche: 14 Review of Systems Const Details: - Musculoskeletal: Reports chronic low back pain, muscle stiffness, and spasms - Neurological: Denies numbness, tingling, or significant shooting pain. Reports decreased sensory perseption LLE. All systems reviewed & are unremarkable except as noted in HPI and below Physical Exam Vital Signs: Last Vital Signs Pulse 71 11/19/24 10:53 BP 103/63 11/19/24 10:53 Pulse Ox 100 11/19/24 10:53 Oxygen Delivery Method Room Air 11/19/24 10:53 BMI result Body Mass Index 25.9 General: Appears afebrile. Alert and oriented. Mood and affect appropriate. Follows and participates in conversation appropriately. Respiratory effort is unlabored. No cough. Able to transition from sit to stand unassisted. Ambulates with bilaterally normal heel strike and toe off. General: Yes no CVA tenderness Back/Spine/Pelvis Other: Patient is able to walk and stand on heels and tip toes with no difficulties demonstrating good motor tone. Normal gait, no limping. Lumbar flexion and extension reproduce moderate pain. Demonstrates 5/5 strength of quadriceps bilaterally as well as flexion/dorsiflexion of bilateral feet against resistance. 2+ pedal pulses bilaterally. Straight leg rise with dorsiflexion negative bilaterally. +2 patellar and achilles reflexes bilaterally. Facet loading test positive bilaterally. Anitha sign, Oj?s and Stinchfield tests are negative bilaterally. No groin pain with I/E hip rotations. Valsalva maneuver negative. Reduced sensory perception in the left lower extremity. Back: no CVA tenderness Cervical Spine: cervical ROM normal, cervical muscular tenderness, pain with cervical ROM and No Cervical spine tenderness Thoracic/Lumbar Spine: thoracic and lumbar spine normal to inspection, No Thoracic/lumbar spine scar(s), Lasegue's sign negative, straight leg raise negative bilaterally, pain with thoraco-lumbar ROM, paraspinal muscle tenderness, thoraco-lumbar ROM limited, Thoracic/lumbar scoliosis, thoracic spinal tenderness (mid to low thoracic) and lumbar spinal tenderness (upper lumbar) Pelvis: no buttock tenderness Sacroiliac joints: bilaterally nontender Extrem General: Yes capillary refill normal, Yes no clubbing, cyanosis or edema and Yes no calf tenderness Results Reviewed Results Reviewed: XR thoracic spine 3V 03/04/24 CLINICAL HISTORY: R25.2 - Cramp and spasm 3 views thoracic spine Comparison: CR - XR LUMBAR SPINE 6V W BENDING - 03/01/24 12:05 EST Findings: Thoracolumbar S shaped scoliosis. Satisfactory alignment of the vertebral bodies. No acute fractures or dislocation. Vertebral body heights are well-maintained. No significant degenerative change. IMPRESSION: 1. Thoracolumbar S-shaped scoliosis. 2. No acute process or significant degenerative changes. XR LUMBAR SPINE 2-3 VIEWS 08/12/24 HISTORY: M54.9 - Dorsalgia, unspecified COMPARISON: Comparison is made with the prior examination dated 03/01/2024. FINDINGS: AP, lateral, and coned down views of the lumbar spine are submitted. Osseous mineralization is normal. Five nonrib-bearing lumbar vertebral bodies are identified, maintaining normal height without evidence of fracture or spondylolisthesis. There is moderate rotatory levoscoliosis. The intervertebral disc spaces are preserved. The posterior elements are intact. The visualized paraspinal soft tissues are unremarkable. IMPRESSION: Moderate rotatory levoscoliosis. Otherwise unremarkable examination of the lumbar spine. Assessment & Plan Assessment & Plan (1) Scoliosis: Code(s): M41.9 - Scoliosis, unspecified Category: Medical Qualifiers: Scoliosis type: unspecified scoliosis (2) Rachel-Danlos syndrome: Comment: hypermobile. Genetic testing not yet completed- needing insurance clearance. Normal echocardiogram. Code(s): Q79.60 - Rachel-Danlos syndrome, unspecified Category: Medical (3) Scoliosis of thoracolumbar spine: Code(s): M41.9 - Scoliosis, unspecified Category: Medical (4) Chronic mid back pain: Code(s): M54.9 - Dorsalgia, unspecified; G89.29 - Other chronic pain Category: Medical (5) Muscle spasm of back: Code(s): M62.830 - Muscle spasm of back Category: Medical (6) Low back pain: Code(s): M54.50 - Low back pain, unspecified Category: Medical Plan The plan includes obtaining an MRI to evaluate the scoliosis and assess any changes or progression in the curvature of the spine and assess for neural integrity and compression. The patient will continue using non-pharmacological interventions such as heat therapy, massage, and home exercise program learnt form PT sessions to manage muscle stiffness and pain. Consideration of interventional therapies and referral to a Scoliosis specialist for further evaluation and management is planned. All questions and concerns have been answered and patient agreed with the treatment plan. Follow up for MRI results and sooner as needed. Patient was informed and verbally consented to the use of an ambient scribe for clinic note documentation during this visit. Orders: Orders MR lumbar spine wo con Today G89.29 - Other chronic pain, M41.9 - Scoliosis, unspecified, M54.50 - Low back pain, unspecified, M54.9 - Dorsalgia, unspecified, M62.830 - Muscle spasm of back, Q79.60 - Rachel-Danlos syndrome, unspecified Coding Level of Care Code Est Pt Level 4 (89919) Complex EM visit Add On G2211 Diagnoses Scoliosis M41.9 Scoliosis type: unspecified scoliosis Rachel-Danlos syndrome Q79.60 Scoliosis of thoracolumbar spine M41.9 Chronic mid back pain M54.9; G89.29 Muscle spasm of back M62.830 Low back pain M54.50
[2024-11-19 10:53] VITALS: BP 103/63; PULSE 71; O2SAT 100; BMI 25.9
--- OUTSIDE RECORDS SUMMARY | 2024-11-19 14:28 | XMS_ITS | Encounter Summary ---
Author Organization [facility] Address [address] [facility] [address] [place] [address] Phone Care Team Providers Care Cartoon Designer Name Role Phone Kennedy Kay MD Unavailable [phone] eJssica Gutierrez MD Primary Care Provid er Reason for Visit * Reason Onset Date Comments Muscle Pain 09/27/2024 Encounter Details Date Type Department Care Team ([facility] st Contact Info) Description 09/27/2024 Telephone [facility] Pulmonary, Allergy and Critical Care Medicine [address] [facility] [place] [address] [email or web address] Muscle Pain Social History Tobacco Use Types [...] 10/02/2024 6:16 PM EDT Orders signed in [facility]. * Juno Lopez LPN - 09/30/2024 2:06 PM EDT Patient has been having this flare approximately 6 weeks. Along with the ongoing widespread muscle pain, fatigue, abdominal discomfort, and joint pain she is having nerve pain in arms and legs. She did see Dr Robles last week at [facility] and he is ordering EMGs for [...] call. Please contact and advise. Central Support Picking Supervisor (Please do not reply to this user; [...] and AST).Please contact and advise. Central Support Picking Supervisor (Please do not reply to this user; this inbox is not monitored.) Thank you. documented in this encounter Plan of Treatment Upcoming Encounters Date Type Department Care Team (Late st Contact Info) Description 01/10/2025 3:30 PM EST Office Visit [facility] Rheumatology [address] [place] [address] Omaira Day MD [address] [facility], [address] [place] [address] [email or web address] documented as of this encounter Visit Diagnoses Not on filedocumented in this encounter Care Teams Cartoon Designer Relationship Specialty Start Date End Date Jessica Gutierrez MD [address] [place] [address] PCP - General Internal Medicine 01/25/23 Kennedy Kay MD [address] [place] [address] Pediatrics 04/10/19 documented as of this encounter Additional Source Comments The information contained in this document represents components of the legal health record. It is not the complete legal health record.[facility]
--- OUTSIDE RECORDS SUMMARY | 2024-11-19 14:29 | XMS_ITS | Encounter Summary ---
Author Organization [facility] Address [address] [facility] [address] [place] [address] Phone Care Team Providers Care Retail Furniture Sales Name Role Phone Kennedy Kay MD Unavailable [phone] Jessica Gutierrez MD Primary Care Provid er Encounter Details Date Type Department Care Team (Late st Contact Info) Description 05/11/2023 Procedure Pass [facility], Ct Scan - [address] [address] Social History Tobacco Use Types Packs/Day Years [...] PM EST documented as of this encounter Plan of Treatment Upcoming Encounters Date Type Department Care Team (Late st Contact Info) Description 01/10/2025 3:30 PM EST Office Visit [facility] Rheumatology [address] [place] [address] Omaira Day MD 22 [facility], [address] [place] [address] [email or web address] documented as of this encounter Visit Diagnoses Not on filedocumented in this encounter Care Teams Retail Furniture Sales Relationship Specialty Start Date End Date Jessica Gutierrez MD [address] [place] [address] PCP - General Internal Medicine 01/25/23 Kennedy Kay MD [address] [place] [address] Pediatrics 04/10/19 documented as of this encounter Additional Source Comments The information contained in this document represents components of the legal health record. It is not the complete legal health record.[facility]
--- OUTSIDE RECORDS SUMMARY | 2024-11-19 14:29 | XMS_ITS | Encounter Summary ---
Author Organization [facility] Address [address] [facility] [address] [place] [address] Phone Care Team Providers Care Professional Sports Scout Name Role Phone Kennedy Kay MD Unavailable [phone] Jessica Gutierrez MD Primary Care Provid er Reason for Visit * Reason Onset Date Comments Medication Question 10/04/2024 Chest Pain 10/04/2024 Encounter Details Date Type Department Care Team ([facility] st Contact Info) Description 10/04/2024 Telephone [facility] Pulmonary, Allergy and Critical Care Medicine 10 [facility] [place] [address] [email or web address] Medication Question; Chest Pain Social History Tobacco Use Types Packs/Day [...] as of this encounter Progress Notes * Jam Riley MD - 10/16/2024 7:03 AM EDT Sounds good. Can stay off of Breo 200 (discontinued). Airsupra prescribed. Can offer Airsupra coupon from office to try if any insurance co-pay issues. * Leesa Amanda RN - 10/11/2024 3:32 PM EDT Called and spoke to patient. She states she did not feel any different on the Breo. States she has felt better coming off of it. She is willing to try the Airsupra. She is currently having no issues breathing. 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 * Jamilah Avila - 10/11/2024 3:14 PM EDT PT lvm on the triage line returning phone call to Pearl. Requesting call back. Central Support Major Assembly Inspector (Please do not reply to this user; this inbox is not monitored.) Thank you. * Jam Riley MD - 10/10/2024 10:08 AM EDT It would be a rare side effect to have Breo 200 (ICS/LABA) cause arthralgias and muscle pain, but it is possible. Since she has a history of asthma and asthma possibly contributing to her symptoms, management would typically involve an inhaled steroid. Very little, if any, inhaled steroid should gobeyond the lungs/would go systemic. 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 Did she notice any improvement in her breathing while using the Breo? From my last note (07/23/2024), plan was to use it as needed and she was previously taking it regularly. If she is OK with this, we could stay off of Breo and try a different as needed inhaler, Airsupra which is a combination of a different inhaled steroid (budesonide) and albuterol. Let me or DOD ([facility] currently) know, as I am currently on service in ICU. Thank you. * Leesa Amanda RN - 10/09/2024 11:15 AM EDT Called and spoke to pt. States she has been taking the breo ellipta. Is having joint and muscle pain. She is wondering if this is due to the inhaler. States she has stopped taking the inhaler for about a week now. She states her symptoms have resolved. She is wondering if there is another option available. Possibly not a steroid. * Sandra Goldsmith - 10/04/2024 4:10 PM EDT Pt has been having side effects on the luticasone furoate-vilanteroL (BREO ELLIPTA) 200-25 mcg. Chest pains/chest tightness Leg pain Pt stated if she was prescribed a normal asthma inhaler she would be fine with that too. Central Support Major Assembly Inspector (Please do not reply to this user; this inbox is not monitored.) Thank you. documented in this encounter Plan of Treatment Upcoming Encounters Date Type Department Care Team (Late st Contact Info) Description 01/10/2025 3:30 PM EST Office Visit [facility] Rheumatology [address] [place] [address] Omaira Day MD 22 [facility], [address] [place] [address] [email or web address] documented as of this encounter Visit Diagnoses Diagnosis Mild intermittent asthma without complication- Primary documented in this encounter Care Teams Professional Sports Scout Relationship Specialty Start Date End Date Jessica Gutierrez MD [address] [place] [address] PCP - General Internal Medicine 01/25/23 Kennedy Kay MD [address] [place] [address] Pediatrics 04/10/19 documented as of this encounter Additional Source Comments The information contained in this document represents components of the legal health record. It is not the complete legal health record.[facility]
--- OUTSIDE RECORDS SUMMARY | 2024-11-19 14:29 | XMS_ITS | Encounter Summary ---
Author Organization [facility] Address [address] [facility] [address] [place] [address] Phone Care Team Providers Care Stave Jointer Name Role Phone Kennedy Kay MD Unavailable [phone] Jessica Gutierrez MD Primary Care Provid er Reason for Visit * Reason Onset Date Comments Results 11/13/2024 Encounter Details Date Type Department Care Team ([facility] st Contact Info) Description 11/13/2024 Telephone CD Pulmonary, Allergy and Critical Care Medicine 10 [facility] [place] [address] Jam Riley MD [address] [place] [address] [email or web address] Results Social History Tobacco Use Types Packs/Day Years [...] as of this encounter Progress Notes * Leesa Amanda RN - 11/14/2024 1:34 PM EDT Called and spoke with patient. Informed her of Dr. Riley's review of results. Pt expressed understanding and will continue on current pulmonary regimen. * Jam Riley MD - 11/14/2024 12:17 PM EDT PFTs from 11/11/2024: Isolated mild diffusion impairment. Otherwise, normal spirometry without significant postbronchodilator change. Normal lung volumes. When compared to prior study from 10/2022, the restrictive ventilatory defect is no longer present (interval normalization of total lung capacity with stable spirometry). Unchanged diffusion capacity. Regarding her lung function tests, they are stable (if not slightly improved) when compared to her prior study from 2 years ago. There is no need to pursue repeat chest CT at this time, particularly because she had a high-resolution chest CT in August 2023 which did not reveal evidence of interstitial lung disease, in the context of stable pulmonary function testing. * Thony Crane - 11/13/2024 3:39 PM EDT Pt called to request to speak with a member of clinical staff regarding her recent PFT results. Pt asked if a CT with contrast would be appropriate f/u imaging. Please contact and advise. Central Support [employer] Flatbed Truck Driver (Please do not reply to this user; this inbox is not monitored.) Thank you. documented in this encounter Plan of Treatment Upcoming Encounters Date Type Department Care Team (Late st Contact Info) Description 01/10/2025 3:30 PM EST Office Visit [facility] Rheumatology [address] [place] [address] Omaira Day MD [address] [facility], [address] [place] [address] [email or web address] documented as of this encounter Visit Diagnoses Not on filedocumented in this encounter Care Teams Stave Jointer Relationship Specialty Start Date End Date Jessica Gutierrez MD [address] [place] [address] PCP - General Internal Medicine 01/25/23 Kennedy Kay MD [address] [place] [address] Pediatrics 04/10/19 documented as of this encounter Additional Source Comments The information contained in this document represents components of the legal health record. It is not the complete legal health record.[facility]
--- OUTSIDE RECORDS SUMMARY | 2024-11-19 14:29 | XMS_ITS | Patient Health Record ---
Author Organization [facility] Address [address] [id number] Support Name Relationship Address Phone Liss Lipscomb Guarantor Unknown [phone] Allergies Allergen (clinical drug ingredient) Drug/Non Drug [...] History Observation Description Sex Assigned At Female Social History HIV Risk Assessment Social Info Question Answer Notes Additional Questions Is an HIV Risk Assessment being c onducted? Yes Have you been tested for HIV before? Yes Reproductive Life Plan: Social Info Question Answer Notes Reproductive Life Plan: Do you want to h ave children? No, I don't want to have children How sure are you that you will be able to use your control method without any problems? Very sure People's plans change. Is it possible you or your partner could ever decide to become ? No Human Trafficking: Social Info Question Answer Notes Human Trafficking Experienced: No PrEP for HIV: Social Info Question Answer Notes PrEP for HIV Is the client staci mejia in beginning/continuing PrEP for HIV? No Sexual History: Social Info Question Answer Notes Sexual History: Sexual History Reviewed: Partner s, Practices, Protection/Past STIs Currently sexually active? Yes Sexually active with: Men, Women Number of male partners 0 Number of female partners 0 Your sexual activities include: oral intercourse, vaginal intercourse Do you use condoms? No Date of last unprotected intercourse: 04/06/2023 Number of partners in past 3 months: 0 Number of partners in past year: 3 Does your partner(s) currently have any STIs? No Counseling Provided: Social Info Question Answer Notes Counseling Provided Please indicate the length of time, in minutes, that counseling was provided. 7 Counseling Was Provided By: luis antonio Drugs/Alcohol: Social Info Question Answer Notes Drug/Alcohol Use Do you or have you used drugs? Yes, c urrently By what route are you taking drugs? Please check all that apply: Smoking Which drug(s) do you smoke? Marijuana Do you or have you used alcohol? Yes, currently Socially per client Food Access: Social Info Question Answer Notes Food Access The Client's current access to food is Secure Food Access Relationships: Social Info Question Answer Notes Relationships Has the client experienced any of the following: Client has never experienced harmful relationships Housing Social Info Question Answer Notes Housing The client's current living situation is: stable housing Tobacco Use: Social Info Question Answer Notes Tobacco Use: Do you/have you used tobacco? Yes, in the past Client previously smokes cigarettes but does not anymore Tobacco Smoking Status Former smoker Section Notes: Aptima/ pt/ declines bw Plan Of Treatment No Information Insurance Providers Payer Name Payer Address Payer Phone Subscriber Number Group Number Insured Name Patient Relationship to Insured Coverage Start Date Coverage End Date [place] ATT CLAIMS [address] [place] [id number] Liss Lipscomb Self - patient is the insured Medical (General) History Medical History History ICD Code Migraines Asthma as a child Depression/axniety Breast Fibroadenoma Hx since age 18 yrs, dx with u/s diverticulosis dx 07/2023 pelvic PT for incontinence and dyspareun ia as of 08/2023
--- OUTSIDE RECORDS SUMMARY | 2024-11-19 14:29 | XMS_ITS | Clinical Summary ---
Author Organization [facility] Address [address] [place] [address] Phone Care Team Providers Care Brass Pourer Name Role Phone Jessica Chavez MD Primary Care Provider [phone] Allergies No known active allergies Medications No [...] 07/23/2021 Social Influencers of Health Screening 07/23/2021 Depression Screening 03/06/2024 COVID-19 Vaccine (3 - season) 2024 07/06/2021, 06/03/2020 Influenza Vaccine (#1) 2024 , [...] patient's age to complete this topic Insurance [facility] Care Teams Brass Pourer Relationship Specialty Start Date End Date Jessica Chavez MD [address] [facility] , [address] [place] [address] Physician Associ D/B/A: [facility] SELINA Ness PCP - General Internal Medicine 02/06/24
--- OUTSIDE RECORDS SUMMARY | 2024-11-19 14:29 | XMS_ITS | Encounter Summary ---
Author Organization [facility] Address [address] [facility] [address] [place] [address] Phone Care Team Providers Care Director Of Solutions Architecture Name Role Phone Kennedy Kay MD Unavailable [phone] Aline Cole MD Primary Care Provider [phone] Jessica Gutierrez MD Primary Care Provid er Encounter Details Date Type Department Care Team (Late st Contact Info) Description 11/12/2022 Procedure Pass [facility] [address] [place] [address] Social History Tobacco Use Types Packs/Day Years [...] Description 01/10/2025 3:30 PM EST Office Visit [facility] [place] [address] Omaira Day MD [address] [facility], [address] [place] [address] [email or web address] documented as of this encounter Visit Diagnoses Not on filedocumented in this encounter Care Teams Director Of Solutions Architecture Relationship Specialty Start Date End Date Aline Cole MD [facility] [place] [address] PCP - General Internal Medicine 09/09/19 01/24/23 Jessica Gutierrez MD [address] [place] [address] PCP - General Internal Medicine 01/25/23 Kennedy Kay MD [address] [place] [address] Pediatrics 04/10/19 documented as of this encounter Additional Source Comments The information contained in this document represents components of the legal health record. It is not the complete legal health record.[facility]
--- OUTSIDE RECORDS SUMMARY | 2024-11-19 14:29 | XMS_ITS | Clinical Summary ---
Author Organization [facility] Address [address] [facility] [address] [place] [id number] Phone Care Team Providers Care [employer] H[employer] Developer Name Role Phone Kennedy Kay MD Unavailable [phone] Leonie Gutierrez MD Primary Care Provid er Allergies No known active allergies Medications hydrOXYzine (VISTARIL) 25 MG capsule Take 1 capsule by mouth nightly at bedtime as needed. 3 Active baclofen (LIORESAL) 5 mg tablet Take 10 mg by mouth nightly at bedtime. 4 Active VITAMIN D3 25 mcg (1,000 unit) capsule Take 2,000 Units by mouth daily. 4 Active fluticasone propionate (FLONASE) 50 mcg/actuation nasal spray 2 sprays by Nasal route daily as needed. 4 Active VYVANSE 20 mg capsule Take 20 mg by mouth every morning. 4 Active ondansetron (ZOFRAN-ODT) 4 MG disintegrating tablet Take 4 mg by mouth every 6 (six) hours as needed. 4 Active riboflavin, vitamin B2, 400 mg Tab Take 1 tablet by mouth every morning. 4 Active pantoprazole (PROTONIX) 20 MG tablet Take 20 mg by mouth daily. Active ascorbic acid, vitamin C, (VITAMIN C) 500 MG tablet Take 500 mg by mouth daily. Active VITAMIN K2 ORAL Take by mouth. Active glucosamine-chondr oitin 500-400 mg Cap Take 1 capsule by mouth daily. Active amitriptyline (ELAVIL) 10 MG tablet Take 10-20 mg by mouth nightly at bedtime. Active SUMAtriptan (IMITREX) 100 MG tablet Take 100 mg by mouth every 4 (four) hours as needed for migraine. Active albuterol 90 mcg/actuation inhalerIndications :Mild intermittent asthma without complication Inhale 2 puffs into the lungs every 6 (six) hours as needed for wheezing or shortness of breath/dyspne a. 8 g 5 5 Active budesonide (PULMICORT FLEXHALER) 90 mcg/actuation inhalerIndications :Mild intermittent asthma without complication Inhale 1 puff into the lungs every 6 (six) hours as needed (use with albuterol). 1 each 5 5 Active Active Problems Problem Noted Date Diagnosed Date Hyperproteinemia 04/19/2024 Assessment & Plan (04/21/2024 7:11 PM EST): Serum protein electrophoresis requested to make sure she does not develop abnormal structurally protein that may give rise to MGUS and subsequently multiple myeloma MTHFR gene mutation 04/19/2024 Assessment & Plan (04/21/2024 7:10 PM EST): On her request I agreed to check her folic acid and homocystine. Muscle spasm 10/19/2023 Assessment & Plan (10/29/2023 12:21 PM EDT): Proper hydration, well-balanced nutritionally diet-rich in electrolytes, vitamins, micro and ultra elements. Gentle stretching, massage and regular exercise routine. 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 PFTs from 10/2022 demonstrated a mild restrictive ventilatory defect with a mildly impaired diffusion capacity. Chest x-ray from 10/2022 was normal, though, this did not rule out the possibility of interstitial lung disease potentially related to high positive anticentromere antibody. Thus, HRCT chest was pursued on 08/25/2023. This study demonstrated normal lung parenchyma without evidence of interstitial lung disease. Thus, it is possible that her restrictive physiology could be extrapulmonary and secondary to scoliosis which could also result in atelectasis causing a diffusion impairment. Her echo from 01/2023 was normal without evidence of pulmonary hypertension. She previously described longstanding exertional shortness of breath which could be secondary to restrictive musculoskeletal issues (inclusive of scoliosis, hypermobility syndrome manifestations), asthma, deconditioning, vaping of cannabis concentrate, anxiety, or a combination of multiple issues. With chest muscle relaxation exercises and anxiolytic therapy, she has experienced less shortness of breath (and less air hunger in particular). 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 PFTs from 10/2022 demonstrated a mild restrictive ventilatory defect with a mildly impaired diffusion capacity. While chest x-ray from 10/2022 was normal, this does not rule out the possibility of interstitial lung disease potentially related to high positive anticentromere antibody. Thus, pursuing HRCT chest is a reasonable next step. Alternatively, her restrictive physiology could be extrapulmonary and secondary to scoliosis which could also result in atelectasis causing a diffusion impairment. Her echo from 01/2023 was completely normal without evidence of pulmonary hypertension. She describes longstanding exertional shortness of breath which could be secondary to asthma, deconditioning, ongoing vaping of cannabis concentrate, possible underlying interstitial lung disease, or a combination of multiple issues. -Obtain HRCT chest -Management of asthma, as below -Encourage cessation of vaping (patient does use some edibles but finds that vaping is more effective for her chronic joint pain) -Encourage exercise -Follow-up results of EGD (at [facility] in 07/2023 per patient) in the context of barium esophagram which demonstrated mild esophageal dysmotility Other dysphagia 09/29/2022 Assessment & Plan (04/21/2024 7:10 PM EST): Encouraged to chew food properly before swallowing and drink water or other fluids between bites to decrease risk of odynophagia and dysphagia. Keep diary of episodes and details regarding the triggering food, time of the day, management strategies etc. Encouraged to schedule formal speech therapy as previously ordered once academic year concludes. Assessment & Plan (10/29/2023 12:18 PM EDT): Encouraged to chew food properly before swallowing and drink water or other fluids between bites to decrease risk of odynophagia and dysphagia. Keep diary of episodes and details regarding the triggering food, time of the day, management strategies etc. Assessment & Plan (01/10/2023 9:50 AM EST): Encouraged to chew food properly before swallowing and drink water or other fluids between bites to decrease risk of odynophagia and dysphagia. Keep diary of episodes and details regarding the triggering food, time of the day, management strategies etc. Assessment & Plan (09/29/2022 10:43 PM EDT): Keep a diary of episodes with details regarding triggers and timing of the day etc. Exertional dyspnea 09/29/2022 Assessment & Plan (01/10/2023 9:47 AM EST): She carries diagnosis of asthma that is mild however reports increasing exertional shortness of breath for the last couple of years. Episode of feeling as passing out when standing and hand tingling on 08/08/2022. Keep diary of symptoms with modifiers for review. In view of abnormal PFTs I requested formal pulmonology assessment. Assessment & Plan (09/29/2022 10:37 PM EDT): She carries diagnosis of asthma that is mild however reports increasing exertional shortness of breath for the last couple of years. Episode of feeling as passing out when standing and hand tingling on 08/08/2022 Keep diary of symptoms with modifiers for review at next visit. Cold sensitivity 09/29/2022 Assessment & Plan (04/19/2024 3:11 PM EST): Chronic and rather stable-she was not sure whether there is white skin discoloration with cold exposure though painful fingers and toes. Keep warm, dress in layers. Optimize stress management strategies. Avoid vasoconstrictors in OTC products for cold/flu and sinus. Assessment & Plan (10/29/2023 12:19 PM EDT): Chronic and rather stable-she was not sure whether there is white skin discoloration with cold exposure though painful fingers and toes. Keep warm, dress in layers. Optimize stress management strategies. Avoid vasoconstrictors in OTC products for cold/flu and sinus. Assessment & Plan (01/10/2023 9:45 AM EST): Chronic and rather stable-she was not sure whether there is white skin discoloration with cold exposure though painful fingers and toes. Keep warm, dress in layers. Optimize stress management strategies. Avoid vasoconstrictors in OTC products for cold/flu and sinus. Assessment & Plan (09/29/2022 10:48 PM EDT): Chronic and rather stable-she was not sure whether there is white skin discoloration with cold exposure though painful fingers and toes. Keep warm, dress in layers. Optimize stress management strategies. Avoid vasoconstrictors in OTC products for cold/flu and sinus. 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 I reviewed with her need for avoiding hyperextension in her elbows and knees, proper posture, gentle, regular exercises to improve muscle strength and stability. 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 I reviewed with her need for avoiding hyperextension in her elbows and knees, proper posture, gentle, regular exercises to improve muscle strength and stability. 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 I I agreed to write referral for a formal genetic consultation at [facility] with Dr. Rigoberto Owens . She is scheduled to meet with Dr. Owens in April 2023. In the meantime I reviewed with her need for avoiding hyperextension in her elbows and knees, proper posture, gentle, regular exercises to improve muscle strength and stability. 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 I I agreed to write referral for a formal genetic consultation at [facility] with Dr. Rigoberto Owens provided her insurance approves it. Stretch gaitan 09/29/2022 Assessment & Plan (09/29/2022 10:46 PM EDT): Worrisome to her since she has not been and had not gained weight rapidly. Mild intermittent asthma without complication Assessment & Plan (07/23/2024 2:25 PM EDT): Diagnosed in childhood. PFTs from 10/2022 without airflow obstruction or significant post-bronchodilator change. Mild intermittent symptoms for which she previously sparingly used albuterol as needed. As above, it is possible that some of her exertional shortness of breath could be due to asthma. She continues on ICS/LABA with Breo 200. We also previously discussed that vaping cannabis concentrate can have deleterious effects on the lungs, particularly in patients with asthma, and could be contributing to her symptoms. Patient has not noticed any appreciable change on ICS/LABA maintenance inhaler therapy. Though, she feels her asthma symptoms typically only manifest when she is engaging in more vigorous exercise (which she has not been able to do in some time). Discussed trying Breo on an as needed basis rather than as a maintenance therapy. Assessment & Plan (10/29/2023 12:20 PM EDT): Prescribed Breo Ellipta trial by terrazzo tile setter-Dr. Sean Hammonds. Avoid known triggers especially vaping. Assessment & Plan (05/11/2023 10:15 AM EST): Diagnosed in childhood. PFTs from 10/2022 without airflow obstruction or significant post-bronchodilator change. Mild intermittent symptoms for which she previously sparingly used albuterol as needed. As above, is possible that some of her exertional shortness of breath could be due to asthma. We discussed a trial of ICS/LABA with Breo 200. Patient was advised to rinse her mouth with water after each use. We discussed that vaping cannabis concentrate can have deleterious effects on the lungs, particularly in patients with asthma, and could be contributing to her symptoms. Assessment & Plan (01/10/2023 9:48 AM EST): Due to abnormal PFTs, highly elevated centromere antibody I request formal pulmonology consult. Assessment & Plan (09/29/2022 10:39 PM EDT): According to her report present since childhood and [id number] than in younger age. 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 Formal barium swallow revealed mild esophageal dysmotility and subsequent pulmonary consult advised Breo Ellipta for asthma, encouraged regular exercise and stop vaping that she stopped 2 weeks ago per her report. HR chest CT from 08/25/2023 revealed no interstitial lung disease. ECHO from 01/04/2023 returned normal. If exertional shortness of breath persists may need to proceed with formal cardiology consult and consideration for right heart catheterization to assure no pulmonary artery hypertension present. She was previously on CellCept for a couple of weeks and did not find it helpful but is interested in reviewing it further at this time and agrees for second opinion rheumatology consultation. Assessment & Plan (10/29/2023 12:17 PM EDT): Highly positive centromere antibody puts her at risk of developing limited subtype of scleroderma-CREST variant therefore appropriate work-up to assess organ system involvement has been initiated. Formal barium swallow revealed mild esophageal dysmotility and subsequent pulmonary consult advised Breo Ellipta for asthma, encouraged regular exercise and stop vaping. HRRR chest CT in from 08/25/2023 revealed no interstitial lung disease. ECHO from 01/04/2023 returned normal. If exertional shortness of breath persists may need to proceed with formal cardiology consult and consideration for right heart catheterization to assure no pulmonary artery hypertension present. Assessment & Plan (01/10/2023 9:45 AM EST): Highly positive centromere antibody puts her at risk of developing limited subtype of scleroderma-CREST variant therefore appropriate work-up to assess organ system involvement initiated. Due to abnormal PFTs and reported dysphagia I requested formal barium swallow and pulmonary consult. ECHO from 01/04/2023 returned normal. If exertional shortness of breath persists may need to proceed with formal cardiology consult and consideration for right heart catheterization to assure no pulmonary artery hypertension present. Assessment & Plan (09/29/2022 10:47 PM EDT): Highly positive centromere antibody puts her at risk of developing limited subtypes of scleroderma-CREST variant therefore appropriate work-up to assess organ system involvement initiated. Assessment & Plan (07/30/2020 6:31 PM EDT): Patient will monitor for any new symptoms, changes that are consistent with Scleroderma. No new symptoms on visit today. Assessment & Plan (04/03/2020 2:38 PM EST): Trial of Cellcept 500 mg Take one pill PO daily for one week. Then, starting week 2, Take one pill PO BID. Polyarthralgia 04/03/2020 Assessment & Plan (04/19/2024 3:11 PM EST): Joint protection, energy conservation. Gentle, regular exercise routine. Avoid falls, injuries, overuse. Keep body weight in ideal range for her height. She may benefit from topical cream such as Arnica, Biofreeze, Aspercreme versus medicated patches such as salonpas, icy hot patch 2-3 times daily and if necessary at bedtime x 3 weeks. If pain persists despite above strategies okay to take Tylenol up to 2000 mg or 24-hours in divided doses. Assessment & Plan (10/29/2023 12:18 PM EDT): Joint protection, energy conservation. Gentle, regular exercise routine. Avoid falls, injuries, overuse. Keep body weight in ideal range for her height. She may benefit from topical cream such as Arnica, Biofreeze, Aspercreme versus medicated patches such as salonpas, icy hot patch 2-3 times daily and if necessary at bedtime x 3 weeks. If pain persists despite above strategies okay to take Tylenol up to 2000 mg or 24-hours in divided doses. Assessment & Plan (07/30/2020 6:28 PM EDT): Tylenol Arthritis 650 mg Take one pill PO every 8 hours as needed for Polyarthralgia therapy. Assessment & Plan (04/03/2020 2:43 PM EST): Patient will start Tumeric food supplement to see if it helps with joint pain relief. Discussed diet changes that may help if developing Scleroderma, CREST, including avoiding [place] fruits, tomatoes, greasy fried foods, Coffee, garlic, raw peppers. Positive LEONIE (antinuclear antibody) 11/15/2019 Assessment & Plan (07/30/2020 6:26 PM EDT): Patient will monitor for any new autoimmune changes, symptoms. No new symptoms on visit. Assessment & Plan (04/03/2020 2:40 PM EST): Patient will monitor for any new trouble swallowing liquids or solids, hair growth changes of distal extremities, Sclerodactyly, facial telangiectasias, Calcinosis, Raynaud's symptoms. Degenerative disc disease, cervical 09/11/2019 Other idiopathic scoliosis, thoracolumbar region 06/19/2019 Assessment & Plan (04/19/2024 3:11 PM EST): Continue proper posture, gentle stretching and muscle strengthening exercises as previously educated. She continues with regular chiropractic therapy that appears somewhat helpful. Assessment & Plan (10/29/2023 12:02 PM EDT): Continue proper posture, gentle stretching and muscle strengthening exercises as previously educated. She continues with regular chiropractic therapy that appears somewhat helpful. Assessment & Plan (09/29/2022 10:44 PM EDT): Continue proper posture, gentle stretching and muscle strengthening exercises as previously educated. She continues with regular chiropractic therapy that appears somewhat helpful. Assessment & Plan (07/30/2020 6:30 PM EDT): Gentle stretching, strengthening exercises. Patient seeing a chiropractor, and states that therapy is helping some. Assessment & Plan (04/03/2020 2:41 PM EST): Continue Physical therapy strengthening exercises. Neck pain 06/19/2019 Acute bilateral low back pain without sciatica 0 06/19/2019 Acute pain of both knees 06/19/2019 Assessment & Plan (07/30/2020 6:30 PM EDT): Tylenol Arthritis 650 mg Take one pill PO every 8 hours as needed. Continue knee support braces as needed. Dry eyes 06/19/2019 Assessment & Plan (07/30/2020 6:27 PM EDT): OTC eyedrops as needed. Assessment & Plan (04/03/2020 2:40 PM EST): OTC eyedrops as needed. Encounters Date Type Department Care Team Description 11/13/2024 Telephone [facility] [address] [place] [address] Jam Riley MD Results 11/11/2024 6:00 PM EDT - 11/11/2024 11:59 PM EDT Hospital Encounter [facility] [address] [place] [id number] Jam Riley MD Discharge Disposition: Home or Self Care 11/05/2024 Transcribe Orders [facility] [address] [place] [address] Jam Riley MD 10/21/2024 4:18 PM EDT - 10/21/2024 11:59 PM EDT Hospital Encounter [facility] Laboratory [address] [place] [address] Omaira Day MD Discharge Disposition: Home or Self Care 10/16/2024 Telephone [facility] [address] [place] [address] Jam Riley MD Medication Prior Authorization (PA for albuterol-budesonide (AIRSUPRA) 90-80 mcg/actuation inhaler) 10/07/2024 4:04 PM EDT - 10/07/2024 11:59 PM EDT Hospital Encounter [facility] [address] [place] [address] Omaira Day MD Discharge Disposition: Home or Self Care 10/04/2024 Telephone [facility] [address] [place] [address] Sandra Goldsmith Medication Question; Chest Pain 10/02/2024 Orders Only [facility] Rheumatology [address] [place] [address] Omaira Day MD Positive LEONIE (antinuclear antibody) (Primary Dx); Centromere antibody positive; Polyarthralgia; Other dysphagia; Cold sensitivity; Muscle spasm 09/27/2024 Telephone [facility] [address] [place] [address] [place] [address] Sandra Goldsmith Muscle Pain 09/03/2024 Transcribe Orders [facility] [address] [place] [address] Shelley English Encounter for rehabilitation (Primary Dx) from Last 3 Months Family History Medical History Relation Comments Diabetes Maternal Grandfather Diabetes Maternal Grandmother Coronary artery disease Paternal Grandfather Coronary artery disease Paternal Grandmother Relation Status Comments Father Alive Maternal Grandfather Maternal Grandmother Alive Mother Alive Paternal Grandfather Alive Paternal Grandmother Social History Tobacco Use Types Packs/Day Years Used Date Smoking Tobacco: Former Cigarettes 0 08/18/2018 - 09/17/2018 Smokeless Tobacco: Never Tobacco Cessation:Counseling Given: Not Answered Alcohol Use Standard Drinks/Week Comments Yes 0 [...] not to disclose 2024 1:57 PM EST Last Filed Vital Signs Vital Sign Reading Time Taken Comments Blood Pressure 108/78 04/19/2024 2:43 PM EST Pulse 81 04/19/2024 2:43 PM EST Temperature 36.4 C (97.5 F) 04/03/2020 1:53 PM EST Respiratory Rate - - Oxygen Saturation 99% 04/19/2024 2:43 PM EST Inhaled Oxygen Concentration - - Weight 64 kg (141 lb) 04/19/2024 2:43 PM EST Height 157.5 cm (5' 2 ) 04/19/2024 2:43 PM EST Body Mass Index 25.79 04/19/2024 2:43 PM EST Plan of Treatment Upcoming Encounters Date Type Department Care Team (Late st Contact Info) Description 01/10/2025 3:30 PM EST Office Visit [facility] Rheumatology [address] [place] [address] Omaira Day MD [address] [facility], [address] [place] [address] [email or web address] Health Maintenance Due Date Last Done Comments DEPRESSION SCREENING 2009 SMOKING Hx and SMOKELESS TOBACCO SCREENING 2010 HEPATITIS C SCREENING 09/05/2015 HIV ONE-TIME SCREENING (18-65 YEARS) 09/05/2015 PAP SMEAR 2018 MENINGOCOCCAL VACCINES (B) (2 of 2 - Trumenba SCDM 2-dose series) 10/22/2019 04/23/2019 PNEUMOCOCCAL VACCINES (0-49 years) (2 of 2 - PCV) 04/23/2020 04/23/2019 INFLUENZA VACCINE (#1) 2024 , 01/09/2020, 12/21/2018, Additional history exists COVID-19 VACCINE ( - season) 2024 07/06/2021, 06/03/2020 Adult Td,Tdap Booster 01/08/2032 01/07/2022, 019 MENINGOCOCCAL VACCINES (ACWY) Completed 07/29/2014 HEPATITIS A VACCINES Completed 02/17/2015, 07/30/19 15 HIB VACCINES Aged Out No longer eligi ble based on patient's age to complete this topic Medical Devices Not on file Procedures Procedure Name Priority Date/Time Associated Diagnosis Comments PULMONARY FUNCTION TEST Routine 11/11/2024 6:45 PM EDT Abnormal PFTs Mild intermittent asthma without complication TOTAL PROTEIN CREATININE RATIO, RANDOM URINE Routine 10/21/2024 4:15 PM EDT Positive LEONIE (antinuclear antibody) Centromere antibody positive Polyarthralgia URINALYSIS W/REFLEX URINE CULTURE Routine 10/21/2024 4:15 PM EDT Positive LEONIE (antinuclear antibody) Centromere antibody positive Polyarthralgia COMPREHENSIVE METABOLIC PANEL Routine 10/07/2024 4:11 PM EDT Positive LEONIE (antinuclear antibody) Centromere antibody positive Polyarthralgia C-REACTIVE PROTEIN Routine 10/07/2024 4: 11 PM EDT Positive LEONIE (antinuclear antibody) Centromere antibody positive Polyarthralgia SEDIMENTATION RATE (ESR) Routine 10/07/2024 4:11 PM EDT Positive LEONIE (antinuclear antibody) Centromere antibody positive Polyarthralgia CBC AND DIFFERENTIAL Routine 10/07/2024 4:11 PM EDT Positive LEONIE (antinuclear antibody) Centromere antibody positive Polyarthralgia COMPLEMENT C3 Routine 10/07/2024 4:11 PM EDT Positive LEONIE (antinuclear antibody) Centromere antibody positive Polyarthralgia COMPLEMENT C4 Routine 10/07/2024 4:11 PM EDT Positive LEONIE (antinuclear antibody) Centromere antibody positive Polyarthralgia CPK (CREATINE KINASE) Routine 10/07/2024 4:11 PM EDT Positive LEONIE (antinuclear antibody) Centromere antibody positive Polyarthralgia Muscle spasm DOUBLE STRANDED DNA ANTIBODIES Routine 10/07/2024 4:11 PM EDT Positive LEONIE (antinuclear antibody) Centromere antibody positive Polyarthralgia MAGNESIUM Routine 10/07/2024 4:11 PM EDT Positive LEONIE (antinuclear antibody) Centromere antibody positive Polyarthralgia TSH WITH REFLEX Routine 10/07/2024 4:11 PM EDT Polyarthralgia Cold sensitivity CENTROMERE ANTIBODY Routine 10/07/2024 4 :11 PM EDT Polyarthralgia Other dysphagia Cold sensitivity ANTI-MITOCHONDRIAL ANTIBODY (AMA) Routine 10/07/2024 4:11 PM EDT Positive LEONIE (antinuclear antibody) Centromere antibody positive Polyarthralgia Other dysphagia Cold sensitivity from Last 3 Months Results * Pulmonary Function Test Reason for Exam: Asthma, Dyspnea/Shortness of Breath; Type of PFT Test: Spirometry with bronchodilator, DLCO, Lung Volumes; Performing Location: [facility] (11/11/2024 6:45 PM EDT) [facility] FEV1 2.87 liters FVC 3.32 liters FEV1/FVC 86 % TLC 4.22 liters DLCO 15.58 ml/mmHg sec Anatomical Region Laterality Modality Other Impressions 11/11/2024 6:45 PM EDT PULMONARY FUNCTION STUDIES Full pulmonary function studies were performed on this 29 y.o. year-old female for evaluation of asthma. Review of the medical record reveals that the patient is a former marijuana smoker. Prior pulmonary function studies from 10/18/2022 are available for comparison. SPIROMETRY: The FEV1 is normal at 2.87 L or 102% predicted. The FVC is normal at 3.32 L or 103% predicted. The FEV1/FVC ratio is normal at 86%. After the administration of a bronchodilator agent, there is no technically significant change. FLOW-VOLUME LOOPS: Evaluation of the flow-volume loops reveals normal morphology of both the inspiratory and expiratory limbs with no significant difference when comparing the tracings performed pre- and post-bronchodilator. LUNG VOLUME MEASUREMENTS BY PLETHYSMOGRAPHY: The total lung capacity is normal at 4.22 L or 89% predicted. The RV/TLC ratio is normal at 21%. DIFFUSION CAPACITY: The diffusion capacity is mildly impaired (z-score between - 1.65 and -2.5) at 15.6 mL/mmHg sec or 74% predicted. COMPARISON TO PRIOR STUDIES: When comparing to prior studies, the restrictive ventilatory defect is no longer present. The diffusion capacity impairment is similar. Spirometry remains normal. Resting oxygen saturation is 99% on room air. IMPRESSION: Abnormal pulmonary function studies as evidenced by an isolated mild impairment in diffusion capacity which, in this clinical context, may be secondary to emphysema, pulmonary vascular disease, interstitial lung disease and/or anemia. Lung volumes are normal. Spirometry reveals no evidence of airflow limitation and no bronchodilator response. Technical Note: As of 01/16/2024, the [facility] Pulmonary Function Testing (PFT) Laboratory transitioned from using race-specific to using race-neutral equations for determining lung function predicted values for all persons. Due to this change some individuals previously classified as either normal or abnormal may now change from one to the other category without a true change in lung function. Such changes, as well as changes in severity classification, should be considered broadly and in their clinical context. Absolute values of lung function are unaffected. For further questions please contact the interpreting physician or PFT medical laboratory manager. For further discussion of this issue please see Ebony et al [facility] 2022;[phone]. Please Note: Not all PFT labs within, or outside of, our system will be transitioning to new reference equations at the same time. For this reason, please pay close attention to absolute values when comparing results done at different testing locations within or outside of our system. us Jam Riley MD PFT ORDERABLES Final Result * Urinalysis w/reflex Urine Culture (10/21/2024 4:15 PM EDT) COLOR Yellow Yellow [facility] CLARITY Clear [facility] GLUCOSE Negative Negative [facility] BILI Negative Negative [facility] KETONES Negative Negative [facility] SPECIFIC GRAVITY 1.020 1.005 - 1.030 [facility] BLOOD Negative Negative [facility] PH 6.0 5.0 - 8.0 [facility] Protein-UA Negative Negative [facility] NITRITE Negative Negative [facility] Leukocyte esterase, ur Negative Negative [facility] Urine (Urine) 10/21/2024 4:1 5 PM EDT 10/21/2024 4:24 PM EDT us Omaira Day MD URINE ORDERABLES Final R esult Performing Organization Address [facility] Co de Phone Number [address] [address] * TOTAL PROTEIN CREATININE RATIO, RANDOM URINE (10/21/2024 4:15 PM EDT) [facility] URINE TOTAL PROTEIN 5.0 mg/dL [facility] URINE CREATININE 79 mg/dL [facility] URINE TP CRE RATIO 0.06 0 - 0.19 [facility] Urine (Urine) 10/21/2024 4:1 5 PM EDT 10/21/2024 4:25 PM EDT us Omaira Day MD URINE ORDERABLES Final R esult Performing Organization Address [facility] de Phone Number [address] [address] * (ABNORMAL) CENTROMERE ANTIBODY (10/07/2024 4:11 PM EDT) [facility] CENTROMERE IGG 3.2(H) <1.0 (Negative) [facility] Comment: (NOTE) Interpretation: Positive (>=1.0) Blood 10/07/2024 4:11 PM EDT 10/07/2024 4:19 PM EDT Omaira Day MD LAB BLOOD ORDERABLES Fin al Result Performing Organization Address [facility] Co de Phone Number [facility] [address] [place] [address] * (ABNORMAL) Comprehensive metabolic panel (10/07/2024 4:11 PM EDT) [facility] SODIUM 134 133 - 146 mmol/L [facility] POTASSIUM 3.6 3.3 - 5.1 mmol/L [facility] CHLORIDE 98 96 - 108 mmol/L [facility] CO2 24 21 - 35 mmol/L [facility] BUN 12 6 - 19 mg/dL [facility] CREATININE 0.80 0.5 - 1.5 mg/dL [facility] GLUCOSE 89 70 - 99 mg/dL [facility] ALBUMIN 4.5 3.9 - 4.8 g/dL [facility] TOTAL PROTEIN 7.7 6.5 - 8.0 g/dL [facility] CALCIUM 9.8 8.4 - 10.3 mg/dL [facility] ALKALINE PHOSPHATASE 82 39 - 117 U/L [facility] TOTAL BILIRUBIN 1.5(H) 0.0 - 1.2 mg/dL [facility] AST 36 0 - 37 U/L [facility] ALT 38 0 - 40 U/L [facility] GLOBULIN 3.2 1 - 4.8 g/dL [facility] EGFR 104 >59 mL/min/1.7 3m2 [facility] Comment:Estimated glomerular filtration rate calculated using the CKD-EPI refit equation. ANION GAP 16 10 - 20 mmol/L [facility] Blood 10/07/2024 4:11 PM EDT 10/07/2024 4:19 PM EDT us Omaira Day MD LAB BLOOD ORDERABLES Fin al Result [address] [address] * TSH with reflex (10/07/2024 4:11 PM EDT) TSH 0.91 0.27 - 4.20 uIU/mL [facility] Blood 10/07/2024 4:11 PM EDT 10/07/2024 4:19 PM EDT Omaira Day MD LAB BLOOD ORDERABLES Fin al Result [address] [address] * Double stranded DNA antibodies (10/07/2024 4:11 PM EDT) ANTI DSDNA ANTIBODY Negative at 1:10 [facility] Comment: Kaity Funes M.D., Director Clinical Immunology Laboratory [id number] Normal: Negative at 1:10 To interpret a negative test for anti-clark's point or double stranded DNA antibodies in a patient suspected of having systemic lupus erythematosus, the following limitation should be noted. Anti-double stranded DNA antibodies are usually detected in SLE patients with active disease, especially in those with active renal disease. Anti-DNA antibodies are usually not detected in SLE patients with spontaneous or drug-induced remissions. Blood 10/07/2024 4:11 PM EDT 10/07/2024 4:20 PM EDT Omaira Day MD LAB BLOOD ORDERABLES Fin al Result [address] [address] * Anti-Mitochondrial Antibody (AMA) (10/07/2024 4:11 PM EDT) MITOCHONDRIAL AB M2 <0.1 <0.1 (Negative) [facility] Blood 10/07/2024 4:11 PM EDT 10/07/2024 4:19 PM EDT Omaira Day MD LAB BLOOD ORDERABLES Fin al Result Performing Organization Address City[facility]/ZIP Co de Phone Number [facility] [address] [place] [address] * Sedimentation rate (ESR) (10/07/2024 4:11 PM EDT) ESR 15 0 - 20 mm/h [facility] Blood 10/07/2024 4:11 PM EDT 10/07/2024 4:19 PM EDT Omaira Day MD LAB BLOOD ORDERABLES Fin al Result Performing Organization Address City/[facility]/ZIP Co de Phone Number [facility] [address] [place] [address] * (ABNORMAL) CBC and differential (10/07/2024 4:11 PM EDT) WBC 6.00 4.00 - 11.00 K/uL [facility] RBC 4.50 4.00 - 5.20 M/uL [facility] HGB 12.7 12.0 - 16.0 g/dL [facility] HCT 38.8 36.0 - 46.0 % [facility] PLT 328 150 - 450 K/uL [facility] MCV 86.2 80.0 - 100.0 fL [facility] MCH 28.2 27.0 - 31.0 pg [facility] MCHC 32.7 32.0 - 36.0 g/dL [facility] RDW 11.3(L) 11.5 - 14.5 % [facility] MPV 8.9 8.4 - 12.0 fL [facility] NRBC 0.00 0.00 /100 WBCs [facility] ABSOLUTE NRBC 0.00 0.00 K/uL [facility] DIFF METHOD Auto [facility] NEUTS 46.6(L) 48.0 - 76.0 % [facility] LYMPHS 42.5(H) 18.0 - 41.0 % [facility] MONOS 8.0 4.0 - 11.0 % [facility] EOS 2.2 0.0 - 5.0 % [facility] BASOS 0.7 0.0 - 1.5 % [facility] Granulocytes, immature (%) 0.0 0.0 - 0.9 % [facility] ABSOLUTE NEUTS 2.80 1.92 - 7.60 K/uL [facility] ABSOLUTE LYMPHS 2.55 0.72 - 4.10 K/uL [facility] ABSOLUTE MONOS 0.48 0.16 - 1.10 K/uL [facility] ABSOLUTE EOS 0.13 0.00 - 0.50 K/uL [facility] ABSOLUTE BASOS 0.04 0.00 - 0.15 K/uL [facility] Granulocytes, immature 0.00 0.00 - 0.09 K/uL [facility] Blood 10/07/2024 4:11 PM EDT 10/07/2024 4:19 PM EDT us Omaira Day MD LAB BLOOD ORDERABLES Fin al Result [address] [address] * Complement C3 (10/07/2024 4:11 PM EDT) C3 140 81 - 157 mg/dl [facility] Blood 10/07/2024 4:11 PM EDT 10/07/2024 4:20 PM EDT us Omaira Day MD LAB BLOOD ORDERABLES Fin al Result Performing Organization Address City/[facility]/ZIP Co de Phone Number [address] [address] * Complement C4 (10/07/2024 4:11 PM EDT) C4 17 12 - 39 mg/dL [facility] Blood 10/07/2024 4:11 PM EDT 10/07/2024 4:20 PM EDT us Omaira Day MD LAB BLOOD ORDERABLES Fin al Result Performing Organization Address [facility]/ZIP Co de Phone Number [address] [address] * C-Reactive Protein (10/07/2024 4:11 PM EDT) C REACTIVE PROTEIN <3.0 0.0 - 4.0 mg/L [facility] Blood 10/07/2024 4:11 PM EDT 10/07/2024 4:19 PM EDT us Omaira Day MD LAB BLOOD ORDERABLES Fin al Result Performing Organization Address City/[facility]/ZIP Co de Phone Number [address] [address] * Magnesium (10/07/2024 4:11 PM EDT) MAGNESIUM 1.9 1.6 - 2.6 mg/dL [facility] Blood 10/07/2024 4:11 PM EDT 10/07/2024 4:19 PM EDT us Omaira Day MD LAB BLOOD ORDERABLES Fin al Result Performing Organization Address City/[facility]/ZIP Co de Phone Number [address] [address] * CPK (creatine kinase) (10/07/2024 4:11 PM EDT) CREATINE KINASE 87 21 - 215 U/L [facility] Blood 10/07/2024 4:11 PM EDT 10/07/2024 4:19 PM EDT us Omaira Day MD LAB BLOOD ORDERABLES Fin al Result Performing Organization Address [facility] Co de Phone Number [address] [address] from Last 3 Months Insurance [facility] A[facility] [place] [address] [place] [address] [address] [place] [address] [place] [address] [place] [address] ACO [facility] A[employer] Care Teams [employer] Relationship Specialty Start Date End Date Leonie Gutierrez MD [address] [facility] [place] [id number] PCP - General Internal Medicine 01/25/23 Kennedy Kay MD [address] [place] [address] Pediatrics 04/10/19 Additional Source Comments The information contained in this document represents components of the legal health record. It is not the complete legal health record.[facility]
== END 2024-11-19 11:32 | disposition home or self-care (01) ==
LOC: HO.PMC 10:49
PROVIDERS: PCP Internal Medicine; Visit Provider Nurse Practitioner Family
DX: M41.9 Scoliosis, unspecified (principal); Q79.60 Ehlers-Danlos syndrome, unspecified; M54.9 Dorsalgia, unspecified; G89.29 Other chronic pain; M62.830 Muscle spasm of back; M54.50 Low back pain, unspecified
CPT/HCPCS: 99214

== ENCOUNTER → 2024-11-19 10:48 | Outpatient (BNVA) | payer OTHER, SELFPAY | PROVIDERS: PCP Internal Medicine; Visit Provider Nurse Practitioner Family | DX: Z71.2 Person consulting for explanation of examination or test findings (principal); M54.50 Low back pain, unspecified; M62.830 Muscle spasm of back; G89.29 Other chronic pain; M41.9 Scoliosis, unspecified; Q79.60 Ehlers-Danlos syndrome, unspecified | CPT/HCPCS: 99212 ==

== ENCOUNTER → 2024-12-13 19:06 | Outpatient (BNV) | payer OTHER, SELFPAY | PROVIDERS: PCP Internal Medicine; Visit Provider Radiology Diagnostic Radiology | DX: M41.86 Other forms of scoliosis, lumbar region (principal) | CPT/HCPCS: 72148 ==

== ENCOUNTER 2024-12-13 19:07 | Outpatient (REF) | payer OTHER, SELFPAY ==
--- NOTE | ~2024-12-13 | MR_ITS ---
CLINICAL HISTORY: M41.9 - Scoliosis, unspecified MR lumbar spine without gadolinium Comparison: None Findings: Left-sided curvature/levoscoliosis of the lumbar spine. Normal alignment without acute fracture or marrow infiltration. L5/S1 disc dehydration and mild disc bulge. Conus terminates at T12/L1. Unremarkable visualized cord, conus, and cauda equina. No evidence of significant central canal, lateral recess, or neural foraminal stenosis. Unremarkable paraspinal soft tissues and visualized abdomen. IMPRESSION: Left-sided curvature/levoscoliosis of the lumbar spine. No evidence of significant central canal, lateral recess, or neural foraminal stenosis. This document has been electronically signed by: Marimar Casper MD on 12/16/2024 11:34:55
== END 2024-12-13 19:08 | disposition home or self-care (01) ==
LOC: HO.MRI 19:07
PROVIDERS: PCP Internal Medicine; Visit Provider Nurse Practitioner Family
DX: M41.9 Scoliosis, unspecified (principal); M54.9 Dorsalgia, unspecified; G89.29 Other chronic pain; Q79.60 Ehlers-Danlos syndrome, unspecified; M54.50 Low back pain, unspecified
CPT/HCPCS: 72148

== ENCOUNTER 2024-12-20 09:07 | Outpatient (AMB) | payer OTHER, SELFPAY ==
--- OUTSIDE RECORDS SUMMARY | 2023-06-23 11:45 | XMS_ITS ---
Author Organization [facility] Address [address] [place] [address] Care Team Providers Care Processing Supervisor Name Role Phone MARCIO FISHER [phone] REASON FOR VISIT Annual Exam Medications Medication [...] Female Encounters Encounter Location Date Provider Diagnosis [facility] [address] [place] [id number] 06/23/2023 MARCIO FISHER Plan Of Treatment No Information Progress Notes * Liss LIPSCOMBDOB: [birth year] (29 yo F)Acc No.[id number]:06/23/2023 Progress Notes Patient: Liss Stephen Provider: Thania Fisher NP :1995 A ge:27 Y S ex:Female Date:06/23/2023 Address:[address], [id number] Subjective: * Chief Complaints: * A nnual [...] Electronic signature of ZULAY FISHER NP on 12/20/2024 at 09:53 AM EDT Sign off status: Pending * Provider: Thania Fisher NP Date: 0 06/23/2023 Generated for Richard oglesby/Nate/Dayami on: 1 09:53 AM EDT
--- OUTSIDE RECORDS SUMMARY | 2023-07-28 07:00 | XMS_ITS ---
Author Organization [facility] Address [address] [place] [address] Care Team Providers Care Denture Processor Name Role Phone MARCIO FISHER Unavailable [phone] REASON FOR VISIT Annual Exam Social History Sex Assigned At : Social History Observation Description Sex Assigned At Female Encounters Encounter Location Date Provider Diagnosis [facility] [address] [place] [phone] 07/28/2023 MARCIO FISHER Plan Of Treatment No Information Progress Notes * Liss LIPSCOMBDOB: [birth year] (29 yo F)Acc No.[id number]:07/28/2023 Progress Notes Patient: Liss Stephen Provider: Thania Fisher NP :1995 A ge:27 Y S ex:Female Date:07/28/2023 Address:[address], [id number] Subjective: * Chief Complaints: * A nnual Exam Billing Information: * Procedure Codes: * Electronic signature of ZULAY FISHER NP on 12/20/2024 at 09:54 AM EDT Sign off status: Pending * Provider: Thania Fisher NP Date: 07/28/2023 Generated for Richard oglesby/Nate/Jaymeitting on: 09:54 AM EDT
--- NOTE | 2024-12-20 09:09 | A.OFFVIS_ITS ---
Vital Signs 12/20/24 09:13 Height 5 ft 2 in Weight 141 lb BMI 25.8 BP 105/60 Blood Pressure Location Rt brachial Position Sitting Pulse 77 Pulse Source Pulse Oximeter Pulse Oximetry (%) 100 Oxygen Delivery Method Room Air Intake Visit Reasons: Discuss MRI Results Intake Note: Pain today 08/13 Chemical Lab Supervisor Required: No Accompanied by: Self / Same As Patient Allergies naproxen Allergy (Mild, Verified 12/20/24 09:13) gi upset Seasonal Allergies Allergy (Mild, Verified 12/20/24 09:13) Runny Nose HPI Comments Details: The patient is a 29-year-old female presenting with lumbar scoliosis and associated pain and to discuss recent lumbar spine MRI results. The scoliosis is left-sided, causing more discomfort on the left side of her back, which is where she feels the curvature pulls. The patient underwent an MRI on December 16, which revealed dehydration of the intervertebral disc and a minor disc bulge at L5-S1. The patient reports numbness radiating down her legs, and experiences urinary urgency and pelvic floor weakness, which she associates with her scoliosis, EDS, muscle spasms and disc issues. The patient has a history of cervical spine narrowing at C5-C6, with no fractures or dislocations noted in previous imaging. The patient has tried physical therapy in the past, most recently over the summer, and is considering returning to it, particularly pelvic floor physical therapy. She is concerned about the potential for injections to cause further weakness and instability, preferring to explore non-invasive options first. PRIOR: The patient is a 29-year-old female presenting with chronic low back pain. The pain has been chronic and persistent through the summer and is exacerbated by sitting for extended periods at computer desk and certain movements such as bending backward. The pain radiates to the legs, alternating between the right and left sides, and is associated with muscle stiffness and spasms. 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 She also has thoracolumbar scoliosis, which exacerbates her back pain and muscle stiffness and disrupts her sleep. Previous physical therapy consisting total of 10 sessions (August-October 2024) provided a foundation for exercises but did not significantly alleviate the pain. The patient has not undergone an MRI for her lower back, although it was previously considered but denied due to lack of prior physical therapy. She has been using a TENS unit and has tried various therapies, including chiropractic adjustments and cupping, with temporary relief. The patient reports that muscle relaxants like baclofen provide some relief but can lead to excessive muscle relaxation and instability. Denies any recent cough, cold, infection, fever or any significant changes in medical history since last office visit. PRIOR: The patient is a 28-year-old female presenting with chronic back pain. She initially noticed her scoliosis in high school, which progressed following a cheerleading accident. Her current scoliosis angle is less than 40 degrees, mitigating the need for surgery as per the Orthopedist's evaluation, Dr. Robles at [facility]. Pain is primarily sensed on the left side of low back, exacerbating into the hips and lower limbs with ongoing muscle spasms and joint hypermobility associated with Rachel-Danlos Syndrome. Pain is most severe at nighttime ranging 8/10 and least severe pain in early afternoon, ranging 5/10. Her back pain does radiate to the left lower extremity anteriorly and posteriorly with associated intermittent numbness and tingling, balance issues and clumsiness, and cooler sensations in the left side of the body. Denies bladder or bowel dysfunction, weakness, foot drop, or saddle anesthesia. The pain interferes with daily activities, especially her posture and sleep. She previously took meloxicam but discontinued it due to elevated liver enzymes. Baclofen offers some relief but causes excessive muscle relaxation and fatigue. The patient is currently at physical therapy through [facility] and finds physical therapy beneficial and declines the use of a brace in favor of continued physical therapy, fearing muscle atrophy. She has also attended chiropractic adjustments, massage therapy and acupuncture with mild improvement. She is keen on exploring a TENS unit as a non-invasive adjunct for pain therapy. - Onset: Began in high school, worsened over the years - Location: Back, radiating to hips and lower left extremity - Quality: Aching with tightness from muscle spasms, shooting, tugging, pulling, heavy, dull, tiring, sore. - Radiation: Left hip and lower left extremity - Exacerbating Factors: Poor posture, prolonged lying flat, prolonged sitting - Relieving Factors: Reclined positions, physical therapy - Interference: Impacts sleep, daily activities and work - Affect: Pain impacts sleep and causes stress - Analgesia: Baclofen for muscle spasms; previous use of meloxicam discontinued - Adverse Effects: Elevated liver enzymes from meloxicam, fatigue from baclofen - Activities of Daily Living: Notices altered posture, difficulty sleeping - Aberrant Drug Related Behaviors: None reported [facility] Medical History Vitamin D deficiency Scleroderma Scoliosis Anemia Asthma Rachel-Danlos disease Dysphagia Hx of infectious mononucleosis Right ankle pain Right shoulder pain Polyarthralgia Physical exam Mild recurrent major depression Fibroadenoma of right breast Surgical History Hx of colonoscopy History of esophagogastroduodenoscopy (EGD) H/O breast biopsy Family History Father Hypertension Mother No problems noted. Maternal Grandfather Diabetes mellitus Maternal Grandmother Diabetes mellitus Brother Depression Family/Other Substance use disorder Mental health disorder Social History Housing: House Are you a primary patient care nursing assistant to a significant other at home: No Do you presently have visiting nurse or other home services: No Alcohol intake: current Alcohol intake frequency: a few times a month Alcohol type: wine Patient Tobacco Use Status: Never used Tobacco e-Cigarette/Vaping Use: Never Used Second Hand Smoke Exposure: No Substance Use Type: Marijuana service: No Current occupational status: employed Current occupational exposures/hazards: No Cognitive needs: No Hearing needs: No Vision needs: No Female Reproductive History Menstrual Age of Menarche: 14 Review of Systems Const Details: - Musculoskeletal: Reports lower back pain, left-sided scoliosis, and numbness in legs. - Genitourinary: Reports urinary urgency, denies urinary incontinence. - Neurological: Reports numbness in legs, denies radiating pain from back. - Gastrointestinal: Reports constipation and pressure, denies bowel incontinence. All systems reviewed & are unremarkable except as noted in HPI and below Physical Exam Vital Signs: Last Vital Signs Pulse 77 12/20/24 09:13 BP 105/60 12/20/24 09:13 Pulse Ox 100 12/20/24 09:13 Oxygen Delivery Method Room Air 12/20/24 09:13 BMI result Body Mass Index 25.8 General: Appears afebrile. Alert and oriented. Mood and affect appropriate. Follows and participates in conversation appropriately. Respiratory effort is unlabored. No cough. Able to transition from sit to stand unassisted. Ambulates with bilaterally normal heel strike and toe off. General: Yes no CVA tenderness Back/Spine/Pelvis Other: Normal gait, no limping. Lumbar flexion and extension reproduce mild to moderate pain. Demonstrates 5/5 strength of quadriceps bilaterally as well as flexion/dorsiflexion of bilateral feet against resistance. 2+ pedal pulses bilaterally. Straight leg rise with dorsiflexion negative bilaterally. +2 patellar and achilles reflexes bilaterally. Facet loading test positive bilaterally. Anitha sign, Oj?s and Stinchfield tests are negative bilat erally. No groin pain with I/E hip rotations. Valsalva maneuver negative. Reduced sensory perception in the left lower extremity. Back: no CVA tenderness Cervical Spine: cervical ROM normal, cervical muscular tenderness, pain with cervical ROM and No Cervical spine tenderness Thoracic/Lumbar Spine: thoracic and lumbar spine normal to inspection, No Thoracic/lumbar spine scar(s), Lasegue's sign negative, straight leg raise negative bilaterally, pain with thoraco-lumbar ROM, paraspinal muscle tenderness, thoraco-lumbar ROM limited, Thoracic/lumbar scoliosis, thoracic spinal tenderness (mid to low thoracic) and lumbar spinal tenderness (upper lumbar) Pelvis: no buttock tenderness Sacroiliac joints: bilaterally nontender Results Reviewed Results Reviewed: XR thoracic spine 3V 03/04/24 CLINICAL HISTORY: R25.2 - Cramp and spasm 3 views thoracic spine Comparison: CR - XR LUMBAR SPINE 6V W BENDING - 03/01/24 12:05 EST Findings: Thoracolumbar S shaped scoliosis. Satisfactory alignment of the vertebral bodies. No acute fractures or dislocation. Vertebral body heights are well-maintained. No significant degenerative change. IMPRESSION: 1. Thoracolumbar S-shaped scoliosis. 2. No acute process or significant degenerative changes. XR LUMBAR SPINE 2-3 VIEWS 08/12/24 HISTORY: M54.9 - Dorsalgia, unspecified COMPARISON: Comparison is made with the prior examination dated 03/01/2024. FINDINGS: AP, lateral, and coned down views of the lumbar spine are submitted. Osseous mineralization is normal. Five nonrib-bearing lumbar vertebral bodies are identified, maintaining normal height without evidence of fracture or spondylolisthesis. There is moderate rotatory levoscoliosis. The intervertebral disc spaces are preserved. The posterior elements are intact. The visualized paraspinal soft tissues are unremarkable. IMPRESSION: Moderate rotatory levoscoliosis. Otherwise unremarkable examination of the lumbar spine. MR lumbar spine wo con 12/16/24 CLINICAL HISTORY: M41.9 - Scoliosis, unspecified MR lumbar spine without gadolinium Comparison: None Findings: Left-sided curvature/levoscoliosis of the lumbar spine. Normal alignment without acute fracture or marrow infiltration. L5/S1 disc dehydration and mild disc bulge. Conus terminates at T12/L1. Unremarkable visualized cord, conus, and cauda equina. No evidence of significant central canal, lateral recess, or neural foraminal stenosis. Unremarkable paraspinal soft tissues and visualized abdomen. IMPRESSION: Left-sided curvature/levoscoliosis of the lumbar spine. No evidence of significant central canal, lateral recess, or neural foraminal stenosis. Assessment & Plan Assessment & Plan (1) Low back pain: Code(s): M54.50 - Low back pain, unspecified Category: Medical (2) Urinary urgency: Code(s): R39.15 - Urgency of urination Category: Medical (3) Chronic mid back pain: Code(s): M54.9 - Dorsalgia, unspecified; G89.29 - Other chronic pain Category: Medical (4) Muscle spasm of back: Code(s): M62.830 - Muscle spasm of back Category: Medical (5) Scoliosis of thoracolumbar spine: Code(s): M41.9 - Scoliosis, unspecified Category: Medical (6) Pelvic pain: Code(s): R10.2 - Pelvic and perineal pain Category: Medical (7) Rachel-Danlos syndrome: Comment: hypermobile. Genetic testing not yet completed- needing insurance clearance. Normal echocardiogram. Code(s): Q79.60 - Rachel-Danlos syndrome, unspecified Category: Medical Plan The plan includes initiating pelvic floor physical therapy to address pelvic floor weakness and urinary urgency, as these are associated with the patient's lumbar scoliosis, EDS and disc issues. If the back pain persists, lumbar medial branch blocks may be considered as a diagnostic tool to assess the source of pain and determine the effectiveness of potential treatments. The patient is advised to continue using a standing desk to alternate between sitting and standing, which may help alleviate some of the discomfort associated with prolonged sitting and prevent further L5-S1 disc degeneration. The patient is encouraged to explore non-invasive options before considering injections, due to concerns about potential weakness and instability from such p rocedures. Heat application on the left side of the back is recommended to reduce muscle stiffness and reliance on systemic muscle relaxants like baclofen. All questions and concerns have been answered and patient agreed with the treatment plan. Follow up as needed. Patient was informed and verbally consented to the use of an ambient scribe for clinic note documentation during this visit. Orders: Referrals Pelvic Practicing Urologist Referral M41.9 - Scoliosis, unspecified, M54.50 - Low back pain, unspecified, R39.15 - Urgency of urination Coding Level of Care Code Est Pt Level 4 (77749) Complex EM visit Add On G2211 Diagnoses Low back pain M54.50 Urinary urgency R39.15 Chronic mid back pain M54.9; G89.29 Muscle spasm of back M62.830 Scoliosis of thoracolumbar spine M41.9 Pelvic pain R10.2 Rachel-Danlos syndrome Q79.60
[2024-12-20 09:13] VITALS: BP 105/60; PULSE 77; O2SAT 100; BMI 25.8
--- OUTSIDE RECORDS SUMMARY | 2024-12-20 09:53 | XMS_ITS | Encounter Summary ---
Author Organization [facility] Address [address] [facility] [address] [place] [address] Phone Care Team Providers Care Adjuster Arbitrator Name Role Phone Kennedy Kay MD Unavailable [phone] Jessica Gutierrez MD Primary Care Provid er Reason for Visit * Reason Onset Date Comments Muscle Pain 09/27/2024 Encounter Details Date Type Department Care Team ([facility] st Contact Info) Description 09/27/2024 Telephone [facility] Pulmonary, Allergy and Critical Care Medicine [address] [facility] [place] [address] Sandra [email or web address] Muscle Pain Social History Tobacco Use Types [...] 10/02/2024 6:16 PM EDT Orders signed in [facility]. * Juno Lopez LPN - 09/30/2024 2:06 PM EDT Patient has been having this flare approximately 6 weeks. Along with the ongoing widespread muscle pain, fatigue, abdominal discomfort, and joint pain she is having nerve pain in arms and legs. She did see Dr Robles last week at [facility] and he is ordering EMGs for [...] call. Please contact and advise. Central Support Community Health Agent (Please do not reply to this user; [...] and AST).Please contact and advise. Central Support Community Health Agent (Please do not reply to this user; this inbox is not monitored.) Thank you. documented in this encounter Plan of Treatment Upcoming Encounters Date Type Department Care Team (Late st Contact Info) Description 01/10/2025 3:30 PM EST Office Visit [facility] Rheumatology [address] [place] [address] Omaira Day MD [address] [facility], [address] [place] [address] [email or web address] documented as of this encounter Visit Diagnoses Not on filedocumented in this encounter Care Teams Adjuster Arbitrator Relationship Specialty Start Date End Date Jessica Gutierrez MD [address] [place] [address] PCP - General Internal Medicine 01/25/23 Kennedy Kay MD [address] [place] [address] Pediatrics 04/10/19 documented as of this encounter Additional Source Comments The information contained in this document represents components of the legal health record. It is not the complete legal health record.[facility]
--- OUTSIDE RECORDS SUMMARY | 2024-12-20 09:54 | XMS_ITS | Patient Health Record ---
Author Organization [facility] Address [address] [place] [address] Support Name Relationship Address Phone Liss Lipscomb [...] Notes PrEP for HIV Is the client intermichel worthyd in beginning/continuing PrEP for HIV? No Sexual [...] ATT CLAIMS [address] [place] [address] [phone] Liss Lipscomb Self - patient is the insured Medical (General) History Medical History History ICD Code Migraines Asthma as a child Depression/axniety Breast Fibroadenoma Hx since age 18 yrs, dx with u/s diverticulosis dx 07/2023 pelvic PT for incontinence and dyspareun ia as of 08/2023
--- OUTSIDE RECORDS SUMMARY | 2024-12-20 09:54 | XMS_ITS | Encounter Summary ---
Author Organization [facility] Address [address] [facility] [address] [place] [address] Phone Care Team Providers Care Viticulture Teacher Name Role Phone Kennedy Kay MD Unavailable [phone] Jessica Gutierrez MD Primary Care Provid er Encounter Details Date Type Department Care Team (Late st Contact Info) Description 05/11/2023 Procedure Pass [facility], Ct Scan - [address] [address] Social History Tobacco Use Types Packs/Day Years [...] Description 01/10/2025 3:30 PM EST Office Visit [facility] Rheumatology [address] [place] [address] Omaira Day MD [address] [facility], [address] [place] [address] [email or web address] documented as of this encounter Visit Diagnoses Not on filedocumented in this encounter Care Teams Viticulture Teacher Relationship Specialty Start Date End Date Jessica Gutierrez MD [address] [place] [address] PCP - General Internal Medicine 01/25/23 Kennedy Kay MD [address] [place] [address] Pediatrics 04/10/19 documented as of this encounter Additional Source Comments The information contained in this document represents components of the legal health record. It is not the complete legal health record.[facility]
--- OUTSIDE RECORDS SUMMARY | 2024-12-20 09:54 | XMS_ITS | Clinical Summary ---
Author Organization [facility] Address [address] [place] [address] Phone Care Team Providers Care Missile Control Pilot Name Role Phone Jessica Chavez MD Primary Care Provider [phone] Allergies No known active allergies Medications No [...] of Health Screening 07/23/2021 Depression Screening 03/06/2024 HPV Vaccines (1 - 3-dose SCDM series) 2024 COVID-19 Vaccine (3 - 2024- season) 2024 07/06/2021, 06/03/2020 Influenza Vaccine (#1) 2024 , 01/09/2020, 12/21/2018, Additional history exists DTaP,Tdap,and Td Vaccines (3 - Td or Tdap) 01/08/2032 01/07/2022, 12/11/2018 RSV Immunization Adult Patients (1 - 1-dose 75+ series) 2072 Meningococcal ACWY Vaccine Completed 07/29/2014 Hepatitis A [...] patient's age to complete this topic Insurance [facility] [employer] Care Teams Missile Control Pilot Relationship Specialty Start Date End Date Jessica Chavez MD [address] [facility] , [address] [facility] D/B/A: [facility] [place], [place] PCP - General Internal Medicine 02/06/24
--- OUTSIDE RECORDS SUMMARY | 2024-12-20 09:54 | XMS_ITS | Encounter Summary ---
Author Organization [facility] Address [address] [facility] [address] [place] [address] Phone Care Team Providers Care Plastic Extruding Machine Operator Name Role Phone Kennedy Kay MD Unavailable [phone] Aline Cole MD Primary Care Provider Jessica Gutierrez MD Primary Care Provid er Encounter Details Date Type Department Care Team (Late st Contact Info) Description 11/12/2022 Procedure Pass [facility] [address] [place] [address] Social History Tobacco Use Types Packs/Day Years [...] Description 01/10/2025 3:30 PM EST Office Visit [facility] [place] [address] Omaira Day MD [address] [facility], [address] [place] [address] [email or web address] documented as of this encounter Visit Diagnoses Not on filedocumented in this encounter Care Teams Plastic Extruding Machine Operator Relationship Specialty Start Date End Date Aline Cole MD [facility] [place] [address] PCP - General Internal Medicine 09/09/19 01/24/23 Jessica Gutierrez MD [address] [place] [address] PCP - General Internal Medicine 01/25/23 Kennedy Kay MD [address] [place] [address] Pediatrics 04/10/19 documented as of this encounter Additional Source Comments The information contained in this document represents components of the legal health record. It is not the complete legal health record.[facility]
--- OUTSIDE RECORDS SUMMARY | 2024-12-20 09:54 | XMS_ITS | Clinical Summary ---
Author Organization [facility] Address [address] [facility] [address] [place] [address] Phone Care Team Providers Care Gas Stove Servicer Helper Name Role Phone Kennedy Kay MD Unavailable [phone] Leonie Gutierrez MD Primary Care Provid er [...] -Encourage exercise -Follow-up results of EGD (at [facility] in 07/2023 per patient) in the [...] referral for a formal genetic consultation at [facility] with Dr. Rigoberto Owens [...] referral for a formal genetic consultation at [facility] with Dr. Rigoberto Owens [...] PM EDT): Prescribed Breo Ellipta trial by human resources coordinator-Dr. Sean Hammonds. Avoid known triggers especially vaping. [...] to her report present since childhood and [id number]-[id number]-ottesh than in younger age. No need for [...] help if developing Scleroderma, CREST, including avoiding Phillips fruits, tomatoes, greasy fried foods, Coffee, garlic, [...] Pulmonary, Allergy and Critical Care Medicine [address] [place] [address] Jam Riley MD Results 11/11/2024 6:00 PM EDT - 11/11/2024 11:59 PM EDT Hospital Encounter [facility] [address] [place] [address] Jam Riley MD Discharge Disposition: Home or Self Care 11/05/2024 Transcribe Orders [facility] [address] [place] [address] Jam Riley MD 10/21/2024 4:18 PM EDT - 10/21/2024 11:59 PM EDT Hospital Encounter [facility] Laboratory [address] [place] [address] Omaira Day MD Discharge Disposition: Home or Self Care 10/16/2024 Telephone [facility] Pulmonary, Allergy and Critical Care Medicine [address] [place] [address] Jma Riley MD Medication Prior Authorization (PA for albuterol-budesonide (AIRSUPRA) 90-80 mcg/actuation inhaler) 10/07/2024 4:04 PM EDT - 10/07/2024 11:59 PM EDT Hospital Encounter [facility] Laboratory [address] [place] [address] Omaira Day MD Discharge Disposition: Home or Self Care 10/04/2024 Telephone [facility] Pulmonary, Allergy and Critical Care Medicine [address] [place] [address] Sandra Goldsmith Medication Question; Chest Pain 10/02/2024 Orders Only [facility] Rheumatology [address] [place] [address] Omaira Day MD Positive LEONIE (antinuclear antibody) (Primary Dx); Centromere antibody positive; Polyarthralgia; Other dysphagia; Cold sensitivity; Muscle spasm 09/27/2024 Telephone [facility] Pulmonary, Allergy and Critical Care Medicine [address] [facility] [place], [place] [id number] Sandra Goldsmith Muscle Pain from Last 3 Months Family History Medical [...] Upcoming Encounters Date Type Department Care Team (Greg chavez Contact Info) Description 01/10/2025 3:30 PM EST Office Visit [facility] Rheumatology [address] [place] [address] Omaira Day MD [address] [facility], [address] [place] [address] [email or web address] Due Date Last Done Comments [...] 01/09/2020, 12/21/2018, Additional history exists COVID-19 VACCINE (3 - season) 2024 07/06/2021, 06/03/2020 Adult Td,Tdap [...] with bronchodilator, DLCO, Lung Volumes; Performing Location: [facility] (11/11/2024 6:45 PM EDT) FEV1 2.87 liters FVC 3.32 liters FEV1/FVC [...] response. Technical Note: As of 01/16/2024, the [facility] Pulmonary Function Testing (PFT) Laboratory transitioned [...] please contact the interpreting physician or PFT scientific laboratory supervisor. For further discussion of this issue please see Ebnoy et al [facility] 2022;[phone]. Please Note: Not all PFT labs within, [...] (10/21/2024 4:15 PM EDT) COLOR Yellow Yellow [facility] CLARITY Clear [facility] GLUCOSE Negative Negative [facility] BILI Negative Negative [facility] KETONES Negative Negative [facility] SPECIFIC GRAVITY 1.020 1.005 - 1.030 [facility] BLOOD Negative Negative [facility] PH 6.0 5.0 - 8.0 [facility] Protein-UA Negative Negative [facility] NITRITE Negative Negative [facility] Leukocyte esterase, ur Negative Negative [facility] Urine (Urine) 10/21/2024 4:1 5 PM EDT 10/21/2024 4:24 PM EDT us Omaira Day MD URINE ORDERABLES Final R esult [facility] [address] [place] [address] * TOTAL PROTEIN CREATININE RATIO, RANDOM URINE (10/21/2024 4:15 PM EDT) URINE TOTAL PROTEIN 5.0 mg/dL [facility] URINE CREATININE 79 mg/dL [facility] URINE TP CRE RATIO 0.06 0 - 0.19 [facility] Urine (Urine) 10/21/2024 4:1 5 PM EDT 10/21/2024 4:25 PM EDT Omaira Day MD URINE ORDERABLES Final R esult Performing Organization Address City/[facility]/ZIP Co de Phone Number [facility] [address] [place], [place] [id number] * (ABNORMAL) CENTROMERE ANTIBODY (10/07/2024 4:11 PM EDT) Pathologist [facility] CENTROMERE IGG 3.2(H) <1.0 (Negative) U [place] [facility] Comment: (NOTE) Interpretation: Positive (>=1.0) Blood 10/07/2024 4:11 PM EDT 10/07/2024 4:19 PM EDT Omaira Day MD LAB BLOOD ORDERABLES Fin al Result Performing Organization Address City/[facility]/ZIP Co de Phone Number [facility] [address] [place] [address] * (ABNORMAL) Comprehensive metabolic panel (10/07/2024 4:11 PM EDT) Pathologist [facility] SODIUM 134 133 - 146 mmol/L [facility] POTASSIUM 3.6 3.3 - 5.1 mmol/L [facility] CHLORIDE 98 96 - 108 mmol/L [facility] CO2 24 21 - 35 mmol/L [facility] BUN 12 6 - 19 mg/dL [facility] CREATININE 0.80 0.5 - 1.5 mg/dL [facility] GLUCOSE 89 70 - 99 mg/dL [facility] ALBUMIN 4.5 3.9 - 4.8 g/dL [facility] TOTAL PROTEIN 7.7 6.5 - 8.0 g/dL [facility] CALCIUM 9.8 8.4 - 10.3 mg/dL [facility] ALKALINE PHOSPHATASE 82 39 - 117 U/L [facility] TOTAL BILIRUBIN 1.5(H) 0.0 - 1.2 mg/dL [facility] AST 36 0 - 37 U/L [facility] ALT 38 0 - 40 U/L [facility] GLOBULIN 3.2 1 - 4.8 g/dL [facility] EGFR 104 >59 mL/min/1.7 3m2 [facility] Comment:Estimated glomerular filtration rate calculated using the CKD-EPI refit equation. ANION GAP 16 10 - 20 mmol/L [facility] Blood 10/07/2024 4:11 PM EDT 10/07/2024 4:19 PM EDT Omaira Day MD LAB BLOOD ORDERABLES Fin al Result Performing Organization Address City/[facility]/ZIP Co de Phone Number [address] [address] * TSH with reflex (10/07/2024 4:11 PM EDT) TSH 0.91 0.27 - 4.20 uIU/mL [facility] Blood 10/07/2024 4:11 PM EDT 10/07/2024 4:19 PM EDT Omaira Day MD LAB BLOOD ORDERABLES Fin al Result [address] [address] * Double stranded DNA antibodies (10/07/2024 4:11 PM EDT) ANTI DSDNA ANTIBODY Negative at 1:10 [facility] Comment: Kaity Funes M.D., Director Clinical Immunology Laboratory [id number] Normal: Negative at 1:10 To interpret a negative test for anti-choctaw or double stranded DNA antibodies in a [...] MD LAB BLOOD ORDERABLES Fin al Result [facility] [address] [place] [address] * Anti-Mitochondrial Antibody (AMA) (10/07/2024 4:11 PM EDT) MITOCHONDRIAL AB M2 <0.1 <0.1 (Negative) U [facility] MED/[facility] Blood 10/07/2024 4:11 PM EDT 10/07/2024 4:19 PM EDT Omaira Day MD LAB BLOOD ORDERABLES Fin al Result Performing Organization Address [facility] Co de Phone Number [facility] LAB MED/[facility] [address] [place] [address] * Sedimentation rate (ESR) (10/07/2024 4:11 PM EDT) Pathologist [facility] ESR 15 0 - 20 mm/h [facility] Blood 10/07/2024 4:11 PM EDT 10/07/2024 4:19 PM EDT Omaira Day MD LAB BLOOD ORDERABLES Fin al Result Performing Organization Address [facility]/ZIP Co de Phone Number [facility] [address] [place] [address] * (ABNORMAL) CBC and differential (10/07/2024 4:11 PM EDT) WBC 6.00 4.00 - 11.00 K/uL [facility] RBC 4.50 4.00 - 5.20 M/uL [facility] HGB 12.7 12.0 - 16.0 g/dL [facility] HCT 38.8 36.0 - 46.0 % [facility] PLT 328 150 - 450 K/uL [facility] MCV 86.2 80.0 - 100.0 fL [facility] MCH 28.2 27.0 - 31.0 pg [facility] MCHC 32.7 32.0 - 36.0 g/dL [facility] RDW 11.3(L) 11.5 - 14.5 % [facility] MPV 8.9 8.4 - 12.0 fL [facility] NRBC 0.00 0.00 /100 WBCs [facility] ABSOLUTE NRBC 0.00 0.00 K/uL [facility] DIFF METHOD Auto [facility] NEUTS 46.6(L) 48.0 - 76.0 % [facility] LYMPHS 42.5(H) 18.0 - 41.0 % [facility] MONOS 8.0 4.0 - 11.0 % [facility] EOS 2.2 0.0 - 5.0 % [facility] BASOS 0.7 0.0 - 1.5 % [facility] Granulocytes, immature (%) 0.0 0.0 - 0.9 % [facility] ABSOLUTE NEUTS 2.80 1.92 - 7.60 K/uL [facility] ABSOLUTE LYMPHS 2.55 0.72 - 4.10 K/uL [facility] ABSOLUTE MONOS 0.48 0.16 - 1.10 K/uL [facility] ABSOLUTE EOS 0.13 0.00 - 0.50 K/uL [facility] ABSOLUTE BASOS 0.04 0.00 - 0.15 K/uL [facility] Granulocytes, immature 0.00 0.00 - 0.09 K/uL [facility] Blood 10/07/2024 4:11 PM EDT 10/07/2024 4:19 PM EDT us Omaira Day MD LAB BLOOD ORDERABLES Fin al Result [address] [address] * Complement C3 (10/07/2024 4:11 PM EDT) C3 140 81 - 157 mg/dl [facility] Blood 10/07/2024 4:11 PM EDT 10/07/2024 4:20 PM EDT Omaira Day MD LAB BLOOD ORDERABLES Fin al Result [address] [address] * Complement C4 (10/07/2024 4:11 PM EDT) C4 17 12 - 39 mg/dL [facility] Blood 10/07/2024 4:11 PM EDT 10/07/2024 4:20 PM EDT Omaira Day MD LAB BLOOD ORDERABLES Fin al Result [address] [address] * C-Reactive Protein (10/07/2024 4:11 PM EDT) C REACTIVE PROTEIN <3.0 0.0 - 4.0 mg/L [facility] Blood 10/07/2024 4:11 PM EDT 10/07/2024 4:19 PM EDT Omaira Day MD LAB BLOOD ORDERABLES Fin al Result [address] [address] * Magnesium (10/07/2024 4:11 PM EDT) MAGNESIUM 1.9 1.6 - 2.6 mg/dL [facility] Blood 10/07/2024 4:11 PM EDT 10/07/2024 4:19 PM EDT us Omaira Day MD LAB BLOOD ORDERABLES Fin al Result [address] [address] * CPK (creatine kinase) (10/07/2024 4:11 PM EDT) CREATINE KINASE 87 21 - 215 U/L [facility] Blood 10/07/2024 4:11 PM EDT 10/07/2024 4:19 PM EDT us Omaira Day MD LAB BLOOD ORDERABLES Fin al Result Performing Organization Address [facility] Co de Phone Number [address] [address] from Last 3 Months Insurance [facility] [employer] [facility] [employer] [facility] [place] [address] [place] [address] [employer] [facility] [employer] Care Teams Gas Stove Servicer Helper Relationship Specialty Start Date End Date Leonie Gutierrez MD [address] [facility] [place] [address] PCP - General Internal Medicine 01/25/23 Kennedy Kay MD [address] [facility] [place] [address] Pediatrics 04/10/19 Additional Source Comments The information contained in this document represents components of the legal health record. It is not the complete legal health record.[facility]
--- OUTSIDE RECORDS SUMMARY | 2024-12-20 09:54 | XMS_ITS | Encounter Summary ---
Author Organization [facility] Address [address] [facility] [address] [place] [address] Phone Care Team Providers Care Direct Mail Coordinator Name Role Phone Kennedy Kay MD Unavailable [phone] Jessica Gutierrez MD Primary Care Provid er Reason for Visit * Reason Onset Date Comments Medication Question 10/04/2024 Chest Pain 10/04/2024 Encounter Details Date Type Department Care Team ([facility] st Contact Info) Description 10/04/2024 Telephone [facility] Pulmonary, Allergy and Critical Care Medicine [address] [facility] [place] [address] [place] [address] Sandra [email or web address] Medication Question; Chest Pain Social History Tobacco [...] breathing. 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 * Jamilah Avila - 10/11/2024 3:14 PM EDT PT lvm on the triage line returning phone call to Pearl. Requesting call back. Central Support Water Inspector (Please do not reply to this [...] be fine with that too. Central Support Water Inspector (Please do not reply to this user; this inbox is not monitored.) Thank you. documented in this encounter Plan of Treatment Upcoming Encounters Date Type Department Care Team (Late st Contact Info) Description 01/10/2025 3:30 PM EST Office Visit [facility] Rheumatology [address] [place] [address] Omaira Day MD [address] [facility], [address] [place] [address] [email or web address] documented as of this encounter Visit Diagnoses Diagnosis Mild intermittent asthma without complication- Primary documented in this encounter Care Teams Direct Mail Coordinator Relationship Specialty Start Date End Date Jessica Gutierrez MD [address] [place] [address] PCP - General Internal Medicine 01/25/23 Kennedy Kay MD [address] [place] [address] Pediatrics 04/10/19 documented as of this encounter Additional Source Comments The information contained in this document represents components of the legal health record. It is not the complete legal health record.[facility]
== END 2024-12-20 09:35 | disposition home or self-care (01) ==
LOC: HO.PMC 09:07
PROVIDERS: PCP Internal Medicine; Visit Provider Nurse Practitioner Family
DX: M54.50 Low back pain, unspecified (principal); R39.15 Urgency of urination; M54.9 Dorsalgia, unspecified; G89.29 Other chronic pain; M62.830 Muscle spasm of back; M41.9 Scoliosis, unspecified; R10.20 Pelvic and perineal pain unspecified side; Q79.60 Ehlers-Danlos syndrome, unspecified
CPT/HCPCS: 99214

== ENCOUNTER → 2024-12-20 09:07 | Outpatient (BNVA) | payer OTHER, SELFPAY | PROVIDERS: PCP Internal Medicine; Visit Provider Nurse Practitioner Family | DX: R39.15 Urgency of urination (principal); M54.50 Low back pain, unspecified; G89.29 Other chronic pain; M62.830 Muscle spasm of back; M41.9 Scoliosis, unspecified; R10.20 Pelvic and perineal pain unspecified side; Z79.60 Long term (current) use of unspecified immunomodulators and immunosuppressants | CPT/HCPCS: 99212 ==

== ENCOUNTER 2025-01-06 14:14 | Outpatient (AMB) | payer OTHER, SELFPAY ==
[2025-01-06 14:30] VITALS: BP 100/70; PULSE 75; RESP 18; O2SAT 99; BMI 27.4
--- NOTE | 2025-01-06 14:30 | MHC.PC.OV ---
Vital Signs 01/06/25 14:30 Height 5 ft 2 in Blood Pressure Location Lt brachial Position Sitting Respiration 18 Pulse Source Pulse Oximeter Temp Source Temporal Artery Scan Oxygen Delivery Method Room Air Intake Visit Reasons: nerves on neck feel compressed/painful Test Technician Required: No Accompanied by: Self / Same As Patient Allergies naproxen Allergy (Mild, Verified 01/06/25 14:31) gi upset Seasonal Allergies Allergy (Mild, Verified 01/06/25 14:31) Runny Nose Tobacco use date assessed: 01/06/25 Dental Screening Dental Screen Date: 01/06/25 [facility] Medical History Vitamin D deficiency Scleroderma Scoliosis Anemia Asthma Rachel-Danlos disease Dysphagia Hx of infectious mononucleosis Right ankle pain Right shoulder pain Polyarthralgia Physical exam Mild recurrent major depression Fibroadenoma of right breast Surgical History Hx of colonoscopy History of esophagogastroduodenoscopy (EGD) H/O breast biopsy Family History Father Hypertension Mother No problems noted. Maternal Grandfather Diabetes mellitus Maternal Grandmother Diabetes mellitus Brother Depression Family/Other Substance use disorder Mental health disorder Social History Housing: House Are you a primary career development counselor to a significant other at home: No Do you presently have visiting nurse or other home services: No Alcohol intake: current Alcohol intake frequency: a few times a month Alcohol type: wine Patient Tobacco Use Status: Never used Tobacco e-Cigarette/Vaping Use: Never Used Second Hand Smoke Exposure: No Substance Use Type: Marijuana service: No Current occupational status: employed Current occupational exposures/hazards: No Cognitive needs: No Hearing needs: No Vision needs: No Female Reproductive History Menstrual Age of Menarche: 14 Questionnaire Thrive Questionnaire Date Thrive assessed: 03/20/24 I am a: Patient What is your living situation today?: I have a steady place to live Within the past 12 months, did the food you bought not last and you didn't have the money to get more?: I choose not to answer this question Within the past 12 months, did you worry whether your food would run out before you got money to buy more?: I choose not to answer this question Do you have trouble paying for medicines?: No Do you have trouble getting transportation to medical appointments?: Yes Do you have trouble paying your heating and electricity bill?: Yes Do you have trouble taking care of your child, family member or friend?: No Do you have trouble with day-to-day activities such as bathing, preparing meals, shopping, managing finances, etc.?: No Are you currently unemployed and looking for a job?: No Are you interested in more education?: No Currently or been in a relationship where the following occur: No concerns reported THRIVE Score: 2 SERGO-7 AMB Questionnaire SERGO-7 Date SERGO - 7 assessed: 03/20/24 Source: Developed by Drs. Yung Robertson, Shahida Meyer, James White and colleagues, with an educational arjun from [employer]. Physical exam (Primary Care) Tobacco/Smoking Status: Tobacco use Status Tobacco use date assessed 03/20/24 06/24/24 17:28 Patient Tobacco Use Status Never used Tobacco 10/29/24 09:44 e-Cigarette/Vaping Use Never Used 06/24/24 17:28 Thrive Assessment: Date of Thrive Assessment Date Thrive assessed 06/24/24 08/12/24 13:57 Currently or been in a relationship where the following occur: No concerns reported Coding
--- NOTE | 2025-01-06 14:45 | MHC.PC.OV ---
Vital Signs 01/06/25 14:30 Height 5 ft 2 in Weight 150 lb BMI 27.4 BP 100/70 Blood Pressure Location Lt brachial Position Sitting Respiration 18 Pulse 75 Pulse Source Pulse Oximeter Temp Source Temporal Artery Scan Pulse Oximetry (%) 99 Oxygen Delivery Method Room Air Intake Visit Reasons: nerves on neck feel compressed/painful Stave Grader Required: No Accompanied by: Self / Same As Patient Allergies naproxen Allergy (Mild, Verified 01/06/25 14:53) gi upset Seasonal Allergies Allergy (Mild, Verified 01/06/25 14:53) Runny Nose Medication List - Last Reconciled 01/06/25 by Jessica Chavez MD albuterol sulfate 90 mcg/actuation (Ventolin HFA) 2 puffs inhalation QID PRN amitriptyline 10 - 20 mg (1 - 2 x 10 mg) PO BEDTIME 30 days ascorbic acid (vitamin C) 500 mg PO DAILY baclofen 10 mg PO ONCE PRN 30 days cholecalciferol (vitamin D3) 25 mcg PO DAILY 90 days [compression stockings As directed] dextroamphetamine-amphetamine 5 mg 1 tab PO DAILY PRN famotidine (Pepcid) 40 mg PO DAILY fluticasone furoate-vilanterol 200-25 mcg/dose (Breo Ellipta) 1 ea inhalation DAILY hydroxyzine pamoate 25 mg PO BID PRN lamotrigine 25 mg PO DAILY lidocaine 5% 1 patch topical DAILY ondansetron 8 mg PO Q8H PRN 30 days pregabalin 25 mg PO Q12H 30 days riboflavin (vitamin B2) 400 mg PO DAILY 90 days sumatriptan succinate 50 - 100 mg orally at onset of headache, may repeat in 2 hrs PRN; max 2 tabs per day or 4 tabs/week (may take with Ibuprofen) 30 days Tobacco use date assessed: 01/06/25 Dental Screening Dental Screen Date: 01/06/25 Did you have a dental visit in the last 12 months?: Yes Did you have a dental problem in the last 6 months where you did not have access to dental care?: No Was dental information given to patient?: Patient has dentist HPI HPI Comments History of Present Illness Details The patient is a 29-year-old female presenting to discuss new-onset neck tightness with radiating breast pain. Her psychiatrist recently prescribed Adderall 5 mg, which the patient takes as needed for focus at work. She also takes amitriptyline at bedtime for depression and migraine prophylaxis prescribed by Neurology. The patient reports a recent onset of neck muscle tightness, which also affects her shoulders and at times makes it feel difficult to take a full, deep breath. This is associated with sharp, painful sensations in her breast every other day, which she describes as starting, becoming painful, and then feeling cold, suspecting a compressed nerve. She states the pain originates in her neck and denies any nipple discharge. On clinical exam had left breast mass that was painful at 10:00 and right breast pain at 12:00. Her medical history is notable for asthma, for which her medication was changed from Breo to Pulmicort. She has a history of moderate depression, which has been stable, and migraines treated with sumatriptan as needed. She also has a history of breast fibroids and chronic sinusitis. She is scheduled for a neck EMG later this month. Current medications include baclofen as needed, pregabalin 25 mg twice daily, vitamin C, and vitamin D. She is no longer taking lamotrigine. She also has chronic sinusitis and would like to see ENT. [facility] Medical History (Updated 01/06/25 @ 15:38 by Jessica Chavez MD) Vitamin D deficiency Scleroderma Scoliosis Anemia Asthma Rachel-Danlos disease Dysphagia Hx of infectious mononucleosis Right ankle pain Right shoulder pain Polyarthralgia Physical exam Mild recurrent major depression Fibroadenoma of right breast Surgical History Hx of colonoscopy History of esophagogastroduodenoscopy (EGD) H/O breast biopsy Family History Father Hypertension Mother No problems noted. Maternal Grandfather Diabetes mellitus Maternal Grandmother Diabetes mellitus Brother Depression Family/Other Substance use disorder Mental health disorder Social History Housing: House Are you a primary care program resident to a significant other at home: No Do you presently have visiting nurse or other home services: No Alcohol intake: current Alcohol intake frequency: a few times a month Alcohol type: wine Patient Tobacco Use Status: Never used Tobacco Tobacco use type: Cigarette e-Cigarette/Vaping Use: Never Used Second Hand Smoke Exposure: No Substance Use Type: Marijuana service: No Current occupational status: employed Current occupational exposures/hazards: No Cognitive needs: No Hearing needs: No Vision needs: No Female Reproductive History Menstrual Age of Menarche: 14 Questionnaire PHQ-9 Over the last 2 weeks, how often have you been bothered by any of the following problems? 1. Little interest or pleasure in doing things: several days 2. Feeling down, depressed, or hopeless: several days 3. Trouble falling or staying asleep, or sleeping too much: not at all 4. Feeling tired or having little energy: not at all 5. Poor appetite or overeating: not at all 6. Feeling bad about yourself - or that you are a failure or have let yourself or your family down: not at all 7. Trouble concentrating on things, such as reading the newspaper or watching television: not at all 8. Moving or speaking so slowly that other people could have noticed. Or the opposite - being so fidgety or restless that you have been moving around a lot more than usual: not at all 9. Thoughts that you would be better off or of hurting yourself in some way: not at all Total score: 2 Depression Screening Interpretation: Negative Depression Screening Done: Yes 36034 - PHQ-9 Billing: Yes Source: Developed by Drs. Yung Robertson, Shahida Meyer, James White and colleagues, with an educational arjun from [employer]. Thrive Questionnaire Date Thrive assessed: 01/06/25 I am a: Patient What is your living situation today?: I have a steady place to live Within the past 12 months, did the food you bought not last and you didn't have the money to get more?: I choose not to answer this question Within the past 12 months, did you worry whether your food would run out before you got money to buy more?: I choose not to answer this question Do you have trouble paying for medicines?: No Do you have trouble getting transportation to medical appointments?: Yes Do you have trouble paying your heating and electricity bill?: Yes Do you have trouble taking care of your child, family member or friend?: No Do you have trouble with day-to-day activities such as bathing, preparing meals, shopping, managing finances, etc.?: No Are you currently unemployed and looking for a job?: No Are you interested in more education?: No Please select the resources that you would like help with: None Currently or been in a relationship where the following occur: No concerns reported THRIVE Score: 2 AUDIT C Alcohol Use Questionnaire (AUDIT-C) 1. How often do you have a drink containing alcohol?: Monthly or less 2. How many drinks containing alcohol do you have on a typical day when you are drinking?: 1 or 2 3. How often do you have six or more drinks on one occasion?: Never Total Score: 1 Score Reviewed/Action Taken: No SERGO-7 AMB Questionnaire SERGO-7 Date SEGRO - 7 assessed: 01/06/25 Feeling nervous, anxious, or on edge: 1 = Several days Not being able to stop or control worryin = More than half the days Worrying too much about different things: 2 = More than half the days Trouble relaxin = Several days Being so restless that it is hard to sit still: 0 = Not at all Becoming easily annoyed or irritable: 2 = More than half the days Feeling afraid as if something awful might happen: 0 = Not at all Total SERGO-7 score (0-4 normal; 5-9 mild; 10-14 moderate; 15-21 severe): 8 Source: Developed by Drs. Yung Robertson, Shahida Meyer, James White and colleagues, with an educational arjun from [employer]. SERGO-7 Assessment Billing SERGO-7 Assessment Tool: SERGO-7 Assessment 42166 Review of Systems Const All systems reviewed & are unremarkable except as noted in HPI and below Card Denies chest pain at rest, Denies chest pain with activity, Denies edema, Denies irregular heart rhythm, Denies claudication, Denies dyspnea, Denies dyspnea on exertion, Denies orthopnea, Denies paroxysmal nocturnal dyspnea and Denies slow heart rate Resp Denies cough, Denies dyspnea and Denies dyspnea on exertion GI Denies abdominal pain, Denies change in bowel habits, Denies excessive flatus, Denies nausea and Denies vomiting Neuro Denies lack of coordination Physical exam (Primary Care) Vital Signs: Last Vital Signs Pulse 75 01/06/25 14:30 Resp 18 01/06/25 14:30 BP 100/70 01/06/25 14:30 Pulse Ox 99 01/06/25 14:30 Oxygen Delivery Method Room Air 01/06/25 14:30 BMI result Body Mass Index 27.4 Tobacco/Smoking Status: Tobacco use Status Tobacco use date assessed 01/06/25 01/06/25 14:46 Patient Tobacco Use Status Never used Tobacco 01/06/25 14:46 Tobacco use type Cigarette 01/06/25 14:46 e-Cigarette/Vaping Use Never Used 01/06/25 14:46 PHQ-9: PHQ-9 Score PHQ-9: Total score 2 01/06/25 15:18 Depression Screening Interpretation: Negative Thrive Assessment: Date of Thrive Assessment Date Thrive assessed 01/06/25 01/06/25 14:46 Currently or been in a relationship where the following occur: No concerns reported Chest Breast/axilla inspection: normal inspection of the breasts and normal inspection of the axillae Breast/axilla palpation: normal palpation of the axillae and abnormal palpation of the breast (left breast mass at 10 o'clock, right breast pain at 12 o'clock) Resp Effort & Inspection: normal respiratory effort Auscultation: clear to auscultation bilaterally Cardio Jugular venous distension: no JVD Rate: regular rate Rhythm: regular rhythm Heart sounds: S1 normal heart sound present and S2 normal heart sound present Extrem General: Yes full ROM Office Procedures Flu Questionnaire Does the patient have a severe egg allergy?: No Does the patient have severe life threatening allergies?: No Does the patient have a fever or illness today?: No Has the patient ever had Guillain-Mercedes Syndrome?: No Has the patient ever had any past reaction to a flu shot?: No Immunizations Fluarix [id number] (PF) 45 mcg (15 mcg x 3)/0.5 mL IM syringe Performing Provider: Jessica Chavez MD [place] [facility] [facility] Administered by: Tiny Cramer CMA on 01/06/25 15:18 Dose Route Admin Location Dispensed Lot Number Expiration Date [facility] Toolmaker 0.5 mL IM Left Deltoid 0.5 mL [id number] 09/02/25 [id number] [employer] VIS Given Date VIS Provided VIS Publication Date 01/06/25 Single Vaccine 24 Eligibility Eligibility Date Funding Source Not [facility] Eligible 01/06/25 Private Coding Level of Care Code Est Pt Level 4 (19576) Diagnoses Neck pain M54.2 Shoulder pain, bilateral M25.511; M25.512 Chronic sinusitis J32.9 Left breast mass N63.20 Breast pain, right N64.4 Moderate recurrent major depression F33.1 Asthma J45.909 Migraine G43.909 Additional Codes SERGO-7 Assessment Billing - SERGO-7 Assessment Tool: SERGO-7 Assessment 55489 ([id number]) PHQ-9 - 17788 - PHQ-9 Billing: Yes ([id number]) Time Spent (min) 21 Assessment & Plan Assessment & Plan (1) Neck pain: Code(s): M54.2 - Cervicalgia Category: Medical (2) Shoulder pain, bilateral: Code(s): M25.511 - Pain in right shoulder; M25.512 - Pain in left shoulder Category: Medical (3) Chronic sinusitis: Code(s): J32.9 - Chronic sinusitis, unspecified Category: Medical (4) Left breast mass: Comment: at 10 o'clock Code(s): N63.20 - Unspecified lump in the left breast, unspecified quadrant Category: Medical (5) Breast pain, right: Comment: at 12 o'clock Code(s): N64.4 - Mastodynia Category: Medical (6) Moderate recurrent major depression: Code(s): F33.1 - Major depressive disorder, recurrent, moderate Category: Medical (7) Asthma: Code(s): J45.909 - Unspecified asthma, uncomplicated Category: Medical (8) Migraine: Code(s): G43.909 - Migraine, unspecified, not intractable, without status migrainosus Category: Medical Plan Plan 1. Myalgia, unspecified site M79.10 The patient reports neck and shoulder tightness. Physical exam revealed tenderness in the neck. A referral for physical therapy for both the neck and shoulders will be placed. The patient will continue taking baclofen as needed and has a neck EMG scheduled for later this month, which may provide more information. 2. Mastodynia N64.4 The patient is experiencing sharp, radiating breast pain, which appears to originate from her neck. Physical exam revealed a mass and pain in the left breast at 10 o'clock and pain in the right breast at 12 o'clock. An ultrasound of the breast will be ordered to further evaluate these findings, especially given her history of fibroids. The patient currently does not have an LOOPER FIXER. 3. Chronic sinusitis, unspecified J32.9 The patient complains of sinus pressure consistent with chronic sinusitis. A referral will be made to an ENT specialist for further evaluation. 4. Major depressive disorder, single episode, unspecified F32.9 Follow up with psychiatry. 5. Migraine, unspecified, not intractable, without status migrainosus G43.909 Follow up with neurology Orders: Orders US breast RT limited Today N64.4 - Mastodynia Influenza [id number] Immunization Today Z23 - Encounter for immunization PT Evaluation and Treatment Today M25.511 - Pain in right shoulder, M25.512 - Pain in left shoulder, M54.2 - Cervicalgia MM diagnostic mammo BI Today N63.20 - Unspecified lump in the left breast, unspecified quadrant, N64.4 - Mastodynia US breast LT limited Today N63.20 - Unspecified lump in the left breast, unspecified quadrant Referrals Ear/Nose/Throat Referral J32.9 - Chronic sinusitis, unspecified
== END 2025-01-06 15:20 | disposition home or self-care (01) ==
LOC: HO.HMCH 14:15
PROVIDERS: PCP Internal Medicine; Visit Provider Internal Medicine
DX: M54.2 Cervicalgia (principal); M25.511 Pain in right shoulder; M25.512 Pain in left shoulder; F33.1 Major depressive disorder, recurrent, moderate; J32.9 Chronic sinusitis, unspecified; N64.4 Mastodynia; J45.909 Unspecified asthma, uncomplicated; G43.909 Migraine, unspecified, not intractable, without status migrainosus; Z23 Encounter for immunization

== ENCOUNTER → 2025-01-06 14:14 | Outpatient (BNVA) | payer OTHER, SELFPAY | PROVIDERS: PCP Internal Medicine; Visit Provider Internal Medicine | DX: N64.4 Mastodynia (principal); M54.2 Cervicalgia; M25.511 Pain in right shoulder; M25.512 Pain in left shoulder; N63.20 Unspecified lump in the left breast, unspecified quadrant; F33.1 Major depressive disorder, recurrent, moderate; G43.909 Migraine, unspecified, not intractable, without status migrainosus; J32.9 Chronic sinusitis, unspecified; J45.909 Unspecified asthma, uncomplicated; Z23 Encounter for immunization; Z79.899 Other long term (current) drug therapy | CPT/HCPCS: 90471; 90656; 96127; 99212 ==

== ENCOUNTER 2025-01-13 14:02 | Outpatient (AMB) | payer OTHER, SELFPAY ==
--- OUTSIDE RECORDS SUMMARY | 2025-01-10 15:30 | XMS_ITS | Encounter Summary ---
Author Organization [facility] Address [address] [place] [address] Phone Care Team Providers Care Retail Merchandiser Name Role Phone Kennedy Kay MD Unavailable [phone] Jessica Gutierrez MD Primary Care Provid er Reason for Visit * Reason Comments Centromere Antibody Positive Labs Review Labs Back Pain Lower back Neck Pain Shoulder Pain bilat Encounter Details Date Type Department Care Team (Latest Contact Info) Description 01/10/2025 3:30 PM EST Office Visit [facility] Rhe[facility]ology [address] [place] [address] Omaira Day MD [address], [address] [place] [address] [email or web address] Centromere antibody positive (Primary Dx); Other dysphagia; Other idiopathic scoliosis, thoracolumbar region; Cold sensitivity; Polyarthralgia; Hyperproteinemia; MTHFR gene mutation; Venous insufficiency of both lower extremities Social History Tobacco Use Types Packs/Day Years Used Date Smoking Tobacco: Some Days Cigarettes Started: 08/18/2018; Last attempted to quit: 09/17/2018 Smokeless Tobacco: Never Tobacco Cessation:Counseling Given: [...] PM EST documented as of this encounter Last Filed Vital Signs Vital Sign Reading Time Taken Comments Blood Pressure 100/70 01/10/2025 3:21 PM EST Pulse 85 01/10/2025 3:21 PM EST Temperature - - Respiratory Rate - - Oxygen Saturation 99% 01/10/2025 3:21 PM EST Inhaled Oxygen Concentration - - Weight 65.8 kg (145 lb) 01/10/2025 3:21 PM EST w ith shoes Height 157.5 cm (5' 2.01 ) 01/10/2025 3:21 PM ES T Body Mass Index 26.51 01/10/2025 3:21 PM EST documented in this encounter Patient Instructions * Patient Instructions* Omaira Day MD - 01/10/2025 3:30 PM EST PLEASE PUT YOUR COMPRESSION STOCKINGS FIRST THING IN AM BEFORE TAKING LEGS OFF THE BED documented in this encounter Progress Notes * Omaira Day MD - 01/10/2025 3:30 PM EST Patient: Liss Lipscomb : 1995 Date: 01/10/2025 Time: 4:09 PM HPI: Liss Lipscomb is a right-handed dominant 29 y.o.female here for a f/u re: her Centromere antibody positive [R76.89], back pain, scoliosis diagnosed at 21, asthma since childhood, skin discoloration with focal thickening since April 2022 and worsening stretch gaitan within bilateral inner thighs for the last 2.5 years. Since last visit on 04/19/2024 Liss overall feels a bit better although admits to a flare of hersymptoms particularly within respiratory system about 2 months ago for which she to Shannon kirk realized that as she stopped taking it symptoms got better in early October 2024. She is taking it only as needed now. She reports shallow breathing and lately daily headaches. In the morning stiffness for the first 10-15 minutes that improves with use of vibration plate. No visual abnormalities, mucosal ulcerations, dysphagia, pleurisy. She does report tightness sensation behind her eyes and nausea secondary to headache but no vomiting, diarrhea, constipation, melena or hematochezia. Low back pain was evaluated by a lumbar spine MRI in November 2024 that detected L5-S1 discopathy. She is awaiting EMG/NCS later in January secondary to bilateral arm nerve pain. No night awakeningbut uncomfortable sensation and numbness around the shoulders with weakness in her hands. She sees pain specialist at [facility] who advised to start PT and if not able to tolerated consider epidural steroid injection. She has ENT consult in April 2025 regarding recurrent sinusitis. She stopped Protonix and now continues Pepcid. 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 She started glucosamine and magnesium glycinate 400 mg that has helped reduce the joint pains and muscle cramps and stiffness. She uses neck pillow and back brace at the time of flare. She is using elastic sleeve on her arm in addition to wrist splint and figure 8 plastic finger splints to reduce over extension. She was also informed about the incidental spina bifida on low back x-ray. She reports soreness and tight sensation on the lateral sides of both thighs. She suffered from COVID-19 infection in April 2023 that presented with fever x 24 hours, feelingsick with diffuse bodyaches, tiredness and loss of smell and taste x 1 week. She did not need Paxlovid. It was a bit less severe than the first bout of COVID in March 2022. In August 2023 ended up in [facility] ER secondary to costochondritis that responded nicely to Toradol injection. She also reports severe left-sided abdominal pain for which she was evaluated in September 2023 at [facility] and found with small ovarian cyst. She had no menstruation x 3 months and was not . She was referred for colposcopy. Less headaches since starting amitriptyline. She reports soreness in the muscle of neck, shoulders and on the sides of her knees. There are muscle spasms within the neck, arms and coughs for which she took first dose of baclofen last night and found it helpful. Soreness with hip rotation bilaterally No red, hot or swollen joints to speak of. No falls or injuries. No intercurrent illnesses. She generally feels cold but gets easily sweaty on her neck, armpits and groins. She tries not to overexert herself. Intermittent dysphagia without food regurgitation but need to drink fluids between the bites and chew diligently before swallowing. There is exertional shortness of breath and chest pain. AM stiffness 30-60 minutes. Intermittent swollen knees, elbows, ankles usually lasting few hours and responding to icing and gentle massage. She reports swelling in her knees and ankles on a daily basis especially in the evening. Headaches at the bottom of her head where it joins with the neck believed secondary to cervical instability on a daily basis at 3-/10, gentle massage particularly of the fascia helps. History of right shoulder subluxation in 2018 secondary to a pulled right arm that feels unstable now. Hyperelastic/stretchile skin on her elbows. Dry eyes. Tight in her throat with sensation of lump on swallowing and sometimes choking on water. Chronic and stable sun photosensitivity. Less hair in the corners of the temples but no true alopecia. Cold sensitivity. Fingers very sore on cold exposure for years-gradually worsening-unsure about white discoloration. She brought pictures of skin discoloration of her hands revealing mostly erythema over distal phalanges and proximal palms Exertional shortness of breath with well-controlled asthma. No hemoptysis, pleurisy or cough. More frequent diarrhea especially since April 2022-last week 3/7 days but no bloody or black stools however white bumps on the stool . At times sensation of incomplete bladder emptying up until about 90% and then shortly after emptying initially an additional leftover 10% of content. No hematuria, pyuria or foaming of the urine. She suffered COVID-19 infection in April 2022 that presented with heaviness and diffuse aches and pains throughout the body, fever up to 101??F for about 7 days, cough with severe mucus productionthat appeared from creamy to greenish color. She lost her voice and was offered Paxlovid but declined- instead responded nicely to 10-day course of prednisone tapering. She was not able to provide details about the dosing . History of severe mononucleosis in 2017 that lasted 3 weeks. She was previously seen by my departed colleague- Christian Kahn PA-C, - last visit on 07/17/2020nd was prescribed CellCept that she took only for a week and did not find it helpful so she stopped. Past Medical History: Diagnosis Date Asthma Migraine MTHFR gene mutation Scoliosis 2018 No past surgical history on file. Medications: Current Outpatient Medications Medication Sig Dispense Refill Last Dispense albuterol 90 mcg/actuation inhaler Inhale 2 puffs into the lungs every 6 (six) hours as needed for wheezing or shortness of breath/dyspnea. 8 g 5 Unknown (outside pharmacy) amitriptyline (ELAVIL) 10 MG tablet Take 10-20 mg by mouth nightly at bedtime. Unknown (patient-reported) ascorbic acid, vitamin C, (VITAMIN C) 500 MG tablet Take 500 mg by mouth daily. Unknown (patient-reported) baclofen (LIORESAL) 5 mg tablet Take 10 mg by mouth nightly at bedtime. Unknown (patient-reported) budesonide (PULMICORT FLEXHALER) 90 mcg/actuation inhaler Inhale 1 puff into the lungs every 6 (six) hours as needed (use with albuterol). 1 each 5 Unknown (outside pharmacy) dextroamphetamine-amphetamine (ADDERALL) 5 mg Tab Take 5 mg by mouth as needed. Unknown (patient-reported) famotidine (PEPCID) 40 MG tablet Take 40 mg by mouth daily. Unknown (patient-reported) fluticasone propionate (FLONASE) 50 mcg/actuation nasal spray 2 sprays by Nasal route daily as needed. Unknown (patient-reported) hydrOXYzine (VISTARIL) 25 MG capsule Take 1 capsule by mouth nightly at bedtime as needed. Unknown (patient-reported) ondansetron (ZOFRAN-ODT) 4 MG disintegrating tablet Take 4 mg by mouth every 6 (six) hours as needed. Unknown (patient-reported) pregabalin (LYRICA) 25 MG capsule Take 25 mg by mouth 2 (two) times a day as needed. Unknown (patient-reported) riboflavin, vitamin B2, 400 mg Tab Take 1 tablet by mouth every morning. Unknown (patient-reported) SUMAtriptan (IMITREX) 100 MG tablet Take 100 mg by mouth every 4 (four) hours as needed for migraine. Unknown (patient-reported) VITAMIN D3 25 mcg (1,000 unit) capsule Take 2,000 Units by mouth daily. Unknown (patient-reported) VITAMIN K2 ORAL Take by mouth. Unknown (patient-reported) No current facility-administered medications for this visit. Allergies: Allergies Allergen Reactions Naproxen GI Upset Social History: reports that she has been smoking cigarettes. She started smoking about 6 years ago. She has never used smokeless tobacco. She reports current alcohol use. She reports current drug use. Drug: Marijuana. She is single, lives with her 56 yo mother and 20-year-old brother with mild scoliosis and anxiety in a 3 floors house and needs to pace herself walking on stairs since 2017-stable. History of fall from stairs in 2017 and 2018. 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 No TOB, EtOH, IVDA, STD or blood transfusions. Smokes marijuana since November 2021, usually 1 or 2 nightly that helps with her pain. She is about to start studying in late October 2023 communication at [employer] to live with 3 other girls on the 5th floor of dormitory. Hobby: Singing daily, playing ukulele - pain in fingers limits it-last week / for 20 minutes eachtime. Family History: family history includes Coronary artery disease in her paternal grandfather and paternal grandmother; Diabetes in her maternal grandfather and maternal grandmother. There is a history of systemic lupus erythematosus in female maternal cousin in her 40s. Paternal grandmother had shiny skin on her forearms and hands with asthma-? Scleroderma subset per her ROS: Complete review of systems performed and negative except as in HPI above. Physical Exam: BP 100/70 (BP Location: Right arm, Patient Position: Sitting, Cuff Size: Medium) Pulse 85 Ht 157.5 cm (5' 2.01 ) Wt 65.8 kg (145 lb) Comment: with shoes SpO2 99% BMI 26.51 kg/m?? Pleasant, young female in no acute distress. Alert, oriented x3. HEENT: NC, AT, normal EENT exam Neck supple, symmetric, no lymphadenopathy or thyromegaly Cor: regular, no murmur or rub Lungs: clear to auscultation bilaterally Abd: soft, nontender, nl bs, no organomegaly or masses Ext: no edema, cyanosis or clubbing MSK: normal shoulders, elbows, wrists, MCP, PIP and DIP exam except for marked hypermobility in both elbows and knees. She is able to touch floor with full palms on forward flexion. (5/9 on Beighton score for hypermobility) Unable to bend her little fingers beyond 90 degrees in extension or touch thumbs to her forearms. No tenderness along the spinal column. Mild thoracolumbar scoliosis. No step-off or radiculopathy. No synovitis in lower extremity joints. No tenderness on Achilles tendon or plantar fascia. No tenderness to squeezing MTP joints. She is able to stand on her toes and heels. Soreness with hip rotation bilaterally. Neuro: SLR, DTRs, normal -no focal deficits Skin: Soft, velvety to touch, warm, well-perfused with mild striae on inner thighs and posterior/inner arms. Mild symmetric subcutaneous thickening on lateral mid arms. Skin stretches on elbows >1.5 cm Scattered areas of mild district court justice discoloration on right sided jaw corner, abdomen and lateral lower calves. No sclerodactyly, calcinosis or telangiectasias. No subcutaneous nodules or psoriatic plaques. Labs: No visits with results within 6 Week(s) from this visit. Latest known visit with results is: Hospital Outpatient Visit on 11/11/2024 Component Date Value Ref Range Status FEV1 11/11/2024 2.87 liters Final FVC 11/11/2024 3.32 liters Final FEV1/FVC 11/11/2024 86 % Final TLC 11/11/2024 4.22 liters Final DLCO 11/11/2024 15.58 ml/mmHg sec Final I have reviewed with her on the computer screen labs from 10/07/2024 at [facility]: Normal CMP except Total bilirubin 1.5 (0.0-1.0), Normal urinary protein to creatinine ratio, Centromere antibody 3.2 ( <1.0), Negative mitochondrial antibodies, dsDNA antibody, normal serum protein electrophoresis, CBC with differential, ESR, CRP, UA-see details in labs section of [facility]. I have reviewed with her report of PFT from 11/11/2024 at [facility]: Abnormal pulmonary function studies as evidenced by an isolated mild impairment in diffusion capacity which, in this clinical context, may be secondary to emphysema, pulmonary vascular disease, interstitial lung disease and/or anemia. Lung volumes are normal. Spirometry reveals no evidence of airflow limitation and no bronchodilator response-see details in imaging section of [facility]. I have re-reviewed with her report of barium swallow from that revealed mild esophageal dysmotility without additional abnormalities. (See details in imaging section of [facility]). I have re-reviewed pulmonology consult note by Dr. Sean Hammonds from 05/11/2023- Encouraged regular exercise, stop vaping, Breo Ellipta for asthma management and follow-up results of EGD scheduled at [facility] in July 2023- see details in encounters section of [facility]. Chest CT from 08/25/2023 at [facility] revealed: No interstitial lung disease-see details in imaging section of epic Head upright tilt table test from 09/26/2023 returned negative for neurocardiogenic syncope-see details in media section of [facility]. 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 Labs from 09/09/2019 at [facility] revealed: JESSICA 1: 2560 units centromere pattern, Negative SSA, SSB, dsDNA, CCP, SCL 70 antibodies, normal C3, CBC with differential, ESR, negative HLA- B27, Normal CMP, CPK, C4 11 (12-39)-details in labs section of [facility] Assessment and Plan: 1. Centromere antibody positive (Primary) Assessment & Plan: Highly positive centromere antibody puts her at risk of developing limited subtype of scleroderma-CREST variant therefore appropriate work-up to assess organ system involvement has been initiated andreturned mostly reassuring. Formal barium swallow revealed mild esophageal dysmotility and subsequent pulmonary consult advisedShannon Brooks for asthma, encouraged regular exercise and stop [...] time and agrees for second opinion rheumatology consultation at [facility] that has been postponed to March 2025. 2. Other dysphagia Assessment & Plan: Encouraged to chew food properly before swallowing and drink water or other fluids between bites todecrease risk of odynophagia and dysphagia. Keep diary of episodes and details regarding the triggering food, time of the day, management strategies etc. Encouraged to schedule formal speech therapy as previously ordered once academic year concludes. 3. Other idiopathic scoliosis, thoracolumbar region Assessment & Plan: Continue proper posture, gentle stretching and muscle strengthening exercises as previously educated. She continues with regular chiropractic therapy that appears somewhat helpful. 4. Cold sensitivity Assessment & Plan: Chronic and rather stable-she was not sure whether there is white skin discoloration with cold exposure though painful fingers and toes. Keep warm, dress in layers. Optimize stress management strategies. Avoid vasoconstrictors in OTC products for cold/flu and sinus. 5. Polyarthralgia Assessment & Plan: Joint protection, energy conservation. Gentle, regular exercise [...] 2000 mg or 24-hours in divided doses. 6. Hyperproteinemia Assessment & Plan: Serum protein electrophoresis returned normal in April 2024. 7. MTHFR gene mutation Assessment & Plan: On her request I agreed to check her folic acid and homocystine that returned normal. 8. Venous insufficiency of both lower extremities Assessment & Plan: On her request I prescribed compression stockings and advised her to put them first thing in the morning before taking legs off the bed. Orders: - Compression stockings . Follow-up: Return in about 6 months (around 07/10/2025). documented in this encounter Miscellaneous Notes * Assessment & Plan Note - Omaira Day MD - 01/11/2025 2:06 PM EST Associated Problem(s): Venous insufficiency of both lower extremities On her request I prescribed compression stockings and advised her to put them first thing in the morning before taking legs off the bed. * Assessment & Plan Note - Omaira Day MD - 01/10/2025 3:34 PM EST Associated Problem(s): MTHFR gene mutation On her request I agreed to check her folic acid and homocystine that returned normal. * Assessment & Plan Note - Omaira Day MD - 01/10/2025 3:34 PM EST Associated Problem(s): Hyperproteinemia Serum protein electrophoresis returned normal in April 2024. * Assessment & Plan Note - Omaira Day MD - 01/10/2025 3:34 PM EST Associated Problem(s): Polyarthralgia Joint protection, energy conservation. Gentle, regular exercise [...] 2000 mg or 24-hours in divided doses. * Assessment & Plan Note - Omaira Day MD - 01/10/2025 3:34 PM EST Associated Problem(s): Cold sensitivity Chronic and rather stable-she was not sure whether there is white skin discoloration with cold exposure though painful fingers and toes. Keep warm, dress in layers. Optimize stress management strategies. Avoid vasoconstrictors in OTC products for cold/flu and sinus. * Assessment & Plan Note - Omaira Day MD - 01/10/2025 3:34 PM EST Associated Problem(s): Other idiopathic scoliosis, thoracolumbar region Continue proper posture, gentle stretching and muscle strengthening exercises as previously educated. She continues with regular chiropractic therapy that appears somewhat helpful. * Assessment & Plan Note - Omaira Day MD - 01/10/2025 3:34 PM EST Associated Problem(s): Other dysphagia Encouraged to chew food properly before swallowing and drink water or other fluids between bites todecrease risk of odynophagia and dysphagia. Keep diary of episodes and details regarding the triggering food, time of the day, management strategies etc. Encouraged to schedule formal speech therapy as previously ordered once academic year concludes. * Assessment & Plan Note - Omaira Day MD - 01/10/2025 3:34 PM EST Associated Problem(s): Centromere antibody positive Highly positive centromere antibody puts her at risk of developing limited subtype of scleroderma-CREST variant therefore appropriate work-up to assess organ system involvement has been initiated andreturned mostly reassuring. Formal barium swallow revealed mild esophageal dysmotility and subsequent pulmonary consult advisedShannon Brooks for asthma, encouraged regular exercise and stop [...] time and agrees for second opinion rheumatology consultation at [facility] that has been postponed to March 2025. documented in this encounter Plan of Treatment Not on file documented as of this encounter Visit Diagnoses Diagnosis Centromere antibody positive- Primary Other dysphagia Other idiopathic scoliosis, thoracolumbar region Cold sensitivity Other general symptoms Polyarthralgia Pain in joint, multiple sites Hyperproteinemia Other disorders of plasma protein metabolism MTHFR gene mutation Venous insufficiency of both lower extremities documented in this encounter Care Teams Retail Merchandiser Relationship Specialty Start Date End Date Jessica Gutierrez MD [address] [place] [address] PCP - General Internal Medicine 01/25/23 Kennedy Kay MD [address] [facility] [place] [id number] Pediatrics 04/10/19 documented as of this encounter Additional Source Comments The information contained in this document represents components of the legal health record. It is not the complete legal health record.[facility]
--- NOTE | 2025-01-13 14:05 | A.OFFVIS_ITS ---
Intake Visit Reasons: cyst Intake Note: New Patient is present for Renal Cyst Urology Rx:Amitriptyline, VIT-C Blood Thinners:none Imaging completed: Abd Ultrasound 05/28/24 Car Ferry Master Required: No Accompanied by: Self / Same As Patient Allergies naproxen Allergy (Mild, Verified 01/13/25 14:36) gi upset Seasonal Allergies Allergy (Mild, Verified 01/13/25 14:36) Runny Nose Medication List - Last Reconciled 01/13/25 by RICHARD Hanson albuterol sulfate 90 mcg/actuation (Ventolin HFA) 2 puffs inhalation QID PRN amitriptyline 10 - 20 mg (1 - 2 x 10 mg) PO BEDTIME 30 days ascorbic acid (vitamin C) 500 mg PO DAILY baclofen 10 mg PO ONCE PRN 30 days cholecalciferol (vitamin D3) 25 mcg PO DAILY 90 days [compression stockings As directed] dextroamphetamine-amphetamine 5 mg 1 tab PO DAILY PRN famotidine (Pepcid) 40 mg PO DAILY fluticasone furoate-vilanterol 200-25 mcg/dose (Breo Ellipta) 1 ea inhalation DAILY hydroxyzine pamoate 25 mg PO BID PRN lamotrigine 25 mg PO DAILY lidocaine 5% 1 patch topical DAILY ondansetron 8 mg PO Q8H PRN 30 days pregabalin 25 mg PO Q12H 30 days riboflavin (vitamin B2) 400 mg PO DAILY 90 days sumatriptan succinate 50 - 100 mg orally at onset of headache, may repeat in 2 hrs PRN; max 2 tabs per day or 4 tabs/week (may take with Ibuprofen) 30 days HPI Comments Details: Liss is a pleasant 29-year-old female patient of Dr.Roca Chavez. She has a past medical history of vitamin-D deficiency, scleroderma, scoliosis, anemia, asthma, Rachel-Danlos disease, and depression. She presents to the office today as a new patient for question of left renal cysts verses nephrolithiasis. In discussion with the patient today she reports having previously followed up with Gastroenterology at which time a abdominal ultrasound was ordered and there was question of a possible 2 mm nonobstructing left renal calculus verses renal cyst. These results were reviewed and communicated with the patient today. 05/28 bilateral kidneys are normal in size and shape. No focal abnormality or hydronephrosis noted bilaterally. Possible 2 mm nonobstructing calculi verses renal cyst. Otherwise unremarkable per radiology report. When asked she denies any previous history of nephrolithiasis. She does report following up with pain management here at [place] for ongoing back pain she has been experiencing and has recently been refer to pelvic floor therapy however is awaiting a call to schedule. She does report noting over the last 2-3 months she has been experiencing increased episodes of urinary frequency and urinary urgency. Unable to obtain urine for urinalysis today as patient unable to void. We did discussed potential causes of nephrolithiasis verses renal cysts verses lower urinary tract symptoms patient is experiencing. We did discussed further treatment options and risks and benefits of these treatment options. She denies incontinence, nocturia, hematuria, dysuria, foul smelling urine, changes to urinary stream, flank pain, fever, and or chills. All questions were answered. She otherwise offers no other issues or concerns at this time. [facility] Medical History Vitamin D deficiency Scleroderma Scoliosis Anemia Asthma Rachel-Danlos disease Dysphagia Hx of infectious mononucleosis Right ankle pain Right shoulder pain Polyarthralgia Physical exam Mild recurrent major depression Fibroadenoma of right breast Surgical History Hx of colonoscopy History of esophagogastroduodenoscopy (EGD) H/O breast biopsy Family History Father Hypertension Mother No problems noted. Maternal Grandfather Diabetes mellitus Maternal Grandmother Diabetes mellitus Brother Depression Family/Other Substance use disorder Mental health disorder Social History Housing: House Are you a primary post acute care nurse practitioner to a significant other at home: No Do you presently have visiting nurse or other home services: No Alcohol intake: current Alcohol intake frequency: a few times a month Alcohol type: wine Patient Tobacco Use Status: Never used Tobacco Tobacco use type: Cigarette e-Cigarette/Vaping Use: Never Used Second Hand Smoke Exposure: No Substance Use Type: Marijuana service: No Current occupational status: employed Current occupational exposures/hazards: No Cognitive needs: No Hearing needs: No Vision needs: No Female Reproductive History Menstrual Age of Menarche: 14 Review of Systems Const All systems reviewed & are unremarkable except as noted in HPI and below Physical Exam Const General: cooperative, healthy appearing, comfortable, no acute distress, well developed, alert and awake Orientation/consciousness: patient oriented x3 Limitations: no limitations HEENT Head: Yes normal to inspection, Yes normocephalic and Yes atraumatic Ears: hearing grossly normal bilaterally Eyes General: appearance normal, both eyes and all related structures Neck Neck: Yes normal visual inspection and Yes trachea midline Chest Chest palpation & inspection: normal inspection of the chest Resp Effort & Inspection: normal respiratory effort and able to speak in complete sentences Cardio Rate: regular rate GI Inspection: Yes normal to inspection General: Yes no CVA tenderness Back/Spine/Pelvis Back: no CVA tenderness Skin General skin exam: no rashes or lesions noted Neuro General: patient oriented x3 Extrem General: Yes normal to inspection Psych Appearance: grossly normal and well kempt Mental Status: mental status grossly normal Speech and movement: Normal speech and movement present and Clear speech present Affect: normal affect Attitude: cooperative Thought process: Normal thought process present Thought content: Normal thought content present Insight: Fair insight present (Psych) Judgement: Fair judgement present (Psych) Results Reviewed Results Reviewed: Date of Service: 05/28/24 Procedure(s): US abdomen complete Findings: Gallbladder unremarkable, no stone formation or wall thickening. Common duct measures 1.7 mm. No sonographic Villasenor sign. Liver is homogeneous and normal in size and echogenicity. Main portal vein patent with normal direction of flow. Pancreas is unremarkable. Aorta and IVC patent and normal in caliber. The right kidney is normal, 9.7 cm in length. No focal abnormality or hydronephrosis. The left kidney is normal, 12.2 cm in length. Question 2 mm nonobstructing midpole cyst. No focal abnormality or hydronephrosis. The spleen is normal, 9.5 cm in length. No focal abnormality. Impression: Possible 2 mm nonobstructing left renal cyst Otherwise unremarkable Assessment & Plan Assessment & Plan (1) Renal cyst: Code(s): N28.1 - Cyst of kidney, acquired Category: Medical (2) Nephrolithiasis: Code(s): N20.0 - Calculus of kidney Category: Medical (3) Urinary urgency: Code(s): R39.15 - Urgency of urination Category: Medical (4) Urinary frequency: Code(s): R35.0 - Frequency of micturition Category: Medical Plan Unable to obtain urine for urinalysis as patient unable to void. Recent abdominal ultrasound results reviewed with the patient today; as noted above. We discussed bladder triggers and irritants. Information provided regarding pelvic floor therapy. We discussed obtaining more recent renal imaging for further assessment evaluation. All questions were answered. Follow-up in 1-3 months with imaging; or sooner with any issues, concerns, and or questions. Orders: Orders US retroperitoneal comp Today N20.0 - Calculus of kidney, N28.1 - Cyst of kidney, acquired, R35.0 - Frequency of micturition, R39.15 - Urgency of urination Patient Instructions: The patient had an opportunity to ask questions regarding the treatment plan. All questions were answered. Physical exam, labs, and imaging were discussed and reviewed in detail. As well as risks, benefits, and discussion of treatment choices. No major barriers to understanding were identified. The patient expressed understanding and agreement with the above treatment plan. The patient was made aware they should contact our office by phone for worsening of their current condition, the appearance of new symptoms, or with any questions or concerns. Compliance is encouraged with any medications and follow up testing that is ordered. It is a privilege to be allowed the opportunity to participate in? your urological care.? Again, if you have any questions or concerns If you have any questions or concerns please do not hesitate to contact me. The office is [phone]. This note is constructed using voice recognition software. While every effort has been made to ensure accuracy accounting bookkeeper errors may have been included. Yours sincerely, RICHARD Hanson Coding Level of Care Code New Pt Level 3 (80387) Diagnoses Renal cyst N28.1 Nephrolithiasis N20.0 Urinary urgency R39.15 Urinary frequency R35.0
--- OUTSIDE RECORDS SUMMARY | 2025-01-13 16:21 | XMS_ITS | Clinical Summary ---
Author Organization [facility] Address [address] [place] [address] Phone Care Team Providers Care Military Pay Technician Name Role Phone Kennedy Kay MD Unavailable [phone] Leonie Gutierrez MD Primary Care Provid er Allergies Active Allergy Reactions Criticality Noted Date Comments Naproxen GI Upset 01/10/2025 Medications hydrOXYzine (VISTARIL) 25 MG capsule Take 1 capsule by mouth nightly at bedtime as needed. 10/12/19 23 Active baclofen (LIORESAL) 5 mg tablet Take 10 mg by mouth nightly at bedtime. 10/10/19 24 Active VITAMIN D3 25 mcg (1,000 unit) capsule Take 2,000 Units by mouth daily. 09/22/19 24 Active fluticasone propionate (FLONASE) 50 mcg/actuation nasal spray 2 sprays by Nasal route daily as needed. 09/19/19 24 Active ondansetron (ZOFRAN-ODT) 4 MG disintegrating tablet Take 4 mg by mouth every 6 (six) hours as needed. 08/08/19 24 Active riboflavin, vitamin B2, 400 mg Tab Take 1 tablet by mouth every morning. 08/10/19 24 Active ascorbic acid, vitamin C, (VITAMIN C) 500 MG tablet Take 500 mg by mouth daily. Active VITAMIN K2 ORAL Take by mouth. Active amitriptyline (ELAVIL) 10 MG tablet Take [...] shortness of breath/dyspne a. 8 g 5 10/17/19 25 Active budesonide (PULMICORT FLEXHALER) 90 mcg/actuation inhalerIndications :Mild intermittent asthma without complication Inhale 1 puff into the lungs every 6 (six) hours as needed (use with albuterol). 1 each 5 10/17/19 25 Active famotidine (PEPCID) 40 MG tablet Take 40 mg by mouth daily. Active dextroamphetamine- amphetamine (ADDERALL) 5 mg Tab Take 5 mg by mouth as needed. 11/27/19 25 Active pregabalin (LYRICA) 25 MG capsule Take 25 mg by mouth 2 (two) times a day as needed. 10/07/19 25 Active VYVANSE 20 mg capsule Take 20 mg by mouth every morning. 07/24/19 24 025 Discontin ued(No longer taking) pantoprazole (PROTONIX) 20 MG tablet Take 20 mg by mouth daily. 025 Discontin ued(No longer taking) glucosamine-chondr oitin 500-400 mg Cap Take 1 capsule by mouth daily. 025 Discontin ued(No longer taking) Active Problems Problem Noted Date Diagnosed Date Venous insufficiency of both lower extremities 1 03/12/2024 Assessment & Plan (01/11/2025 2:06 PM EST): On her request I prescribed compression stockings and advised her to put them first thing in the morning before taking legs off the bed. Hyperproteinemia 04/19/2024 Assessment & Plan (01/11/2025 2:05 PM EST): Serum protein electrophoresis returned normal in April 2024. Assessment & Plan (04/21/2024 7:11 PM EST): Serum protein electrophoresis requested to make sure she does not develop abnormal structurally protein that may give rise to MGUS and subsequently multiple myeloma MTHFR gene mutation 04/19/2024 Assessment & Plan (01/11/2025 2:05 PM EST): On her request I agreed to check her folic acid and homocystine that returned normal. Assessment & Plan (04/21/2024 7:10 PM EST): [...] -Encourage exercise -Follow-up results of EGD (at [facility] in 07/2023 per patient) in the context of barium esophagram which demonstrated mild esophageal dysmotility Other dysphagia 09/29/2022 Assessment & Plan (01/10/2025 3:34 PM EST): Encouraged to chew food properly before swallowing and drink water or other fluids between bites to decrease risk of odynophagia and dysphagia. Keep diary of episodes and details regarding the triggering food, time of the day, management strategies etc. Encouraged to schedule formal speech therapy as previously ordered once academic year concludes. Assessment & Plan (04/21/2024 7:10 PM EST): [...] visit. Cold sensitivity 09/29/2022 Assessment & Plan (01/10/2025 3:34 PM EST): Chronic and rather stable-she was not sure whether there is white skin discoloration with cold exposure though painful fingers and toes. Keep warm, dress in layers. Optimize stress management strategies. Avoid vasoconstrictors in OTC products for cold/flu and sinus. Assessment & Plan (04/19/2024 3:11 PM EST): [...] referral for a formal genetic consultation at [facility] with Dr. Rigoberto Owens [...] referral for a formal genetic consultation at [facility] with Dr. Rigoberto Owens [...] PM EDT): Prescribed Breo Ellipta trial by senior net developer architect-Dr. Sean Hammonds. Avoid known triggers especially vaping. [...] to her report present since childhood and bhiz-[id number]-[id number] than in younger age. No need for ER visits or intubation reported Centromere antibody positive 04/03/2020 Assessment & Plan (01/11/2025 2:03 PM EST): Highly positive centromere antibody puts [...] agrees for second opinion rheumatology consultation at [facility] that has been postponed to March 2025. Assessment & Plan (04/21/2024 7:16 PM EST): [...] PO BID. Polyarthralgia 04/03/2020 Assessment & Plan (01/10/2025 3:34 PM EST): Joint protection, energy conservation. Gentle, [...] 24-hours in divided doses. Assessment & Plan (04/19/2024 3:11 PM EST): [...] help if developing Scleroderma, CREST, including avoiding Purple Sage fruits, tomatoes, greasy fried foods, Coffee, garlic, [...] scoliosis, thoracolumbar region 06/19/2019 Assessment & Plan (01/10/2025 3:34 PM EST): Continue proper posture, gentle stretching and muscle strengthening exercises as previously educated. She continues with regular chiropractic therapy that appears somewhat helpful. Assessment & Plan (04/19/2024 3:11 PM EST): [...] Encounters Date Type Department Care Team Description 01/10/2025 3:30 PM EST Office Visit [facility] Rheumatology [address] [place] [address] Omaira Day MD Centromere antibody positive (Primary Dx); Other dysphagia; Other idiopathic scoliosis, thoracolumbar region; Cold sensitivity; Polyarthralgia; Hyperproteinemia; MTHFR gene mutation; Venous insufficiency of both lower extremities 11/13/2024 Telephone [facility] Pulmonary, Allergy [facility] Critical [facility] Medicine [address] [place] [address] Jam Riley MD Results 11/11/2024 6:00 PM EDT - 11/11/2024 11:59 PM EDT Hospital Encounter [facility]FT [facility] [address] [place] [address] Jam Riley MD Discharge Disposition: Home or Self Care 11/05/2024 Transcribe Orders [facility] PFT Lab [address] [place] [address] Jam Riley MD 10/21/2024 4:18 PM EDT - 10/21/2024 11:59 PM EDT Hospital Encounter [facility] Phleb [address] [address] Omaira Day MD Discharge Disposition: Home or Self Care 10/16/2024 Telephone [facility], Allergy and Critical Care Medicine [address] [place] [address] Jam Riley MD Medication Prior Authorization (PA for albuterol-budesonide (AIRSUPRA) 90-80 mcg/actuation inhaler) from Last 3 Months Family History Medical [...] Pulse 85 01/10/2025 3:21 PM EST Temperature 36.4 C (97.5 F) 04/03/2020 1:53 PM EST Respiratory Rate - - Oxygen Saturation 99% 01/10/2025 3:21 PM EST Inhaled Oxygen Concentration - - Weight 65.8 kg (145 lb) 01/10/2025 3:21 PM EST w ith shoes Height 157.5 cm (5' 2.01 ) 01/10/2025 3:21 PM ES T Body Mass Index 26.51 01/10/2025 3:21 PM EST Plan of Treatment Health Maintenance Due Date Last Done Comments DEPRESSION SCREENING 2009 SMOKING Hx and SMOKELESS TOBACCO SCREENING 2010 HEPATITIS C SCREENING 09/05/2015 HIV ONE-TIME SCREENING (18-65 YEARS) 09/05/2015 PAP SMEAR 2018 MENINGOCOCCAL VACCINES (B) (2 of 2 - Trumenba SCDM 2-dose series) 10/22/2019 04/23/2019 PNEUMOCOCCAL VACCINES (0-49 years) (2 of 2 - PCV) 04/23/2020 04/23/2019 COVID-19 VACCINE (3 - season) 2024 07/06/2021, 06/03/2020 Adult Td,Tdap Booster 01/08/2032 01/07/2022, 019 MENINGOCOCCAL VACCINES (ACWY) Completed 07/29/2014 HEPATITIS A VACCINES Completed 02/17/2015, 07/30/19 15 INFLUENZA VACCINE Completed 01/06/2025, , 01/09/2020, Additional history exists HIB VACCINES Aged Out No longer eligi ble based on patient's age to complete this topic IPV VACCINES Aged Out No longer eligi ble based on patient's age to complete this topic Medical Devices Not on file Procedures Procedure Name Priority Date/Time Associated Diagnosis Comments PULMONARY FUNCTION TEST Routine 11/11/2024 6:45 PM EDT Abnormal PFTs Mild intermittent asthma without complication TOTAL PROTEIN CREATININE RATIO, RANDOM URINE Routine 10/21/2024 4:15 PM EDT Positive LEONIE (antinuclear antibody) Centromere antibody positive Polyarthralgia URINALYSIS WITH REFLEX TO URINE CULTURE Routine 10/21/2024 4:15 PM EDT Positive LEONIE (antinuclear antibody) Centromere antibody positive Polyarthralgia from Last 3 Months Results * Pulmonary Function Test Reason for Exam: Asthma, Dyspnea/Shortness of Breath; Type of PFT Test: Spirometry with bronchodilator, DLCO, Lung Volumes; Performing Location: [facility] (11/11/2024 6:45 PM EDT) [facility] Signature FEV1 2.87 liters FVC 3.32 liters FEV1/FVC [...] response. Technical Note: As of 01/16/2024, the [facility] Pulmonary Function Testing (PFT) Laboratory transitioned from [...] please contact the interpreting physician or PFT laboratory worker. For further discussion of this issue please see Ebony et al [facility] 2022;[phone]. Please Note: Not all PFT labs [...] (10/21/2024 4:15 PM EDT) COLOR Yellow Yellow [facility] CLARITY Clear [facility] GLUCOSE Negative Negative [facility] BILI Negative Negative [facility] KETONES Negative Negative [facility] SPECIFIC GRAVITY 1.020 1.005 - 1.030 [facility] BLOOD Negative Negative [facility] PH 6.0 5.0 - 8.0 [facility] Protein-UA Negative Negative [facility] NITRITE Negative Negative [facility] Leukocyte esterase, ur Negative Negative [facility] Urine (Urine) 10/21/2024 4:1 5 PM EDT 10/21/2024 4:24 PM EDT Omaira Day MD LAB URINE ORDERABLES Fin al Result Performing Organization Address City/[facility] Co de Phone Number [address] [address] * TOTAL PROTEIN CREATININE RATIO, RANDOM URINE (10/21/2024 4:15 PM EDT) URINE TOTAL PROTEIN 5.0 mg/dL [facility] URINE CREATININE 79 mg/dL [facility] URINE TP CRE RATIO 0.06 0 - 0.19 [facility] Urine (Urine) 10/21/2024 4:1 5 PM EDT 10/21/2024 4:25 PM EDT Omaira Day MD LAB URINE ORDERABLES Fin al Result Performing Organization Address [facility] de Phone Number [address] [address] from Last 3 Months Insurance [facility] A[facility] [employer] [place] [address] [place] [address] [place] [address] [place] [address] ACO [facility] A[employer] Care Teams Military Pay Technician Relationship Specialty Start Date End Date Leonie Gutierrez MD [address] [place] [address] SELINA AMADOR [id number] PCP - General Internal Medicine 01/25/23 Kennedy Kay MD [address] [facility] [place] [address] Pediatrics 04/10/19 Additional Source Comments The information contained in this document represents components of the legal health record. It is not the complete legal health record.[facility]
--- OUTSIDE RECORDS SUMMARY | 2025-01-13 16:21 | XMS_ITS | Clinical Summary ---
Author Organization [facility] Address [address] [place] [address] Phone Care Team Providers Care Body Work Auto Trimmer Name Role Phone Jessica Chavez MD Primary Care Provider [phone] Allergies No known active allergies Medications No [...] patient's age to complete this topic Insurance [facility] [employer] Care Teams Body Work Auto Trimmer Relationship Specialty Start Date End Date Jessica Chavez MD [address] [facility] , [address] [facility] Physician Associ D/B/A: [facility] [place], [place] PCP - General Internal Medicine 02/06/24
--- OUTSIDE RECORDS SUMMARY | 2025-01-13 16:21 | XMS_ITS | Encounter Summary ---
Author Organization [facility] Address [address] [place] [address] Phone Care Team Providers Care Natural Sciences Manager Name Role Phone Kennedy Kay MD Unavailable [phone] Jessica Gutierrez MD Primary Care Provid er Encounter Details Date Type Department Care Team (Late st Contact Info) Description 05/11/2023 Procedure Pass [facility], Ct Scan - [address] [address] Social History Tobacco Use Types Packs/Day Years [...] as of this encounter Plan of Treatment Not on file documented as of this encounter Visit Diagnoses Not on filedocumented in this encounter Care Teams Natural Sciences Manager Relationship Specialty Start Date End Date Jessica Gutierrez MD [address] [place] [address] PCP - General Internal Medicine 01/25/23 Kennedy Kay MD [address] [place] [address] Pediatrics 04/10/19 documented as of this encounter Additional Source Comments The information contained in this document represents components of the legal health record. It is not the complete legal health record[facility]
--- OUTSIDE RECORDS SUMMARY | 2025-01-13 16:21 | XMS_ITS | Data Portability ---
Author Organization [place] - [facility] Address [address] [place] [id number] Care Team Providers Care Information Systems Project Manager Name Role Phone GWENDOLYN TALLEY Primary Care Provider [phone] Assessment Encounter Date Assessment Date Assessment LastModified by Organization Details LastModified Time 09/17/2020 09/17/2020 Overview/History :T is a 25-year-old female that contacted [facility] for evaluation of sore throat that [...] out. I have advised her to take tlyd-gqw-yxyjwra ibuprofen as needed for any discomfort. We [...] after care of this patient according to [facility]'s infection prevention protocols. [email or web address] Not available 09/17/2020 19:22:16 Plan of Treatment Reminders Order Date Submit Date Provider Last Modified By Organization Details Last Modified Time Details Appointments None recorded . Lab culture, throat 021 09/18/19 ANDRESSA [facility] (Centralized Electronic Ordering - All Locations), Patient Can Go To The Location Of Their Choice, [id number] 15:39:23 Referral None recorded . Procedures None recorded . Surgeries None recorded . Imaging None recorded . Medication Orders None recorded . Patient TargetsNo targets recorded. Patient Instructions Encounter Date Encounter Id Patient Instructions Last Modified By Organization Details Last Modified Time 09/17/2020 [id number] WE CAME TO SEE Y OU TODAY [...] in your condition between 8am-10pm, please call [facility] at [phone] to help navigate your care. [email or web address] Not available 09/17/2020 18:56:17 Reason for Referral None Reported. Results Created Date Observation Date Name Description Value Unit Range Abnormal Flag Note LastModifiedBy Organization Detail LastModifiedTime 09/18/19 21 09/21/2020 THROA T CUL/N ON STREP specimen description SWAB THRT Not Available [facility] (Centralized Electronic Ordering - All Locations) Patient Can Go To The Location Of Their Choice, [id number] 09/21/2020 15:39:23 09/18/1909/21/2020 THROA T CUL/N ON STREP special requests NONE Not Available [facility] (Centralized Electronic Ordering - All Locations) Patient Can Go To The Location Of Their Choice, [id number] 09/21/2020 15:39:23 09/18/19 21 09/21/2020 THROA T CUL/N ON STREP culture 4+ NORMAL DAVID Not Available [facility] (Centralized Electronic Ordering - All Locations) Patient Can Go To The Location Of Their Choice, [id number] 09/21/2020 15:39:23 09/18/1909/21/2020 THROA T CUL/N ON STREP report status FINAL 2020 Not Available [facility] (Centralized Electronic Ordering - All Locations) Patient Can Go To The Location Of Their Choice, [facility] 09/21/2020 15:39:23 Result Notes None recorded. Medical [...] Organization Details LastModified Time Mother Diabetes mellitus [email or web address] Not available 18:44:43 Medical History Condition Response Depression Y Gynecological HistoryNo gynecological history recorded. Obstetrics History GPAL:G 0 P 0 0 0 0 Past Encounters Encounter ID Performer Location Encounter Start Date Encounter Closed Date Diagnosis/Indication Diagnosis SNOMED-CT Code Diagnosis ICD10 Code Diagnosis IMO Codes Diagnosis Note [id number] OLIVIER CASTELLANOS NP [facility] [address] [place] [phone] 09/17/2020 18:42:55 09/17/2020 19:30:21 Pain in throat 073229870 R07.0 Health Concerns Section Related Observation LastModified by Organization Detai ls LastModified Time None Recorded Concern Status LastModified by Organization Details LastModified Time None Recorded Advance Directives Directive None Recorded Payers Insurance Date Sequence Insurance Name Policy Number Policy Venegas Covered Member ID Venegas Member ID Guarantor Name 09/16/2020 1 [facility] [id number] Liss Lipscomb [id number] Liss Lipscomb 09/16/2020 1 *SELF PAY* Liss Lipscomb [id number] Liss Lipscomb Notes Date Note Type Note [...] have strep throat. She has been taking dioe-srk-wiiqhxy Tylenol and ibuprofen to treat her discomfort. She is drinking plenty of fluids. She denies any GI symptoms. No recent sick contacts in no fevers. OLIVIER CASTELLANOS NP [address], [place], [address], [place] [facility] 09/17/2020 19:22:23 OBGyn Episode No OBEpisode recorded.
--- OUTSIDE RECORDS SUMMARY | 2025-01-13 16:21 | XMS_ITS | Encounter Summary ---
Author Organization [facility] Address [address] [facility] [address] [place] [phone] Phone Care Team Providers Care Principal Quality Engineer Name Role Phone Kennedy Kay MD Unavailable [phone] Aline Cole MD Primary Care Provider [phone] Jessica Gutierrez MD Primary Care Provid er Encounter Details Date Type Department Care Team (Late st Contact Info) Description 11/12/2022 Procedure Pass [facility] [address] [place] [address] Social History Tobacco Use Types Packs/Day Years [...] on filedocumented in this encounter Care Teams Principal Quality Engineer Relationship Specialty Start Date End Date Aline Cole MD [address] [place] [address] [place] [address] PCP - General Internal Medicine 09/09/19 01/24/23 Jessica Gutierrez MD [address] [place] [id number] PCP - General Internal Medicine 01/25/23 Kennedy Kay MD [address] [place] [id number] Pediatrics 04/10/19 documented as of this encounter Additional Source Comments The information contained in this document represents components of the legal health record. It is not the complete legal health record.[facility]
== END 2025-01-13 14:24 | disposition home or self-care (01) ==
LOC: HO.HUSH 14:02
PROVIDERS: PCP Internal Medicine; Visit Provider Nurse Practitioner Family
DX: N28.1 Cyst of kidney, acquired (principal); N20.0 Calculus of kidney; R39.15 Urgency of urination; R35.0 Frequency of micturition
CPT/HCPCS: 99203

== ENCOUNTER → 2025-01-13 14:02 | Outpatient (BNVA) | payer OTHER, SELFPAY | PROVIDERS: PCP Internal Medicine; Visit Provider Nurse Practitioner Family | DX: N28.1 Cyst of kidney, acquired (principal); N20.0 Calculus of kidney; R39.15 Urgency of urination; R35.0 Frequency of micturition | CPT/HCPCS: 99202 ==